=== PATIENT | female | born 1990 | race Caucasian/White ===

== ENCOUNTER 2022-08-10 20:41 | Outpatient (REF) | payer BC, SELFPAY ==
[2022-08-15 11:08] LABS: Age Gdln ACOG Testing Note (.); HPV Aptima Negative (Negative); IGP, Aptima HPV, rfx 16/18,45 Note (.)
== END 2022-08-10 20:42 | disposition home or self-care (01) ==
LOC: LAB 20:41
PROVIDERS: PCP Obstetrics & Gynecology; Visit Provider Obstetrics & Gynecology
DX: Z01.419 Encounter for gynecological examination (general) (routine) without abnormal findings (principal)
CPT/HCPCS: 87624; G0145

== ENCOUNTER 2022-10-14 08:26 | Outpatient (OUT) | payer BC, SELFPAY ==
--- NOTE | 2022-10-14 08:29 | US_ITS ---
[address] [address] Patient Name: RAFITA ISAAC MRN: [id number] date: 1990 Sex: F Assigned Patient Location: US Current Patient Location: US Accession/Order Number: [id number] Exam Date: 10/14/2022 08:30 Report Date: 10/14/2022 09:33 At the request of: JESSICA ABRAHAM Procedure: US OB transvaginal EXAMINATION: US OB transvaginal HISTORY: MISSED MENSES COMPARISON: No relevant comparison available. FINDINGS: Transvaginal images Matute intrauterine gestation Gestational sac: 4.4 cm, 10 weeks 0 days CRL: 2.65 cm, 9 weeks 3 days Yolk sac: 5.6 mm Heart rate: 175 beats minute Cervix: Closed, 5.4 cm The ovaries are normal.. Right corpus luteal cyst The uterus is normal, anteverted, anteflexed Clinical age: 8 weeks 2 days Clinical JUAN LUIS: 05/24/2023 Ultrasound age: 9 weeks 3 days Ultrasound JUAN LUIS: 05/16/2023/ US/US OB transvaginal IMPRESSION: Viable matute intrauterine gestation measuring 9 weeks 3 days Electronically authenticated by: WENDY AU Date: 10/14/2022 09:33
== END 2022-10-14 08:27 | disposition home or self-care (01) ==
LOC: US 08:27
PROVIDERS: PCP Obstetrics & Gynecology; Visit Provider Obstetrics & Gynecology
DX: Z34.91 Encounter for supervision of normal pregnancy, unspecified, first trimester (principal); N92.6 Irregular menstruation, unspecified
CPT/HCPCS: 76817

== ENCOUNTER 2022-10-19 15:51 | Outpatient (OUT) | payer BC, SELFPAY ==
[2022-10-19 16:17] LABS: Basophils Absolute Auto 0.1 10^3/uL (0.0-0.1); Basophils Percent Auto 0.5 % (0.2-2.0); Eosinophils Absolute Auto 0.2 10^3/uL (0.0-0.7); Eosinophils Percent Auto 1.5 % (0.9-7.0); Hematocrit 31.8 % (36.0-48.0); Hemoglobin 10.7 g/dL (12.0-16.0); Immature Granulocytes Abs Auto 0.05 10^3/uL (0.00-0.03); Immature Granulocytes Pct Auto 0.5 % (0.0-0.5); Lymphocytes Percent Auto 27.3 % (20.5-60.0); Mean Corpuscular HGB Conc 33.6 g/dL (29.9-35.2); Mean Corpuscular Hemoglobin 28.8 pg (26.7-34.0); Mean Corpuscular Volume 85.5 fL (81.0-99.0); Mean Platelet Volume 9.2 fL (9.5-13.5); Monocytes Absolute Auto 0.6 10^3/uL (0.3-0.8); Monocytes Percent Auto 5.8 % (1.7-12.0); Neutrophils Percent Auto 64.4 % (43.0-75.0); Platelet Count 268 10^3/uL (150-450); Red Blood Count 3.72 10^6/uL (4.20-5.40); Red Cell Distribution Width 13.3 % (11.0-15.0); White Blood Count 10.9 10^3/uL (4.0-11.0)
[2022-10-19 16:23] LABS: Estimated Average Glucose 103 mg/dL; Glycohemoglobin A1C 5.2 % (4.5-6.2)
[2022-10-19 16:54] LABS: Thyroid Stimulating Hormone 0.639 uIU/mL (0.358-3.740)
[2022-10-21 06:09] LABS: HBsAg Screen Negative (Negative); HCV Ab Non Reactive (Non Reactive); HIV Ab/p24 Ag Screen Non Reactive (Non Reactive)
[2022-10-21 07:08] LABS: Rubella Antibodies, IgG 6.78 index (Immune >0.99)
[2022-10-21 10:08] LABS: Rapid Plasma Reagin, Quant Non Reactive (NonRea<1:1)
== END 2022-10-19 15:52 | disposition home or self-care (01) ==
LOC: LAB 15:52
PROVIDERS: PCP Obstetrics & Gynecology; Visit Provider Obstetrics & Gynecology
DX: Z34.80 Encounter for supervision of other normal pregnancy, unspecified trimester (principal); N92.6 Irregular menstruation, unspecified
CPT/HCPCS: 36415; 83036; 84443; 85025; 86592; 86762; 86803; 86850; 86900; 86901; 87086; 87340; 87389

== ENCOUNTER 2023-01-04 17:59 | Outpatient (OUT) | payer BC, SELFPAY ==
--- NOTE | 2023-01-04 | US_ITS ---
[address] [address] Patient Name: RAFITA ISAAC MRN: [id number] date: 1990 Sex: F Assigned Patient Location: US Current Patient Location: Accession/Order Number: [id number] Exam Date: 01/04/2023 18:00 Report Date: 01/05/2023 07:17 At the request of: KARISSA ANDRADE Procedure: US OB anatomy EXAMINATION: US OB anatomy, US OB cervical length HISTORY: ANATOMY SECOND TRIMESTER Z34.92 COMPARISON: No relevant comparison available. TECHNIQUE: Transabdominal sonographic examination was performed for obstetrical and evaluation. FINDINGS: Number: 1 Heart Rate: 145.9 bpm H.B. /min Amniotic Fluid Volume: Subjectively normal position: Cephalic presentation, longitudinal lie Placental Location: Anterior, placental edge 2.7 cm from the internal os. Grade 1 Cervix Length: 5.9 cm , closed Normal anatomy: Lateral ventricles, cerebellum, posterior fossa, nose, lips, orbits, four-chamber heart, RVOT, LVOT, diaphragm, stomach, kidneys, abdominal cord insertion, bladder, umbilical arteries, three-vessel cord, spine, extremities BIOMETRY: BPD: 5.0 cm 21 weeks 1 days , 52% HC: 18.9 cm 21 weeks 1 days, 42% AC: 15.9 cm 21 weeks 0 days, 39% FL: 3.3 cm 20 weeks 2 days , 16% EFW:375.1 grams; 13 ounces, 25% FL/AC: 20.7 FL/BPD: 65.6 HC/AC: 1.2 GESTATIONAL AGE: Age by EDC: 21 weeks 1 days JUAN LUIS by EDC: 05/16/2023 Age by current US: 20 weeks 6 days JUAN LUIS by current US: 05/18/2023 US/US OB anatomy IMPRESSION: Normal anatomy scan *Reference: [facility] Practice Guideline for the performance of Obstetric Ultrasound Examinations, November 20, 2006. Electronically authenticated by: WENDY AU Date: 01/05/2023 07:17
--- NOTE | 2023-01-04 | US_ITS ---
[address] [address] Patient Name: RAFITA ISAAC MRN: [id number] date: 1990 Sex: F Assigned Patient Location: US Current Patient Location: Accession/Order Number: [id number] Exam Date: 01/04/2023 18:00 Report Date: 01/05/2023 07:17 At the request of: KARISSA ANDRADE Procedure: US OB cervical length EXAMINATION: US OB anatomy, US OB cervical length HISTORY: ANATOMY SECOND TRIMESTER Z34.92 COMPARISON: No relevant comparison available. TECHNIQUE: Transabdominal sonographic examination was performed for obstetrical and evaluation. FINDINGS: Number: 1 Heart Rate: 145.9 bpm H.B. /min Amniotic Fluid Volume: Subjectively normal position: Cephalic presentation, longitudinal lie Placental Location: Anterior, placental edge 2.7 cm from the internal os. Grade 1 Cervix Length: 5.9 cm , closed Normal anatomy: Lateral ventricles, cerebellum, posterior fossa, nose, lips, orbits, four-chamber heart, RVOT, LVOT, diaphragm, stomach, kidneys, abdominal cord insertion, bladder, umbilical arteries, three-vessel cord, spine, extremities BIOMETRY: BPD: 5.0 cm 21 weeks 1 days , 52% HC: 18.9 cm 21 weeks 1 days, 42% AC: 15.9 cm 21 weeks 0 days, 39% FL: 3.3 cm 20 weeks 2 days , 16% EFW:375.1 grams; 13 ounces, 25% FL/AC: 20.7 FL/BPD: 65.6 HC/AC: 1.2 GESTATIONAL AGE: Age by EDC: 21 weeks 1 days JUAN LUIS by EDC: 05/16/2023 Age by current US: 20 weeks 6 days JUAN LUIS by current US: 05/18/2023 US/US OB cervical length IMPRESSION: Normal anatomy scan *Reference: [facility] Practice Guideline for the performance of Obstetric Ultrasound Examinations, November 20, 2006. Electronically authenticated by: WENDY AU Date: 01/05/2023 07:17
== END 2023-01-04 18:00 | disposition home or self-care (01) ==
LOC: US 18:00
PROVIDERS: PCP Obstetrics & Gynecology; Visit Provider Physician Assistant
DX: Z34.92 Encounter for supervision of normal pregnancy, unspecified, second trimester (principal); Z3A.21 21 weeks gestation of pregnancy
CPT/HCPCS: 76805; 76817

== ENCOUNTER 2023-01-14 12:02 | Outpatient (OUT) | payer BC, SELFPAY ==
[2023-01-14 13:15] LABS: Basophils Absolute Auto 0.1 10^3/uL (0.0-0.1); Basophils Percent Auto 0.4 % (0.2-2.0); Eosinophils Absolute Auto 0.2 10^3/uL (0.0-0.7); Eosinophils Percent Auto 1.5 % (0.9-7.0); Hematocrit 32.2 % (36.0-48.0); Hemoglobin 10.5 g/dL (12.0-16.0); Immature Granulocytes Abs Auto 0.37 10^3/uL (0.00-0.03); Immature Granulocytes Pct Auto 2.2 % (0.0-0.5); Lymphocytes Absolute Auto 2.8 10^3/uL (1.2-3.8); Lymphocytes Percent Auto 17.1 % (20.5-60.0); Mean Corpuscular HGB Conc 32.6 g/dL (29.9-35.2); Mean Corpuscular Hemoglobin 28.9 pg (26.7-34.0); Mean Corpuscular Volume 88.7 fL (81.0-99.0); Monocytes Absolute Auto 0.7 10^3/uL (0.3-0.8); Monocytes Percent Auto 4.4 % (1.7-12.0); Neutrophils Absolute Auto 12.3 10^3/uL (1.4-6.5); Neutrophils Percent Auto 74.4 % (43.0-75.0); Platelet Count 268 10^3/uL (150-450); Red Blood Count 3.63 10^6/uL (4.20-5.40); Red Cell Distribution Width 13.8 % (11.0-15.0); White Blood Count 16.5 10^3/uL (4.0-11.0)
[2023-01-14 13:33] LABS: Glucose 1 Hour 136 mg/dL
== END 2023-01-14 12:03 | disposition home or self-care (01) ==
PROVIDERS: Physician Assistant; PCP Family Medicine; Visit Provider Obstetrics & Gynecology
DX: Z13.1 Encounter for screening for diabetes mellitus (principal)
CPT/HCPCS: 36415; 82950; 85025

== ENCOUNTER 2023-03-22 15:08 | Outpatient (OUT) | payer BC, SELFPAY ==
--- NOTE | 2023-03-22 15:11 | US_ITS ---
[address] [address] Patient Name: RAFITA ISAAC MRN: [id number] date: 1990 Sex: F Assigned Patient Location: [facility] Current Patient Location: [facility] Accession/Order Number: [id number] Exam Date: 03/22/2023 15:11 Report Date: 03/22/2023 16:05 At the request of: JESSICA ABRAHAM Procedure: US OB growth EXAMINATION: US OB growth HISTORY: LGA COMPARISON: No relevant comparison available. FINDINGS: Heart Rate: 149.0 bpm Amniotic Fluid Volume: 10.7 cm Number: 1.0 Position: Cephalic presentation Maximum Vertical Pocket: 3.2 cm cm 1.9 cm cm 3.3 cm cm 2.2 cm cm BIOMETRY: BPD: 8.4 cm cm; 33 weeks 6 days; 88% HC: 30.6 cmcm; 34 weeks 1 days , 67% AC: 31.2 cm cm; 35 weeks 1 days, >97% FL: 6.3 cm cm; 32 weeks 4 days; 51.0 % % EFW: 2385.3 grams, 5 lbs. 4 oz., 95% FL/AC: 20.2 FL/BPD: 74.9 HC/AC: 1.0 GESTATIONAL AGE: Age by EDC: 32 weeks 1 days JUAN LUIS by EDC: 05/16/2023 Age by US: 34 weeks 0 days JUAN LUIS by US: 05/03/2023 US/US OB growth IMPRESSION: Large for gestational age. Estimated weight 95th percentile Electronically authenticated by: WENDY AU Date: 03/22/2023 16:05
--- OUTSIDE RECORDS SUMMARY | 2023-03-22 15:12 | XMS_ITS | CCD ---
Author Name Unknown Address [address] [place] [address] Organization [facility] Care Team Providers Care Manager Mac Name Role Phone Brynn Bah Primary Care Provider BRYNN BAH Primary Care Unavailable COLTON GOODMAN Referring Unavailable AGUILAR WOODY Referring Unavailable BRYNN BAH Primary Care Unavailable DR JESSICA ABRAHAM Admitting Unavailable JARAD, DR LOPEZ Attending Unavailable DR JESSICA ABRAHAM Consulting Unavailable KARISSA ANDRADE Attending Unavailable JESSICA ABARHAM Attending Unavailable KARISSA ANDRADE Attending Unavailable JESSICA ABRAHAM Attending Unavailable Medications Current Medications Medication Drug Class(es) Dates Sig (Normalized) Sig (Original) azelastine hydrochloride 0.137 mg/actuat metered dose nasal spray (2 sources) Histamine-1 Receptor Antagonist Start: 04-28-2019 take 1 spray(s) nasal route twice daily azelastine (ASTELIN) 0.1 % nasal spray SPRAY 1 SPRAY INTO EACH NOSTRIL TWICE A DAY 0 04/28/2019 Active Ethinyl Estradiol / norgestimate (2 sources) Progestin, Estrogen Start: 05-27-2019 take 1 tablet by mouth once daily SIX-AT-SUHCVKWB 0.18/0.215/0.25 MG-25 MCG TABS TAKE 1 TABLET BY MOUTH EVERY DAY 0 05/27/2019 Active Problems Problem Classification Problem Date Documented Date Episodic/Chronic Genitourinary symptoms and ill-defined conditions (3 sources) Increased frequency of urination; Translations: [Incomplete emptying of bladder] Episodic Immunizations and screening for infectious disease (1 source) Encounter for screening for human papillomavirus (HPV); Translations: [ENC SCREENING HUMAN PAPILLOMAVIRUS] Onset: 08-04-2021 Episodic Other diseases of bladder and urethra (1 source) Overactive bladder; Translations: [OAB (overactive bladder)] Chronic Other screening for suspected conditions (not mental disorders or infectious disease) (4 sources) Encounter for screening for malignant neoplasm of cervix; Translations: [ENC SCREENING MALIG NEOPLASM CERV] Onset: 08-03-2021 Episodic Results Test Name Value Interpretation Reference Range Facil ity PAP ACOG PANEL 2: 30 to 65on 08-05-2021 . . Normal [facility] Comment on above: Result Comment: Perf ormed at: WB Performed By: #### [id number] #### [facility] [address] [address] [address] Jazmin Turner Age Gdln ACOG Testing 30-65 Normal [facility] Comment on above: Performed By: #### [id number] #### [facility] [address] [address] [address] Jazmin Turner DIAGNOSIS: Comment Normal [facility] Comment on above: Result Comment: NEGA TIVE FOR INTRAEPITHELIAL LESION OR MALIGNANCY. Performed at: WB Performed By: #### [id number] #### [facility] [address] [address] [address] Jazmin Turner HPV Aptima Negative Normal Negative [facility] Comment on above: Result Comment: This nucleic acid amplification test detects fourteen high-risk HPV types (16,18,31,33,35,39,45,51,52,56,58,59,66,68) without differentiation. Performed at: =G Performed By: #### [id number] #### [facility] [address] [address] [address] Jazmin Turner Methodology: Comment Normal [facility] Comment on above: Result Comment: This liquid based ThinPrep(R) pap test was screened with the use of an image guided system. Performed at: WB Performed By: #### [id number] #### [facility] [address] [place] [address] Dr. Jazmin Turner Note: Comment Normal [facility] Comment on above: Result Comment: The Pap smear is a screening test designed to aid in the detection of premalignant and malignant conditions of the uterine cervix. It is not a diagnostic procedure and should not be used as the sole means of detecting cervical cancer. Both false-positive and false-negative reports do occur. . Performed at: WB Performed By: #### [id number] #### [facility] [address] [place] [address] Dr. Jazmin Turner Performed by: Comment Normal [facility] Comment on above: Result Comment: Tong Watts, Supervisor Lime (ASCP) Performed at: WB Performed By: #### [id number] #### [facility] [address] [address] [address] Jazmin Turner Specimen adequacy: Comment Normal [facility] Comment on above: Result Comment: Sati sfactory for evaluation. Endocervical and/or squamous metaplastic cells (endocervical component) are present. Performed at: WB Performed By: #### [id number] #### [facility] [address] [place] [address] Dr. Jazmin Turner Cult,Urineon 12-24-2019 Cult,Urine Specimen Description .CLEAN CATCH URINE Special Requests NOT REPORTED Culture NO SIGNIFICANT GROWTH Report Status FINAL 12/24/2019 [facility] Comment on above: Performed By: #### U RC #### [facility] [address] [place], [place] [id number] Abstract Searcher: Robert Ross MD [facility] [address] [place] [address] [place] [address] Abstract Searcher: Tariq Mesa MD Urinalysis w/ Microon 2019 ----- [facility] Comment on above: Performed By: #### U AMIC #### [facility] [address] [place] [address] Abstract Searcher: Tariq Mesa MD Acetoacetic Acid,Ur Negative Normal NEG [facility] Comment on above: Performed By: #### U AMIC #### [facility] [address] [place] [address] Abstract Searcher: Tariq Mesa MD Bilirubin, SemiQt,Ur Negative Normal NEG [facility] Comment on above: Performed By: #### U AMIC #### [facility] [address] [place] [address] Abstract Searcher: Tariq Mesa MD Color (U) YELLOW Normal YEL [facility] Comment on above: Performed By: #### U AMIC #### [facility] [address] [place] [address] Abstract Searcher: Tariq Mesa MD Epithelial cells LM.HPF (Urine sed) [#/Area] None Normal 0-25 [facility] Comment on above: Performed By: #### U AMIC #### [facility] [address] [place] [address] Abstract Searcher: Tariq Mesa MD Glucose Ql (U) Negative Normal NEG [facility] in [facility] Comment on above: Performed By: #### U AMIC #### [facility] [address] [place] [address] Abstract Searcher: Tariq Mesa MD Hemoglobin, Ur 2+ Abnormal NEG [facility] in [facility] Comment on above: Performed By: #### U AMIC #### [address] [place], [facility] Abstract Searcher: Tariq Mesa MD Leukocyte esterase Test strip Ql (U) Negative Normal NEG [facility] Comment on above: Performed By: #### U AMIC #### [facility] [address] [place], [facility] Abstract Searcher: Tariq Mesa MD Nitrite,Ur Negative Normal NEG [facility] Comment on above: Performed By: #### U AMIC #### [facility] [address] [place] [address] Abstract Searcher: Tariq Mesa MD pH (U) 7.5 [pH] Normal 5.0-9.0 [facility] Comment on above: Performed By: #### U AMIC #### [facility] [address] [place] [id number] Abstract Searcher: Tariq Mesa MD Protein Ql (U) Negative Normal NEG [facility] Comment on above: Performed By: #### U AMIC #### [facility] [address] [place] [id number] Abstract Searcher: Tariq Mesa MD RBC (U) [#/Vol] None Normal 0-2 [facility] Comment on above: Performed By: #### U AMIC #### [facility] [address] [place] [address] Abstract Searcher: Tariq Mesa MD Specific gravity (U) [Rel density] 1.020 Normal 1.010-1.020 [facility] Comment on above: Performed By: #### U AMIC #### [address] [place] [address] Abstract Searcher: Tariq Mesa MD Turbidity CLEAR Normal CLEAR [facility] Comment on above: Performed By: #### U AMIC #### [address] [place] [address] Abstract Searcher: Tariq Mesa MD Urobilinogen,Ur Normal Normal NORM [facility] Comment on above: Performed By: #### U AMIC #### [address] [place] [address] Abstract Searcher: Tariq Mesa MD WBC (U) [#/Vol] None Normal 0-5 [facility] Comment on above: Performed By: #### U AMIC #### [facility] [address] [place] [address] [place] [address] Abstract Searcher: Tariq Mesa MD Amorphous sediment LM Ql (Urine sed) NOT REPORTED Normal [facility] Comment on above: Performed By: #### U AMIC #### [facility] [address] [place] [id number] Abstract Searcher: Tariq Mesa MD Bacteria LM.HPF (Urine sed) [#/Area] NOT REPORTED Normal NONE [facility] Comment on above: Performed By: #### U AMIC #### [facility] [address] [place] [address] Abstract Searcher: Tariq Mesa MD Casts LM.LPF (Urine sed) [#/Area] NOT REPORTED Normal [facility] Comment on above: Performed By: #### U AMIC #### [facility] [address] [place] [address] Abstract Searcher: Tariq Mesa MD Comment NOT REPORTED Normal [facility] Comment on above: Performed By: #### U AMIC #### [facility] [address] [place] [address] Abstract Searcher: Tariq Mesa MD Crystals LM Nom (Urine sed) NOT REPORTED Normal NONE [facility] Comment on above: Performed By: #### U AMIC #### [facility] [address] [place] [address] Abstract Searcher: Tariq Mesa MD Epithelial, Renal NOT REPORTED Normal 0 [facility] Comment on above: Performed By: #### U AMIC #### [facility] [address] [place] [address] Abstract Searcher: Tariq Mesa MD Mucus Strands NOT REPORTED Normal [facility] Comment on above: Performed By: #### U AMIC #### [facility] [address] [place] [address] Abstract Searcher: Tariq Mesa MD Other Observations NOT REPORTED Normal NREQ [facility] Comment on above: Performed By: #### U AMIC #### [facility] [address] [place] [address] Abstract Searcher: Tariq Mesa MD Trichomonas NOT REPORTED Normal NONE [facility] Comment on above: Performed By: #### U AMIC #### [facility] [address] [place] [address] Abstract Searcher: Tariq Mesa MD Yeast LM Ql (Urine sed) NOT REPORTED Normal NONE [facility] Comment on above: Performed By: #### U AMI #### [facility] [address] [place] [address] Abstract Searcher: Tariq Mesa MD Urinalysis with Microscopico n 12-23-2019 Amorphous, UA NOT REPORTED None [facility], [place] Bacteria, UA NOT REPORTED None [place], [place] Bilirubin Urine Negative NEGATIVE [place], [place] Casts UA NOT REPORTED /LPF [facility], [place] Color, UA YELLOW YELLOW [place], [place] Crystals, UA NOT REPORTED None /HPF [facility], [place] Epithelial Cells UA None [place], [place] Glucose, Ur Negative NEGATIVE [place] Interpretation and review of laboratory results Abnormal [place] Ketones Ql (U) Negative NEGATIVE [place] Leukocyte esterase Test strip Ql (U) Negative NEGATIVE [place] Mucus, UA NOT REPORTED None [place], [place] Nitrite, Urine Negative NEGATIVE [place] Other Observations UA NOT REPORTED NOT REQ. [place] pH, UA 7.5 [place] Protein (U) [Mass/Vol] Negative NEGATIVE [place] RBC (U) [#/Vol] None [facility], [place] Renal Epithelial, UA NOT REPORTED 0 /HPF [place], [place] Specific [place], UA 1.020 [place], [place] Trichomonas, UA NOT REPORTED None [facility] [place] Turbidity UA CLEAR CLEAR [place] Urinalysis Comments NOT REPORTED [place], [place] Urine Hgb 2+ Abnormal NEGATIVE [place] Urobilinogen, Urine Normal Normal [place] WBC, UA None [facility], [place] Yeast, UA NOT REPORTED None [place], [place] - [facility] [place] Cult,Urineon 07-27-2019 Cult,Urine Specimen Description .CLEAN CATCH URINE Special Requests NOT REPORTED Culture NO SIGNIFICANT GROWTH Report Status FINAL 07/26/2019 [facility] Comment on above: Performed By: #### U RC #### [facility] [address] [facility] [place] [address] Abstract Searcher: Robert Ross MD [facility] [address] [place] [address] Abstract Searcher: Tariq Mesa MD Urinalysis w/ Microon 2019 ----- [facility] Comment on above: Performed By: #### U AMIC #### [address] [place] [address] Abstract Searcher: Tariq Mesa MD Acetoacetic Acid,Ur Negative Normal NEG [facility] Comment on above: Performed By: #### U AMIC #### [facility] [address] [place] [address] [place] [address] Abstract Searcher: Tariq Mesa MD Bacteria LM.HPF (Urine sed) [#/Area] 1+ Abnormal NONE [facility] Comment on above: Performed By: #### U AMIC #### [address] [place] [address] Abstract Searcher: Tariq Mesa MD Bilirubin, SemiQt,Ur Negative Normal NEG [facility] Comment on above: Performed By: #### U AMIC #### [facility] [address] [place] [address] [place] [address] Abstract Searcher: Tariq Mesa MD Color (U) YELLOW Normal YEL [facility] Comment on above: Performed By: #### U AMIC #### [facility] [address] [place] [address] [place] [address] Abstract Searcher: Tariq Mesa MD Epithelial cells LM.HPF (Urine sed) [#/Area] 2 TO 5 Normal 0-25 [facility] Comment on above: Performed By: #### U AMIC #### [facility] [address] [place] [address] Abstract Searcher: Tariq Mesa MD Glucose Ql (U) Negative Normal NEG [facility] in Hospital Comment on above: Performed By: #### U AMIC #### [facility] [address] [place] [address] Abstract Searcher: Tariq Mesa MD Hemoglobin, Ur 1+ Abnormal NEG [facility] in Hospital Comment on above: Performed By: #### U AMIC #### [facility] [address] [place] [id number] Abstract Searcher: Tariq Mesa MD Leukocyte esterase Test strip Ql (U) Negative Normal NEG [facility] Comment on above: Performed By: #### U AMIC #### [facility] [address] [place], [facility] Abstract Searcher: Tariq Mesa MD Mucus Strands TRACE Abnormal NONE [facility] Comment on above: Performed By: #### U AMIC #### [address] [place] [id number] Abstract Searcher: Tariq Mesa MD Nitrite,Ur Negative Normal NEG [facility] Comment on above: Performed By: #### U AMIC #### [facility] [address] [place], [facility] Abstract Searcher: Tariq Mesa MD pH (U) 7.5 [pH] Normal 5.0-9.0 [facility] Comment on above: Performed By: #### U AMIC #### [facility] [address] [place] [address] Abstract Searcher: Tariq Mesa MD Protein Ql (U) Negative Normal NEG [facility] Comment on above: Performed By: #### U AMIC #### [facility] [address] [place] [address] Abstract Searcher: Tariq Mesa MD RBC (U) [#/Vol] 0 TO 2 Normal 0-2 [facility] Comment on above: Performed By: #### U AMIC #### [facility] [address] [place] [id number] Abstract Searcher: Tariq Mesa MD Specific gravity (U) [Rel density] 1.010 Normal 1.010-1.020 [facility] Comment on above: Performed By: #### U AMIC #### [facility] [address] [place] [id number] Abstract Searcher: Tariq Mesa MD Turbidity CLEAR Normal CLEAR [facility] Comment on above: Performed By: #### U AMIC #### [facility] [address] [place] [id number] Abstract Searcher: Tariq Mesa MD Urobilinogen,Ur Normal Normal NORM [facility] Comment on above: Performed By: #### U AMIC #### [facility] [address] [place] [id number] Abstract Searcher: Tariq Mesa MD WBC (U) [#/Vol] None Normal 0-5 [facility] Comment on above: Performed By: #### U AMIC #### [facility] [address] [place] [address] Abstract Searcher: Tariq Mesa MD Amorphous sediment LM Ql (Urine sed) NOT REPORTED Normal [facility] Comment on above: Performed By: #### U AMIC #### [facility] [address] [place] [address] Abstract Searcher: Tariq Mesa MD Casts LM.LPF (Urine sed) [#/Area] NOT REPORTED Normal [facility] Comment on above: Performed By: #### U AMIC #### [facility] [address] [place] [address] Abstract Searcher: Tariq Mesa MD Comment NOT REPORTED Normal [facility] Comment on above: Performed By: #### U AMIC #### [facility] [address] [place] [address] Abstract Searcher: Tariq Mesa MD Crystals LM Nom (Urine sed) NOT REPORTED Normal [facility] Comment on above: Performed By: #### U AMIC #### [facility] [address] [place] [address] Abstract Searcher: Tariq Mesa MD Epithelial, Renal NOT REPORTED Normal [address] [place] [address] Comment on above: Performed By: #### U AMIC #### [facility] [address] [place] [address] Abstract Searcher: Tariq Mesa MD Other Observations NOT REPORTED Normal NREQ [facility] Comment on above: Performed By: #### U AMIC #### [facility] [address] [place] [address] Abstract Searcher: Tariq Mesa MD Trichomonas NOT REPORTED Normal [facility] Comment on above: Performed By: #### U AMIC #### [facility] [address] [place] [address] Abstract Searcher: Tariq Mesa MD Yeast LM Ql (Urine sed) NOT REPORTED Normal [facility] Comment on above: Performed By: #### U AMIC #### [facility] [address] [place] [address] Abstract Searcher: Tariq Mesa MD Urinalysis with Microscopico n 07-25-2019 Amorphous, UA NOT REPORTED None [facility] [place] [place] Bacteria, UA 1+ Abnormal None [facility] [place] Bilirubin Urine Negative NEGATIVE [facility] [place] Casts UA NOT REPORTED /LPF [facility] [place] Color, UA YELLOW YELLOW [facility] Crystals, UA NOT REPORTED None /HPF [facility] [place] Epithelial Cells UA 2 TO 5 [facility], [place] Glucose, Ur Negative NEGATIVE [facility], [place] Interpretation and review of laboratory results Abnormal [facility], [place] Ketones Ql (U) Negative NEGATIVE [facility], [place] Leukocyte esterase Test strip Ql (U) Negative NEGATIVE [facility], [place] Mucus, UA TRACE Abnormal None [facility], [place] Nitrite, Urine Negative NEGATIVE [facility], [place] Other Observations UA NOT REPORTED NOT REQ. [facility], [place] pH, UA 7.5 [facility], [place] Protein (U) [Mass/Vol] Negative NEGATIVE [facility], [place] RBC (U) [#/Vol] 0 TO 2 [facility], [place] Renal Epithelial, UA NOT REPORTED 0 /HPF Me [facility], [place] Specific [place], UA 1.010 [facility], [place] Trichomonas, UA NOT REPORTED None [facility], [place] Turbidity UA CLEAR CLEAR [place] Urinalysis Comments NOT REPORTED [facility], [place] Urine Hgb 1+ Abnormal NEGATIVE [facility], [place] Urobilinogen, Urine Normal Normal [place], [place] WBC, UA None [facility], [place] Yeast, UA NOT REPORTED None [place] - [place] Encounters Encounter Date Encounter Type Care Provider Facility Start: 03-08-2023 End: 03-08-2023 ambulatory JESSICA ABRAHAM Not Available Start: 02-22-2023 End: 02-22-2023 ambulatory KARISSA ANDRADE Not Available Start: 02-09-2023 End: 02-09-2023 ambulatory JESSICA ABRAHAM Not Available Start: 01-11-2023 End: 01-11-2023 ambulatory KARISSA ANDRADE Not Available Start: 08-03-2021 End: 08-03-[address] JESSICA ABRAHAM Facility: Start: 12-23-2019 End: 12-24-2019 Patient encounter procedure BRYNN BAH [facility] Start: 12-23-2019 End: 12-23-2019 Subsequent hospital visit by physician Brynn DAVID Laboratory Comment on above: Urinary frequency; OAB (overactive bladder); Incomplete bladder emptying Start: 07-25-2019 End: 07-26-2019 Patient encounter procedure AGUILAR WOODY [facility] Start: 07-25-2019 End: 07-25-2019 Subsequent hospital visit by physician Brynn Bah [facility] Laboratory Comment on above: Urinary frequency Procedures Date Procedure Procedure Detail Performing Clinician Start: 12-23-2019 Culture bacterial quanttative colony count urine BRYNN BAH Start: 12-23-2019 Urnls dip stick/tabl et reagent auto microscopy BRYNN BAH Start: 12-23-2019 Urnls dip stick/tabl et reagent auto microscopy Colton Goodman Work Phone: Start: 07-25-2019 Culture bacterial quanttative colony count urine BRYNN BAH Start: 07-25-2019 Urnls dip stick/tabl et reagent auto microscopy BRYNN BAH Start: 07-25-2019 Urnls dip stick/tabl et reagent auto microscopy Aguilar W Bong Work Phone: Plan of Treatment Date Care Activity Detail Author Start: 01-13-2020 End: 01-13-2020 Procedure visit 01/13/2020 Procedure visit Urology Danyel Carson MD [address] [facility], [address] [place] [address] [facility] Start: 10-31-2019 End: 10-31-2019 Office Visit 10/31/2019 Office Visit Urology Aguilar Woody, ENGINEERING PRODUCTION LIAISON - ORDER DEPARTMENT SUPERVISOR [address] [facility] [address] [place] [id number] [facility] Start: 10-22-2019 Influenza vaccination [place], [place] Start: 10-14-2015 DTaP/Tdap/Td vaccine (7 - Td) DTaP/Tdap/Td vaccine (7 - Td) [place], [place] Start: 2009 Screening for malign ant neoplasm of cervix Cervical cancer screen [place] Start: 10-12-2007 DTaP/Tdap/Td vaccine (1 - Tdap) DTaP/Tdap/Td vaccine (1 - Tdap) [place] Start: 10-12-2003 HIV screening HIV screen [facility] [place], [place] Start: 1994 Pneumococcal 0-64 ye ars Vaccine (1 of 1 - PPSV23) Pneumococcal 0-64 years Vaccine (1 of 1 - PPSV23) [place], [place] Start: 1989 Varicella vaccine (1 of 2 - 2-dose childhood series) Varicella vaccine (1 of 2 - 2-dose childhood series) [place] End: 12-23-2019 Culture, Urine Culture, Urine Microbiology Routine Urinary frequency OAB (overactive bladder) Incomplete bladder emptying 1 Occurrences starting 12/23/2019 until 12/23/2019 [place] Comment on above: 1 Occurrences starti ng 12/23/2019 until 12/23/2019 Culture, Urine [place] End: 07-25-2019 Culture, Urine Culture, Urine Microbiology Routine Urinary frequency 1 Occurrences starting 07/25/2019 until 07/25/2019 [place], [place] Comment on above: 1 Occurrences starti ng 07/25/2019 until 07/25/2019 Payers Date Payer Category Payer Unknown [id number] 2014 Private Health Insurance [employer] A ETNA NAP CHOICE POS II xxxxxxxxxx 2014-Present [phone] [address] [place] [address] xxxxxxxxxx [id number] 1988 Unknown [id number] .173 1988 Unknown [id number] .[id number] .173 1988 Unknown [id number] .593 1988 Unknown [id number] [id number] .1259 1988 Unknown [id number] 2.16.840.1.535719.3.579.2 .1259 1988 Unknown [id number] 2.16.840.1.137778.3.579.2 .1259 1988 Unknown [id number] .1259 1959 Private Health Insurance [id number] Social History Date Type Detail Facility Start: 07-25-2019 End: 12-23-2019 Tobacco smoking status NHIS Current every day smoker [place], [place] History of tobacco use Cigarette Smoker M [place], [place] Start: 07-25-2019 End: 12-23-2019 Cigarettes smoked current (pack per day) - Reported [place], [place] Start: 12-23-2019 Tobacco use and exposure Never used [place], [place] Start: 07-25-2019 End: 12-23-2019 Alcohol intake Current drinker of alcohol (finding) [place] Start: 07-25-2019 Alcohol Comment rare Vj Joann [place], [place] Sex Assigned At Not on file [place], [place] Assessments Diagnosis Urinary frequency OAB (overactive bladder) Hypertonicity of bladder Incomplete bladder emptying Diagnosis Urinary frequency Advance Directives No Advanced Directives Records FoundDocuments on File Type Date Recorded 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 ACP-Advance Directive ACP-Power of Fiber Optics Engineer Documents on File Type Date Recorded 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 Advance Directives and Living Will Power of Fiber Optics Engineer Summary Purpose Family History No Family History Records FoundNo Family History Records FoundNo Family History Records Found Additional Source Comments INFORMATION SOURCE (unrecogn ized section and content) DATE CREATED AUTHOR 12/25/2019 [facility] DATE CREATED AUTHOR AUTHOR'S ORGANIZ ATION 08/06/2021 [facility] DATE CREATED AUTHOR AUTHOR'S ORGANIZ ATION 03/09/2023 [facility] FOR RECORDS PERTAINING TO PATIENTS WHO ARE OR HAVE BEEN ENROLLED IN A CHEMICAL DEPENDENCY/SUBSTANCEABUSE PROGRAM, SOME INFORMATION MAY BE OMITTED. This clinical summary was aggregated from multiple sources. Caution should be exercised in using it in the provision of clinical care. This summary normalizes information from multiple sources, and as a consequence, information in this document may materially change the coding, format and clinical context of patient data. In addition, data may be omitted in some cases. CLINICAL DECISIONS SHOULD BE BASED ON THE PRIMARY CLINICAL RECORDS. [facility] [employer] [facility]. provides no warranty or guarantee of the accuracy or completeness of information in this document.
== END 2023-03-22 15:09 | disposition home or self-care (01) ==
LOC: NOMS 15:09
PROVIDERS: PCP Family Medicine; Visit Provider Obstetrics & Gynecology
DX: O36.63X1 Maternal care for excessive fetal growth, third trimester, fetus 1 (principal); Z3A.32 32 weeks gestation of pregnancy
CPT/HCPCS: 76816

== ENCOUNTER 2023-03-27 08:05 | Outpatient (OUT) | payer BC, SELFPAY ==
--- NOTE | 2023-03-27 | US_ITS ---
[address] [address] Patient Name: RAFITA ISAAC MRN: [id number] date: 1990 Sex: F Assigned Patient Location: [facility] Current Patient Location: Accession/Order Number: [id number] Exam Date: 03/27/2023 14:00 Report Date: 03/27/2023 15:25 At the request of: KARISSA ANDRADE Procedure: US OB BPP w non-stress EXAMINATION: US OB BPP w non-stress HISTORY: EXCESSIVE GROWTH O36.63X0 COMPARISON: No relevant comparison available. TECHNIQUE: Ultrasound biophysical profile was performed in the radiology department. non-reactive stress testing was performed by nursing staff in the birthing center. FINDINGS: BREATHING MOVEMENTS: 2.0 GROSS BODY MOVEMENTS: 2.0 TONE: 2.0 QUALITATIVE AMNIOTIC FLUID VOLUME: 2.0 PRESENTATION: CEPHALIC HEART RATE: 138.5 bpm H.B./min AMNIOTIC FLUID VOLUME: 13.3 cm cm GESTATIONAL AGE: 32 weeks 6 days CONCLUSION: Total biophysical profile score: 8.0 Electronically authenticated by: WENDY AU Date: 03/27/2023 15:25
--- OUTSIDE RECORDS SUMMARY | 2023-03-27 08:22 | XMS_ITS | CCD ---
Author Name Unknown Address [address] [place] [address] Organization [facility] Care Team Providers Care Master [employer] Name Role Phone Brynn Bah Primary Care Provider [phone] BRYNN BAH Primary Care Unavailable COLTON GOODMAN Referring Unavailable AGUILAR WOODY Referring Unavailable BRYNN BAH Primary Care Unavailable DR JESSICA ABRAHAM Admitting Unavailable JARAD, DR LOPEZ Attending Unavailable DR JESSICA ABRAHAM Consulting Unavailable KARISSA ANDRADE Attending Unavailable JESSICA ABRAHAM Attending Unavailable KARISSA ANDRADE Attending Unavailable KARISSA ANDRADE Attending Unavailable JESSICA [...] take 1 tablet by mouth once daily [id number] 0.18/0.215/0.25 MG-25 MCG TABS TAKE 1 TABLET [...] 30 to 65on 08-05-2021 . . Normal [facility] Comment on above: Result Comment: Perf ormed at: WB Performed By: #### [id number] #### [facility] [address] [address] [address] Jazmin Turner Age Gdln ACOG Testing 30-65 [facility] Comment on above: Performed By: #### [id number] #### [facility] [address] [address] [address] Jazmin Turner DIAGNOSIS: Comment Normal [facility] Comment on above: Result Comment: NEGA TIVE FOR INTRAEPITHELIAL LESION OR MALIGNANCY. Performed at: WB Performed By: #### [id number] #### [facility] [address] [address] [address] Jazmin Turner HPV Aptima Negative Normal Negative [facility] Comment on above: Result Comment: This nucleic acid amplification test detects fourteen high-risk HPV types (16,18,31,33,35,39,45,51,52,56,58,59,66,68) without differentiation. Performed at: =G Performed By: #### [id number] #### [facility] [address] [address] [address] Jazmin Turner Methodology: Comment [facility] Comment on above: Result Comment: This liquid based ThinPrep(R) pap test was screened with the use of an image guided system. Performed at: WB Performed By: #### [id number] #### [facility] [address] [place] [address] Dr. Jazmin Turner Note: Comment Normal [facility] Comment on above: Result Comment: The Pap smear is a screening test designed to aid in the detection of premalignant and malignant conditions of the uterine cervix. It is not a diagnostic procedure and should not be used as the sole means of detecting cervical cancer. Both false-positive and false-negative reports do occur. . Performed at: WB Performed By: #### [id number] #### [facility] [address] [address] [address] Jazmin Turner Performed by: Comment Normal [facility] Comment on above: Result Comment: Tong Watts, Insurance Rater (ASCP) Performed at: WB Performed By: #### [id number] #### [facility] [address] [address] [address] Jazmin Turner Specimen adequacy: Comment Normal [facility] Comment on above: Result Comment: Sati sfactory for evaluation. Endocervical and/or squamous metaplastic cells (endocervical component) are present. Performed at: WB Performed By: #### [id number] #### [facility] [address] [place] [address] Dr. Jazmin Turner Cult,Urineon 12-24-2019 Cult,Urine Specimen Description .CLEAN CATCH URINE Special Requests NOT REPORTED Culture NO SIGNIFICANT GROWTH Report Status FINAL 12/24/2019 [facility] Comment on above: Performed By: #### U RC #### [facility] [address] [place] [address] Metal Worker: Robert Ross MD [facility] [address] [place] [address] [place] [address] Metal Worker: Tariq Mesa MD Urinalysis w/ Microon 2019 ----- Normal [facility] Comment on above: Performed By: #### U AMIC #### [facility] [address] [place] [address] Metal Worker: Tariq Mesa MD Acetoacetic Acid,Ur Negative [facility] Comment on above: Performed By: #### U AMIC #### [facility] [address] [place] [address] Metal Worker: Tariq Mesa MD Bilirubin, SemiQt,Ur Negative Normal NEG [facility] Comment on above: Performed By: #### U AMIC #### [facility] [address] [place] [address] Metal Worker: Tariq Mesa MD Color (U) YELLOW Normal YEL [facility] Comment on above: Performed By: #### U AMIC #### [facility] [address] [place] [address] Metal Worker: Tariq Mesa MD Epithelial cells LM.HPF (Urine sed) [#/Area] None Normal 0-25 [facility] Comment on above: Performed By: #### U AMIC #### [facility] [address] [place] [address] Metal Worker: Tariq Mesa MD Glucose Ql (U) Negative Normal NEG [facility] Comment on above: Performed By: #### U AMIC #### [facility] [address] [place], [facility] Metal Worker: Tariq Mesa MD Hemoglobin, Ur 2+ Abnormal NEG [facility] Comment on above: Performed By: #### U AMIC #### [facility] [address] [place], [facility] Metal Worker: Tariq Mesa MD Leukocyte esterase Test strip Ql (U) Negative Normal NEG [facility] Comment on above: Performed By: #### U AMIC #### [facility] [address] [place], [facility] Metal Worker: Tariq Mesa MD Nitrite,Ur Negative Normal [facility] Comment on above: Performed By: #### U AMIC #### [facility] [address] [place] [address] Metal Worker: Tariq Mesa MD pH (U) 7.5 [pH] Normal 5.0-9.0 [facility] Comment on above: Performed By: #### U AMIC #### [facility] [address] [place] [address] Metal Worker: Tariq Mesa MD Protein Ql (U) Negative Normal NEG [facility] Comment on above: Performed By: #### U AMIC #### [facility] [address] [place], [place] [id number] Metal Worker: Tariq Mesa MD RBC (U) [#/Vol] None Normal 0-2 [facility] Comment on above: Performed By: #### U AMIC #### [facility] [address] [place] [address] Metal Worker: Tariq Mesa MD Specific gravity (U) [Rel density] 1.020 Normal 1.010-1.020 [facility] Comment on above: Performed By: #### U AMIC #### [facility] [address] [place] [address] Metal Worker: Tariq Mesa MD Turbidity CLEAR Normal CLEAR [facility] Comment on above: Performed By: #### U AMIC #### [address] [place], [place] [id number] Metal Worker: Tariq Mesa MD Urobilinogen,Ur Normal Normal NORM [facility] Comment on above: Performed By: #### U AMIC #### [facility] [address] [place] [address] Metal Worker: Tariq Mesa MD WBC (U) [#/Vol] None Normal 0-5 [facility] Comment on above: Performed By: #### U AMIC #### [facility] [address] [place], [place] 17[address]383 Metal Worker: Tariq Mesa MD Amorphous sediment LM Ql (Urine sed) NOT REPORTED Normal [facility] Comment on above: Performed By: #### U AMIC #### [facility] [address] [place] [address] Metal Worker: Traiq Mesa MD Bacteria LM.HPF (Urine sed) [#/Area] NOT REPORTED Normal NONE [facility] Comment on above: Performed By: #### U AMIC #### [facility] [address] [place] [address] Metal Worker: Tariq Mesa MD Casts LM.LPF (Urine sed) [#/Area] NOT REPORTED Normal [facility] Comment on above: Performed By: #### U AMIC #### [facility] [address] [place] [address] Metal Worker: Tariq Mesa MD Comment NOT REPORTED Normal [facility] Comment on above: Performed By: #### U AMIC #### [facility] [address] [place] [address] Metal Worker: Tariq Mesa MD Crystals LM Nom (Urine sed) NOT REPORTED Normal NONE [facility] Comment on above: Performed By: #### U AMIC #### [facility] [address] [place] [address] Metal Worker: Tariq Mesa MD Epithelial, Renal NOT REPORTED Normal 0 [facility] Comment on above: Performed By: #### U AMIC #### [facility] [address] [place] [address] Metal Worker: Tariq Mesa MD Mucus Strands NOT REPORTED Normal NONE [facility] Comment on above: Performed By: #### U AMIC #### [facility] [address] [place] [address] Metal Worker: Tariq Mesa MD Other Observations NOT REPORTED Normal NREQ [facility] Comment on above: Performed By: #### U AMIC #### [facility] [address] [place] [address] Metal Worker: Tariq Mesa MD Trichomonas NOT REPORTED Normal NONE [facility] Comment on above: Performed By: #### U AMIC #### [facility] [address] [place] [address] Metal Worker: Tariq Mesa MD Yeast LM Ql (Urine sed) NOT REPORTED Normal NONE [facility] Comment on above: Performed By: #### U AMI #### [facility] [address] [place] [address] Metal Worker: Tariq Mesa MD Urinalysis with Microscopico n 12-23-2019 Amorphous, UA NOT REPORTED None [facility] Bacteria, UA NOT REPORTED None [place], [place] Bilirubin Urine Negative NEGATIVE [facility] Casts UA NOT REPORTED /LPF [place], [place] Color, UA YELLOW YELLOW [place] Crystals, UA NOT REPORTED None /HPF [place], [place] Epithelial Cells UA None [place] Glucose, Ur Negative NEGATIVE [place] Interpretation and review of laboratory results Abnormal [place] Ketones Ql (U) Negative NEGATIVE [place] Leukocyte esterase Test strip Ql (U) Negative NEGATIVE [place] Mucus, UA NOT REPORTED None [place], [place] Nitrite, Urine Negative NEGATIVE [place] Other Observations UA NOT REPORTED NOT REQ. [place] pH, UA 7.5 [place] Protein (U) [Mass/Vol] Negative NEGATIVE [place] RBC (U) [#/Vol] None [facility] Renal Epithelial, UA NOT REPORTED 0 /HPF [place], [place] Specific [place], UA 1.020 [place], [place] Trichomonas, UA NOT REPORTED None [facility] Turbidity UA CLEAR CLEAR [place] Urinalysis Comments NOT REPORTED [place], [place] Urine Hgb 2+ Abnormal NEGATIVE [place] Urobilinogen, Urine Normal Normal [place] WBC, UA None [place] Yeast, UA NOT REPORTED None [place], [place] - [facility] [place], [place] Cult,Urineon 07-27-2019 Cult,Urine Specimen Description .CLEAN CATCH URINE Special Requests NOT REPORTED Culture NO SIGNIFICANT GROWTH Report Status FINAL 07/26/2019 [facility] Comment on above: Performed By: #### U RC #### [facility] [address], [place] [id number] Metal Worker: Robert Ross MD [facility] [address] [place] [address] Metal Worker: Tariq Mesa MD Urinalysis w/ Microon 2019 ----- Normal [facility] Comment on above: Performed By: #### U AMIC #### [address] [place], [place] [id number] Metal Worker: Tariq Mesa MD Acetoacetic Acid,Ur Negative Normal NEG [facility] Comment on above: Performed By: #### U AMIC #### [facility] [address] [place] [address] [address], [place] [id number] Metal Worker: Tariq Mesa MD Bacteria LM.HPF (Urine sed) [#/Area] 1+ Abnormal NONE [facility] Comment on above: Performed By: #### U AMIC #### [facility] [address] [place] [address] [address] [place], [place] [id number] Metal Worker: Tariq Mesa MD Bilirubin, SemiQt,Ur Negative Normal [facility] Comment on above: Performed By: #### U AMIC #### [facility] [address] [place], [place] [id number] Metal Worker: Tariq Mesa MD Color (U) YELLOW Normal YEL [facility] Comment on above: Performed By: #### U AMIC #### [facility] [address] [place], [place] [id number] Metal Worker: Tariq Mesa MD Epithelial cells LM.HPF (Urine sed) [#/Area] 2 TO 5 Normal 0-25 [facility] Comment on above: Performed By: #### U AMIC #### [facility] [address] [place], [facility]83 Metal Worker: Tariq Mesa MD Glucose Ql (U) Negative Normal NEG [facility] Comment on above: Performed By: #### U AMIC #### [facility] [address] [place], [facility]83 Metal Worker: Tariq Mesa MD Hemoglobin, Ur 1+ Abnormal NEG [facility] Comment on above: Performed By: #### U AMIC #### [facility] [address] [place] [id number] Metal Worker: Tariq Mesa MD Leukocyte esterase Test strip Ql (U) Negative Normal NEG [facility] Comment on above: Performed By: #### U AMIC #### [facility] [address] [place], [facility]83 Metal Worker: Tariq Mesa MD Mucus Strands TRACE Abnormal NONE [facility] Comment on above: Performed By: #### U AMIC #### [address] [place], [facility]83 Metal Worker: Tariq Mesa MD Nitrite,Ur Negative Normal NEG [facility] Comment on above: Performed By: #### U AMIC #### [facility] [address] [place], [facility]83 Metal Worker: Tariq Mesa MD pH (U) 7.5 [pH] Normal 5.0-9.0 [facility] Comment on above: Performed By: #### U AMIC #### [facility] [address] [place] [address] Metal Worker: Tariq Mesa MD Protein Ql (U) Negative Normal NEG [facility] Comment on above: Performed By: #### U AMIC #### [facility] [address] [place] [address] Metal Worker: Tariq Mesa MD RBC (U) [#/Vol] 0 TO 2 Normal 0-2 [facility] Comment on above: Performed By: #### U AMIC #### [facility] [address] [place] [id number] Metal Worker: Tariq Mesa MD Specific gravity (U) [Rel density] 1.010 Normal 1.010-1.020 [facility] Comment on above: Performed By: #### U AMIC #### [facility] [address] [place] [id number] Metal Worker: Tariq Mesa MD Turbidity CLEAR Normal CLEAR [facility] Comment on above: Performed By: #### U AMIC #### [address] [place] [id number] Metal Worker: Tariq Mesa MD Urobilinogen,Ur Normal Normal NORM [facility] Comment on above: Performed By: #### U AMIC #### [address] [place] [address] Metal Worker: Tariq Mesa MD WBC (U) [#/Vol] None Normal 0-5 [facility] Comment on above: Performed By: #### U AMIC #### [facility] [address] [place] [address] Metal Worker: Tariq Mesa MD Amorphous sediment LM Ql (Urine sed) NOT REPORTED Normal [facility] Comment on above: Performed By: #### U AMIC #### [facility] [address] [place] [address] Metal Worker: Tariq Mesa MD Casts LM.LPF (Urine sed) [#/Area] NOT REPORTED Normal [facility] Comment on above: Performed By: #### U AMIC #### [facility] [address] [place] [address] Metal Worker: Tariq Mesa MD Comment NOT REPORTED Normal [facility] Comment on above: Performed By: #### U AMIC #### [facility] [address] [place] [address] Metal Worker: Tariq Mesa MD Crystals LM Nom (Urine sed) NOT REPORTED Normal [facility] Comment on above: Performed By: #### U AMIC #### [facility] [address] [place] [address] Metal Worker: Tariq Mesa MD Epithelial, Renal NOT REPORTED Normal [address] [place] [address] Comment on above: Performed By: #### U AMIC #### [facility] [address] [place] [address] Metal Worker: Tariq Mesa MD Other Observations NOT REPORTED Normal NREQ [facility] Comment on above: Performed By: #### U AMIC #### [facility] [address] [place], [place] [id number] Metal Worker: Tariq Mesa MD Trichomonas NOT REPORTED Normal [facility] Comment on above: Performed By: #### U AMIC #### [facility] [address] [place] [address] Metal Worker: Tariq Mesa MD Yeast LM Ql (Urine sed) NOT REPORTED Normal [facility] Comment on above: Performed By: #### U AMIC #### [facility] [address] [place] [address] Metal Worker: Tariq Mesa MD Urinalysis with Microscopico n 07-25-2019 Amorphous, UA NOT REPORTED None [facility] [place] Bacteria, UA 1+ Abnormal None [facility] [place] Bilirubin Urine Negative NEGATIVE [facility] [place] Casts UA NOT REPORTED /LPF [facility] [place] Color, UA YELLOW YELLOW [facility] Crystals, UA NOT REPORTED None /HPF [facility] Epithelial Cells UA 2 TO 5 [facility], [place] Glucose, Ur Negative NEGATIVE [facility] Interpretation and review of laboratory results Abnormal [place] Ketones Ql (U) Negative NEGATIVE [facility] Leukocyte esterase Test strip Ql (U) Negative NEGATIVE [facility] Mucus, UA TRACE Abnormal None [facility] Nitrite, Urine Negative NEGATIVE [facility], [place] Other Observations UA NOT REPORTED NOT REQ. [facility] pH, UA 7.5 [facility] Protein (U) [Mass/Vol] Negative NEGATIVE [facility] RBC (U) [#/Vol] 0 TO 2 [facility] Renal Epithelial, UA NOT REPORTED 0 /HPF [facility], [place] Specific [place], UA 1.010 [facility], [place] Trichomonas, UA NOT REPORTED None [facility] [place] Turbidity UA CLEAR CLEAR [place] Urinalysis Comments NOT REPORTED [place], [place] Urine Hgb 1+ Abnormal NEGATIVE [facility], [place] Urobilinogen, Urine Normal Normal [place] WBC, UA None [facility], [place] Yeast, UA NOT REPORTED None [facility], [place] Encounters Encounter Date Encounter Type Care Provider Facility Start: 03-22-2023 End: 03-22-2023 ambulatory KARISSA ANDRADE Not Available Start: 03-08-2023 End: 03-08-2023 ambulatory JESSICA ABRAHAM Not Available Start: 02-22-2023 End: 02-22-2023 ambulatory KARISSA ANDRADE Not Available Start: 02-09-2023 End: 02-09-2023 ambulatory JESSICA ABRAHAM Not Available Start: 01-11-2023 End: 01-11-2023 ambulatory KARISAS ANDRADE Not Available Start: 08-03-2021 End: 08-03-[address] JESSICA ABRAHAM Facility: Start: 12-23-2019 End: 12-24-2019 Patient encounter procedure BRYNN BAH [facility] Start: 12-23-2019 End: 12-23-2019 Subsequent hospital visit by physician Brynn DAVID Laboratory Comment on above: Urinary frequency; OAB (overactive bladder); Incomplete bladder emptying Start: 07-25-2019 End: 07-26-2019 Patient encounter procedure AGUILAR WOODY [facility] Start: 07-25-2019 End: 07-25-2019 Subsequent hospital visit by physician Brynn DAVID Laboratory Comment on above: Urinary frequency Procedures Date Procedure Procedure Detail Performing Clinician Start: 12-23-2019 Culture bacterial quanttative colony count urine BRYNN BAH Start: 12-23-2019 Urnls dip stick/tabl et reagent auto microscopy BRYNN BAH Start: 12-23-2019 Urnls dip stick/tabl et reagent auto microscopy Colton Milli Goodman Work Phone: Start: 07-25-2019 Culture bacterial quanttative colony count urine BRYNN ABH Start: 07-25-2019 Urnls dip stick/tabl et reagent auto microscopy BRYNN BAH Start: 07-25-2019 Urnls dip stick/tabl et reagent auto microscopy Aguilar Woody Work Phone: Plan of Treatment Date Care Activity Detail Author Start: 01-13-2020 End: 01-13-2020 Procedure visit 01/13/2020 Procedure visit Urology Danyel Carson MD [address] [facility], [address] [place] [address] [facility] Start: 10-31-2019 End: 10-31-2019 Office Visit 10/31/2019 Office Visit Urology Aguilar Woody, 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 [address] [facility] [address] [place] [id number] [facility] Start: 10-22-2019 Influenza vaccination [place] Start: 10-14-2015 DTaP/Tdap/Td vaccine (7 - Td) DTaP/Tdap/Td vaccine (7 - Td) [place], [place] Start: 2009 Screening for malign ant neoplasm of cervix Cervical cancer screen [place] Start: 10-12-2007 DTaP/Tdap/Td vaccine (1 - Tdap) DTaP/Tdap/Td vaccine (1 - Tdap) [place] Start: 10-12-2003 HIV screening HIV screen [facility] [place], [place] Start: 1994 Pneumococcal 0-64 ye ars Vaccine (1 of 1 - PPSV23) Pneumococcal 0-64 years Vaccine (1 of 1 - PPSV23) [place], [place] Start: 1989 Varicella vaccine (1 of 2 - 2-dose childhood series) Varicella vaccine (1 of 2 - 2-dose childhood series) [place] End: 12-23-2019 Culture, Urine Culture, Urine Microbiology Routine Urinary frequency OAB (overactive bladder) Incomplete bladder emptying 1 Occurrences starting 12/23/2019 until 12/23/2019 [place] Comment on above: 1 Occurrences starti ng 12/23/2019 until 12/23/2019 Culture, Urine [place] End: 07-25-2019 Culture, Urine Culture, Urine Microbiology Routine Urinary frequency 1 Occurrences starting 07/25/2019 until 07/25/2019 [place] Comment on above: 1 Occurrences starti ng 07/25/2019 until 07/25/2019 Payers Date Payer Category Payer Unknown [id number] 2014 Private Health Insurance [employer] A ETNA NAP CHOICE POS II xxxxxxxxxx 2014-Present [phone] [address] [place] [address] xxxxxxxxxx [id number] 1988 Unknown [id number] 1988 Unknown [id number] 1988 Unknown [id number] 1988 Unknown [id number] .[id number] 1988 Unknown [id number] .[id number] 1988 Unknown [id number] .9 1988 Unknown [id number] .9 1988 Unknown [id number] .1259 1959 Private Health Insurance [id number] Social History Date Type Detail Facility Start: 07-25-2019 End: 12-23-2019 Tobacco smoking status NHIS Current every day smoker [place] History of tobacco use Cigarette Smoker [place] Start: 07-25-2019 End: 12-23-2019 Cigarettes smoked current (pack per day) - Reported [place] Start: 12-23-2019 Tobacco use and exposure Never used [place] Start: 07-25-2019 End: 12-23-2019 Alcohol intake Current drinker of alcohol (finding) [place] Start: 07-25-2019 Alcohol Comment rare Joslyn David [place] Sex Assigned At Not on file [place] Assessments Diagnosis Urinary frequency OAB (overactive bladder) Hypertonicity of bladder Incomplete bladder emptying Diagnosis Urinary frequency Advance Directives No Advanced Directives Records FoundDocuments on File Type Date 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 ACP-Advance Directive ACP-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 Documents on File Type Date 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 Advance Directives and Living Will 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 Summary Purpose Family History No Family History Records FoundNo Family History Records FoundNo Family History Records Found Additional Source Comments INFORMATION SOURCE (unrecogn ized section and content) DATE CREATED AUTHOR 12/25/2019 [facility] DATE CREATED AUTHOR AUTHOR'S ORGANIZ ATION 08/06/2021 [facility] DATE CREATED AUTHOR AUTHOR'S ORGANIZ ATION 03/24/2023 [facility] FOR RECORDS PERTAINING TO PATIENTS WHO ARE [...] BE BASED ON THE PRIMARY CLINICAL RECORDS. [facility] [employer] [facility]. provides no warranty or guarantee of the accuracy or completeness of information in this document.
[2023-03-27 14:35] VITALS: BP 109/64; PULSE 90
== END 2023-03-27 14:55 | disposition home or self-care (01) ==
LOC: US 08:19 → FBC 13:56
PROVIDERS: PCP Family Medicine; Visit Provider Physician Assistant
DX: O36.63X1 Maternal care for excessive fetal growth, third trimester, fetus 1 (principal); Z3A.32 32 weeks gestation of pregnancy
CPT/HCPCS: 76818

== ENCOUNTER 2023-03-30 07:50 | Outpatient (OUT) | payer BC, SELFPAY ==
--- OUTSIDE RECORDS SUMMARY | 2023-03-30 07:59 | XMS_ITS | CCD ---
Author Name Unknown Address [address] [place] [address] Organization [facility] Care Team Providers Care Educational Technology Coordinator Name Role Phone Brynn Bah Primary Care [...] take 1 tablet by mouth once daily [id number] 0.18/0.215/0.25 MG-25 MCG TABS TAKE 1 TABLET [...] 30 to 65on 08-05-2021 . . Normal [facility] Comment on above: Result Comment: Perf ormed at: WB Performed By: #### [id number] #### [facility] [address] [address] [address] Jazmin Turner Age Gdln ACOG Testing 30-65 [facility] Comment on above: Performed By: #### [id number] #### [facility] [address] [address] [address] Jazmin Turner DIAGNOSIS: Comment Normal [facility] Comment on above: Result Comment: NEGA TIVE FOR INTRAEPITHELIAL LESION OR MALIGNANCY. Performed at: WB Performed By: #### [id number] #### [facility] [address] [address] [address] Jazmin Turner HPV Aptima Negative Normal Negative [facility] Comment on above: Result Comment: This nucleic acid amplification test detects fourteen high-risk HPV types (16,18,31,33,35,39,45,51,52,56,58,59,66,68) without differentiation. Performed at: =G Performed By: #### [id number] #### [facility] [address] [address] [address] Jazmin Turner Methodology: Comment [facility] Comment on above: Result Comment: This liquid based ThinPrep(R) pap test was screened with the use of an image guided system. Performed at: WB Performed By: #### [id number] #### [facility] [address] [place] [address] Dr. Jazmin Turner Note: Comment Normal [facility] Comment on above: Result Comment: The Pap smear is a screening test designed to aid in the detection of premalignant and malignant conditions of the uterine cervix. It is not a diagnostic procedure and should not be used as the sole means of detecting cervical cancer. Both false-positive and false-negative reports do occur. . Performed at: WB Performed By: #### [id number] #### [facility] [address] [address] [address] Jazmin Turner Performed by: Comment Normal [facility] Comment on above: Result Comment: Tong Watts, Targeting Acquisition Officer (ASCP) Performed at: WB Performed By: #### [id number] #### [facility] [address] [address] [address] Jazmin Turner Specimen adequacy: Comment Normal [facility] Comment on above: Result Comment: Sati sfactory for evaluation. Endocervical and/or squamous metaplastic cells (endocervical component) are present. Performed at: WB Performed By: #### [id number] #### [facility] [address] [place] [address] Dr. Jazmin Turner Cult,Urineon 12-24-2019 Cult,Urine Specimen Description .CLEAN CATCH URINE Special Requests NOT REPORTED Culture NO SIGNIFICANT GROWTH Report Status FINAL 12/24/2019 [facility] Comment on above: Performed By: #### U RC #### [facility] [address] [place] [address] Cancer Genetic Counselor: Robert Ross MD [facility] [address] [place] [address] [place] [address] Cancer Genetic Counselor: Tariq Mesa MD Urinalysis w/ Microon 2019 ----- Normal [facility] Comment on above: Performed By: #### U AMIC #### [facility] [address] [place] [address] Cancer Genetic Counselor: Tariq Mesa MD Acetoacetic Acid,Ur Negative [facility] Comment on above: Performed By: #### U AMIC #### [facility] [address] [place] [address] Cancer Genetic Counselor: Tariq Mesa MD Bilirubin, SemiQt,Ur Negative Normal [facility] Comment on above: Performed By: #### U AMIC #### [facility] [address] [place] [address] Cancer Genetic Counselor: Tariq Mesa MD Color (U) YELLOW Normal YEL [facility] Comment on above: Performed By: #### U AMIC #### [facility] [address] [place] [address] Cancer Genetic Counselor: Tariq Mesa MD Epithelial cells LM.HPF (Urine sed) [#/Area] None Normal 0-25 [facility] Comment on above: Performed By: #### U AMIC #### [facility] [address] [place] [address] Cancer Genetic Counselor: Tariq Mesa MD Glucose Ql (U) Negative Normal NEG [facility] Comment on above: Performed By: #### U AMIC #### [facility] [address] [place], [facility] Cancer Genetic Counselor: Tariq Mesa MD Hemoglobin, Ur 2+ Abnormal NEG [facility] Comment on above: Performed By: #### U AMIC #### [facility] [address] [place], [facility] Cancer Genetic Counselor: Tariq Mesa MD Leukocyte esterase Test strip Ql (U) Negative Normal NEG [facility] Comment on above: Performed By: #### U AMIC #### [facility] [address] [place], [facility] Cancer Genetic Counselor: Tariq Mesa MD Nitrite,Ur Negative Normal [facility] Comment on above: Performed By: #### U AMIC #### [facility] [address] [place] [address] Cancer Genetic Counselor: Tariq Mesa MD pH (U) 7.5 [pH] Normal 5.0-9.0 [facility] Comment on above: Performed By: #### U AMIC #### [facility] [address] [place] [address] Cancer Genetic Counselor: Tariq Mesa MD Protein Ql (U) Negative Normal NEG [facility] Comment on above: Performed By: #### U AMIC #### [facility] [address] [place], [place] [id number] Cancer Genetic Counselor: Tariq Mesa MD RBC (U) [#/Vol] None Normal 0-2 [facility] Comment on above: Performed By: #### U AMIC #### [facility] [address] [place] [address] Cancer Genetic Counselor: Tariq Mesa MD Specific gravity (U) [Rel density] 1.020 Normal 1.010-1.020 [facility] Comment on above: Performed By: #### U AMIC #### [facility] [address] [place] [address] Cancer Genetic Counselor: Tariq Mesa MD Turbidity CLEAR Normal CLEAR [facility] Comment on above: Performed By: #### U AMIC #### [address] [place], [place] [id number] Cancer Genetic Counselor: Tariq Mesa MD Urobilinogen,Ur Normal Normal NORM [facility] Comment on above: Performed By: #### U AMIC #### [facility] [address] [place] [address] Cancer Genetic Counselor: Tariq Mesa MD WBC (U) [#/Vol] None Normal 0-5 [facility] Comment on above: Performed By: #### U AMIC #### [facility] [address] [place], [place] [address] Cancer Genetic Counselor: Tariq Mesa MD Amorphous sediment LM Ql (Urine sed) NOT REPORTED Normal [facility] Comment on above: Performed By: #### U AMIC #### [facility] [address] [place] [address] Cancer Genetic Counselor: Tariq Mesa MD Bacteria LM.HPF (Urine sed) [#/Area] NOT REPORTED Normal NONE [facility] Comment on above: Performed By: #### U AMIC #### [facility] [address] [place] [address] Cancer Genetic Counselor: Tariq Mesa MD Casts LM.LPF (Urine sed) [#/Area] NOT REPORTED Normal [facility] Comment on above: Performed By: #### U AMIC #### [facility] [address] [place] [address] Cancer Genetic Counselor: Tariq Mesa MD Comment NOT REPORTED Normal [facility] Comment on above: Performed By: #### U AMIC #### [facility] [address] [place] [address] Cancer Genetic Counselor: Tariq Mesa MD Crystals LM Nom (Urine sed) NOT REPORTED Normal NONE [facility] Comment on above: Performed By: #### U AMIC #### [facility] [address] [place] [address] Cancer Genetic Counselor: Tariq Mesa MD Epithelial, Renal NOT REPORTED Normal 0 [facility] Comment on above: Performed By: #### U AMIC #### [facility] [address] [place] [address] Cancer Genetic Counselor: Tariq Mesa MD Mucus Strands NOT REPORTED Normal NONE [facility] Comment on above: Performed By: #### U AMIC #### [facility] [address] [place] [address] Cancer Genetic Counselor: Tariq Mesa MD Other Observations NOT REPORTED Normal [facility] Comment on above: Performed By: #### U AMIC #### [facility] [address] [place] [address] Cancer Genetic Counselor: Tariq Mesa MD Trichomonas NOT REPORTED Normal NONE [facility] Comment on above: Performed By: #### U AMIC #### [facility] [address] [place] [address] Cancer Genetic Counselor: Tariq Mesa MD Yeast LM Ql (Urine sed) NOT REPORTED Normal NONE [facility] Comment on above: Performed By: #### U AMI #### [facility] [address] [place] [address] Cancer Genetic Counselor: Tariq Mesa MD Urinalysis with Microscopico n 12-23-2019 Amorphous, UA NOT REPORTED None [facility], [place] Bacteria, UA NOT REPORTED None [place], [place] Bilirubin Urine Negative NEGATIVE [facility], [place] Casts UA NOT REPORTED /LPF [place] Color, UA YELLOW YELLOW [place] Crystals, UA NOT REPORTED None /HPF [place] Epithelial Cells UA None [place] Glucose, Ur Negative NEGATIVE [place] Interpretation and review of laboratory results Abnormal [place] Ketones Ql (U) Negative NEGATIVE [place] Leukocyte esterase Test strip Ql (U) Negative NEGATIVE [place] Mucus, UA NOT REPORTED None [place] Nitrite, Urine Negative NEGATIVE [place] Other Observations UA NOT REPORTED NOT REQ. [place] pH, UA 7.5 [place] Protein (U) [Mass/Vol] Negative NEGATIVE [place] RBC (U) [#/Vol] None [facility], [place] Renal Epithelial, UA NOT REPORTED 0 /HPF [place], [place] Specific [place], UA 1.020 [place], [place] Trichomonas, UA NOT REPORTED None [facility] [place], [place] Turbidity UA CLEAR CLEAR [place] Urinalysis Comments NOT REPORTED [place] Urine Hgb 2+ Abnormal NEGATIVE [place] Urobilinogen, Urine Normal Normal [place] WBC, UA None [place] Yeast, UA NOT REPORTED None [place] - [facility] [place], [place] Cult,Urineon 07-27-2019 Cult,Urine Specimen Description .CLEAN CATCH URINE Special Requests NOT REPORTED Culture NO SIGNIFICANT GROWTH Report Status FINAL 07/26/2019 [facility] Comment on above: Performed By: #### U RC #### [facility] [address], [place] [id number] Cancer Genetic Counselor: Robert Ross MD [facility] [address] [place] [address] Cancer Genetic Counselor: Tariq Mesa MD Urinalysis w/ Microon 2019 ----- Normal [facility] Comment on above: Performed By: #### U AMIC #### [address] [place], [place] [address] Cancer Genetic Counselor: Tariq Mesa MD Acetoacetic Acid,Ur Negative Normal NEG [facility] Comment on above: Performed By: #### U AMIC #### [facility] [address] [place] [address] Dr. [place], [place] [id number] Cancer Genetic Counselor: Tariq Mesa MD Bacteria LM.HPF (Urine sed) [#/Area] 1+ Abnormal NONE [facility] Comment on above: Performed By: #### U AMIC #### [facility] [address] [place] [address] Dr. [place], [place] [id number] Cancer Genetic Counselor: Tariq Mesa MD Bilirubin, SemiQt,Ur Negative Normal [facility] Comment on above: Performed By: #### U AMIC #### [facility] [address] [place], [place] [address] Cancer Genetic Counselor: Tariq Mesa MD Color (U) YELLOW Normal YEL [facility] Comment on above: Performed By: #### U AMIC #### [facility] [address] [place], [place] [address] Cancer Genetic Counselor: Tariq Mesa MD Epithelial cells LM.HPF (Urine sed) [#/Area] 2 TO 5 Normal 0-25 [facility] Comment on above: Performed By: #### U AMIC #### [facility] [address] [place], [facility] Cancer Genetic Counselor: Tariq Mesa MD Glucose Ql (U) Negative Normal NEG [facility] Comment on above: Performed By: #### U AMIC #### [facility] [address] [place], [facility] Cancer Genetic Counselor: Tarqi Mesa MD Hemoglobin, Ur 1+ Abnormal NEG [facility] Comment on above: Performed By: #### U AMIC #### [facility] [address] [place] [address] Cancer Genetic Counselor: Tariq Mesa MD Leukocyte esterase Test strip Ql (U) Negative Normal NEG [facility] Comment on above: Performed By: #### U AMIC #### [facility] [address] [place], [facility] Cancer Genetic Counselor: Tariq Mesa MD Mucus Strands TRACE Abnormal NONE [facility] Comment on above: Performed By: #### U AMIC #### [address] [place], [facility] Cancer Genetic Counselor: Tariq Mesa MD Nitrite,Ur Negative Normal NEG [facility] Comment on above: Performed By: #### U AMIC #### [facility] [address] [place], [facility] Cancer Genetic Counselor: Tariq Mesa MD pH (U) 7.5 [pH] Normal 5.0-9.0 [facility] Comment on above: Performed By: #### U AMIC #### [facility] [address] [place] [address] Cancer Genetic Counselor: Tariq Mesa MD Protein Ql (U) Negative Normal NEG [facility] Comment on above: Performed By: #### U AMIC #### [facility] [address] [place] [address] Cancer Genetic Counselor: Tariq Mesa MD RBC (U) [#/Vol] 0 TO 2 Normal 0-2 [facility] Comment on above: Performed By: #### U AMIC #### [facility] [address] [place] [address] Cancer Genetic Counselor: Tariq Mesa MD Specific gravity (U) [Rel density] 1.010 Normal 1.010-1.020 [facility] Comment on above: Performed By: #### U AMIC #### [facility] [address] [place] [address] Cancer Genetic Counselor: Tariq Mesa MD Turbidity CLEAR Normal CLEAR [facility] Comment on above: Performed By: #### U AMIC #### [address] [place] [address] Cancer Genetic Counselor: Tariq Mesa MD Urobilinogen,Ur Normal Normal NORM [facility] Comment on above: Performed By: #### U AMIC #### [address] [place] [address] Cancer Genetic Counselor: Tariq Mesa MD WBC (U) [#/Vol] None Normal 0-5 [facility] Comment on above: Performed By: #### U AMIC #### [facility] [address] [place] [address] Cancer Genetic Counselor: Tariq Mesa MD Amorphous sediment LM Ql (Urine sed) NOT REPORTED Normal [facility] Comment on above: Performed By: #### U AMIC #### [facility] [address] [place] [address] Cancer Genetic Counselor: Tariq Mesa MD Casts LM.LPF (Urine sed) [#/Area] NOT REPORTED Normal [facility] Comment on above: Performed By: #### U AMIC #### [facility] [address] [place] [address] Cancer Genetic Counselor: Tariq Mesa MD Comment NOT REPORTED Normal [facility] Comment on above: Performed By: #### U AMIC #### [facility] [address] [place] [address] Cancer Genetic Counselor: Tariq Mesa MD Crystals LM Nom (Urine sed) NOT REPORTED Normal [facility] Comment on above: Performed By: #### U AMIC #### [facility] [address] [place] [address] Cancer Genetic Counselor: Tariq Mesa MD Epithelial, Renal NOT REPORTED Normal [address] [place] [address] Comment on above: Performed By: #### U AMIC #### [facility] [address] [place] [address] Cancer Genetic Counselor: Tariq Mesa MD Other Observations NOT REPORTED Normal [facility] Comment on above: Performed By: #### U AMIC #### [facility] [address] [place], [place] [id number] Cancer Genetic Counselor: Tariq Mesa MD Trichomonas NOT REPORTED Normal [facility] Comment on above: Performed By: #### U AMIC #### [facility] [address] [place] [address] Cancer Genetic Counselor: Tariq eMsa MD Yeast LM Ql (Urine sed) NOT REPORTED Normal [facility] Comment on above: Performed By: #### U AMIC #### [facility] [address] [place] [address] Cancer Genetic Counselor: Tariq Mesa MD Urinalysis with Microscopico n 07-25-2019 Amorphous, UA NOT REPORTED None [facility] [place] Bacteria, UA 1+ Abnormal None [facility] [place] Bilirubin Urine Negative NEGATIVE [facility] [place] Casts UA NOT REPORTED /LPF [facility] [place] Color, UA YELLOW YELLOW [facility] Crystals, UA NOT REPORTED None /HPF [facility], [place] Epithelial Cells UA 2 TO 5 [facility], [place] Glucose, Ur Negative NEGATIVE [facility], [place] Interpretation and review of laboratory results Abnormal [place], [place] Ketones Ql (U) Negative NEGATIVE [facility], [place] Leukocyte esterase Test strip Ql (U) Negative NEGATIVE [facility], [place] Mucus, UA TRACE Abnormal None [facility], [place] Nitrite, Urine Negative NEGATIVE [facility] [place], [place] Other Observations UA NOT REPORTED NOT REQ. [facility], [place] pH, UA 7.5 [facility], [place] Protein (U) [Mass/Vol] Negative NEGATIVE [facility], [place] RBC (U) [#/Vol] 0 TO 2 [facility], [place] Renal Epithelial, UA NOT REPORTED 0 /HPF Me [facility], [place] Specific [place], UA 1.010 [facility], [place] Trichomonas, UA NOT REPORTED None [facility], [place] Turbidity UA CLEAR CLEAR [place] Urinalysis Comments NOT REPORTED [place], [place] Urine Hgb 1+ Abnormal NEGATIVE [facility], [place] Urobilinogen, Urine Normal Normal [place] WBC, UA None [facility], [place] Yeast, UA NOT REPORTED None [facility], [place] - [place] Encounters Encounter Date Encounter Type Care [...] End: 12-24-2019 Patient encounter procedure BRYNN BAH [facility] Start: 12-23-2019 End: 12-23-2019 Subsequent hospital visit by physician Brynn DAVID Laboratory Comment on above: Urinary frequency; OAB (overactive bladder); Incomplete bladder emptying Start: 07-25-2019 End: 07-26-2019 Patient encounter procedure AGUILAR WOODY [facility] Start: 07-25-2019 End: 07-25-2019 Subsequent hospital visit [...] Danyel Carson MD [address] [facility], [address] [place] [address] [facility] Start: 10-31-2019 End: 10-31-2019 Office Visit 10/31/2019 Office Visit Urology Aguilar Woody, [employer] - [employer] [facility] [address] [place] [address] [facility] Start: 10-22-2019 Influenza vaccination [place] Start: 10-14-2015 DTaP/Tdap/Td vaccine (7 - Td) DTaP/Tdap/Td vaccine (7 - Td) [place] Start: 2009 Screening for malign ant neoplasm of cervix Cervical cancer screen [place] Start: 10-12-2007 DTaP/Tdap/Td vaccine (1 - Tdap) DTaP/Tdap/Td vaccine (1 - Tdap) [place] Start: 10-12-2003 HIV screening HIV screen [facility] [place] Start: 1994 Pneumococcal 0-64 ye ars Vaccine (1 of 1 - PPSV23) Pneumococcal 0-64 years Vaccine (1 of 1 - PPSV23) [place] Start: 1989 Varicella vaccine (1 of 2 - 2-dose childhood series) Varicella vaccine (1 of 2 - 2-dose childhood series) [place] End: 12-23-2019 Culture, Urine Culture, Urine Microbiology Routine Urinary frequency OAB (overactive bladder) Incomplete bladder emptying 1 Occurrences starting 12/23/2019 until 12/23/2019 [place] Comment on above: 1 Occurrences starti ng 12/23/2019 until 12/23/2019 Culture, Urine [place] End: 07-25-2019 Culture, Urine Culture, Urine Microbiology Routine Urinary frequency 1 Occurrences starting 07/25/2019 until 07/25/2019 [place] Comment on above: 1 Occurrences starti ng 07/25/2019 until 07/25/2019 Payers Date Payer Category Payer Unknown [id number] 2014 Private Health Insurance [employer] A ETNA NAP CHOICE POS II xxxxxxxxxx 2014-Present [phone] [address] [place] [address] xxxxxxxxxx [id number] 1988 Unknown [id number] 1988 Unknown [id number] 1988 Unknown [id number] 1988 Unknown [id number] .[id number] 1988 Unknown [id number] .1259 1988 Unknown [id number] .9 1988 Unknown [id number] .9 1988 Unknown [id number] .1259 1959 Private Health Insurance [id number] Social History Date Type Detail Facility Start: 07-25-2019 End: 12-23-2019 Tobacco smoking status NHIS Current every day smoker [place] History of tobacco use Cigarette Smoker [place] Start: 07-25-2019 End: 12-23-2019 Cigarettes smoked current (pack per day) - Reported [place] Start: 12-23-2019 Tobacco use and exposure Never used [place] Start: 07-25-2019 End: 12-23-2019 Alcohol intake Current drinker of alcohol (finding) [place] Start: 07-25-2019 Alcohol Comment rare Joslyn David [place], [place] Sex Assigned At Not on file [place], [place] Assessments Diagnosis Urinary frequency OAB (overactive bladder) Hypertonicity of bladder Incomplete bladder emptying Diagnosis Urinary frequency Advance Directives No Advanced Directives Records FoundDocuments on File Type Date Recorded 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 ACP-Advance Directive ACP-Power of Outreach Professional Documents on File Type Date Recorded 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 Advance Directives and Living Will Power of Outreach Professional Summary Purpose Family History No Family History Records FoundNo Family History Records FoundNo Family History Records Found Additional Source Comments INFORMATION SOURCE (unrecogn ized section and content) DATE CREATED AUTHOR 12/25/2019 [facility] DATE CREATED AUTHOR AUTHOR'S ORGANIZ ATION 08/06/2021 [facility] DATE CREATED AUTHOR AUTHOR'S ORGANIZ ATION 03/24/2023 [facility] FOR RECORDS PERTAINING TO PATIENTS WHO [...] BE BASED ON THE PRIMARY CLINICAL RECORDS. [facility] provides no warranty or guarantee of the accuracy or completeness of information in this document.
[2023-03-30 17:06] VITALS: BP 120/70; PULSE 86
== END 2023-03-30 17:43 | disposition home or self-care (01) ==
LOC: FBCO 07:56 → FBC 16:49
PROVIDERS: PCP Family Medicine; Visit Provider Obstetrics & Gynecology
DX: O36.63X0 Maternal care for excessive fetal growth, third trimester, not applicable or unspecified (principal); Z3A.00 Weeks of gestation of pregnancy not specified
CPT/HCPCS: 59025

== ENCOUNTER 2023-04-03 07:33 | Outpatient (OUT) | payer BC, SELFPAY ==
--- OUTSIDE RECORDS SUMMARY | 2023-04-03 07:36 | XMS_ITS | CCD ---
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 . Normal [facility] Comment on above: Result Comment: Perf ormed at: WB Performed By: #### [id number] #### [facility] [address] [address] [address] Jazmin Turner Age Gdln ACOG Testing 30-65 [facility] Comment on above: Performed By: #### [id number] #### [facility] [address] [address] [address] Jazmin Turner DIAGNOSIS: Comment Normal [facility] Comment on above: Result Comment: NEGA TIVE FOR INTRAEPITHELIAL LESION OR MALIGNANCY. Performed at: WB Performed By: #### [id number] #### [facility] [address] [address] [address] Jazmin Turner HPV Aptima Negative Normal Negative [facility] Comment on above: Result Comment: This nucleic acid amplification test detects fourteen high-risk HPV types (16,18,31,33,35,39,45,51,52,56,58,59,66,68) without differentiation. Performed at: =G Performed By: #### [id number] #### [facility] [address] [address] [address] Jazmin Turner Methodology: Comment [facility] Comment on above: Result Comment: This liquid based ThinPrep(R) pap test was screened with the use of an image guided system. Performed at: WB Performed By: #### [id number] #### [facility] [address] [place] [address] Dr. Jazmin Turner Note: Comment Normal [facility] Comment on above: Result Comment: The Pap smear is a screening test designed to aid in the detection of premalignant and malignant conditions of the uterine cervix. It is not a diagnostic procedure and should not be used as the sole means of detecting cervical cancer. Both false-positive and false-negative reports do occur. . Performed at: WB Performed By: #### [id number] #### [facility] [address] [address] [address] Jazmin Turner Performed by: Comment Normal [facility] Comment on above: Result Comment: Tong Watts, Securities Compliance Examiner (ASCP) Performed at: WB Performed By: #### [id number] #### [facility] [address] [address] [address] Jazmin Turner Specimen adequacy: Comment Normal [facility] Comment on above: Result Comment: Sati sfactory for evaluation. Endocervical and/or squamous metaplastic cells (endocervical component) are present. Performed at: WB Performed By: #### [id number] #### [facility] [address] [place] [address] Dr. Jazmin Turner Cult,Urineon 12-24-2019 Cult,Urine Specimen Description .CLEAN CATCH URINE Special Requests NOT REPORTED Culture NO SIGNIFICANT GROWTH Report Status FINAL 12/24/2019 [facility] Comment on above: Performed By: #### U RC #### [facility] [address] [place] [address] Advertising Sales Consultant: Robert Ross MD [facility] [address] [place] [address] [place] [address] Advertising Sales Consultant: Tariq Mesa MD Urinalysis w/ Microon 2019 ----- Normal [facility] Comment on above: Performed By: #### U AMIC #### [facility] [address] [place] [address] Advertising Sales Consultant: Tariq Mesa MD Acetoacetic Acid,Ur Negative [facility] Comment on above: Performed By: #### U AMIC #### [facility] [address] [place] [address] Advertising Sales Consultant: Tariq Mesa MD Bilirubin, SemiQt,Ur Negative Normal NEG [facility] Comment on above: Performed By: #### U AMIC #### [facility] [address] [place] [address] Advertising Sales Consultant: Tariq Mesa MD Color (U) YELLOW Normal YEL [facility] Comment on above: Performed By: #### U AMIC #### [facility] [address] [place] [address] Advertising Sales Consultant: Tariq Mesa MD Epithelial cells LM.HPF (Urine sed) [#/Area] None Normal 0-25 [facility] Comment on above: Performed By: #### U AMIC #### [facility] [address] [place] [address] Advertising Sales Consultant: Tariq Mesa MD Glucose Ql (U) Negative Normal NEG [facility] Comment on above: Performed By: #### U AMIC #### [facility] [address] [place], [facility] Advertising Sales Consultant: Tariq Mesa MD Hemoglobin, Ur 2+ Abnormal NEG [facility] Comment on above: Performed By: #### U AMIC #### [facility] [address] [place], [facility] Advertising Sales Consultant: Tariq Mesa MD Leukocyte esterase Test strip Ql (U) Negative Normal NEG [facility] Comment on above: Performed By: #### U AMIC #### [facility] [address] [place], [facility] Advertising Sales Consultant: Tariq Mesa MD Nitrite,Ur Negative Normal [facility] Comment on above: Performed By: #### U AMIC #### [facility] [address] [place] [address] Advertising Sales Consultant: Tariq Mesa MD pH (U) 7.5 [pH] Normal 5.0-9.0 [facility] Comment on above: Performed By: #### U AMIC #### [facility] [address] [place] [address] Advertising Sales Consultant: Tariq Mesa MD Protein Ql (U) Negative Normal NEG [facility] Comment on above: Performed By: #### U AMIC #### [facility] [address] [place], [place] [id number] Advertising Sales Consultant: Tariq Mesa MD RBC (U) [#/Vol] None Normal 0-2 [facility] Comment on above: Performed By: #### U AMIC #### [facility] [address] [place] [address] Advertising Sales Consultant: Traiq Mesa MD Specific gravity (U) [Rel density] 1.020 Normal 1.010-1.020 [facility] Comment on above: Performed By: #### U AMIC #### [facility] [address] [place] [address] Advertising Sales Consultant: Tariq Mesa MD Turbidity CLEAR Normal CLEAR [facility] Comment on above: Performed By: #### U AMIC #### [address] [place], [place] [address] Advertising Sales Consultant: Tariq Mesa MD Urobilinogen,Ur Normal Normal NORM [facility] Comment on above: Performed By: #### U AMIC #### [facility] [address] [place] [address] Advertising Sales Consultant: Tariq Mesa MD WBC (U) [#/Vol] None Normal 0-5 [facility] Comment on above: Performed By: #### U AMIC #### [facility] [address] [place], [place] [id number] Advertising Sales Consultant: Tariq Mesa MD Amorphous sediment LM Ql (Urine sed) NOT REPORTED Normal [facility] Comment on above: Performed By: #### U AMIC #### [facility] [address] [place] [address] Advertising Sales Consultant: Tariq Mesa MD Bacteria LM.HPF (Urine sed) [#/Area] NOT REPORTED Normal NONE [facility] Comment on above: Performed By: #### U AMIC #### [facility] [address] [place] [address] Advertising Sales Consultant: Tariq Mesa MD Casts LM.LPF (Urine sed) [#/Area] NOT REPORTED Normal [facility] Comment on above: Performed By: #### U AMIC #### [facility] [address] [place] [address] Advertising Sales Consultant: Tariq Mesa MD Comment NOT REPORTED Normal [facility] Comment on above: Performed By: #### U AMIC #### [facility] [address] [place] [address] Advertising Sales Consultant: Tariq Mesa MD Crystals LM Nom (Urine sed) NOT REPORTED Normal NONE [facility] Comment on above: Performed By: #### U AMIC #### [facility] [address] [place] [address] Advertising Sales Consultant: Tariq Mesa MD Epithelial, Renal NOT REPORTED Normal 0 [facility] Comment on above: Performed By: #### U AMIC #### [facility] [address] [place] [address] Advertising Sales Consultant: Tariq Mesa MD Mucus Strands NOT REPORTED Normal NONE [facility] Comment on above: Performed By: #### U AMIC #### [facility] [address] [place] [address] Advertising Sales Consultant: Tariq Mesa MD Other Observations NOT REPORTED Normal NREQ [facility] Comment on above: Performed By: #### U AMIC #### [facility] [address] [place] [address] Advertising Sales Consultant: Tariq Mesa MD Trichomonas NOT REPORTED Normal NONE [facility] Comment on above: Performed By: #### U AMIC #### [facility] [address] [place] [address] Advertising Sales Consultant: Tariq Mesa MD Yeast LM Ql (Urine sed) NOT REPORTED Normal NONE [facility] Comment on above: Performed By: #### U AMI #### [facility] [address] [place] [address] Advertising Sales Consultant: Tariq Mesa MD Urinalysis with Microscopico n 12-23-2019 Amorphous, UA NOT REPORTED None [facility] Bacteria, UA NOT REPORTED None [place], [place] Bilirubin Urine Negative NEGATIVE [facility] Casts UA NOT REPORTED /LPF [place], [place] Color, UA YELLOW YELLOW [place] Crystals, UA NOT REPORTED None /HPF [place] Epithelial Cells UA None [place] Glucose, Ur Negative NEGATIVE [place] Interpretation and review of laboratory results Abnormal [place] Ketones Ql (U) Negative NEGATIVE [place] Leukocyte esterase Test strip Ql (U) Negative NEGATIVE [place] Mucus, UA NOT REPORTED None [place], [place] Nitrite, Urine Negative NEGATIVE [place] Other Observations UA NOT REPORTED NOT REQ. [place] pH, UA 7.5 [place] Protein (U) [Mass/Vol] Negative NEGATIVE [place] RBC (U) [#/Vol] None [facility] Renal Epithelial, UA NOT REPORTED 0 /HPF Me [place], [place] Specific [place], UA 1.020 [place], [place] Trichomonas, UA NOT REPORTED None [facility] [place] Turbidity UA CLEAR CLEAR [place] Urinalysis Comments NOT REPORTED [place] Urine Hgb 2+ Abnormal NEGATIVE [place] Urobilinogen, Urine Normal Normal [place] WBC, UA None [place], [place] Yeast, UA NOT REPORTED None [place] - [facility] [place] Cult,Urineon 07-27-2019 Cult,Urine Specimen Description .CLEAN CATCH URINE Special Requests NOT REPORTED Culture NO SIGNIFICANT GROWTH Report Status FINAL 07/26/2019 [facility] Comment on above: Performed By: #### U RC #### [facility] [address] [place], [place] [id number] Advertising Sales Consultant: Robert Ross MD [facility] [address] [place] [address] Advertising Sales Consultant: Tariq Mesa MD Urinalysis w/ Microon 2019 ----- Normal [facility] Comment on above: Performed By: #### U AMIC #### [address] [place], [place] [address] Advertising Sales Consultant: Tariq Mesa MD Acetoacetic Acid,Ur Negative Normal NEG [facility] Comment on above: Performed By: #### U AMIC #### [facility] [address] [place] [address] Dr[place], [place] [id number] Advertising Sales Consultant: Tariq Mesa MD Bacteria LM.HPF (Urine sed) [#/Area] 1+ Abnormal NONE [facility] Comment on above: Performed By: #### U AMIC #### [facility] [address] [place] [address] Dr. [place], [place] [id number] Advertising Sales Consultant: Tariq Mesa MD Bilirubin, SemiQt,Ur Negative Normal [facility] Comment on above: Performed By: #### U AMIC #### [facility] [address] [place], [place] [phone] Advertising Sales Consultant: Tariq Mesa MD Color (U) YELLOW Normal YEL [facility] Comment on above: Performed By: #### U AMIC #### [facility] [address] [place], [place] [id number] Advertising Sales Consultant: Tariq Mesa MD Epithelial cells LM.HPF (Urine sed) [#/Area] 2 TO 5 Normal 0-25 [facility] Comment on above: Performed By: #### U AMIC #### [facility] [address] [place], [facility] Advertising Sales Consultant: Tariq Mesa MD Glucose Ql (U) Negative Normal NEG [facility] Comment on above: Performed By: #### U AMIC #### [facility] [address] [place], [facility] Advertising Sales Consultant: Tariq Mesa MD Hemoglobin, Ur 1+ Abnormal NEG [facility] Comment on above: Performed By: #### U AMIC #### [facility] [address] [place] [id number] Advertising Sales Consultant: Tariq Mesa MD Leukocyte esterase Test strip Ql (U) Negative Normal NEG [facility] Comment on above: Performed By: #### U AMIC #### [facility] [address] [place], [facility] Advertising Sales Consultant: Tariq Mesa MD Mucus Strands TRACE Abnormal NONE [facility] Comment on above: Performed By: #### U AMIC #### [address] [place], [facility]83 Advertising Sales Consultant: Tariq Mesa MD Nitrite,Ur Negative Normal NEG [facility] Comment on above: Performed By: #### U AMIC #### [facility] [address] [place], [facility] Advertising Sales Consultant: Tariq Mesa MD pH (U) 7.5 [pH] Normal 5.0-9.0 [facility] Comment on above: Performed By: #### U AMIC #### [facility] [address] [place] [address] Advertising Sales Consultant: Tariq Mesa MD Protein Ql (U) Negative Normal NEG [facility] Comment on above: Performed By: #### U AMIC #### [facility] [address] [place] [address] Advertising Sales Consultant: Tariq Mesa MD RBC (U) [#/Vol] 0 TO 2 Normal 0-2 [facility] Comment on above: Performed By: #### U AMIC #### [facility] [address] [place] [id number] Advertising Sales Consultant: Tariq Mesa MD Specific gravity (U) [Rel density] 1.010 Normal 1.010-1.020 [facility] Comment on above: Performed By: #### U AMIC #### [facility] [address] [place] [id number] Advertising Sales Consultant: Tariq Mesa MD Turbidity CLEAR Normal CLEAR [facility] Comment on above: Performed By: #### U AMIC #### [address] [place] [id number] Advertising Sales Consultant: Tariq Mesa MD Urobilinogen,Ur Normal Normal NORM [facility] Comment on above: Performed By: #### U AMIC #### [address] [place] [address] Advertising Sales Consultant: Tariq Mesa MD WBC (U) [#/Vol] None Normal 0-5 [facility] Comment on above: Performed By: #### U AMIC #### [facility] [address] [place] [address] Advertising Sales Consultant: Tariq Mesa MD Amorphous sediment LM Ql (Urine sed) NOT REPORTED Normal [facility] Comment on above: Performed By: #### U AMIC #### [facility] [address] [place] [address] Advertising Sales Consultant: Tariq Mesa MD Casts LM.LPF (Urine sed) [#/Area] NOT REPORTED Normal [facility] Comment on above: Performed By: #### U AMIC #### [facility] [address] [place] [address] Advertising Sales Consultant: Tariq Mesa MD Comment NOT REPORTED Normal [facility] Comment on above: Performed By: #### U AMIC #### [facility] [address] [place] [address] Advertising Sales Consultant: Tariq Mesa MD Crystals LM Nom (Urine sed) NOT REPORTED Normal [facility] Comment on above: Performed By: #### U AMIC #### [facility] [address] [place] [address] Advertising Sales Consultant: Tariq Mesa MD Epithelial, Renal NOT REPORTED Normal [address] [place] [address] Comment on above: Performed By: #### U AMIC #### [facility] [address] [place] [address] Advertising Sales Consultant: Tariq Mesa MD Other Observations NOT REPORTED Normal NREQ [facility] Comment on above: Performed By: #### U AMIC #### [facility] [address] [place], [place] [id number] Advertising Sales Consultant: Tariq Mesa MD Trichomonas NOT REPORTED Normal [facility] Comment on above: Performed By: #### U AMIC #### [facility] [address] [place] [address] Advertising Sales Consultant: Tariq Mesa MD Yeast LM Ql (Urine sed) NOT REPORTED Normal [facility] Comment on above: Performed By: #### U AMIC #### [facility] [address] [place] [address] Advertising Sales Consultant: Tariq Mesa MD Urinalysis with Microscopico n 07-25-2019 Amorphous, UA NOT REPORTED None [facility] [place] Bacteria, UA 1+ Abnormal None [facility] [place] Bilirubin Urine Negative NEGATIVE [facility] [place] Casts UA NOT REPORTED /LPF [facility] [place] Color, UA YELLOW YELLOW [facility] Crystals, UA NOT REPORTED None /HPF [facility] Epithelial Cells UA 2 TO 5 [facility], [place] Glucose, Ur Negative NEGATIVE [facility] Interpretation and review of laboratory results Abnormal [place], [place] Ketones Ql (U) Negative NEGATIVE [facility] [place] Leukocyte esterase Test strip Ql (U) Negative NEGATIVE [facility] Mucus, UA TRACE Abnormal None [facility] Nitrite, Urine Negative NEGATIVE [facility], [place] Other Observations UA NOT REPORTED NOT REQ. [facility], [place] pH, UA 7.5 [facility] Protein (U) [Mass/Vol] Negative NEGATIVE [facility] RBC (U) [#/Vol] 0 TO 2 [facility] Renal Epithelial, UA NOT REPORTED 0 /HPF Me [facility], [place] Specific [place], UA [address] [facility], [place] Trichomonas, UA NOT REPORTED None [facility] [place] Turbidity UA CLEAR CLEAR [place] Urinalysis Comments NOT REPORTED [place] Urine Hgb 1+ Abnormal NEGATIVE [facility] Urobilinogen, Urine Normal Normal [place] WBC, UA None [facility] Yeast, UA NOT REPORTED None [facility], [place] Encounters Encounter Date Encounter Type Care [...] End: 12-24-2019 Patient encounter procedure BRYNN BAH [facility] Start: 12-23-2019 End: 12-23-2019 Subsequent hospital visit by physician Brynn DAVID Laboratory Comment on above: Urinary frequency; OAB (overactive bladder); Incomplete bladder emptying Start: 07-25-2019 End: 07-26-2019 Patient encounter procedure AGUILAR WOODY [facility] Start: 07-25-2019 End: 07-25-2019 Subsequent hospital [...] Procedure visit Urology Danyel Carson MD [address], [address] [place] [address] [facility] Start: 10-31-2019 End: 10-31-2019 Office Visit 10/31/2019 Office Visit Urology Aguilar Woody, CONTACT CENTER SPECIALIST - STRATEGIC ACCOUNTS MANAGER [address] [facility] [address] [place] [id number] [facility] Start: 10-22-2019 Influenza vaccination [place] Start: 10-14-2015 DTaP/Tdap/Td vaccine (7 - Td) DTaP/Tdap/Td vaccine (7 - Td) [place], [place] Start: 2009 Screening for malign ant neoplasm of cervix Cervical cancer screen [place] Start: 10-12-2007 DTaP/Tdap/Td vaccine (1 - Tdap) DTaP/Tdap/Td vaccine (1 - Tdap) [place] Start: 10-12-2003 HIV screening HIV screen [facility] [place], [place] Start: 1994 Pneumococcal 0-64 ye ars Vaccine (1 of 1 - PPSV23) Pneumococcal 0-64 years Vaccine (1 of 1 - PPSV23) [place], [place] Start: 1989 Varicella vaccine (1 of 2 - 2-dose childhood series) Varicella vaccine (1 of 2 - 2-dose childhood series) [place] End: 12-23-2019 Culture, Urine Culture, Urine Microbiology Routine Urinary frequency OAB (overactive bladder) Incomplete bladder emptying 1 Occurrences starting 12/23/2019 until 12/23/2019 [place] Comment on above: 1 Occurrences starti ng 12/23/2019 until 12/23/2019 Culture, Urine [place] End: 07-25-2019 Culture, Urine Culture, Urine Microbiology Routine Urinary frequency 1 Occurrences starting 07/25/2019 until 07/25/2019 [place] Comment on above: 1 Occurrences starti ng 07/25/2019 until 07/25/2019 Payers Date Payer Category Payer Unknown [id number] 2014 Private Health Insurance [employer] A ETNA NAP CHOICE POS II xxxxxxxxxx 2014-Present [phone] [address] [place] [address] xxxxxxxxxx [id number] 1988 Unknown [id number] 1988 Unknown [id number] 1988 Unknown [id number] 1988 Unknown [id number] 1988 Unknown [id number] 1988 Unknown [id number] .9 1988 Unknown [id number] .9 1988 Unknown [id number] .[id number] 1959 Private Health Insurance [id number] Social History Date Type Detail Facility Start: 07-25-2019 End: 12-23-2019 Tobacco smoking status NHIS Current every day smoker [place] History of tobacco use Cigarette Smoker [place] Start: 07-25-2019 End: 12-23-2019 Cigarettes smoked current (pack per day) - Reported [place] Start: 12-23-2019 Tobacco use and exposure Never used [place] Start: 07-25-2019 End: 12-23-2019 Alcohol intake Current drinker of alcohol (finding) [place] Start: 07-25-2019 Alcohol Comment rare Joslyn David [place] Sex Assigned At Not on file [place] Assessments Diagnosis Urinary frequency OAB (overactive bladder) Hypertonicity of bladder Incomplete bladder emptying Diagnosis Urinary frequency Advance Directives No Advanced Directives Records FoundDocuments on File Type Date Recorded 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 ACP-Advance Directive ACP-Power of Spare Hand Carding Documents on File Type Date Recorded 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 Advance Directives and Living Will Power of Spare Hand Carding Summary Purpose Family History No Family History Records FoundNo Family History Records FoundNo Family History Records Found Additional Source Comments INFORMATION SOURCE (unrecogn ized section and content) DATE CREATED AUTHOR 12/25/2019 [facility] DATE CREATED AUTHOR AUTHOR'S ORGANIZ ATION 08/06/2021 [facility] DATE CREATED AUTHOR AUTHOR'S ORGANIZ ATION 03/24/2023 [facility] [place] [facility] FOR RECORDS PERTAINING TO PATIENTS WHO [...] BE BASED ON THE PRIMARY CLINICAL RECORDS. [facility] [employer] [facility]. provides no warranty or guarantee of the accuracy or completeness of information in this document.
--- NOTE | 2023-04-03 16:02 | US_ITS ---
[address] [address] Patient Name: RAFITA ISAAC MRN: [id number] date: 1990 Sex: F Assigned Patient Location: [facility] Current Patient Location: Accession/Order Number: [id number] Exam Date: 04/03/2023 16:07 Report Date: 04/04/2023 07:10 At the request of: JESSICA ABRAHAM Procedure: US OB BPP w non-stress EXAMINATION: US OB BPP w non-stress HISTORY: EXCESSIVE GROWTH AFFECTING [id number] COMPARISON: No relevant comparison available. TECHNIQUE: Ultrasound biophysical profile was performed in the radiology department. FINDINGS: BREATHING MOVEMENTS: 2.0 GROSS BODY MOVEMENTS: 2.0 TONE: 2.0 QUALITATIVE AMNIOTIC FLUID VOLUME: 2.0 PRESENTATION: CEPHALIC HEART RATE: 136.4 bpm H.B./min AMNIOTIC FLUID VOLUME: 11.4 cm cm GESTATIONAL AGE: 33 weeks 6 days CONCLUSION: Total biophysical profile score: 8.0 Electronically authenticated by: WENDY AU Date: 04/04/2023 07:10
[2023-04-03 16:37] VITALS: BP 122/75; PULSE 88
== END 2023-04-03 17:11 | disposition home or self-care (01) ==
LOC: US 07:33 → FBC 15:55
PROVIDERS: PCP Family Medicine; Visit Provider Obstetrics & Gynecology
DX: O36.63X1 Maternal care for excessive fetal growth, third trimester, fetus 1 (principal); Z3A.33 33 weeks gestation of pregnancy
CPT/HCPCS: 59025; 76818

== ENCOUNTER 2023-04-06 08:05 | Outpatient (OUT) | payer BC, SELFPAY ==
--- OUTSIDE RECORDS SUMMARY | 2023-04-06 08:18 | XMS_ITS | CCD ---
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 . Normal [facility] Comment on above: Result Comment: Perf ormed at: WB Performed By: #### [id number] #### [facility] [address] [address] [address] Jazmin Turner Age Gdln ACOG Testing 30-65 [facility] Comment on above: Performed By: #### [id number] #### [facility] [address] [address] [address] Jazmin Turner DIAGNOSIS: Comment Normal [facility] Comment on above: Result Comment: NEGA TIVE FOR INTRAEPITHELIAL LESION OR MALIGNANCY. Performed at: WB Performed By: #### [id number] #### [facility] [address] [address] [address] Jazmin Turner HPV Aptima Negative Normal Negative [facility] Comment on above: Result Comment: This nucleic acid amplification test detects fourteen high-risk HPV types (16,18,31,33,35,39,45,51,52,56,58,59,66,68) without differentiation. Performed at: =G Performed By: #### [id number] #### [facility] [address] [address] [address] Jazmin Turner Methodology: Comment [facility] Comment on above: Result Comment: This liquid based ThinPrep(R) pap test was screened with the use of an image guided system. Performed at: WB Performed By: #### [id number] #### [facility] [address] [place] [address] Dr. Jazmin Turner Note: Comment Normal [facility] Comment on above: Result Comment: The Pap smear is a screening test designed to aid in the detection of premalignant and malignant conditions of the uterine cervix. It is not a diagnostic procedure and should not be used as the sole means of detecting cervical cancer. Both false-positive and false-negative reports do occur. . Performed at: WB Performed By: #### [id number] #### [facility] [address] [address] [address] Jazmin Turner Performed by: Comment Normal [facility] Comment on above: Result Comment: Tong Watts, Electronic Commerce Specialist (ASCP) Performed at: WB Performed By: #### [id number] #### [facility] [address] [address] [address] Jazmin Turner Specimen adequacy: Comment Normal [facility] Comment on above: Result Comment: Sati sfactory for evaluation. Endocervical and/or squamous metaplastic cells (endocervical component) are present. Performed at: WB Performed By: #### [id number] #### [facility] [address] [place] [address] Dr. Jazmin Turner Cult,Urineon 12-24-2019 Cult,Urine Specimen Description .CLEAN CATCH URINE Special Requests NOT REPORTED Culture NO SIGNIFICANT GROWTH Report Status FINAL 12/24/2019 [facility] Comment on above: Performed By: #### U RC #### [facility] [address] [place] [address] Manager Dialysis: Robert Ross MD [facility] [address] [place] [address] [place] [address] Manager Dialysis: Tariq Mesa MD Urinalysis w/ Microon 2019 ----- Normal [facility] Comment on above: Performed By: #### U AMIC #### [facility] [address] [place] [place] [address] Manager Dialysis: Tariq Mesa MD Acetoacetic Acid,Ur Negative [facility] Comment on above: Performed By: #### U AMIC #### [facility] [address] [place] [place] [address] Manager Dialysis: Tariq Mesa MD Bilirubin, SemiQt,Ur Negative Normal NEG [facility] Comment on above: Performed By: #### U AMIC #### [facility] [address] [place] [address] Manager Dialysis: Tariq Mesa MD Color (U) YELLOW Normal YEL [facility] Comment on above: Performed By: #### U AMIC #### [facility] [address] [place] [address] Manager Dialysis: Tariq Mesa MD Epithelial cells LM.HPF (Urine sed) [#/Area] None Normal 0-25 [facility] Comment on above: Performed By: #### U AMIC #### [facility] [address] [place] [address] Manager Dialysis: Tariq Mesa MD Glucose Ql (U) Negative Normal NEG [facility] Comment on above: Performed By: #### U AMIC #### [facility] [address] [place], [facility]83 Manager Dialysis: Tariq Mesa MD Hemoglobin, Ur 2+ Abnormal NEG [facility] Comment on above: Performed By: #### U AMIC #### [facility] [address] [place], [facility] Manager Dialysis: Tariq Mesa MD Leukocyte esterase Test strip Ql (U) Negative Normal NEG [facility] Comment on above: Performed By: #### U AMIC #### [facility] [address] [place], [facility] Manager Dialysis: Tariq Mesa MD Nitrite,Ur Negative Normal [facility] Comment on above: Performed By: #### U AMIC #### [facility] [address] [place] [address] Manager Dialysis: Tariq Mesa MD pH (U) 7.5 [pH] Normal 5.0-9.0 [facility] Comment on above: Performed By: #### U AMIC #### [facility] [address] [place] [address] Manager Dialysis: Tariq Mesa MD Protein Ql (U) Negative Normal NEG [facility] Comment on above: Performed By: #### U AMIC #### [facility] [address] [place], [place] [id number] Manager Dialysis: Tariq Mesa MD RBC (U) [#/Vol] None Normal 0-2 [facility] Comment on above: Performed By: #### U AMIC #### [facility] [address] [place] [place] [address] Manager Dialysis: Tariq Mesa MD Specific gravity (U) [Rel density] 1.020 Normal 1.010-1.020 [facility] Comment on above: Performed By: #### U AMIC #### [facility] [address] [place] [place] [address] Manager Dialysis: Tariq Mesa MD Turbidity CLEAR Normal CLEAR [facility] Comment on above: Performed By: #### U AMIC #### [address] [place], [place] [id number] Manager Dialysis: Tariq Mesa MD Urobilinogen,Ur Normal Normal NORM [facility] Comment on above: Performed By: #### U AMIC #### [facility] [address] [place] [id number] Manager Dialysis: Tariq Mesa MD WBC (U) [#/Vol] None Normal 0-5 [facility] Comment on above: Performed By: #### U AMIC #### [facility] [address] [place], [place] [id number] Manager Dialysis: Tariq Mesa MD Amorphous sediment LM Ql (Urine sed) NOT REPORTED Normal [facility] Comment on above: Performed By: #### U AMIC #### [facility] [address] [place] [id number] Manager Dialysis: Tariq Mesa MD Bacteria LM.HPF (Urine sed) [#/Area] NOT REPORTED Normal NONE [facility] Comment on above: Performed By: #### U AMIC #### [facility] [address] [place] [address] Manager Dialysis: Tariq Mesa MD Casts LM.LPF (Urine sed) [#/Area] NOT REPORTED Normal [facility] Comment on above: Performed By: #### U AMIC #### [facility] [address] [place] [place] [address] Manager Dialysis: Tariq Mesa MD Comment NOT REPORTED Normal [facility] Comment on above: Performed By: #### U AMIC #### [facility] [address] [place] [place] [address] Manager Dialysis: Tariq Mesa MD Crystals LM Nom (Urine sed) NOT REPORTED Normal NONE [facility] Comment on above: Performed By: #### U AMIC #### [facility] [address] [place] [place] [address] Manager Dialysis: Tariq Mesa MD Epithelial, Renal NOT REPORTED Normal 0 [facility] Comment on above: Performed By: #### U AMIC #### [facility] [address] [place] [place] [address] Manager Dialysis: Tariq Mesa MD Mucus Strands NOT REPORTED Normal NONE [facility] Comment on above: Performed By: #### U AMIC #### [facility] [address] [place] [address] Manager Dialysis: Tariq Mesa MD Other Observations NOT REPORTED Normal NREQ [facility] Comment on above: Performed By: #### U AMIC #### [facility] [address] [place] [address] Manager Dialysis: Tariq Mesa MD Trichomonas NOT REPORTED Normal NONE [facility] Comment on above: Performed By: #### U AMIC #### [facility] [address] [place] [place] [address] Manager Dialysis: Tariq Mesa MD Yeast LM Ql (Urine sed) NOT REPORTED Normal NONE [facility] Comment on above: Performed By: #### U AMI #### [facility] [address] [place] [place] [address] Manager Dialysis: Tariq Mesa MD Urinalysis with Microscopico n 12-23-2019 Amorphous, UA NOT REPORTED None [facility], [place] Bacteria, UA NOT REPORTED None [place], [place] Bilirubin Urine Negative NEGATIVE [facility], [place] Casts UA NOT REPORTED /LPF [place], [place] Color, UA YELLOW YELLOW [place] Crystals, UA NOT REPORTED None /HPF [place] Epithelial Cells UA None [place] Glucose, Ur Negative NEGATIVE [place] Interpretation and review of laboratory results Abnormal [place] Ketones Ql (U) Negative NEGATIVE [place] Leukocyte esterase Test strip Ql (U) Negative NEGATIVE [place] Mucus, UA NOT REPORTED None [place], [place] Nitrite, Urine Negative NEGATIVE [place] Other Observations UA NOT REPORTED NOT REQ. [place] pH, UA 7.5 [place] Protein (U) [Mass/Vol] Negative NEGATIVE [place] RBC (U) [#/Vol] None [facility], [place] Renal Epithelial, UA NOT REPORTED 0 /HPF Me [place], [place] Specific Hector, UA 1.020 [place], [place] Trichomonas, UA NOT REPORTED None [facility] [place] Turbidity UA CLEAR CLEAR [place] Urinalysis Comments NOT REPORTED [place] Urine Hgb 2+ Abnormal NEGATIVE [place] Urobilinogen, Urine Normal Normal [place] WBC, UA None [place] Yeast, UA NOT REPORTED None [place], [place] - [facility] [place], [place] Cult,Urineon 07-27-2019 Cult,Urine Specimen Description .CLEAN CATCH URINE Special Requests NOT REPORTED Culture NO SIGNIFICANT GROWTH Report Status FINAL 07/26/2019 [facility] Comment on above: Performed By: #### U RC #### [facility] [address] [place], [place] [id number] Manager Dialysis: Robert Ross MD [facility] [address] [place] [place] [address] Manager Dialysis: Tariq Mesa MD Urinalysis w/ Microon 2019 ----- Normal [facility] Comment on above: Performed By: #### U AMIC #### [address] [place], [place] [phone] Manager Dialysis: Tariq Mesa MD Acetoacetic Acid,Ur Negative Normal NEG [facility] Comment on above: Performed By: #### U AMIC #### [facility] [address] [place] [address] Dr. [place], [place] [id number] Manager Dialysis: Tariq Mesa MD Bacteria LM.HPF (Urine sed) [#/Area] 1+ Abnormal NONE [facility] Comment on above: Performed By: #### U AMIC #### [facility] [address] [place] [address] Dr. [place], [place] [id number] Manager Dialysis: Tariq Mesa MD Bilirubin, SemiQt,Ur Negative Normal [facility] Comment on above: Performed By: #### U AMIC #### [facility] [address] [place], [place] [phone] Manager Dialysis: Tariq Mesa MD Color (U) YELLOW Normal YEL [facility] Comment on above: Performed By: #### U AMIC #### [facility] [address] [place], [place] [id number] Manager Dialysis: Tariq Mesa MD Epithelial cells LM.HPF (Urine sed) [#/Area] 2 TO 5 Normal 0-25 [facility] Comment on above: Performed By: #### U AMIC #### [facility] [address] [place], [facility]83 Manager Dialysis: Tariq Mesa MD Glucose Ql (U) Negative Normal NEG [facility] Comment on above: Performed By: #### U AMIC #### [facility] [address] [place], [facility] Manager Dialysis: Tariq Mesa MD Hemoglobin, Ur 1+ Abnormal NEG [facility] in Hospital Comment on above: Performed By: #### U AMIC #### [facility] [address] [place] [id number] Manager Dialysis: Tariq Mesa MD Leukocyte esterase Test strip Ql (U) Negative Normal NEG [facility] Comment on above: Performed By: #### U AMIC #### [facility] [address] [place], [facility]83 Manager Dialysis: Tariq Mesa MD Mucus Strands TRACE Abnormal NONE [facility] Comment on above: Performed By: #### U AMIC #### [address] [place], [facility] Manager Dialysis: Tariq Mesa MD Nitrite,Ur Negative Normal NEG [facility] Comment on above: Performed By: #### U AMIC #### [facility] [address] [place], [facility] Manager Dialysis: Tariq Mesa MD pH (U) 7.5 [pH] Normal 5.0-9.0 [facility] Comment on above: Performed By: #### U AMIC #### [facility] [address] [place] [address] Manager Dialysis: Tariq Mesa MD Protein Ql (U) Negative Normal NEG [facility] in [facility] Comment on above: Performed By: #### U AMIC #### [facility] [address] [place] [address] Manager Dialysis: Tariq Mesa MD RBC (U) [#/Vol] 0 TO 2 Normal 0-2 [facility] Comment on above: Performed By: #### U AMIC #### [facility] [address] [place] [id number] Manager Dialysis: Tariq Mesa MD Specific gravity (U) [Rel density] 1.010 Normal 1.010-1.020 [facility] Comment on above: Performed By: #### U AMIC #### [facility] [address] [place] [id number] Manager Dialysis: Tariq Mesa MD Turbidity CLEAR Normal CLEAR [facility] Comment on above: Performed By: #### U AMIC #### [address] [place] [id number] Manager Dialysis: Tariq Mesa MD Urobilinogen,Ur Normal Normal NORM [facility] Comment on above: Performed By: #### U AMIC #### [address] [place] [address] Manager Dialysis: Tariq Mesa MD WBC (U) [#/Vol] None Normal 0-5 [facility] Comment on above: Performed By: #### U AMIC #### [facility] [address] [place] [address] Manager Dialysis: Tariq Mesa MD Amorphous sediment LM Ql (Urine sed) NOT REPORTED Normal [facility] Comment on above: Performed By: #### U AMIC #### [facility] [address] [place] [address] Manager Dialysis: Tariq Mesa MD Casts LM.LPF (Urine sed) [#/Area] NOT REPORTED Normal [facility] Comment on above: Performed By: #### U AMIC #### [facility] [address] [place] [address] Manager Dialysis: Tariq Mesa MD Comment NOT REPORTED Normal [facility] Comment on above: Performed By: #### U AMIC #### [facility] [address] [place] [address] Manager Dialysis: Tariq Mesa MD Crystals LM Nom (Urine sed) NOT REPORTED Normal [facility] Comment on above: Performed By: #### U AMIC #### [facility] [address] [place] [address] Manager Dialysis: Tariq Mesa MD Epithelial, Renal NOT REPORTED Normal [address] [place] [address] Comment on above: Performed By: #### U AMIC #### [facility] [address] [place] [place] [address] Manager Dialysis: Tariq Mesa MD Other Observations NOT REPORTED Normal NREQ [facility] Comment on above: Performed By: #### U AMIC #### [facility] [address] [place], [place] [phone] Manager Dialysis: Tariq Mesa MD Trichomonas NOT REPORTED Normal [facility] Comment on above: Performed By: #### U AMIC #### [facility] [address] [place] [address] Manager Dialysis: Tariq Mesa MD Yeast LM Ql (Urine sed) NOT REPORTED Normal [facility] Comment on above: Performed By: #### U AMIC #### [facility] [address] [place] [address] Manager Dialysis: Tariq Mesa MD Urinalysis with Microscopico n 07-25-2019 Amorphous, UA NOT REPORTED None [facility] [place] [place] Bacteria, UA 1+ Abnormal None [facility] [place] Bilirubin Urine Negative NEGATIVE [facility] [place] Casts UA NOT REPORTED /LPF [facility] [place] Color, UA YELLOW YELLOW [facility] [place] Crystals, UA NOT REPORTED None /HPF [facility] Epithelial Cells UA 2 TO 5 [facility], [place] Glucose, Ur Negative NEGATIVE [facility], [place] Interpretation and review of laboratory results Abnormal [place] Ketones Ql (U) Negative NEGATIVE [facility] [place] Leukocyte esterase Test strip Ql (U) Negative NEGATIVE [facility], [place] Mucus, UA TRACE Abnormal None [facility], [place] Nitrite, Urine Negative NEGATIVE [facility], [place] Other Observations UA NOT REPORTED NOT REQ. [facility], [place] pH, UA 7.5 [facility], [place] Protein (U) [Mass/Vol] Negative NEGATIVE [facility], [place] RBC (U) [#/Vol] 0 TO 2 [facility] Renal Epithelial, UA NOT REPORTED 0 /HPF Me [facility], [place] Specific Hector, UA 1.010 [facility], [place] Trichomonas, UA NOT REPORTED None [facility] [place] Turbidity UA CLEAR CLEAR [place] Urinalysis Comments NOT REPORTED [place] Urine Hgb 1+ Abnormal NEGATIVE [facility], [place] Urobilinogen, Urine Normal Normal [place] WBC, UA None [facility], [place] Yeast, UA NOT REPORTED None [facility], [place] - [place] Encounters Encounter Date Encounter Type Care [...] End: 12-24-2019 Patient encounter procedure BRYNN BAH [facility] Start: 12-23-2019 End: 12-23-2019 Subsequent hospital visit by physician Brynn DAVID [facility] Comment on above: Urinary frequency; OAB (overactive bladder); Incomplete bladder emptying Start: 07-25-2019 End: 07-26-2019 Patient encounter procedure AGUILAR WOODY [facility] Start: 07-25-2019 End: 07-25-2019 Subsequent hospital [...] visit Urology Danyel Carson MD [address], [address] [place] [address] [facility] Start: 10-31-2019 End: 10-31-2019 Office Visit 10/31/2019 Office Visit Urology Aguilar Woody, DIGITAL MEDIA SPECIALIST - ANIMATION PRODUCER [address] [facility] [address] [place] [id number] [facility] Start: 10-22-2019 Influenza vaccination [place], [place] Start: 10-14-2015 DTaP/Tdap/Td vaccine (7 - Td) DTaP/Tdap/Td vaccine (7 - Td) [place] Start: 2009 Screening for malign ant neoplasm of cervix Cervical cancer screen [place] Start: 10-12-2007 DTaP/Tdap/Td vaccine (1 - Tdap) DTaP/Tdap/Td vaccine (1 - Tdap) [place] Start: 10-12-2003 HIV screening HIV screen [facility] [place], [place] Start: 1994 Pneumococcal 0-64 ye ars Vaccine (1 of 1 - PPSV23) Pneumococcal 0-64 years Vaccine (1 of 1 - PPSV23) [place] Start: 1989 Varicella vaccine (1 of 2 - 2-dose childhood series) Varicella vaccine (1 of 2 - 2-dose childhood series) [place] End: 12-23-2019 Culture, Urine Culture, Urine Microbiology Routine Urinary frequency OAB (overactive bladder) Incomplete bladder emptying 1 Occurrences starting 12/23/2019 until 12/23/2019 [place] Comment on above: 1 Occurrences starti ng 12/23/2019 until 12/23/2019 Culture, Urine [place] End: 07-25-2019 Culture, Urine Culture, Urine Microbiology Routine Urinary frequency 1 Occurrences starting 07/25/2019 until 07/25/2019 [place] Comment on above: 1 Occurrences starti ng 07/25/2019 until 07/25/2019 Payers Date Payer Category Payer Unknown [id number] 2014 Private Health Insurance [employer] A ETNA NAP CHOICE POS II xxxxxxxxxx 2014-Present [phone] [address] [place] [address] xxxxxxxxxx [id number] 1988 Unknown [id number] 1988 Unknown [id number] 1988 Unknown [id number] 1988 Unknown [id number] .1259 1988 Unknown [id number] .1259 1988 Unknown [id number] .9 1988 Unknown [id number] [id number] .9 1988 Unknown [id number] .1259 1959 Private Health Insurance [id number] Social History Date Type Detail Facility Start: 07-25-2019 End: 12-23-2019 Tobacco smoking status NHIS Current every day smoker [place] History of tobacco use Cigarette Smoker [place] Start: 07-25-2019 End: 12-23-2019 Cigarettes smoked current (pack per day) - Reported [place] Start: 12-23-2019 Tobacco use and exposure Never used [place] Start: 07-25-2019 End: 12-23-2019 Alcohol intake Current drinker of alcohol (finding) [place] Start: 07-25-2019 Alcohol Comment rare Joslyn David [place], [place] Sex Assigned At Not on file [place] Assessments Diagnosis Urinary frequency OAB (overactive bladder) Hypertonicity of bladder Incomplete bladder emptying Diagnosis Urinary frequency Advance Directives No Advanced Directives Records FoundDocuments on File Type Date Recorded Patient Cigarette Roller Expl anation ACP-Advance Directive ACP-Power of Fishing Instructor Documents on File Type Date Recorded Patient Cigarette Roller Expl anation Advance Directives and Living Will Power of Fishing Instructor Summary Purpose Family History No Family History Records FoundNo Family History Records FoundNo Family History Records Found Additional Source Comments INFORMATION SOURCE (unrecogn ized section and content) DATE CREATED AUTHOR 12/25/2019 [facility] DATE CREATED AUTHOR AUTHOR'S ORGANIZ ATION 08/06/2021 [facility] DATE CREATED AUTHOR AUTHOR'S ORGANIZ ATION 03/24/2023 [facility] FOR RECORDS PERTAINING TO PATIENTS [...] BE BASED ON THE PRIMARY CLINICAL RECORDS. [facility] [employer] [facility]. provides no warranty or guarantee of the accuracy or completeness of information in this document.
[2023-04-06 17:22] VITALS: BP 119/70; PULSE 88
== END 2023-04-06 17:23 | disposition home or self-care (01) ==
LOC: FBCO 08:17 → FBC 16:56
PROVIDERS: PCP Family Medicine; Visit Provider Obstetrics & Gynecology
DX: O36.63X1 Maternal care for excessive fetal growth, third trimester, fetus 1 (principal)
CPT/HCPCS: 59025

== ENCOUNTER 2023-04-10 07:30 | Outpatient (OUT) | payer BC, SELFPAY ==
--- OUTSIDE RECORDS SUMMARY | 2023-04-10 07:45 | XMS_ITS | CCD ---
Author Name Unknown Address [address] [place] [address] Organization [facility] Care Team Providers Care Laboratory Chief Name Role Phone Brynn Bah Primary Care Provider BRYNN BAH Primary Care Unavailable COLTON TINSLEY Referring Unavailable AGUILAR WOODY Referring Unavailable BRYNN BAH Primary Care Unavailable DR JESSICA DUNNE Admitting Unavailable VIBHA, DR LOPEZ Attending Unavailable VIBHA, DR LOPEZ Consulting Unavailable BERE ANDRADE Attending Unavailable JESSICA DUNNE Attending Unavailable BERE ANDRADE Attending Unavailable JESSICA DUNNE Attending Unavailable BERE ANDRADE Attending Unavailable JESSICA DUNNE Attending Unavailable Brynn Bah MD Primary Care Provider [phone] Ilir GARCIA, Ana Rosa Merrill Unavailable Medications Current Medications Medication Drug Class(es) [...] take 1 tablet by mouth once daily [id number] 0.18/0.215/0.25 MG-25 MCG TABS TAKE 1 TABLET BY MOUTH EVERY DAY 0 05/27/2019 Active magnesium oxide 400 mg oral tablet (2 sources) Start: 02-08-2023 take 1 tablet by mouth once in the morning magnesium oxide (Mag-Ox) 400 (240 Mg) MG tablet Indications: headache in second trimester TAKE 1 TABLET BY MOUTH IN THE MORNING 30 tablet 2 02/08/2023 Active omeprazole 20 mg delayed release oral capsule (2 sources) Proton Pump Inhibitor Start: 03-22-2023 End: 03-21-2024 take 1 capsule by mouth before mealtime omeprazole (PriLOSEC) [address] capsule Indications: Heart burn Take 1 capsule (20 mg) by mouth in the morning. Take before meals. Do not crush or chew.. 30 capsule 11 03/22/2023 03/21/2024 Active polysaccharide iron complex 391 mg oral capsule (2 sources) Start: 10-27-2022 End: 10-27-2023 take 1 capsule by mouth in the morning iron polysaccharides (ProFe) 391.3 (180 Fe) MG capsule Indications: Anemia affecting in first trimester Take 1 capsule (391.3 mg) by mouth in the morning. 30 capsule 11 10/27/2022 10/27/2023 Active MV-Min-Fe Fum-FA-DHA ( 1 PO) (2 sources) MV-Min- Fe Fum-FA-DHA ( 1 PO) Take by mouth. 0 Active Problems Problem Classification Problem Date Documented Date Episodic/Chronic Genitourinary symptoms and ill-defined conditions (5 sources) Increased frequency of urination; Translations: [Incomplete emptying of bladder] Onset: 02-22-2023 02-22-2023 Episodic Immunizations and screening for infectious disease (1 source) Encounter for screening for human papillomavirus (HPV); Translations: [ENC SCREENING HUMAN PAPILLOMAVIRUS] Onset: 08-04-2021 Episodic Other complications of (2 sources) Anemia of ; Translations: [Anemia complicating , unspecified trimester] Onset: 02-09-2023 02-09-2023 Chronic Other diseases of bladder and urethra (1 source) Overactive bladder; Translations: [OAB (overactive bladder)] Chronic Other and delivery including normal (6 sources) Third trimester ; Translations: [Encounter for supervision of normal , unspecified, third trimester] Onset: 02-09-2023 03-29-2023 Episodic Other screening for suspected conditions (not mental disorders or infectious disease) (4 sources) Encounter for screening for malignant neoplasm of cervix; Translations: [ENC SCREENING MALIG NEOPLASM CERV] Onset: 08-03-2021 Episodic Results Test Name Value Interpretation Reference Range Facility Urinalysis macro (dipstick) panel (U)Ordered By: Pearl Soni on 04-05-2023 Bilirubin, UA Negative Negative - 4(70) +++ mg/dL [facility] Blood, UA Positive Negative - 50 Chris/mcL [facility] Clarity, UA Clear [facility] Color, UA Yellow [facility] Glucose, UA Negative Negative - 1999(110) ++++ mg/dL [facility] Interpretation and review of laboratory results Abnormal [facility] Ketones, UA Negative Negative - 160(16) ++++ mg/dL [facility] Leukocytes, UA Negative Negative - 500+++ Dc/mcL [facility] Nitrite, UA Negative Negative - Positive [facility] pH, UA 7.0 5 - 9 [facility] e Protein, UA Negative Negative - 1999(20) ++++ mg/dL [facility] Spec Grav, UA 1.015 1 - 1.03 [facility] Urobilinogen, UA 0.2 0.2 - 12 mg/dL [facility] PAP ACOG PANEL 2: 30 to 65on 08-05-2021 . . Normal [facility] Comment on above: Result Comment: Perf ormed at: WB Performed By: #### [id number] #### [facility] [address] [place] [address] Dr. Jazmin Turner Age Gdln ACOG Testing 30-65 Normal [facility] Comment on above: Performed By: #### [id number] #### [facility] [address] [address] [address] Jazmin Turner DIAGNOSIS: Comment Normal [facility] Comment on above: Result Comment: NEGA TIVE FOR INTRAEPITHELIAL LESION OR MALIGNANCY. Performed at: WB Performed By: #### [id number] #### [facility] [address] [address] [address] Jazmin Turner HPV Aptima Negative Normal Negative [facility] Comment on above: Result Comment: This nucleic acid amplification test detects fourteen high-risk HPV types (16,18,31,33,35,39,45,51,52,56,58,59,66,68) without differentiation. Performed at: =G Performed By: #### [id number] #### [facility] [address] [place] [address] Dr. Jazmin Turner Methodology: Comment [facility] Comment on above: Result Comment: This liquid based ThinPrep(R) pap test was screened with the use of an image guided system. Performed at: WB Performed By: #### [id number] #### [facility] [address] [place] [address] Dr. Jazmin Turner Note: Comment Normal [facility] Comment on above: Result Comment: The Pap smear is a screening test designed to aid in the detection of premalignant and malignant conditions of the uterine cervix. It is not a diagnostic procedure and should not be used as the sole means of detecting cervical cancer. Both false-positive and false-negative reports do occur. . Performed at: WB Performed By: #### [id number] #### [facility] [address] [place] [address] Dr. Jazmin Turner Performed by: Comment Normal [facility] Comment on above: Result Comment: Tong Watts, [employer] ([employer]) Performed at: WB Performed By: #### [id number] #### [facility] [address] [place] [address] Dr. Jazmin Turner Specimen adequacy: Comment Normal [facility] Comment on above: Result Comment: Sati sfactory for evaluation. Endocervical and/or squamous metaplastic cells (endocervical component) are present. Performed at: WB Performed By: #### [id number] #### [facility] [address] [place] [address] Dr. Jazmin Turner Cult,Urineon 12-24-2019 Cult,Urine Specimen Description .CLEAN CATCH URINE Special Requests NOT REPORTED Culture NO SIGNIFICANT GROWTH Report Status FINAL 12/24/2019 Normal [facility] Comment on above: Performed By: #### U RC #### [address] [place] [address] [employer] Analyst: Robert Ross MD [facility] [address] [place], [place] [id number] [employer] Analyst: Tariq Mesa MD Urinalysis w/ Microon 2019 ----- Normal [facility] Comment on above: Performed By: #### U AMIC #### [facility] [address] [place], [place] [id number] [employer] Analyst: Tariq Mesa MD Acetoacetic Acid,Ur Negative Normal NEG [facility] Comment on above: Performed By: #### U AMIC #### [facility] [address] [place] [id number] [employer] Analyst: Tariq Mesa MD Bilirubin, SemiQt,Ur Negative Normal NEG [facility] Comment on above: Performed By: #### U AMIC #### [facility] [address] [place], [place] 7[address]83 [employer] Analyst: Tariq Mesa MD Color (U) YELLOW Normal YEL [facility] Comment on above: Performed By: #### U AMIC #### [facility] [address] [place], [place] [address]83 [employer] Analyst: Tariq Mesa MD Epithelial cells LM.HPF (Urine sed) [#/Area] None Normal 0-25 [facility] Comment on above: Performed By: #### U AMIC #### [facility] [address] [place], [place] 5505483 [employer] Analyst: Tariq Mesa MD Glucose Ql (U) Negative Normal NEG [facility] Comment on above: Performed By: #### U AMIC #### [facility] [address] [place], [place] 6033283 [employer] Analyst: Tariq Mesa MD Hemoglobin, Ur 2+ Abnormal NEG [facility] Comment on above: Performed By: #### U AMIC #### [facility] [address] [place], [place] 714[address]83 [employer] Analyst: Tariq Mesa MD Leukocyte esterase Test strip Ql (U) Negative Normal NEG [facility] Comment on above: Performed By: #### U AMIC #### [facility] [address] [place], [place] [address]83 [employer] Analyst: Tariq Mesa MD Nitrite,Ur Negative Normal NEG [facility] Comment on above: Performed By: #### U AMIC #### [facility] [address] [place], [place] [address]66[address]83 [employer] Analyst: Tariq Mesa MD pH (U) 7.5 [pH] Normal 5.0-9.0 [facility] Comment on above: Performed By: #### U AMIC #### [facility] [address] [place], [place] [address] [employer] Analyst: Tariq Mesa MD Protein Ql (U) Negative Normal NEG [facility] Comment on above: Performed By: #### U AMIC #### [facility] [address] [place], [place] 3318483 [employer] Analyst: Tariq Mesa MD RBC (U) [#/Vol] None Normal 0-2 [facility] Comment on above: Performed By: #### U AMIC #### [address] [place], [place] 4645[address] [employer]st: Tariq Mesa MD Specific gravity (U) [Rel density] 1.020 Normal 1.010-1.020 [facility] Comment on above: Performed By: #### U AMIC #### [facility] [address] [place], [place] 5047283 [employer] Analyst: Tariq Mesa MD Turbidity CLEAR Normal CLEAR [facility] Comment on above: Performed By: #### U AMIC #### [facility] [address] [place], [place] 3428283 [employer] Analyst: Tariq Mesa MD Urobilinogen,Ur Normal Normal NORM [facility] Comment on above: Performed By: #### U AMIC #### [facility] [address] [place] [address] [employer] Analyst: Tariq Mesa MD WBC (U) [#/Vol] None Normal 0-5 [facility] Comment on above: Performed By: #### U AMIC #### [facility] [address] [place] [address] [employer] Analyst: Tariq Mesa MD Amorphous sediment LM Ql (Urine sed) NOT REPORTED Normal NONE [facility] Comment on above: Performed By: #### U AMIC #### [facility] [address] [place] [address] [employer] Analyst: Tariq Mesa MD Bacteria LM.HPF (Urine sed) [#/Area] NOT REPORTED Normal NONE [facility] Comment on above: Performed By: #### U AMIC #### [facility] [address] [place] [address] [employer] Analyst: Tariq Mesa MD Casts LM.LPF (Urine sed) [#/Area] NOT REPORTED Normal [facility] Comment on above: Performed By: #### U AMIC #### [facility] [address] [place] [address] [employer] Analyst: Tariq Mesa MD Comment NOT REPORTED Normal [facility] Comment on above: Performed By: #### U AMIC #### [facility] [address] [place] [address] [employer] Analyst: Tariq Mesa MD Crystals LM Nom (Urine sed) NOT REPORTED Normal [facility] Comment on above: Performed By: #### U AMIC #### [facility] [address] [place], [place] [address]300[address] [employer] Analyst: Tariq Mesa MD Epithelial, Renal NOT REPORTED Normal 0 [facility] Comment on above: Performed By: #### U AMIC #### [facility] [address] [place] [address] [employer] Analyst: Tariq Mesa MD Mucus Strands NOT REPORTED Normal [facility] Comment on above: Performed By: #### U AMIC #### [facility] [address] [place], [place] 9858183 [employer] Analyst: Tariq Mesa MD Other Observations NOT REPORTED Normal NREQ [facility] Comment on above: Performed By: #### U AMIC #### [facility] [address] [place], [place] [address] [employer] Analyst: Tariq Mesa MD Trichomonas NOT REPORTED Normal [facility] Comment on above: Performed By: #### U AMIC #### [facility] [address] [place] [address] [employer] Analyst: Tariq Mesa MD Yeast LM Ql (Urine sed) NOT REPORTED Normal [facility] Comment on above: Performed By: #### U AMIC #### [facility] [address] [place] [address] [employer] Analyst: Tariq Mesa MD Urinalysis with Microscopico n 12-23-2019 Amorphous, UA NOT REPORTED None [facility] [place] Bacteria, UA NOT REPORTED None [facility] [place] Bilirubin Urine Negative NEGATIVE [facility] [place] Casts UA NOT REPORTED /LPF [facility] [place], [place] Color, UA YELLOW YELLOW [facility] [place], [place] Crystals, UA NOT REPORTED None /HPF [facility] [place] Epithelial Cells UA None [facility] [place] Glucose, Ur Negative NEGATIVE [facility] [place] Interpretation and review of laboratory results Abnormal [facility] [place] Ketones Ql (U) Negative NEGATIVE [facility] [place] Leukocyte esterase Test strip Ql (U) Negative NEGATIVE [facility] [place] Mucus, UA NOT REPORTED None [facility] [place] Nitrite, Urine Negative NEGATIVE [facility] [place] Other Observations UA NOT REPORTED NOT REQ. [facility] [place] pH, UA 7.5 [place], [place] Protein (U) [Mass/Vol] Negative NEGATIVE [place] RBC (U) [#/Vol] None [facility] [place] Renal Epithelial, UA NOT REPORTED 0 /HPF [place], [place] Specific [place], UA 1.020 [place], [place] Trichomonas, UA NOT REPORTED None [facility] [place] Turbidity UA CLEAR CLEAR [place], [place] Urinalysis Comments NOT REPORTED [place], [place] Urine Hgb 2+ Abnormal NEGATIVE [place] Urobilinogen, Urine Normal Normal [place], [place] WBC, UA None [place] Yeast, UA NOT REPORTED None [place], [place] - [place] Cult,Urineon 07-27-2019 Cult,Urine Specimen Description .CLEAN CATCH URINE Special Requests NOT REPORTED Culture NO SIGNIFICANT GROWTH Report Status FINAL 07/26/2019 Normal [facility] Comment on above: Performed By: #### U RC #### [address] [id number] [employer] Analyst: Robert Ross MD [facility] [address] [place] [address] [place] [address] [employer] Analyst: Tariq Mesa MD Urinalysis w/ Microon 2019 ----- Normal [facility] Comment on above: Performed By: #### U AMIC #### [facility] [address] [place] [address] [place] [address] [employer] Analyst: Tariq Mesa MD Acetoacetic Acid,Ur Negative Normal NEG [facility] Comment on above: Performed By: #### U AMIC #### [facility] [address] [place] [address] [place] [address] [employer] Analyst: Tariq Mesa MD Bacteria LM.HPF (Urine sed) [#/Area] 1+ Abnormal NONE [facility] Comment on above: Performed By: #### U AMIC #### [facility] [address] [place] [address] Dr[place], [place] 30[address] [employer] Analyst: Tariq Mesa MD Bilirubin, SemiQt,Ur Negative Normal NEG [facility] Comment on above: Performed By: #### U AMIC #### [facility] [address] [place] 5[address]83 [employer] Analyst: Tariq Mesa MD Color (U) YELLOW Normal YEL [facility] Comment on above: Performed By: #### U AMIC #### [facility] [address] [place] 2396583 [employer] Analyst: Tariq Mesa MD Epithelial cells LM.HPF (Urine sed) [#/Area] 2 TO 5 Normal 0-25 [facility] Comment on above: Performed By: #### U AMIC #### [facility] [address] [place], [place] 8435683 [employer] Analyst: Tariq Mesa MD Glucose Ql (U) Negative Normal NEG [facility] Comment on above: Performed By: #### U AMIC #### [facility] [address] [place], [place] 244[address]83 [employer] Analyst: Tariq Mesa MD Hemoglobin, Ur 1+ Abnormal NEG [facility] Comment on above: Performed By: #### U AMIC #### [facility] [address] [place], [place] 6974883 [employer] Analyst: Tariq Mesa MD Leukocyte esterase Test strip Ql (U) Negative Normal NEG [facility] Comment on above: Performed By: #### U AMIC #### [facility] [address] [place], [place] 8283583 [employer] Analyst: Tariq Mesa MD Mucus Strands TRACE Abnormal NONE [facility] Comment on above: Performed By: #### U AMIC #### [facility] [address] [place], [place] 1582483 [employer] Analyst: Tariq Mesa MD Nitrite,Ur Negative Normal [facility] Comment on above: Performed By: #### U AMIC #### [facility] [address] [place], [place] 4368883 [employer] Analyst: Tariq Mesa MD pH (U) 7.5 [pH] Normal 5.0-9.0 [facility] Comment on above: Performed By: #### U AMIC #### [facility] [address] [place], [place] 0300383 [employer] Analyst: Tariq Meas MD Protein Ql (U) Negative Normal NEG [facility] Comment on above: Performed By: #### U AMIC #### [facility] [address] [place], [place] 3096883 [employer] Analyst: Tariq Mesa MD RBC (U) [#/Vol] 0 TO 2 Normal 0-2 [facility] Comment on above: Performed By: #### U AMIC #### [facility] [address] [place], [place] 7435783 [employer] Analyst: Tariq Mesa MD Specific gravity (U) [Rel density] 1.010 Normal 1.010-1.020 [facility] Comment on above: Performed By: #### U AMIC #### [address] [place], [place] [address]83 [employer] Analyst: Tariq Mesa MD Turbidity CLEAR Normal CLEAR [facility] Comment on above: Performed By: #### U AMIC #### [facility] [address] [place], [place] 349[address]83 [employer] Analyst: Tariq Mesa MD Urobilinogen,Ur Normal Normal NORM [facility] Comment on above: Performed By: #### U AMIC #### [facility] [address] [place], [place] 9629283 [employer] Analyst: Tariq Mesa MD WBC (U) [#/Vol] None Normal 0-5 [facility] Comment on above: Performed By: #### U AMIC #### [facility] [address] [place] [address] [employer] Analyst: Tariq Mesa MD Amorphous sediment LM Ql (Urine sed) NOT REPORTED Normal NONE [facility] Comment on above: Performed By: #### U AMIC #### [facility] [address] [place], [place] 9[address]83 [employer] Analyst: Tariq Mesa MD Casts LM.LPF (Urine sed) [#/Area] NOT REPORTED Normal [facility] Comment on above: Performed By: #### U AMIC #### [facility] [address] [place], [place] 613[address] [employer] Analyst: Tariq Mesa MD Comment NOT REPORTED Normal [facility] Comment on above: Performed By: #### U AMIC #### [facility] [address] [place], [place] 318[address] [employer] Analyst: Tariq Mesa MD Crystals LM Nom (Urine sed) NOT REPORTED Normal [facility] Comment on above: Performed By: #### U AMIC #### [facility] [address] [place], [place] [address]83 [employer] Analyst: Tariq Mesa MD Epithelial, Renal NOT REPORTED Normal 0 [facility] Comment on above: Performed By: #### U AMIC #### [facility] [address] [place], [place] 0287[address] [employer] Analyst: Tariq Mesa MD Other Observations NOT REPORTED Normal NREQ [facility] Comment on above: Performed By: #### U AMIC #### [facility] [address] [place] [address] [employer] Analyst: Tariq Mesa MD Trichomonas NOT REPORTED Normal NONE [facility] Comment on above: Performed By: #### U AMIC #### [facility] [address] [place], [place] 1617483 [employer] Analyst: Tariq Mesa MD Yeast LM Ql (Urine sed) NOT REPORTED Normal NONE [facility] Comment on above: Performed By: #### U [facility] #### [facility] [address] [place] [address] [employer] Analyst: Tariq Mesa MD Urinalysis with Microscopico n 07-25-2019 Amorphous, UA NOT REPORTED None [facility], [place] Bacteria, UA 1+ Abnormal None [place], [place] Bilirubin Urine Negative NEGATIVE [facility], [place] Casts UA NOT REPORTED /LPF [place] Color, UA YELLOW YELLOW [place] Crystals, UA NOT REPORTED None /HPF [facility], [place] Epithelial Cells UA 2 TO 5 [place], [place] Glucose, Ur Negative NEGATIVE [place] Interpretation and review of laboratory results Abnormal [place] Ketones Ql (U) Negative NEGATIVE [place], [place] Leukocyte esterase Test strip Ql (U) Negative NEGATIVE [place] Mucus, UA TRACE Abnormal None [place] Nitrite, Urine Negative NEGATIVE [place], [place] Other Observations UA NOT REPORTED NOT REQ. [place] pH, UA 7.5 [place], [place] Protein (U) [Mass/Vol] Negative NEGATIVE [place] RBC (U) [#/Vol] 0 TO 2 [facility] [place], [place] Renal Epithelial, UA NOT REPORTED 0 /HPF [place], [place] Specific [place], UA 1.010 [place], [place] Trichomonas, UA NOT REPORTED None [facility] [place] Turbidity UA CLEAR CLEAR [place] Urinalysis Comments NOT REPORTED [place], [place] Urine Hgb 1+ Abnormal NEGATIVE [place] Urobilinogen, Urine Normal Normal [place] WBC, UA None [place] Yeast, UA NOT REPORTED None [facility], [place] - [place] Vital Signs Date Time Vital Sign Value Performing Clinician Faci carlos 04-05-2023 11:19-0500 Body mass index (BMI) [Ratio] 35.51 kg/m2 Jessica Vibha DO Work Phone: [facility] 04-05-2023 11:19-0500 Body weight 88.05 kg Jessica Vibha DO Work Phone: [facility] 04-05-2023 11:19-0500 Diastolic blood pressure 78 mm[Hg] Jessica Vibha DO Work Phone: [facility] 04-05-2023 11:19-0500 Systolic blood pressure 114 mm[Hg] Jessica Vibha DO Work Phone: [facility] Healthcare Encounters Encounter Date Encounter Type Care Provider Facility Start: 04-05-2023 End: 04-05-2023 ambulatory JESSICA VIBHA Not Available Start: 04-05-2023 End: 04-05-2023 flow sheet Jessica Vibha DO Work Phone: [facility] BCP OB Comment on above: Third trimester preg audi Start: 03-22-2023 End: 03-22-2023 ambulatory BERE LUPE Not Available Start: 03-08-2023 End: 03-08-2023 ambulatory JESSICA VIBHA Not Available Start: 02-22-2023 End: 02-22-2023 ambulatory BERE LUPE Not Available Start: 02-09-2023 End: 02-09-2023 ambulatory JESSICA VIBHA Not Available Start: 01-11-2023 End: 01-11-2023 ambulatory BERE LUPE Not Available Start: 08-03-2021 End: 08-03-[address] JESSICA DUNNE Facility: Start: 12-23-2019 End: 12-24-2019 Patient encounter procedure BRYNN Rodriguez [facility] Start: 12-23-2019 End: 12-23-2019 Subsequent hospital visit by physician Brynn DAVID Laboratory Comment on above: Urinary frequency; OAB (overactive bladder); Incomplete bladder emptying Start: 07-25-2019 End: 07-26-2019 [facility] Start: 07-25-2019 End: 07-25-2019 Subsequent hospital visit by physician Brynn DAVID Laboratory Comment on above: Urinary frequency Procedures Date Procedure Procedure Detail Performing Clinician Start: 04-05-2023 Urnls dip stick/tabl et rgnt non-auto w/o micrscp Jessica Dunne DO Work Phone: Start: 08-24-2022 Microscopic observat ion [Identifier] in Cervix by Cyto stain Jessica Dunne DO Work Phone: Start: 12-23-2019 Culture bacterial quanttative colony count urine [facility] Start: 12-23-2019 Urnls dip stick/tabl et reagent auto microscopy [facility] Start: 12-23-2019 Urnls dip stick/tabl et reagent auto microscopy Colton Morley Sukhjindermeliza Work Phone: Start: 07-25-2019 Culture bacterial quanttative colony count urine [facility] Start: 07-25-2019 Urnls dip stick/tabl et reagent auto microscopy [facility] Start: 07-25-2019 Urnls dip stick/tabl et reagent auto microscopy Aguilar W Samaramanuel Work Phone: Plan of Treatment Date Care Activity Detail Author Start: 08-25-2027 Screening for malign ant neoplasm of cervix [facility] Start: 08-24-2025 Screening for malign ant neoplasm of cervix Pap Smear [facility] Start: 08-28-2023 End: 08-28-2023 Patient encounter procedure 08/28/2023 4:00 PM EDT Office Visit [facility] [address] [address] Jessica Dunne DO [address] [place] [address] [facility] Start: 04-19-2023 End: 04-19-2023 Patient encounter procedure 04/19/2023 3:20 PM EST Routine [facility] [address] [place] [address] Bere Andrade PA [address] [place], [place] [id number] [facility] Start: 04-19-2023 End: 04-19-2023 Professional / ancillary services management 04/19/2023 3:00 PM EST Ancillary Procedure [facility] [address] [phone] [facility] Start: 10-21-2022 Influenza vaccination Influenza Vacc ine (#1) [facility] Start: 01-13-2020 End: 01-13-2020 Procedure visit 01/13/2020 Procedure visit Urology Danyel Carson MD [address], [address] [place], [place] [id number] [facility] Start: 10-31-2019 End: 10-31-2019 Office Visit 10/31/2019 Office Visit Urology Aguilar Woody, PATCH FINISHER - INSTALLATION COORDINATOR [address] [place] [id number] [facility] Start: 10-22-2019 Influenza vaccination [place], [place] Start: 10-14-2015 DTaP/Tdap/Td vaccine (7 - Td) DTaP/Tdap/Td vaccine (7 - Td) [place], [place] Start: 2009 Screening for malign ant neoplasm of cervix Cervical cancer screen [place], [place] Start: 10-12-2007 DTaP/Tdap/Td vaccine (1 - Tdap) DTaP/Tdap/Td vaccine (1 - Tdap) [place] Start: 10-12-2003 HIV screening HIV screen [place], [place] Start: 1994 Pneumococcal 0-64 ye ars Vaccine (1 of 1 - PPSV23) Pneumococcal 0-64 years Vaccine (1 of 1 - PPSV23) [place], [place] Start: 1989 Varicella vaccine (1 of 2 - 2-dose childhood series) Varicella vaccine (1 of 2 - 2-dose childhood series) [place], [place] End: 12-23-2019 Culture, Urine Culture, Urine Microbiology Routine Urinary frequency OAB (overactive bladder) Incomplete bladder emptying 1 Occurrences starting 12/23/2019 until 12/23/2019 [facility] on above: 1 Occurrences starti ng 12/23/2019 until 12/23/2019 Culture, Urine [facility] End: 07-25-2019 Culture, Urine Culture, Urine Microbiology Routine Urinary frequency 1 Occurrences starting 07/25/2019 until 07/25/[address] [facility] Comment on above: 1 Occurrences starti ng 07/25/2019 until 07/25/2019 Payers Date Payer Category Payer Unknown [id number] 2022 Unknown BCBS BCBS xxxxxx [id number] 2022-Present [phone] [address] [place] [address] [id number] 2014 Private Health Insurance [employer] A ETNA NAP CHOICE POS II xxxxxxxxxx 2014-Present [phone] [address] [place] [address] xxxxxxxxxx [id number] 1988 Unknown [id number] .173 1988 Unknown [id number] .173 1988 Unknown [id number] .593 1988 Unknown [id number] [id number] .1259 1988 Unknown [id number] [id number] .1259 1988 Unknown [id number] [id number] .1259 1988 Unknown [id number] [id number] .1259 1988 Unknown [id number] [id number] .1259 1988 Unknown [id number] .1259 1959 Private Health Insurance [id number] Social History Date Type Detail Facility Start: 02-20-2003 End: 08-10-2022 Tobacco smoking status MEIS Current every day smoker [facility] Start: 02-20-2003 History of tobacco use Cigarette Smoker [place], [place] Start: 12-23-2019 End: 08-10-2022 Cigarettes smoked current (pack per day) - Reported [facility] Start: 12-23-2019 Tobacco use and exposure [facility] [place] [place] Start: 12-23-2019 End: 04-05-2023 Alcohol intake Current drinker of alcohol (finding) [place], [place] Start: 07-25-2019 Alcohol Comment rare [place], [place] Sex Assigned At Not on file [place] Start: 08-10-2022 End: 01-09-2023 Alcohol Use Disorder Identification Test - Consumption [AUDIT-C] [facility] How often to you hav e a drink containing alcohol? 2-4 times a month [facility] How many standard dr inks containing alcohol do you have on a typical day? 5 or 6 [facility] How often do you hav e 6 or more drinks on 1 occasion? Monthly [facility] Start: 08-10-2022 Tobacco Comment Patient smokes 11-20 cigarettes/day after 31-60 minutes of waking up.Thinking about quitting [facility] Start: 08-10-2022 Alcohol Comment 5 or 6 drinks; 2 to 4 times a month. caffeine: 1-2 cups/day soda/pop [facility] Start: 08-23-2022 [facility] Start: 1990 Sex Assigned At Female [facility] Start: 08-09-2022 Gender identity Identifies as female gender (finding) [facility] History of Present illness Narrative 04-05-2023 Laura Barakat LPN - 04/05/2023 11:10 AM EST Note Date & Type Note Facility 04-05-2023 History of Presen t illness Narrative Reason for Appointment: Patient ID: Carlene Nelson is a 32 y.o. female who presents for Routine Visit Patient presents today for Return OB appointment. Current Medications: has a current medication list which includes the following prescription(s): iron polysaccharides, magnesium oxide, omeprazole, and mv-min-fe fum-fa-dha. Medical History: Active Ambulatory Problems Diagnosis Date Noted Antepartum anemia 02/09/2023 Second trimester 02/09/2023 Third trimester 02/22/2023 Hematuria 02/22/2023 Resolved Ambulatory Problems Diagnosis Date Noted No Resolved Ambulatory Problems Past Medical History: Diagnosis Date Abnormal Pap smear of cervix BMI 23.0-23.9, adult Breast lump on right side at 10 o'clock position Breast lump on right side at 10 o'clock position Fatigue Fatigue FOM (frequency of micturition) Frequency of micturition H/O abnormal cervical Papanicolaou smear History of kidney problems Migraines (CMS/HCC) Well woman exam Family History Problem Relation Name Age of Onset Ovarian cancer Mother Social History Tobacco Use Smoking status: Every Day Types: Cigarettes Start date: 2003 Smokeless tobacco: Not on file Tobacco comments: Patient smokes 11-20 cigarettes/day after 31-60 minutes of waking up. Thinking about quitting Substance Use Topics Alcohol use: Yes Comment: 5 or 6 drinks; 2 to 4 times a month. caffeine: 1-2 cups/day soda/pop Drug use: Never Past Surgical History: Procedure Laterality Date SEPTOPLASTY 07/03/2019 Septoplasty/Turbs/Right Latera No Known Allergies Review of Systems: Review of Systems Constitutional: Negative. HENT: Negative. Eyes: Negative. Respiratory: Negative. Cardiovascular: Negative. Gastrointestinal: Negative. Genitourinary: Negative. Musculoskeletal: Negative. Skin: Negative. Neurological: Negative. All other systems reviewed and are negative. Hematological: Negative. Endocrine: Negative. Allergic/Immunologic: Negative. Objective Physical Exam Constitutional: Appearance: Normal appearance. She is well-developed. Cardiovascular: Rate and Rhythm: Normal rate and regular rhythm. Pulmonary: Effort: Pulmonary effort is normal. Breath sounds: Normal breath sounds. Abdominal: General: Bowel sounds are normal. There is no distension. Palpations: Abdomen is soft. Tenderness: There is no abdominal tenderness. There is no guarding or rebound. Musculoskeletal: General: No swelling. Normal range of motion. Right lower leg: No edema. Left lower leg: No edema. Neurological: Mental Status: She is alert and oriented to person, place, and time. Skin: General: Skin is warm and dry. Psychiatric: Mood and Affect: Mood normal. Behavior: Behavior normal. Vitals and nursing note reviewed. 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 Vitals: Estimated body mass index is 35.51 kg/m as calculated from the following: Height as of 23: 5' 2 . Weight as of this encounter: 194 lb 1.9 oz. BP: 114/78 Patient's last menstrual period was 08/17/2022. Assessment/Plan Encounter Diagnosis Name Primary? Third trimester Patient presents today for a routine obstetrics appointment. Patient is currently 34w1d . Patient states she is doing well but has complaints of being tired due to current . Patient has verbalizes frequent movement. labor precautions was discussed/given and patient was instructed to perform kick counts three times a day. Follow Up: Patient is to return to office in 2 week for routine OB appointment. Documented by Laura Barakat LPN on behalf of: Jessica Dunne DO documented in this encounter [facility] Evaluation note Note Date & Type Note Facility Evaluation note Diagnosis Third trimester state, incidental documented in this encounter [facility] Assessments Diagnosis Urinary frequency OAB (overactive bladder) Hypertonicity of bladder Incomplete bladder emptying Diagnosis Urinary frequency Advance Directives Documents on File Type Date Recorded Patient Steward/Stewardess Bath Expl anation ACP-Advance Directive ACP-Power of Church History Professor Documents on File Type Date Recorded Patient Steward/Stewardess Bath Expl anation Advance Directives and Living Will Power of Church History Professor Summary Purpose Family History No Family History Records FoundNo Family History Records FoundNo Family History Records Found Additional Source Comments INFORMATION SOURCE (unrecogn ized section and content) DATE CREATED AUTHOR 12/25/2019 [facility] DATE CREATED AUTHOR AUTHOR'S ORGANIZ ATION 08/06/2021 [facility] DATE CREATED AUTHOR AUTHOR'S ORGANIZ ATION 04/07/[address] [place] [address] [facility] EPIC Reason for Visit (unrecogniz ed section and content) Reason Comments Routine Visit Care Teams (unrecognized sec tion and content) Laboratory Chief Relationship Specialty Start Date End Date Brynn Bah MD [address] [place], [place] [id number] PCP - General Family Medicine 08/10/22 Ana Rosa Hazel NP [address] [place], [place] [id number] PCP - Emmanuel Commercial 09/20/22 FOR RECORDS PERTAINING TO PATIENTS WHO ARE [...] BE BASED ON THE PRIMARY CLINICAL RECORDS. [employer] [facility]. provides no warranty or guarantee of the accuracy or completeness of information in this document.
--- NOTE | 2023-04-10 13:55 | US_ITS ---
[address] [address] Patient Name: RAFITA ISAAC MRN: [id number] date: 1990 Sex: F Assigned Patient Location: US Current Patient Location: [facility] Accession/Order Number: [id number] Exam Date: 04/10/2023 13:56 Report Date: 04/10/2023 14:37 At the request of: KARISSA ANDRADE Procedure: US OB BPP w non-stress EXAMINATION: US OB BPP w non-stress HISTORY: EXCESSIVE GROWTH O36.63X0 COMPARISON: Ultrasound OB biophysical 04/03/2023 TECHNIQUE: Ultrasound biophysical profile was performed in the radiology department. BREATHING MOVEMENTS: 2.0 GROSS BODY MOVEMENTS: 2.0 TONE: 2.0 QUALITATIVE AMNIOTIC FLUID VOLUME: 2.0 PRESENTATION: CEPHALIC HEART RATE: 137.1 bpm bpm. AMNIOTIC FLUID VOLUME: 11.8 cm GESTATIONAL AGE: 34 weeks 6 days CONCLUSION: Total biophysical profile score 8.0. Electronically authenticated by: SALVADOR RODAS Date: 04/10/2023 14:37
[2023-04-10 14:26] VITALS: BP 93/57; PULSE 93
== END 2023-04-10 14:58 | disposition home or self-care (01) ==
LOC: US 07:42 → FBC 13:57
PROVIDERS: PCP Family Medicine; Visit Provider Physician Assistant
DX: O36.63X0 Maternal care for excessive fetal growth, third trimester, not applicable or unspecified (principal); Z3A.34 34 weeks gestation of pregnancy
CPT/HCPCS: 76818

== ENCOUNTER 2023-04-13 07:30 | Outpatient (OUT) | payer BC, SELFPAY ==
--- OUTSIDE RECORDS SUMMARY | 2023-04-13 07:37 | XMS_ITS | CCD ---
Author Name Unknown Address [address] [place] [address] Organization [facility] Care Team Providers Care Lamp Wirer Name Role Phone Brynn Bah Primary Care Provider [phone] BRYNN BAH Primary Care Unavailable COLTON TINSLEY Referring Unavailable AGUILAR WOODY Referring Unavailable BRYNN BAH Primary Care Unavailable DR JESSICA DUNNE Admitting Unavailable VIBHA, DR LOPEZ Attending Unavailable VIBHA, DR LOPEZ Consulting Unavailable BERE ANDRADE Attending Unavailable JESSICA DUNNE Attending Unavailable BERE ANDRADE Attending Unavailable JESSICA DUNNE Attending Unavailable BERE ANDRADE Attending Unavailable JESSICA DUNNE Attending Unavailable Brynn Bah MD Primary Care Provider Ilir GARCIA, Ana Rosa Merrill Unavailable Medications [...] take 1 tablet by mouth once daily [id number] 0.18/0.215/0.25 MG-25 MCG TABS TAKE 1 TABLET [...] UA Negative Negative - 4(70) +++ mg/dL [facility] Blood, UA Positive Negative - 50 Chris/mcL [facility] Clarity, UA Clear [facility] Health[facility] re Color, UA Yellow [facility] Healthcar e Glucose, UA Negative Negative - 1999(110) ++++ mg/dL [facility] Interpretation and review of laboratory results Abnormal [facility] Ketones, UA Negative Negative - 160(16) ++++ mg/dL [facility] Leukocytes, UA Negative Negative - 500+++ Dc/mcL [facility] Nitrite, UA Negative Negative - Positive [facility] pH, UA 7.0 5 - 9 formerly [facility] e Protein, UA Negative Negative - 1999(20) ++++ mg/dL [facility] Spec Grav, UA 1.015 1 - 1.03 [facility] Urobilinogen, UA 0.2 0.2 - 12 mg/dL [facility] PAP ACOG PANEL 2: 30 to 65on 08-05-2021 . . Normal [facility] Comment on above: Result Comment: Perf ormed at: WB Performed By: #### [id number] #### [facility] [address] [place] [address] Dr. Jazmin Turner Age Gdln ACOG Testing 30-65 Normal [facility] Comment on above: Performed By: #### [id number] #### [facility] [address] [address] [address] Jazmin Turner DIAGNOSIS: Comment Normal [facility] Comment on above: Result Comment: NEGA TIVE FOR INTRAEPITHELIAL LESION OR MALIGNANCY. Performed at: WB Performed By: #### [id number] #### [facility] [address] [address] [address] Jazmin Turner HPV Aptima Negative Normal Negative [facility] Comment on above: Result Comment: This nucleic acid amplification test detects fourteen high-risk HPV types (16,18,31,33,35,39,45,51,52,56,58,59,66,68) without differentiation. Performed at: =G Performed By: #### [id number] #### [facility] [address] [place] [address] Dr. Jazmin Turner Methodology: Comment [facility] Comment on above: Result Comment: This liquid based ThinPrep(R) pap test was screened with the use of an image guided system. Performed at: WB Performed By: #### [id number] #### [facility] [address] [place] [address] Dr. Jazmin Turner Note: Comment Normal [facility] Comment on above: Result Comment: The Pap smear is a screening test designed to aid in the detection of premalignant and malignant conditions of the uterine cervix. It is not a diagnostic procedure and should not be used as the sole means of detecting cervical cancer. Both false-positive and false-negative reports do occur. . Performed at: WB Performed By: #### [id number] #### [facility] [address] [place] [address] Dr. Jazmin Turner Performed by: Comment Normal [facility] Comment on above: Result Comment: Tong Watts, See Supervisor (ASCP) Performed at: WB Performed By: #### [id number] #### [facility] [address] [place] [address] Dr. Jazmin Turner Specimen adequacy: Comment Normal [facility] Comment on above: Result Comment: Sati sfactory for evaluation. Endocervical and/or squamous metaplastic cells (endocervical component) are present. Performed at: WB Performed By: #### [id number] #### [facility] [address] [place] [address] Dr. Jazmin Turner Cult,Urineon 12-24-2019 Cult,Urine Specimen Description .CLEAN CATCH URINE Special Requests NOT REPORTED Culture NO SIGNIFICANT GROWTH Report Status FINAL 12/24/2019 Normal [facility] Comment on above: Performed By: #### U RC #### [address] [place] [address] Government Operations Consultant: Robert Ross MD [facility] [address] [place], [place] [id number] Government Operations Consultant: Tariq Mesa MD Urinalysis w/ Microon 2019 ----- Normal [facility] Comment on above: Performed By: #### U AMIC #### [facility] [address] [place], [place] [phone] Government Operations Consultant: Tariq Mesa MD Acetoacetic Acid,Ur Negative Normal NEG [facility] Comment on above: Performed By: #### U AMIC #### [facility] [address] [place] [phone] Government Operations Consultant: Tariq Mesa MD Bilirubin, SemiQt,Ur Negative Normal NEG [facility] Comment on above: Performed By: #### U AMIC #### [facility] [address] [place], [place] [phone] Government Operations Consultant: Tariq Mesa MD Color (U) YELLOW Normal YEL [facility] Comment on above: Performed By: #### U AMIC #### [facility] [address] [place], [place] [phone] Government Operations Consultant: Tariq Mesa MD Epithelial cells LM.HPF (Urine sed) [#/Area] None Normal 0-25 [facility] Comment on above: Performed By: #### U AMIC #### [facility] [address] [place], [place] [phone] Government Operations Consultant: Tariq Mesa MD Glucose Ql (U) Negative Normal NEG [facility] in Hospital Comment on above: Performed By: #### U AMIC #### [facility] [address] [place], [place] [phone] Government Operations Consultant: Tariq Mesa MD Hemoglobin, Ur 2+ Abnormal NEG [facility] Comment on above: Performed By: #### U AMIC #### [facility] [address] [place], [place] 2496283 Government Operations Consultant: Tariq Mesa MD Leukocyte esterase Test strip Ql (U) Negative Normal NEG [facility] Comment on above: Performed By: #### U AMIC #### [facility] [address] [place], [place] [phone] Government Operations Consultant: Tariq Mesa MD Nitrite,Ur Negative Normal NEG [facility] Comment on above: Performed By: #### U AMIC #### [facility] [address] [place], [place] [address]83 Government Operations Consultant: Tariq Mesa MD pH (U) 7.5 [pH] Normal 5.0-9.0 [facility] Comment on above: Performed By: #### U AMIC #### [facility] [address] [place], [place] [phone] Government Operations Consultant: Tariq Mesa MD Protein Ql (U) Negative Normal NEG [facility] Comment on above: Performed By: #### U AMIC #### [facility] [address] [place], [place] [phone] [employer] Operations Consultant: Tariq Mesa MD RBC (U) [#/Vol] None Normal 0-2 [facility] Comment on above: Performed By: #### U AMIC #### [address] [place], [place] [address]483 Government Operations Consultant: Tariq Mesa MD Specific gravity (U) [Rel density] 1.020 Normal 1.010-1.020 [facility] Comment on above: Performed By: #### U AMIC #### [facility] [address] [place], [place] [address]83 Government Operations Consultant: Tariq Mesa MD Turbidity CLEAR Normal CLEAR [facility] Comment on above: Performed By: #### U AMIC #### [facility] [address] [place], [place] [address] Government Operations Consultant: Tariq Mesa MD Urobilinogen,Ur Normal Normal NORM [facility] Comment on above: Performed By: #### U AMIC #### [facility] [address] [place] [address] Government Operations Consultant: Tariq Mesa MD WBC (U) [#/Vol] None Normal 0-5 [facility] Comment on above: Performed By: #### U AMIC #### [facility] [address] [place] [address] Government Operations Consultant: Tariq Mesa MD Amorphous sediment LM Ql (Urine sed) NOT REPORTED Normal NONE [facility] Comment on above: Performed By: #### U AMIC #### [facility] [address] [place] [address] Government Operations Consultant: Tariq Mesa MD Bacteria LM.HPF (Urine sed) [#/Area] NOT REPORTED Normal NONE [facility] Comment on above: Performed By: #### U AMIC #### [facility] [address] [place] [address] Government Operations Consultant: Tariq Mesa MD Casts LM.LPF (Urine sed) [#/Area] NOT REPORTED Normal [facility] Comment on above: Performed By: #### U AMIC #### [facility] [address] [place] [address] Government Operations Consultant: Tariq Mesa MD Comment NOT REPORTED Normal [facility] Comment on above: Performed By: #### U AMIC #### [facility] [address] [place] [address] Government Operations Consultant: Tariq Mesa MD Crystals LM Nom (Urine sed) NOT REPORTED Normal [facility] Comment on above: Performed By: #### U AMIC #### [facility] [address] [place], [place] [address] Government Operations Consultant: Tariq Mesa MD Epithelial, Renal NOT REPORTED Normal 0 [facility] Comment on above: Performed By: #### U AMIC #### [facility] [address] [place] [address] Government Operations Consultant: Tariq Mesa MD Mucus Strands NOT REPORTED Normal [facility] Comment on above: Performed By: #### U AMIC #### [facility] [address] [place], [place] [address]83 Government Operations Consultant: Tariq Mesa MD Other Observations NOT REPORTED Normal NREQ [facility] Comment on above: Performed By: #### U AMIC #### [facility] [address] [place], [place] [address]83 Government Operations Consultant: Tariq Mesa MD Trichomonas NOT REPORTED Normal [facility] Comment on above: Performed By: #### U AMIC #### [facility] [address] [place] [address] Government Operations Consultant: Tariq Mesa MD Yeast LM Ql (Urine sed) NOT REPORTED Normal [facility] Comment on above: Performed By: #### U AMIC #### [facility] [address] [place] [address] Government Operations Consultant: Tariq Mesa MD Urinalysis with Microscopico n 12-23-2019 Amorphous, UA NOT REPORTED None [facility] Bacteria, UA NOT REPORTED None [facility] [place] Bilirubin Urine Negative NEGATIVE [facility] Casts UA NOT REPORTED /LPF [facility] [place] Color, UA YELLOW YELLOW [facility] [place] Crystals, UA NOT REPORTED None /HPF [facility] [place] Epithelial Cells UA None [facility] [place] Glucose, Ur Negative NEGATIVE [facility] [place] Interpretation and review of laboratory results Abnormal [facility] [place] Ketones Ql (U) Negative NEGATIVE [facility] [place] Leukocyte esterase Test strip Ql (U) Negative NEGATIVE [facility] [place] Mucus, UA NOT REPORTED None [facility] [place] Nitrite, Urine Negative NEGATIVE [facility] [place] Other Observations UA NOT REPORTED NOT REQ. [facility] [place] pH, UA 7.5 [place], [place] Protein (U) [Mass/Vol] Negative NEGATIVE [place] RBC (U) [#/Vol] None [facility] [place] Renal Epithelial, UA NOT REPORTED 0 /HPF [place], [place] Specific [place], UA 1.020 [place], [place] Trichomonas, UA NOT REPORTED None [facility] [place] Turbidity UA CLEAR CLEAR [place], [place] Urinalysis Comments NOT REPORTED [place], [place] Urine Hgb 2+ Abnormal NEGATIVE [place] Urobilinogen, Urine Normal Normal [place] WBC, UA None [place] Yeast, UA NOT REPORTED None [place], [place] - [place] Cult,Urineon 07-27-2019 Cult,Urine Specimen Description .CLEAN CATCH URINE Special Requests NOT REPORTED Culture NO SIGNIFICANT GROWTH Report Status FINAL 07/26/2019 Normal [facility] Comment on above: Performed By: #### U RC #### [address] [id number] Government Operations Consultant: Robert Ross MD [facility] [address] [place] [address] [place] [address] Government Operations Consultant: Tariq Mesa MD Urinalysis w/ Microon 2019 ----- Normal [facility] Comment on above: Performed By: #### U AMIC #### [facility] [address] [place] [address] [place] [address] Government Operations Consultant: Tariq Mesa MD Acetoacetic Acid,Ur Negative Normal NEG [facility] Comment on above: Performed By: #### U AMIC #### [facility] [address] [place] [address] [place] [address] Government Operations Consultant: Tariq Mesa MD Bacteria LM.HPF (Urine sed) [#/Area] 1+ Abnormal NONE [facility] Comment on above: Performed By: #### U AMIC #### [facility] [address] [place] [address] [place], [place] [phone] Government Operations Consultant: Tariq Mesa MD Bilirubin, SemiQt,Ur Negative Normal NEG [facility] Comment on above: Performed By: #### U AMIC #### [facility] [address] [place] [phone] Government Operations Consultant: Tariq Mesa MD Color (U) YELLOW Normal YEL [facility] Comment on above: Performed By: #### U AMIC #### [facility] [address] [place] [phone] Government Operations Consultant: Tariq Mesa MD Epithelial cells LM.HPF (Urine sed) [#/Area] 2 TO 5 Normal 0-25 [facility] Comment on above: Performed By: #### U AMIC #### [facility] [address] [place], [place] [address]83 Government Operations Consultant: Tariq Mesa MD Glucose Ql (U) Negative Normal NEG [facility] Comment on above: Performed By: #### U AMIC #### [facility] [address] [place], [place] [address]83 Government Operations Consultant: Tariq Mesa MD Hemoglobin, Ur 1+ Abnormal NEG [facility] Comment on above: Performed By: #### U AMIC #### [facility] [address] [place], [place] [phone] Government Operations Consultant: Tariq Mesa MD Leukocyte esterase Test strip Ql (U) Negative Normal NEG [facility] Comment on above: Performed By: #### U AMIC #### [facility] [address] [place], [place] [address]83 Government Operations Consultant: Tariq Mesa MD Mucus Strands TRACE Abnormal NONE [facility] Comment on above: Performed By: #### U AMIC #### [facility] [address] [place], [place] 6238683 Government Operations Consultant: Tariq Mesa MD Nitrite,Ur Negative Normal [facility] Comment on above: Performed By: #### U AMIC #### [facility] [address] [place], [place] [address]83 Government Operations Consultant: Tariq Mesa MD pH (U) 7.5 [pH] Normal 5.0-9.0 [facility] Comment on above: Performed By: #### U AMIC #### [facility] [address] [place], [place] [address]83 Government Operations Consultant: Tariq Mesa MD Protein Ql (U) Negative Normal NEG [facility] Comment on above: Performed By: #### U AMIC #### [facility] [address] [place], [place] [address]83 Government Operations Consultant: Tariq Mesa MD RBC (U) [#/Vol] 0 TO 2 Normal 0-2 [facility] Comment on above: Performed By: #### U AMIC #### [facility] [address] [place], [place] [phone] Government Operations Consultant: Tariq Mesa MD Specific gravity (U) [Rel density] 1.010 Normal 1.010-1.020 [facility] Comment on above: Performed By: #### U AMIC #### [address] [place], [place] [address]83 Government Operations Consultant: Tariq Mesa MD Turbidity CLEAR Normal CLEAR [facility] Comment on above: Performed By: #### U AMIC #### [facility] [address] [place], [place] [address]83 Government Operations Consultant: Tariq Mesa MD Urobilinogen,Ur Normal Normal NORM [facility] Comment on above: Performed By: #### U AMIC #### [facility] [address] [place], [place] [address] Government Operations Consultant: Tariq Mesa MD WBC (U) [#/Vol] None Normal 0-5 [facility] Comment on above: Performed By: #### U AMIC #### [facility] [address] [place] [address] Government Operations Consultant: Tariq eMsa MD Amorphous sediment LM Ql (Urine sed) NOT REPORTED Normal NONE [facility] Comment on above: Performed By: #### U AMIC #### [facility] [address] [place], [place] [address] Government Operations Consultant: Tariq Mesa MD Casts LM.LPF (Urine sed) [#/Area] NOT REPORTED Normal [facility] Comment on above: Performed By: #### U AMIC #### [facility] [address] [place], [place] [address] Government Operations Consultant: Tariq Mesa MD Comment NOT REPORTED Normal [facility] Comment on above: Performed By: #### U AMIC #### [facility] [address] [place], [place] [address] Government Operations Consultant: Tariq Mesa MD Crystals LM Nom (Urine sed) NOT REPORTED Normal [facility] Comment on above: Performed By: #### U AMIC #### [facility] [address] [place], [place] [address]83 Government Operations Consultant: Tariq Mesa MD Epithelial, Renal NOT REPORTED Normal 0 [facility] Comment on above: Performed By: #### U AMIC #### [facility] [address] [place], [place] 4655[address] Government Operations Consultant: Tariq Mesa MD Other Observations NOT REPORTED Normal NREQ [facility] Comment on above: Performed By: #### U AMIC #### [facility] [address] [place] [address] Government Operations Consultant: Tariq Mesa MD Trichomonas NOT REPORTED Normal NONE [facility] Comment on above: Performed By: #### U AMIC #### [facility] [address] [place], [place] [phone] Government Operations Consultant: Tariq Mesa MD Yeast LM Ql (Urine sed) NOT REPORTED Normal NONE [facility] Comment on above: Performed By: #### U [facility] #### [facility] [address] [place] [address] Government Operations Consultant: Tariq Mesa MD Urinalysis with Microscopico n 07-25-2019 Amorphous, UA NOT REPORTED None [facility], [place] Bacteria, UA 1+ Abnormal None [place], [place] Bilirubin Urine Negative NEGATIVE [facility], [place] Casts UA NOT REPORTED /LPF [place] Color, UA YELLOW YELLOW [place] Crystals, UA NOT REPORTED None /HPF [facility], [place] Epithelial Cells UA 2 TO 5 [place] Glucose, Ur Negative NEGATIVE [place] Interpretation and review of laboratory results Abnormal [place] Ketones Ql (U) Negative NEGATIVE [place], [place] Leukocyte esterase Test strip Ql (U) Negative NEGATIVE [place] Mucus, UA TRACE Abnormal None [place] Nitrite, Urine Negative NEGATIVE [place] Other Observations UA NOT REPORTED NOT REQ. [place] pH, UA 7.5 [place] Protein (U) [Mass/Vol] Negative NEGATIVE [place] RBC (U) [#/Vol] 0 TO 2 [facility] [place], [place] Renal Epithelial, UA NOT REPORTED 0 /HPF Me [place], [place] Specific [place], UA 1.010 [place], [place] Trichomonas, UA NOT REPORTED None [facility] [place] Turbidity UA CLEAR CLEAR [place] Urinalysis Comments NOT REPORTED [place] Urine Hgb 1+ Abnormal NEGATIVE [place] Urobilinogen, Urine Normal Normal [place] WBC, UA None [place] Yeast, UA NOT REPORTED None [facility], [place] - [place] Vital Signs Date Time Vital Sign Value Performing Clinician Faci carlos 04-05-2023 11:19-0500 Body mass index (BMI) [Ratio] 35.51 kg/m2 Jessica Vibha DO Work Phone: [facility] 04-05-2023 11:19-0500 Body weight 88.05 kg Jessica Vibha DO Work Phone: [facility] 04-05-2023 11:19-0500 Diastolic blood pressure 78 mm[Hg] Jessica Vibha DO Work Phone: [facility] 04-05-2023 11:19-0500 Systolic blood pressure 114 mm[Hg] Jessica Vibha DO Work Phone: [facility] Healthcare Encounters Encounter Date Encounter Type Care Provider Facility Start: 04-05-2023 End: 04-05-2023 ambulatory JESSICA VIBHA Not Available Start: 04-05-2023 End: 04-05-2023 flow sheet Jessica Vibha DO Work Phone: [facility] OB Comment on above: [...] End: 12-24-2019 Patient encounter procedure BRYNN Rodriguez [facility] Start: 12-23-2019 End: 12-23-2019 Subsequent hospital visit by physician Brynn DAVID Laboratory Comment on above: Urinary frequency; OAB (overactive bladder); Incomplete bladder emptying Start: 07-25-2019 End: 07-26-2019 [facility]: 07-25-2019 End: 07-25-2019 Subsequent hospital [...] Screening for malign ant neoplasm of cervix [facility] Healthcare Start: 08-24-2025 Screening for malign ant neoplasm of cervix Pap Smear [facility] Start: 08-28-2023 End: 08-28-2023 Patient encounter procedure 08/28/2023 4:00 PM EDT Office Visit [facility] [address] [place] [address] Jessica Dunne DO [address] [place] [address] [facility] [facility] Start: 04-19-2023 End: 04-19-2023 Patient encounter procedure 04/19/2023 3:20 PM EST Routine [facility] [address] [place] [address] Bere Andrade PA [address] [place], [place] [id number] [facility] Start: 04-19-2023 End: 04-19-2023 Professional / ancillary services management 04/19/2023 3:00 PM EST Ancillary Procedure [facility] [address] [place] [id number] [facility] Start: 10-21-2022 Influenza vaccination Influenza Vacc ine (#1) [facility] Start: 01-13-2020 End: 01-13-2020 Procedure visit 01/13/2020 Procedure visit Urology Danyel Carson MD [address], [address] [place], [place] [id number] [facility] Start: 10-31-2019 End: 10-31-2019 Office Visit 10/31/2019 Office Visit Urology Aguilar Woody, [employer] - TRANSPLANTER ORCHID [address] [place] [id number] [facility] Start: 10-22-2019 Influenza vaccination M [place], [place] Start: 10-14-2015 DTaP/Tdap/Td vaccine (7 - Td) DTaP/Tdap/Td vaccine (7 - Td) [place], [place] Start: 2009 Screening for malign ant neoplasm of cervix Cervical cancer screen [place], [place] Start: 10-12-2007 DTaP/Tdap/Td vaccine (1 - Tdap) DTaP/Tdap/Td vaccine (1 - Tdap) [place] Start: 10-12-2003 HIV screening HIV screen [place], [place] Start: 1994 Pneumococcal 0-64 ye ars Vaccine (1 of 1 - PPSV23) Pneumococcal 0-64 years Vaccine (1 of 1 - PPSV23) [place], [place] Start: 1989 Varicella vaccine (1 of 2 - 2-dose childhood series) Varicella vaccine (1 of 2 - 2-dose childhood series) [place] End: 12-23-2019 Culture, Urine Culture, Urine Microbiology Routine Urinary frequency OAB (overactive bladder) Incomplete bladder emptying 1 Occurrences starting 12/23/2019 until 12/23/2019 [facility]: 1 Occurrences starti ng 12/23/2019 until 12/23/2019 Culture[facility] End: 07-25-2019 Culture, Urine Culture, Urine Microbiology Routine Urinary frequency 1 Occurrences starting 07/25/2019 until 07/25/2019 [facility] on above: 1 Occurrences starti ng 07/25/2019 until 07/25/2019 Payers Date Payer Category Payer Unknown [id number] 2022 Unknown BCBS BCBS xxxxxx [id number] 2022-Present [phone] [address] [place] [address] [id number] 2014 Private Health Insurance [employer] A ETNA NAP CHOICE POS II xxxxxxxxxx 2014-Present [phone] [address] [place] [address] xxxxxxxxxx [id number] 1988 Unknown [id number] .173 1988 Unknown [id number] [id number] .173 1988 Unknown [id number] 2.16.840.1.460318.3.579.2 .593 1988 Unknown [id number] 2.16.840.1.009346.3.579.2 .1259 1988 Unknown [id number] 2.16.840.1.991059.3.579.2 .1259 1988 Unknown [id number] 2.16.840.1.505546.3.579.2 .1259 1988 Unknown [id number] 2.16.840.1.838926.3.579.2 .1259 1988 Unknown [id number] 2.16.840.1.743208.3.579.2 .1259 1988 Unknown [id number] 2.16.840.1.059809.3.579.2 .1259 1959 Private Health Insurance [id number] Social History Date Type Detail Facility Start: 02-20-2003 End: 08-10-2022 Tobacco smoking status WAIS Current every day smoker [facility] Start: 02-20-2003 History of tobacco use Cigarette Smoker [place] Start: 12-23-2019 End: 08-10-2022 Cigarettes smoked current (pack per day) - Reported [facility] Start: 12-23-2019 [facility] use and exposure [facility] [place] [place] Start: 12-23-2019 End: 04-05-2023 Alcohol intake Current drinker of alcohol (finding) [place] Start: 07-25-2019 Alcohol Comment rare [place] Sex Assigned At Not on file [place] Start: 08-10-2022 End: 01-09-2023 Alcohol Use [...] nursing note reviewed. Exam conducted with a satellite manager present. Vitals: Estimated body mass index is [...] Documents on File Type Date Recorded Patient Lead Tinner Expl anation ACP-Advance Directive ACP-Power of Health Lead Documents on File Type Date Recorded Patient Lead Tinner Expl anation Advance Directives and Living Will Power of Health Lead Summary Purpose Family History No Family History Records FoundNo Family History Records FoundNo Family History Records Found Additional Source Comments INFORMATION SOURCE (unrecogn ized section and content) DATE CREATED AUTHOR 12/25/2019 [facility] DATE CREATED AUTHOR AUTHOR'S ORGANIZ ATION 08/06/2021 [facility] DATE CREATED AUTHOR AUTHOR'S ORGANIZ ATION 04/07/[address] [place] [address] [facility] EPIC Reason for Visit (unrecogniz ed section and content) Reason Comments Routine Visit Care Teams (unrecognized sec tion and content) Lamp Wirer Relationship Specialty Start Date End Date Brynn Bah MD [address] [place], [place] [id number] PCP - General Family Medicine 08/10/22 Ana Rosa Hazel NP [address], [place] [id number] PCP - Emmanuel Commercial 09/20/22 FOR RECORDS [...] BE BASED ON THE PRIMARY CLINICAL RECORDS. [employer] [facility]. provides no warranty or guarantee of the accuracy or completeness of information in this document.
== END 2023-04-13 17:45 | disposition home or self-care (01) ==
LOC: FBCO 07:35 → FBC 16:59
PROVIDERS: PCP Family Medicine; Visit Provider Obstetrics & Gynecology
DX: O36.63X0 Maternal care for excessive fetal growth, third trimester, not applicable or unspecified (principal)
CPT/HCPCS: 59025

== ENCOUNTER 2023-04-17 07:25 | Outpatient (OUT) | payer BC, SELFPAY ==
--- OUTSIDE RECORDS SUMMARY | 2023-04-17 07:29 | XMS_ITS | CCD ---
Author Name Unknown Address [address] [place] [address] Organization [facility] Care Team Providers Care Search Lead Name Role Phone Brynn Bah Primary Care [...] take 1 tablet by mouth once daily [id number] 0.18/0.215/0.25 MG-25 MCG TABS TAKE 1 TABLET [...] UA Negative Negative - 4(70) +++ mg/dL [facility] Blood, UA Positive Negative - 50 Chris/mcL [facility] Clarity, UA Clear [facility] Healthmi re Color, UA Yellow [facility] Healthcar e Glucose, UA Negative Negative - 1999(110) ++++ mg/dL [facility] Interpretation and review of laboratory results Abnormal [facility] Ketones, UA Negative Negative - 160(16) ++++ mg/dL [facility] Leukocytes, UA Negative Negative - 500+++ Dc/mcL [facility] Nitrite, UA Negative Negative - Positive [facility] pH, UA 7.0 5 - 9 [facility] Protein, UA Negative Negative - 1999(20) ++++ mg/dL [facility] Spec Grav, UA 1.015 1 - 1.03 [facility] Urobilinogen, UA 0.2 0.2 - 12 mg/dL [facility] PAP ACOG PANEL 2: 30 to 65on 08-05-2021 . . Normal [facility] Comment on above: Result Comment: Perf ormed at: WB Performed By: #### [id number] #### [facility] [address] [place] [address] Dr. Jazmin Turner Age Gdln ACOG Testing 30-65 Normal [facility] Comment on above: Performed By: #### [id number] #### [facility] [address] [address] [address] Jazmin Turner DIAGNOSIS: Comment Normal [facility] Comment on above: Result Comment: NEGA TIVE FOR INTRAEPITHELIAL LESION OR MALIGNANCY. Performed at: WB Performed By: #### [id number] #### [facility] [address] [address] [address] Jazmin Turner HPV Aptima Negative Normal Negative [facility] Comment on above: Result Comment: This nucleic acid amplification test detects fourteen high-risk HPV types (16,18,31,33,35,39,45,51,52,56,58,59,66,68) without differentiation. Performed at: =G Performed By: #### [id number] #### [facility] [address] [place] [address] Dr. Jazmin Turner Methodology: Comment [facility] Comment on above: Result Comment: This liquid based ThinPrep(R) pap test was screened with the use of an image guided system. Performed at: WB Performed By: #### [id number] #### [facility] [address] [place] [address] Dr. Jazmin Turner Note: Comment Normal [facility] [...] Performed at: WB Performed By: #### [id number] #### [facility] [address] [place] [address] Dr. Jazmin Turner Performed by: Comment Normal [facility] Comment on above: Result Comment: Tong Watts, Exposure Machine Operator (ASCP) Performed at: WB Performed By: #### [id number] #### [facility] [address] [place] [address] Dr. Jazmin Turner Specimen adequacy: Comment Normal [facility] Comment on above: Result Comment: Sati sfactory for evaluation. Endocervical and/or squamous metaplastic cells (endocervical component) are present. Performed at: WB Performed By: #### [id number] #### [facility] [address] [place] [address] Dr. Jazmin Turner Cult,Urineon 12-24-2019 Cult,Urine Specimen Description .CLEAN CATCH URINE Special Requests NOT REPORTED Culture NO SIGNIFICANT GROWTH Report Status FINAL 12/24/2019 Normal [facility] Comment on above: Performed By: #### U RC #### [address] [place] [address] [employer] Demonstrator: Robert Ross MD [facility] [address] [place], [place] [id number] [employer] Demonstrator: Tariq Mesa MD Urinalysis w/ Microon 2019 ----- Normal [facility] Comment on above: Performed By: #### U AMIC #### [facility] [address] [place], [place] [id number] [employer] Demonstrator: Tariq Mesa MD Acetoacetic Acid,Ur Negative Normal NEG [facility] Comment on above: Performed By: #### U AMIC #### [facility] [address] [place] [id number] [employer] Demonstrator: Tariq Mesa MD Bilirubin, SemiQt,Ur Negative Normal NEG [facility] Comment on above: Performed By: #### U AMIC #### [facility] [address] [place], [place] [id number] [employer] Dem[employer]ator: Tariq Mesa MD Color (U) YELLOW Normal YEL [facility] Comment on above: Performed By: #### U AMIC #### [facility] [address] [place], [place] [id number] [employer] Demonstrator: Tariq Mesa MD Epithelial cells LM.HPF (Urine sed) [#/Area] None Normal 0-25 [facility] Comment on above: Performed By: #### U AMIC #### [facility] [address] [place], [place] [address] [employer] Dem[employer]ator: Tariq Mesa MD Glucose Ql (U) Negative Normal NEG [facility] Comment on above: Performed By: #### U AMIC #### [facility] [address] [place], [place] 4569683 [employer] Demonstrator: Tariq Mesa MD Hemoglobin, Ur 2+ Abnormal NEG [facility] Comment on above: Performed By: #### U AMIC #### [facility] [address] [place], [place] [id number] [employer] Demonstrator: Tariq Mesa MD Leukocyte esterase Test strip Ql (U) Negative Normal NEG [facility] Comment on above: Performed By: #### U AMIC #### [facility] [address] [place], [place] [id number] [employer] Demonstrator: Tariq Mesa MD Nitrite,Ur Negative Normal NEG [facility] Comment on above: Performed By: #### U AMIC #### [facility] [address] [place], [place] 189[address] [employer] Demonstrator: Tariq Mesa MD pH (U) 7.5 [pH] Normal 5.0-9.0 [facility] Comment on above: Performed By: #### U AMIC #### [facility] [address] [place], [place] 6[address] [employer] Demonstrator: Tariq Mesa MD Protein Ql (U) Negative Normal NEG [facility] Comment on above: Performed By: #### U AMIC #### [facility] [address] [place], [place] [address] [employer] Demonstrator: Tariq Mesa MD RBC (U) [#/Vol] None Normal 0-2 [facility] Comment on above: Performed By: #### U AMIC #### [address] [place], [place] [address] [employer] Demonstrator: Tariq Mesa MD Specific gravity (U) [Rel density] 1.020 Normal 1.010-1.020 [facility] Comment on above: Performed By: #### U AMIC #### [facility] [address] [place], [place] [address] [employer] Demonstrator: Tariq Mesa MD Turbidity CLEAR Normal CLEAR [facility] Comment on above: Performed By: #### U AMIC #### [facility] [address] [place], [place] [address]27[address] [employer] Demonstrator: Tariq Mesa MD Urobilinogen,Ur Normal Normal NORM [facility] Comment on above: Performed By: #### U AMIC #### [facility] [address] [place] [address] [employer] Demonstrator: Tariq Mesa MD WBC (U) [#/Vol] None Normal 0-5 [facility] Comment on above: Performed By: #### U AMIC #### [facility] [address] [place] [address] [employer] Demonstrator: Tariq Mesa MD Amorphous sediment LM Ql (Urine sed) NOT REPORTED Normal NONE [facility] Comment on above: Performed By: #### U AMIC #### [facility] [address] [place] [address] [employer] Demonstrator: Tariq Mesa MD Bacteria LM.HPF (Urine sed) [#/Area] NOT REPORTED Normal NONE [facility] Comment on above: Performed By: #### U AMIC #### [facility] [address] [place] [address] [employer] Dem[employer]: Tariq Mesa MD Casts LM.LPF (Urine sed) [#/Area] NOT REPORTED Normal [facility] Comment on above: Performed By: #### U AMIC #### [facility] [address] [place] [address] [employer] Demonstrator: Tariq Mesa MD Comment NOT REPORTED Normal [facility] Comment on above: Performed By: #### U AMIC #### [facility] [address] [place] [address] [employer] Demonstrator: Tariq Mesa MD Crystals LM Nom (Urine sed) NOT REPORTED Normal [facility] Comment on above: Performed By: #### U AMIC #### [facility] [address] [place], [place] [address] [employer] Demonstrator: Tariq Mesa MD Epithelial, Renal NOT REPORTED Normal 0 [facility] Comment on above: Performed By: #### U AMIC #### [facility] [address] [place] [address] [employer] Demonstrator: Tariq Mesa MD Mucus Strands NOT REPORTED Normal [facility] Comment on above: Performed By: #### U AMIC #### [facility] [address] [place], [place] [address] [employer] Demonstrator: Tariq Mesa MD Other Observations NOT REPORTED Normal NREQ [facility] Comment on above: Performed By: #### U AMIC #### [facility] [address] [place], [place] [id number] [employer] Demonstrator: Tariq Mesa MD Trichomonas NOT REPORTED Normal [facility] Comment on above: Performed By: #### U AMIC #### [facility] [address] [place] [address] [employer] Demonstrator: Tariq Mesa MD Yeast LM Ql (Urine sed) NOT REPORTED Normal [facility] Comment on above: Performed By: #### U AMIC #### [facility] [address] [place] [address] [employer] Demonstrator: Tariq Mesa MD Urinalysis with Microscopico n 12-23-2019 Amorphous, UA NOT REPORTED None [facility] Bacteria, UA NOT REPORTED None [facility] [place] Bilirubin Urine Negative NEGATIVE [facility] Casts UA NOT REPORTED /LPF [facility] [place], [place] Color, UA YELLOW YELLOW [facility] [place] Crystals, UA NOT REPORTED None /HPF [facility] [place] Epithelial Cells UA None [facility] [place] Glucose, Ur Negative NEGATIVE [facility] [place] Interpretation and review of laboratory results Abnormal [facility] Ketones Ql (U) Negative NEGATIVE [facility] [place] Leukocyte esterase Test strip Ql (U) Negative NEGATIVE [facility] [place] Mucus, UA NOT REPORTED None [facility] [place] Nitrite, Urine Negative NEGATIVE [facility] [place] Other Observations UA NOT REPORTED NOT REQ. [facility] [place] pH, UA 7.5 [place] Protein (U) [Mass/Vol] Negative NEGATIVE [place] RBC (U) [#/Vol] None [facility] [place] [place] Renal Epithelial, UA NOT REPORTED 0 /HPF Me [place], [place] Specific [place], UA 1.020 [place], [place] Trichomonas, UA NOT REPORTED None [facility] [place] Turbidity UA CLEAR CLEAR [place], [place] Urinalysis Comments NOT REPORTED [place] Urine Hgb 2+ Abnormal NEGATIVE [place] Urobilinogen, Urine Normal Normal [place] WBC, UA None [place] Yeast, UA NOT REPORTED None [place], [place] - [place] Cult,Urineon 07-27-2019 Cult,Urine Specimen Description .CLEAN CATCH URINE Special Requests NOT REPORTED Culture NO SIGNIFICANT GROWTH Report Status FINAL 07/26/2019 Normal [facility] Comment on above: Performed By: #### U RC #### [address] [id number] [employer] Dem[employer]: Robert Ross MD [facility] [address] [place] [address] [place] [address] [employer] Demonstrator: Tariq Mesa MD Urinalysis w/ Microon 2019 ----- Normal [facility] Comment on above: Performed By: #### U AMIC #### [facility] [address] [place] [address] [place] [address] [employer] Demonstrator: Tariq Mesa MD Acetoacetic Acid,Ur Negative Normal NEG [facility] Comment on above: Performed By: #### U AMIC #### [facility] [address] [place] [address] [place] [address] [employer] Demonstrator: Tariq Mesa MD Bacteria LM.HPF (Urine sed) [#/Area] 1+ Abnormal NONE [facility] Comment on above: Performed By: #### U AMIC #### [facility] [address] [place] [address] [address] [place], [place] [id number] [employer] Demonstrator: Tariq Mesa MD Bilirubin, SemiQt,Ur Negative Normal NEG [facility] Comment on above: Performed By: #### U AMIC #### [facility] [address] [place] [id number] [employer] Demonstrator: Tariq Mesa MD Color (U) YELLOW Normal YEL [facility] Comment on above: Performed By: #### U AMIC #### [facility] [address] [place] 5342183 [employer] Demonstrator: Tariq Mesa MD Epithelial cells LM.HPF (Urine sed) [#/Area] 2 TO 5 Normal 0-25 [facility] Comment on above: Performed By: #### U AMIC #### [facility] [address] [place], [place] 6[address]83 [employer] Demonstrator: Tariq Mesa MD Glucose Ql (U) Negative Normal NEG [facility] Comment on above: Performed By: #### U AMIC #### [facility] [address] [place], [place] 67[address]83 [employer] Demonstrator: Tariq Mesa MD Hemoglobin, Ur 1+ Abnormal NEG [facility] Comment on above: Performed By: #### U AMIC #### [facility] [address] [place], [place] 9047283 [employer] Demonstrator: Tariq Mesa MD Leukocyte esterase Test strip Ql (U) Negative Normal NEG [facility] Comment on above: Performed By: #### U AMIC #### [facility] [address] [place], [place] 166[address]83 [employer] Demonstrator: Tariq Mesa MD Mucus Strands TRACE Abnormal NONE [facility] Comment on above: Performed By: #### U AMIC #### [facility] [address] [place], [place] 6127[address] [employer] Demonstrator: Tariq Mesa MD Nitrite,Ur Negative Normal [facility] Comment on above: Performed By: #### U AMIC #### [facility] [address] [place], [place] [address] [employer] Demonstrator: Tariq Mesa MD pH (U) 7.5 [pH] Normal 5.0-9.0 [facility] Comment on above: Performed By: #### U AMIC #### [facility] [address] [place], [place] 6303[address] [employer] Demonstrator: Tariq Mesa MD Protein Ql (U) Negative Normal NEG [facility] Comment on above: Performed By: #### U AMIC #### [facility] [address] [place], [place] [phone] [employer] Demonstrator: Tariq Mesa MD RBC (U) [#/Vol] 0 TO 2 Normal 0-2 [facility] Comment on above: Performed By: #### U AMIC #### [facility] [address] [place], [place] 6727483 [employer] Demonstrator: Tariq Mesa MD Specific gravity (U) [Rel density] 1.010 Normal 1.010-1.020 [facility] Comment on above: Performed By: #### U AMIC #### [address] [place], [place] 8[address]83 [employer] Demonstrator: Tariq Mesa MD Turbidity CLEAR Normal CLEAR [facility] Comment on above: Performed By: #### U AMIC #### [facility] [address] [place], [place] 8[address]83 [employer] Demonstrator: Tariq Mesa MD Urobilinogen,Ur Normal Normal NORM [facility] Comment on above: Performed By: #### U AMIC #### [facility] [address] [place], [place] 9507383 [employer] Demonstrator: Tariq Mesa MD WBC (U) [#/Vol] None Normal 0-5 [facility] Comment on above: Performed By: #### U AMIC #### [facility] [address] [place] [address] [employer] Demonstrator: Tariq Mesa MD Amorphous sediment LM Ql (Urine sed) NOT REPORTED Normal NONE [facility] Comment on above: Performed By: #### U AMIC #### [facility] [address] [place], [place] [address] [employer] Demonstrator: Tariq Mesa MD Casts LM.LPF (Urine sed) [#/Area] NOT REPORTED Normal [facility] Comment on above: Performed By: #### U AMIC #### [facility] [address] [place], [place] [address] [employer] Demonstrator: Tariq Mesa MD Comment NOT REPORTED Normal [facility] Comment on above: Performed By: #### U AMIC #### [facility] [address] [place], [place] [address] [employer] Demonstrator: Tariq Mesa MD Crystals LM Nom (Urine sed) NOT REPORTED Normal [facility] Comment on above: Performed By: #### U AMIC #### [facility] [address] [place], [place] [address] [employer] Demonstrator: Tariq Mesa MD Epithelial, Renal NOT REPORTED Normal 0 [facility] Comment on above: Performed By: #### U AMIC #### [facility] [address] [place], [place] 347[address]83 [employer] Demonstrator: Tariq Mesa MD Other Observations NOT REPORTED Normal NREQ [facility] Comment on above: Performed By: #### U AMIC #### [facility] [address] [place] [address] [employer] Demonstrator: Tariq Mesa MD Trichomonas NOT REPORTED Normal NONE [facility] Comment on above: Performed By: #### U AMIC #### [facility] [address] [place], [place] [address] [employer] Demonstrator: Tariq Mesa MD Yeast LM Ql (Urine sed) NOT REPORTED Normal NONE [facility] Comment on above: Performed By: #### U [facility] #### [facility] [address] [place] [address] [employer] Dem[employer]ator: Tariq Mesa MD Urinalysis with Microscopico n 07-25-2019 Amorphous, UA NOT REPORTED None [facility], [place] Bacteria, UA 1+ Abnormal None [place], [place] Bilirubin Urine Negative NEGATIVE [facility], [place] Casts UA NOT REPORTED /LPF [place] Color, UA YELLOW YELLOW [place] Crystals, UA NOT REPORTED None /HPF [facility], [place] Epithelial Cells UA 2 TO 5 [place] Glucose, Ur Negative NEGATIVE [place] Interpretation and review of laboratory results Abnormal [place] Ketones Ql (U) Negative NEGATIVE [place], [place] Leukocyte esterase Test strip Ql (U) Negative NEGATIVE [place] Mucus, UA TRACE Abnormal None [place] Nitrite, Urine Negative NEGATIVE [place] Other Observations UA NOT REPORTED NOT REQ. [place] pH, UA 7.5 [place] Protein (U) [Mass/Vol] Negative NEGATIVE [place] RBC (U) [#/Vol] 0 TO 2 [facility] Renal Epithelial, UA NOT REPORTED 0 /HPF Me [place], [place] Specific [place], UA 1.010 [place], [place] Trichomonas, UA NOT REPORTED None [facility] [place] [place] Turbidity UA CLEAR CLEAR [place] Urinalysis Comments NOT REPORTED [place], [place] Urine Hgb 1+ Abnormal NEGATIVE [place] Urobilinogen, Urine Normal Normal [place] WBC, UA None [place] Yeast, UA NOT REPORTED None [facility], [place] - [place] Vital Signs Date Time Vital Sign Value Performing Clinician Faci carlos 04-05-2023 11:19-0500 Body mass index (BMI) [Ratio] 35.51 kg/m2 Jessica Vibha DO Work Phone: [facility] 04-05-2023 11:19-0500 Body weight 88.05 kg Jessica Vibha DO Work Phone: [facility] 04-05-2023 11:19-0500 Diastolic blood pressure 78 mm[Hg] Jessica Vibha DO Work Phone: [facility] 04-05-2023 11:19-0500 Systolic blood pressure 114 mm[Hg] Jessica Vibha DO Work Phone: [facility] Healthcare Encounters Encounter Date Encounter Type Care Provider Facility Start: 04-05-2023 End: 04-05-2023 ambulatory JESSICA VIBHA Not Available Start: 04-05-2023 End: 04-05-2023 flow sheet Jessica Vibha DO Work Phone: [facility] OB Comment on above: Third trimester [...] End: 12-24-2019 Patient encounter procedure BRYNN Rodriguez [facility] Start: 12-23-2019 End: 12-23-2019 Subsequent hospital visit by physician Brynn DAVID Laboratory Comment on above: Urinary frequency; OAB (overactive bladder); Incomplete bladder emptying Start: 07-25-2019 End: 07-26-2019 [facility] Start: 07-25-2019 End: 07-25-2019 Subsequent hospital [...] Screening for malign ant neoplasm of cervix [facility] Healthcare Start: 08-24-2025 Screening for malign ant neoplasm of cervix Pap Smear [facility] Start: 08-28-2023 End: 08-28-2023 Patient encounter procedure 08/28/2023 4:00 PM EDT Office Visit [facility] [address] [place] [address] Jessica Dunne DO [address] [place] [address] [facility] Start: 04-19-2023 End: 04-19-2023 Patient encounter procedure 04/19/2023 3:20 PM EST Routine [facility] [address] [place] [address] Bere Adnrade PA [address] [place], [place] [id number] [facility] Start: 04-19-2023 End: 04-19-2023 Professional / ancillary services management 04/19/2023 3:00 PM EST Ancillary Procedure [facility] [address] [place] [id number] [facility] OB Start: 10-21-2022 Influenza vaccination Influenza Vacc ine (#1) [facility] Healthcare Start: 01-13-2020 End: 01-13-2020 Procedure visit 01/13/2020 Procedure visit Urology Danyel Carson MD [address] [facility], [address] [place], [place] [id number] [facility] Start: 10-31-2019 End: 10-31-2019 Office Visit 10/31/2019 Office Visit Urology Aguilar Woody, ATTENDING PSYCHIATRIST - [employer]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 [employer]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 [address] [place] [phone] [facility] Start: 10-22-2019 Influenza vaccination [place], [place] Start: 10-14-2015 DTaP/Tdap/Td vaccine (7 - Td) DTaP/Tdap/Td vaccine (7 - Td) [place], [place] Start: 2009 Screening for malign ant neoplasm of cervix Cervical cancer screen [place] Start: 10-12-2007 DTaP/Tdap/Td vaccine (1 - Tdap) DTaP/Tdap/Td vaccine (1 - Tdap) [place] Start: 10-12-2003 HIV screening HIV screen [place], [place] Start: 1994 Pneumococcal 0-64 ye ars Vaccine (1 of 1 - PPSV23) Pneumococcal 0-64 years Vaccine (1 of 1 - PPSV23) [place], [place] Start: 1989 Varicella vaccine (1 of 2 - 2-dose childhood series) Varicella vaccine (1 of 2 - 2-dose childhood series) [place] End: 12-23-2019 Culture, Urine Culture, Urine Microbiology Routine Urinary frequency OAB (overactive bladder) Incomplete bladder emptying 1 Occurrences starting 12/23/2019 until 12/23/2019 [facility] Occurrences starti ng 12/23/2019 until 12/23/2019 [facility] End: 07-25-2019 Culture, Urine Culture, Urine Microbiology Routine Urinary frequency 1 Occurrences starting 07/25/2019 until 07/25/2019 [place] [facility] Comment on above: 1 Occurrences starti ng 07/25/2019 until 07/25/2019 Payers Date Payer Category Payer Unknown [id number] 2022 Unknown BCBS BCBS xxxxxx [id number] 2022-Present [phone] [address] [place] [address] [id number] 2014 Private Health Insurance [employer] A ETNA NAP CHOICE POS II xxxxxxxxxx 2014-Present [phone] [address] [place] [address] xxxxxxxxxx [id number] 1988 Unknown [id number] 2.16.840.1.972995.3.579.2 .173 1988 Unknown [id number] 2.16.840.1.156960.3.579.2 .173 1988 Unknown [id number] 2.16.840.1.086906.3.579.2 .593 1988 Unknown [id number] 2.16.840.1.343170.3.579.2 .1259 1988 Unknown [id number] 2.16.840.1.533307.3.579.2 .1259 1988 Unknown [id number] 2.16.840.1.838083.3.579.2 .1259 1988 Unknown [id number] 2.16.840.1.372259.3.579.2 .1259 1988 Unknown [id number] 2.16.840.1.599501.3.579.2 .1259 1988 Unknown [id number] 2.16.840.1.629035.3.579.2 .1259 1959 Private Health Insurance [id number] Social History Date Type Detail Facility Start: 02-20-2003 End: 08-10-2022 Tobacco smoking status NJIS Current every day smoker [facility] Start: 02-20-2003 History of tobacco use Cigarette Smoker [place], [place] Start: 12-23-2019 End: 08-10-2022 Cigarettes smoked current (pack per day) - Reported [facility] Start: 12-23-2019 [facility] and exposure [facility] [place] [place] Start: 12-23-2019 End: 04-05-2023 Alcohol intake Current drinker of alcohol (finding) [place], [place] Start: 07-25-2019 Alcohol Comment rare [place] Sex Assigned At Not on file [place] Start: 08-10-2022 End: 01-09-2023 Alcohol Use [...] nursing note reviewed. Exam conducted with a hair boiler operator present. Vitals: Estimated body mass index is [...] Documents on File Type Date Recorded Patient Patient Care Specialist Expl anation ACP-Advance Directive ACP-Power of Relay Man Documents on File Type Date Recorded Patient Patient Care Specialist Expl anation Advance Directives and Living Will Power of Relay Man Summary Purpose Family History No Family History Records FoundNo Family History Records FoundNo Family History Records Found Additional Source Comments INFORMATION SOURCE (unrecogn ized section and content) DATE CREATED AUTHOR 12/25/2019 [facility] DATE CREATED AUTHOR AUTHOR'S ORGANIZ ATION 08/06/2021 [facility] DATE CREATED AUTHOR AUTHOR'S ORGANIZ ATION 04/07/[address] [place] [address] dical Specialists EPIC Reason for Visit (unrecogniz ed section and content) Reason Comments Routine Visit Care Teams (unrecognized sec tion and content) Search Lead Relationship Specialty Start Date End Date Brynn Bah MD [address] [place], [place] [id number] PCP - General Family Medicine 08/10/22 Ana Rosa Hazel NP [address], [place] [id number] PCP - Emmanuel [facility] 09/20/22 FOR RECORDS [...] BE BASED ON THE PRIMARY CLINICAL RECORDS. [facility]. provides no warranty or guarantee of the accuracy or completeness of information in this document.
--- NOTE | 2023-04-17 16:30 | US_ITS ---
[address] [address] Patient Name: RAFITA ISAAC MRN: [id number] date: 1990 Sex: F Assigned Patient Location: US Current Patient Location: Accession/Order Number: [id number] Exam Date: 04/17/2023 16:35 Report Date: 04/18/2023 07:21 At the request of: KARISSA ANDRADE Procedure: US OB BPP w non-stress EXAMINATION: US OB BPP w non-stress HISTORY: EXCESSIVE GROWTH O36.63Z0 COMPARISON: No relevant comparison available. TECHNIQUE: Ultrasound biophysical profile was performed in the radiology department. non-reactive stress testing was performed by nursing staff in the birthing center. FINDINGS: BREATHING MOVEMENTS: 2.0 GROSS BODY MOVEMENTS: 2.0 TONE: 2.0 QUALITATIVE AMNIOTIC FLUID VOLUME: 2.0 PRESENTATION: CEPHALIC HEART RATE: 142.1 bpm H.B./min AMNIOTIC FLUID VOLUME: 11.0 cm cm GESTATIONAL AGE: 35 weeks 6 days CONCLUSION: Total biophysical profile score: 8.0 Electronically authenticated by: WENDY AU Date: 04/18/2023 07:21
[2023-04-17 16:38] VITALS: BP 134/88; PULSE 83
[2023-04-17 17:17] VITALS: BP 128/84; PULSE 91
== END 2023-04-17 16:40 | disposition home or self-care (01) ==
LOC: US 07:27 → FBC 16:02
PROVIDERS: PCP Family Medicine; Visit Provider Physician Assistant
DX: O36.63X0 Maternal care for excessive fetal growth, third trimester, not applicable or unspecified (principal); Z3A.35 35 weeks gestation of pregnancy
CPT/HCPCS: 76818

== ENCOUNTER 2023-04-19 14:59 | Outpatient (OUT) | payer BC, SELFPAY ==
--- NOTE | 2023-04-19 15:02 | US_ITS ---
[address] [address] Patient Name: RAFITA ISAAC MRN: [id number] date: 1990 Sex: F Assigned Patient Location: [facility] Current Patient Location: [facility] Accession/Order Number: [id number] Exam Date: 04/19/2023 15:02 Report Date: 04/19/2023 15:36 At the request of: JESSICA ABRAHAM Procedure: US OB growth EXAMINATION: US OB growth HISTORY: LGA COMPARISON: No relevant comparison available. FINDINGS: Heart Rate: 144.0 bpm Amniotic Fluid Volume: 7.0 cm, oligohydramnios Number: 1.0 Position: Cephalic presentation, longitudinal lie Maximum Vertical Pocket: 1.0 cm cm 5.0 cm cm 0.0 cm cm 1.0 cm cm BIOMETRY: BPD: 9.0 cm cm; 36 weeks 4 days; 73% HC: 33.8 cmcm; 38 weeks 5 days , 81% AC: 36.0 cm cm; 39 weeks 6 days, > 97% FL: 7.3 cm cm; 37 weeks 2 days; 73.5 % % EFW: 3591.4 grams, 7 lbs. 15 oz., greater than 97% FL/AC: 20.2 FL/BPD: 80.4 HC/AC: 0.9 GESTATIONAL AGE: Age by EDC: 36 weeks 1 days JUAN LUIS by EDC: 05/16/2023 Age by US: 38 weeks 1 day JUAN LUIS by US: 05/02/2023 Bere Zavala was advised of the findings by the technologist at the time of exam US/US OB growth IMPRESSION: Oligohydramnios Large for gestational age, estimated weight greater than 97% Electronically authenticated by: WENDY AU Date: 04/19/2023 15:36
== END 2023-04-19 15:00 | disposition home or self-care (01) ==
LOC: NOMS 14:59
PROVIDERS: PCP Family Medicine; Visit Provider Obstetrics & Gynecology
DX: O36.63X0 Maternal care for excessive fetal growth, third trimester, not applicable or unspecified (principal); Z3A.38 38 weeks gestation of pregnancy; O41.03X0 Oligohydramnios, third trimester, not applicable or unspecified
CPT/HCPCS: 76816

== ENCOUNTER 2023-04-19 17:31 | Observation (INO) | payer BC, SELFPAY ==
[2023-04-19] MEDS: SODIUM CHLORIDE 1000 ML IV (18:05)
[2023-04-19 19:20] VITALS: BP 134/72; PULSE 83
[2023-04-19] MEDS: 0.9 % SODIUM CHLORIDE 1,000 ML 100 ML IV (19:46)
[2023-04-19] MEDS: BETAMETHASONE ACE/BETAMETHASONE SOD PHOS 30 MG/5 ML 12 MG IM (19:47)
[2023-04-19] MEDS: MAGNESIUM OXIDE 400 MG TABLET PO (20:49)
[2023-04-20 04:19] VITALS: BP 126/72; PULSE 78
[2023-04-20] MEDS: 0.9 % SODIUM CHLORIDE 1,000 ML 100 ML IV (05:40)
--- NOTE | 2023-04-20 08:00 | US_ITS ---
[address] [address] Patient Name: RAFITA ISAAC MRN: [id number] date: 1990 Sex: F Assigned Patient Location: [facility] Current Patient Location: [facility] Accession/Order Number: [id number] Exam Date: 04/20/2023 07:30 Report Date: 04/20/2023 08:22 At the request of: JESSICA ABRAHAM Procedure: US OB BPP w non-stress EXAMINATION: US OB BPP w non-stress HISTORY: [id number] COMPARISON: 04/17/2023 TECHNIQUE: Ultrasound biophysical profile was performed in the radiology department. FINDINGS: BREATHING MOVEMENTS: 0.0 GROSS BODY MOVEMENTS: 2.0 TONE: 2.0 QUALITATIVE AMNIOTIC FLUID VOLUME: 2.0 PRESENTATION: CEPHALIC HEART RATE: 128.0 bpm H.B./min AMNIOTIC FLUID VOLUME: 10.6 cm cm GESTATIONAL AGE: 36 weeks 2 days CONCLUSION: Total biophysical profile score: 6.0 Electronically authenticated by: WENDY AU Date: 04/20/2023 08:22
== END 2023-04-20 09:10 | disposition home or self-care (01) ==
PROVIDERS: Admitting Provider Obstetrics & Gynecology; PCP Family Medicine; Visit Provider Obstetrics & Gynecology
DX: O36.63X0 Maternal care for excessive fetal growth, third trimester, not applicable or unspecified (principal); Z3A.36 36 weeks gestation of pregnancy; O60.03 Preterm labor without delivery, third trimester
CPT/HCPCS: 76818; 96372; G0378; G0379; J0702

== ENCOUNTER 2023-04-19 20:55 | Outpatient (REF) | payer BC, SELFPAY ==
--- OUTSIDE RECORDS SUMMARY | 2023-04-19 21:00 | XMS_ITS | CCD ---
Author Name Unknown Address [address] [place] [address] Organization [facility] Care Team Providers Care Chip Frier Name Role Phone Brynn Bah Primary Care [...] take 1 tablet by mouth once daily [id number] 0.18/0.215/0.25 MG-25 MCG TABS TAKE 1 TABLET [...] UA Negative Negative - 4(70) +++ mg/dL [facility] Blood, UA Positive Negative - 50 Chris/mcL [facility] Clarity, UA Clear [facility] re Color, UA Yellow [facility] Glucose, UA Negative Negative - 1999(110) ++++ mg/dL [facility] Interpretation and review of laboratory results Abnormal [facility] Ketones, UA Negative Negative - 160(16) ++++ mg/dL [facility] Leukocytes, UA Negative Negative - 500+++ Dc/mcL [facility] Nitrite, UA Negative Negative - Positive [facility] pH, UA 7.0 5 - 9 [facility] e Protein, UA Negative Negative - 1999(20) ++++ mg/dL [facility] Spec Grav, UA 1.015 1 - 1.03 [facility] Urobilinogen, UA 0.2 0.2 - 12 mg/dL [facility] PAP ACOG PANEL 2: 30 to 65on 08-05-2021 . . Normal [facility] Comment on above: Result Comment: Perf ormed at: WB Performed By: #### [id number] #### [facility] [address] [place] [address] Dr. Jazmin Turner Age Gdln ACOG Testing 30-65 Normal [facility] Comment on above: Performed By: #### [id number] #### [facility] [address] [address] [address] Jazmin Turner DIAGNOSIS: Comment Normal [facility] Comment on above: Result Comment: NEGA TIVE FOR INTRAEPITHELIAL LESION OR MALIGNANCY. Performed at: WB Performed By: #### [id number] #### [facility] [address] [address] [address] Jazmin Turner HPV Aptima Negative Normal Negative [facility] Comment on above: Result Comment: This nucleic acid amplification test detects fourteen high-risk HPV types (16,18,31,33,35,39,45,51,52,56,58,59,66,68) without differentiation. Performed at: =G Performed By: #### [id number] #### [facility] [address] [place] [address] Dr. Jazmin Turner Methodology: Comment [facility] Comment on above: Result Comment: This liquid based ThinPrep(R) pap test was screened with the use of an image guided system. Performed at: WB Performed By: #### [id number] #### [facility] [address] [place] [address] Dr. Jazmin Turner Note: Comment Normal [facility] Comment on above: Result Comment: The Pap smear is a screening test designed to aid in the detection of premalignant and malignant conditions of the uterine cervix. It is not a diagnostic procedure and should not be used as the sole means of detecting cervical cancer. Both false-positive and false-negative reports do occur. . Performed at: WB Performed By: #### [id number] #### [facility] [address] [place] [address] Dr. Jazmin Turner Performed by: Comment Normal [facility] Comment on above: Result Comment: Tong Watts, Slitter Scorer Cut Off Operator (ASCP) Performed at: WB Performed By: #### [id number] #### [facility] [address] [place] [address] Dr. Jazmin Turner Specimen adequacy: Comment Normal [facility] Comment on above: Result Comment: Sati sfactory for evaluation. Endocervical and/or squamous metaplastic cells (endocervical component) are present. Performed at: WB Performed By: #### 4 [id number] #### [facility] [address] [place] [address] Dr. Jazmin Turner Cult,Urineon 12-24-2019 Cult,Urine Specimen Description .CLEAN CATCH URINE Special Requests NOT REPORTED Culture NO SIGNIFICANT GROWTH Report Status FINAL 12/24/2019 Normal [facility] Comment on above: Performed By: #### U RC #### [id number] [place] [address] Rug Dyer Helper: Robert Ross MD [facility] [address] [place], [place] [id number] Rug Dyer Helper: Tariq Mesa MD Urinalysis w/ Microon 2019 ----- Normal [facility] Comment on above: Performed By: #### U AMIC #### [facility] [address] [place], [place] [id number] Rug Dyer Helper: Tariq Mesa MD Acetoacetic Acid,Ur Negative Normal NEG [facility] Comment on above: Performed By: #### U AMIC #### [facility] [address] [place] [id number] Rug Dyer Helper: Tariq Mesa MD Bilirubin, SemiQt,Ur Negative Normal NEG [facility] Comment on above: Performed By: #### U AMIC #### [facility] [address] [place], [place] [id number] Rug Dyer Helper: Tariq Mesa MD Color (U) YELLOW Normal YEL [facility] Comment on above: Performed By: #### U AMIC #### [facility] [address] [place], [place] [id number] Rug Dyer Helper: Tariq Mesa MD Epithelial cells LM.HPF (Urine sed) [#/Area] None Normal 0-25 [facility] Comment on above: Performed By: #### U AMIC #### [facility] [address] [place], [place] [id number] Rug Dyer Helper: Tariq Mesa MD Glucose Ql (U) Negative Normal NEG [facility] Comment on above: Performed By: #### U AMIC #### [facility] [address] [place], [place] [id number] Rug Dyer Helper: Tariq Mesa MD Hemoglobin, Ur 2+ Abnormal NEG [facility] Comment on above: Performed By: #### U AMIC #### [facility] [address] [place], [place] [id number] Rug Dyer Helper: Tariq Mesa MD Leukocyte esterase Test strip Ql (U) Negative Normal NEG [facility] Comment on above: Performed By: #### U AMIC #### [facility] [address] [place], [place] [phone] Rug Dyer Helper: Tariq Mesa MD Nitrite,Ur Negative Normal NEG [facility] Comment on above: Performed By: #### U AMIC #### [facility] [address] [place], [place] [id number] Rug Dyer Helper: Tariq Mesa MD pH (U) 7.5 [pH] Normal 5.0-9.0 [facility] Comment on above: Performed By: #### U AMIC #### [facility] [address] [place], [place] [id number] Rug Dyer Helper: Tariq Mesa MD Protein Ql (U) Negative Normal NEG [facility] Comment on above: Performed By: #### U AMIC #### [facility] [address] [place], [place] [phone] Rug Dyer Helper: Tariq Mesa MD RBC (U) [#/Vol] None Normal 0-2 [facility] Comment on above: Performed By: #### U AMIC #### [address] [place], [place] [id number] Rug Dyer Helper: Tariq Mesa MD Specific gravity (U) [Rel density] 1.020 Normal 1.010-1.020 [facility] Comment on above: Performed By: #### U AMIC #### [facility] [address] [place], [place] [id number] Rug Dyer Helper: Tariq Mesa MD Turbidity CLEAR Normal CLEAR [facility] Comment on above: Performed By: #### U AMIC #### [facility] [address] [place], [place] [phone] Rug Dyer Helper: Tariq Mesa MD Urobilinogen,Ur Normal Normal NORM [facility] Comment on above: Performed By: #### U AMIC #### [facility] [address] [place] [address] Rug Dyer Helper: Tariq Mesa MD WBC (U) [#/Vol] None Normal 0-5 [facility] Comment on above: Performed By: #### U AMIC #### [facility] [address] [place] [address] Rug Dyer Helper: Tariq Mesa MD Amorphous sediment LM Ql (Urine sed) NOT REPORTED Normal NONE [facility] Comment on above: Performed By: #### U AMIC #### [facility] [address] [place] [address] Rug Dyer Helper: Tariq Mesa MD Bacteria LM.HPF (Urine sed) [#/Area] NOT REPORTED Normal NONE [facility] Comment on above: Performed By: #### U AMIC #### [facility] [address] [place] [address] Rug Dyer Helper: Tariq Mesa MD Casts LM.LPF (Urine sed) [#/Area] NOT REPORTED Normal [facility] Comment on above: Performed By: #### U AMIC #### [facility] [address] [place] [address] Rug Dyer Helper: Tariq Mesa MD Comment NOT REPORTED Normal [facility] Comment on above: Performed By: #### U AMIC #### [facility] [address] [place] [address] Rug Dyer Helper: Tariq Mesa MD Crystals LM Nom (Urine sed) NOT REPORTED Normal [facility] Comment on above: Performed By: #### U AMIC #### [facility] [address] [place] [phone] Rug Dyer Helper: Tariq Mesa MD Epithelial, Renal NOT REPORTED Normal 0 [facility] Comment on above: Performed By: #### U AMIC #### [facility] [address] [place] [address] Rug Dyer Helper: Tariq Mesa MD Mucus Strands NOT REPORTED Normal [facility] Comment on above: Performed By: #### U AMIC #### [facility] [address] [place], [place] [phone] Rug Dyer Helper: Tariq Mesa MD Other Observations NOT REPORTED Normal NREQ [facility] Comment on above: Performed By: #### U AMIC #### [facility] [address] [place], [place] [phone] Rug Dyer Helper: Tariq Mesa MD Trichomonas NOT REPORTED Normal [facility] Comment on above: Performed By: #### U AMIC #### [facility] [address] [place] [address] Rug Dyer Helper: Tariq Mesa MD Yeast LM Ql (Urine sed) NOT REPORTED Normal [facility] Comment on above: Performed By: #### U AMIC #### [facility] [address] [place] [address] Rug Dyer Helper: Tariq Mesa MD Urinalysis with Microscopico n 12-23-2019 Amorphous, UA NOT REPORTED None [facility] [place] Bacteria, UA NOT REPORTED None [facility] [place] Bilirubin Urine Negative NEGATIVE [facility] [place] Casts UA NOT REPORTED /LPF [facility] [place] Color, UA YELLOW YELLOW [facility] [place] Crystals, UA NOT REPORTED None /HPF [facility] [place] Epithelial Cells UA None [facility] [place] Glucose, Ur Negative NEGATIVE [facility] [place] Interpretation and review of laboratory results Abnormal [facility] [place] Ketones Ql (U) Negative NEGATIVE [facility] [place] Leukocyte esterase Test strip Ql (U) Negative NEGATIVE [facility] [place] Mucus, UA NOT REPORTED None [facility] [place] Nitrite, Urine Negative NEGATIVE [facility] [place] Other Observations UA NOT REPORTED NOT REQ. [facility] [place] pH, UA 7.5 [place], [place] Protein (U) [Mass/Vol] Negative NEGATIVE [place] RBC (U) [#/Vol] None [place] Renal Epithelial, UA NOT REPORTED 0 /HPF [place], [place] Specific [place], UA 1.020 [place], [place] Trichomonas, UA NOT REPORTED None [facility] [place] Turbidity UA CLEAR CLEAR [place] Urinalysis Comments NOT REPORTED [place], [place] Urine Hgb 2+ Abnormal NEGATIVE [place] Urobilinogen, Urine Normal Normal [place] WBC, UA None [place] Yeast, UA NOT REPORTED None [place] Cult,Urineon 07-27-2019 Cult,Urine Specimen Description .CLEAN CATCH URINE Special Requests NOT REPORTED Culture NO SIGNIFICANT GROWTH Report Status FINAL 07/26/2019 Normal [facility] Comment on above: Performed By: #### U RC #### [address] [id number] Rug Dyer Helper: Robert Ross MD [facility] [address] [place] [address] [place] [address] Rug Dyer Helper: Tariq Mesa MD Urinalysis w/ Microon 2019 ----- Normal [facility] Comment on above: Performed By: #### U AMIC #### [facility] [address] [place] [address] [place] [address] Rug Dyer Helper: Tariq Mesa MD Acetoacetic Acid,Ur Negative Normal NEG [facility] Comment on above: Performed By: #### U AMIC #### [facility] [address] [place] [address] [place] [address] Rug Dyer Helper: Tariq Mesa MD Bacteria LM.HPF (Urine sed) [#/Area] 1+ Abnormal NONE [facility] Comment on above: Performed By: #### U AMIC #### [facility] [address] [place] [address] Dr. [place], [place] [phone] Rug Dyer Helper: Tariq Mesa MD Bilirubin, SemiQt,Ur Negative Normal NEG [facility] Comment on above: Performed By: #### U AMIC #### [facility] [address] [place] [phone] Rug Dyer Helper: Tariq Mesa MD Color (U) YELLOW Normal YEL [facility] Comment on above: Performed By: #### U AMIC #### [facility] [address] [place] [id number] Rug Dyer Helper: Tariq Mesa MD Epithelial cells LM.HPF (Urine sed) [#/Area] 2 TO 5 Normal 0-25 [facility] Comment on above: Performed By: #### U AMIC #### [facility] [address] [place], [place] [id number] Rug Dyer Helper: Tariq Mesa MD Glucose Ql (U) Negative Normal NEG [facility] Comment on above: Performed By: #### U AMIC #### [facility] [address] [place], [place] [phone] Rug Dyer Helper: Tariq Mesa MD Hemoglobin, Ur 1+ Abnormal NEG [facility] Comment on above: Performed By: #### U AMIC #### [facility] [address] [place], [place] [phone] Rug Dyer Helper: Tariq Mesa MD Leukocyte esterase Test strip Ql (U) Negative Normal NEG [facility] Comment on above: Performed By: #### U AMIC #### [facility] [address] [place], [place] [id number] Rug Dyer Helper: Tariq Mesa MD Mucus Strands TRACE Abnormal NONE [facility] Comment on above: Performed By: #### U AMIC #### [facility] [address] [place], [place] [phone] Rug Dyer Helper: Tariq Mesa MD Nitrite,Ur Negative Normal [facility] Comment on above: Performed By: #### U AMIC #### [facility] [address] [place], [place] [phone] Rug Dyer Helper: Tariq Mesa MD pH (U) 7.5 [pH] Normal 5.0-9.0 [facility] Comment on above: Performed By: #### U AMIC #### [facility] [address] [place], [place] [phone] Rug Dyer Helper: Tariq Mesa MD Protein Ql (U) Negative Normal NEG [facility] Comment on above: Performed By: #### U AMIC #### [facility] [address] [place], [place] [id number] Rug Dyer Helper: Tariq Mesa MD RBC (U) [#/Vol] 0 TO 2 Normal 0-2 [facility] Comment on above: Performed By: #### U AMIC #### [facility] [address] [place], [place] [phone] Rug Dyer Helper: Tariq Mesa MD Specific gravity (U) [Rel density] 1.010 Normal 1.010-1.020 [facility] Comment on above: Performed By: #### U AMIC #### [address] [place], [place] [address]83 Rug Dyer Helper: Tariq Mesa MD Turbidity CLEAR Normal CLEAR [facility] Comment on above: Performed By: #### U AMIC #### [facility] [address] [place], [place] [id number] Rug Dyer Helper: Tariq Mesa MD Urobilinogen,Ur Normal Normal NORM [facility] Comment on above: Performed By: #### U AMIC #### [facility] [address] [place], [place] [phone] Rug Dyer Helper: Tariq Mesa MD WBC (U) [#/Vol] None Normal 0-5 [facility] Comment on above: Performed By: #### U AMIC #### [facility] [address] [place] [address] Rug Dyer Helper: Tariq Mesa MD Amorphous sediment LM Ql (Urine sed) NOT REPORTED Normal NONE [facility] Comment on above: Performed By: #### U AMIC #### [facility] [address] [place], [place] [phone] Rug Dyer Helper: Tariq Mesa MD Casts LM.LPF (Urine sed) [#/Area] NOT REPORTED Normal [facility] Comment on above: Performed By: #### U AMIC #### [facility] [address] [place], [place] [phone] Rug Dyer Helper: Tariq Mesa MD Comment NOT REPORTED Normal [facility] Comment on above: Performed By: #### U AMIC #### [facility] [address] [place], [place] [phone] Rug Dyer Helper: Tariq Mesa MD Crystals LM Nom (Urine sed) NOT REPORTED Normal [facility] Comment on above: Performed By: #### U AMIC #### [facility] [address] [place], [place] [address] Rug Dyer Helper: Tariq Mesa MD Epithelial, Renal NOT REPORTED Normal 0 [facility] Comment on above: Performed By: #### U AMIC #### [facility] [address] [place], [place] [phone] Rug Dyer Helper: Tariq Mesa MD Other Observations NOT REPORTED Normal NREQ [facility] Comment on above: Performed By: #### U AMIC #### [facility] [address] [place] [address] Rug Dyer Helper: Tariq Mesa MD Trichomonas NOT REPORTED Normal NONE [facility] Comment on above: Performed By: #### U AMIC #### [facility] [address] [place], [place] [phone] Rug Dyer Helper: Tariq Mesa MD Yeast LM Ql (Urine sed) NOT REPORTED Normal NONE [facility] Comment on above: Performed By: #### U [facility] #### [facility] [address] [place] [address] Rug Dyer Helper: Tariq Mesa MD Urinalysis with Microscopico n 07-25-2019 Amorphous, UA NOT REPORTED None [facility], [place] Bacteria, UA 1+ Abnormal None [place] Bilirubin Urine Negative NEGATIVE [facility], [place] Casts UA NOT REPORTED /LPF [place] Color, UA YELLOW YELLOW [place] Crystals, UA NOT REPORTED None /HPF [facility], [place] Epithelial Cells UA 2 TO 5 [place] Glucose, Ur Negative NEGATIVE [place] Interpretation and review of laboratory results Abnormal [place] Ketones Ql (U) Negative NEGATIVE [place], [place] Leukocyte esterase Test strip Ql (U) Negative NEGATIVE [place] Mucus, UA TRACE Abnormal None [place] Nitrite, Urine Negative NEGATIVE [place] Other Observations UA NOT REPORTED NOT REQ. [place] pH, UA 7.5 [place] Protein (U) [Mass/Vol] Negative NEGATIVE [place] RBC (U) [#/Vol] 0 TO 2 [facility], [place] Renal Epithelial, UA NOT REPORTED 0 /HPF [place], [place] Specific [place], UA 1.010 [place], [place] Trichomonas, UA NOT REPORTED None [facility], [place] Turbidity UA CLEAR CLEAR [place] Urinalysis Comments NOT REPORTED [place], [place] Urine Hgb 1+ Abnormal NEGATIVE [place] Urobilinogen, Urine Normal Normal [place] WBC, UA None [place] Yeast, UA NOT REPORTED None [facility], [place] - [place] Vital Signs Date Time Vital Sign Value Performing Clinician Faci carlos 04-05-2023 11:19-0500 Body mass index (BMI) [Ratio] 35.51 kg/m2 Jessica Vibha DO Work Phone: [facility] 04-05-2023 11:19-0500 Body weight 88.05 kg Jessica Vibha DO Work Phone: [facility] 04-05-2023 11:19-0500 Diastolic blood pressure 78 mm[Hg] Jessica Vibha DO Work Phone: [facility] 04-05-2023 11:19-0500 Systolic blood pressure 114 mm[Hg] Jessica Vibha DO Work Phone: [facility] Healthcare Encounters Encounter Date Encounter Type Care Provider Facility Start: 04-05-2023 End: 04-05-2023 ambulatory JESSICA VIBHA Not Available Start: 04-05-2023 End: 04-05-2023 flow sheet Jessica Vibha DO Work Phone: [facility] OB Comment on above: Third [...] End: 12-24-2019 Patient encounter procedure BRYNN Rodriguez [facility] Start: 12-23-2019 End: 12-23-2019 Subsequent hospital visit by physician Brynn DAVID Laboratory Comment on above: Urinary frequency; OAB (overactive bladder); Incomplete bladder emptying Start: 07-25-2019 End: 07-26-2019 [facility] Start: 07-25-2019 End: 07-25-2019 Subsequent hospital visit [...] Screening for malign ant neoplasm of cervix [facility] Healthcare Start: 08-24-2025 Screening for malign ant neoplasm of cervix Pap Smear [facility] Start: 08-28-2023 End: 08-28-2023 Patient encounter procedure 08/28/2023 4:00 PM EDT Office Visit [facility] [address] [place] [address] Jessica Dunne DO [address] [place] [address] [facility] Start: 04-19-2023 End: 04-19-2023 Patient encounter procedure 04/19/2023 3:20 PM EST Routine [facility] [address] [place] [address] Bere Andrade PA [address] [place], [place] [id number] [facility] Start: 04-19-2023 End: 04-19-2023 Professional / ancillary services management 04/19/2023 3:00 PM EST Ancillary Procedure [facility] [address] [place] [id number] [facility] Start: 10-21-2022 Influenza vaccination Influenza Vacc ine (#1) [facility] Start: 01-13-2020 End: 01-13-2020 Procedure visit 01/13/2020 Procedure visit Urology Danyel Carson MD [address] [facility], [address] [place], [place] [phone] [facility] Start: 10-31-2019 End: 10-31-2019 Office Visit 10/31/2019 Office Visit Urology Aguilar Woody, GEODETIC SURVEYOR TECHNOLOGIST - DEVELOPMENT AND HOUSING DIRECTOR [address] [place] [id number] [facility] Start: 10-22-2019 Influenza vaccination [place] Start: 10-14-2015 DTaP/Tdap/Td vaccine (7 - Td) DTaP/Tdap/Td vaccine (7 - Td) [place] Start: 2009 Screening for malign ant neoplasm of cervix Cervical cancer screen [place] Start: 10-12-2007 DTaP/Tdap/Td vaccine (1 - Tdap) DTaP/Tdap/Td vaccine (1 - Tdap) [place] Start: 10-12-2003 HIV screening HIV screen [place], [place] Start: 1994 Pneumococcal 0-64 ye ars Vaccine (1 of 1 - PPSV23) Pneumococcal 0-64 years Vaccine (1 of 1 - PPSV23) [place] Start: 1989 Varicella vaccine (1 of 2 - 2-dose childhood series) Varicella vaccine (1 of 2 - 2-dose childhood series) [place] End: 12-23-2019 Culture, Urine Culture, Urine Microbiology Routine Urinary frequency OAB (overactive bladder) Incomplete bladder emptying 1 Occurrences starting 12/23/2019 until 12/23/2019 [facility]: 1 Occurrences starti ng 12/23/2019 until 12/23/2019 Culture, Urine [facility] End: 07-25-2019 Culture, Urine Culture, Urine Microbiology Routine Urinary frequency 1 Occurrences starting 07/25/2019 until [facility] Comment on above: 1 Occurrences starti ng 07/25/2019 until 07/25/2019 Payers Date Payer Category Payer Unknown [id number] 2022 Unknown BCBS BCBS xxxxxx [id number] 2022-Present [phone] [address] [place] [address] [id number] 2014 Private Health Insurance [employer] A ETNA NAP CHOICE POS II xxxxxxxxxx 2014-Present [phone] [address] [place] [address] xxxxxxxxxx [id number] .[id number] 1988 Unknown [id number] 2.16.840.1.602219.3.579.2 .173 1988 Unknown [id number] 2.16.840.1.391293.3.579.2 .173 1988 Unknown [id number] 2.16.840.1.860018.3.579.2 .593 1988 Unknown [id number] 2.16.840.1.797651.3.579.2 .1259 1988 Unknown [id number] 2.16.840.1.001413.3.579.2 .1259 1988 Unknown [id number] 2.16.840.1.340168.3.579.2 .1259 1988 Unknown [id number] 2.16.840.1.545279.3.579.2 .1259 1988 Unknown [id number] 2.16.840.1.389244.3.579.2 .1259 1988 Unknown [id number] 2.16.840.1.633637.3.579.2 .1259 1959 Private Health Insurance [id number] [id number] .[id number] Social History Date Type Detail Facility Start: 02-20-2003 End: 08-10-2022 Tobacco smoking status AZIS Current every day smoker [facility] Start: 02-20-2003 History of tobacco use Cigarette Smoker [place], [place] Start: 12-23-2019 End: 08-10-2022 Cigarettes smoked current (pack per day) - Reported [facility] Start: 12-23-2019 Tobacco use and exposure [facility] [place] [place] Start: 12-23-2019 End: 04-05-2023 Alcohol intake Current drinker of alcohol (finding) [place] Start: 07-25-2019 Alcohol Comment rare [place] Sex Assigned At Not on file [place] Start: 08-10-2022 End: 01-09-2023 Alcohol Use [...] nursing note reviewed. Exam conducted with a machine cementer and folder present. Vitals: Estimated body mass index is [...] Documents on File Type Date Recorded Patient Hardware Manager Expl anation ACP-Advance Directive ACP-Power of Information Systems Audit Manager Documents on File Type Date Recorded Patient Hardware Manager Expl anation Advance Directives and Living Will Power of Information Systems Audit Manager Summary Purpose Family History No Family History Records FoundNo Family History Records FoundNo Family History Records Found Additional Source Comments INFORMATION SOURCE (unrecogn ized section and content) DATE CREATED AUTHOR 12/25/2019 [facility] DATE CREATED AUTHOR AUTHOR'S ORGANIZ ATION 08/06/2021 [facility] DATE CREATED AUTHOR AUTHOR'S ORGANIZ ATION 04/07/[address] [place] [address] [facility] [employer]IC Reason for Visit (unrecogniz ed section and content) Reason Comments Routine Visit Care Teams (unrecognized sec tion and content) Chip Frier Relationship Specialty Start Date End Date Brynn Bah MD [address], [place] [id number] PCP - General Family Medicine 08/10/22 Ana Rosa Hazel NP [address], [place] [id number] PCP - Emmanuel Commercial 09/20/22 FOR RECORDS [...] BE BASED ON THE PRIMARY CLINICAL RECORDS. [employer] [facility]. provides no warranty or guarantee of the accuracy or completeness of information in this document.
== END 2023-04-19 20:56 | disposition home or self-care (01) ==
LOC: LAB 20:55
PROVIDERS: PCP Family Medicine; Visit Provider Physician Assistant
DX: Z34.93 Encounter for supervision of normal pregnancy, unspecified, third trimester (principal)
CPT/HCPCS: 87081

== ENCOUNTER 2023-04-20 19:55 | Outpatient (OUT) | payer BC, SELFPAY ==
--- OUTSIDE RECORDS SUMMARY | 2023-04-20 20:02 | XMS_ITS | CCD ---
Author Name Unknown Address [address] [place] [address] Organization [facility] Care Team Providers Care Fiber Artist Name Role Phone Brynn Bah Primary Care Provider [phone] BRYNN BAH Primary Care Unavailable COLTON TINSLEY [...] take 1 tablet by mouth once daily [id number] 0.18/0.215/0.25 MG-25 MCG TABS TAKE 1 TABLET [...] UA Negative Negative - 4(70) +++ mg/dL [facility] Blood, UA Positive Negative - 50 Chris/mcL [facility] Clarity, UA Clear [facility] re Color, UA Yellow [facility] e Glucose, UA Negative Negative - 1999(110) ++++ mg/dL [facility] Interpretation and review of laboratory results Abnormal [facility] Ketones, UA Negative Negative - 160(16) ++++ mg/dL [facility] Leukocytes, UA Negative Negative - 500+++ Dc/mcL [facility] Nitrite, UA Negative Negative - Positive [facility] pH, UA 7.0 5 - 9 [facility] e Protein, UA Negative Negative - 1999(20) ++++ mg/dL [facility] Spec Grav, UA 1.015 1 - 1.03 [facility] Urobilinogen, UA 0.2 0.2 - 12 mg/dL [facility] PAP ACOG PANEL 2: 30 to 65on 08-05-2021 . . Normal [facility] Comment on above: Result Comment: Perf ormed at: WB Performed By: #### [id number] #### [facility] [address] [place] [address] Dr. Jazmin Turner Age Gdln ACOG Testing 30-65 Normal [facility] Comment on above: Performed By: #### [id number] #### [facility] [address] [address] [address] Jazmin Turner DIAGNOSIS: Comment Normal [facility] Comment on above: Result Comment: NEGA TIVE FOR INTRAEPITHELIAL LESION OR MALIGNANCY. Performed at: WB Performed By: #### [id number] #### [facility] [address] [address] [address] Jazmin Turner HPV Aptima Negative Normal Negative [facility] Comment on above: Result Comment: This nucleic acid amplification test detects fourteen high-risk HPV types (16,18,31,33,35,39,45,51,52,56,58,59,66,68) without differentiation. Performed at: =G Performed By: #### 4 [id number] #### [facility] [address] [place] [address] Dr. Jazmin Turner Methodology: Comment [facility] Comment on above: Result Comment: This liquid based ThinPrep(R) pap test was screened with the use of an image guided system. Performed at: WB Performed By: #### [id number] #### [facility] [address] [place] [address] Dr. Jazmin Turner Note: Comment Normal [facility] Comment on above: Result Comment: The Pap smear is a screening test designed to aid in the detection of premalignant and malignant conditions of the uterine cervix. It is not a diagnostic procedure and should not be used as the sole means of detecting cervical cancer. Both false-positive and false-negative reports do occur. . Performed at: WB Performed By: #### [id number] #### [facility] [address] [place] [address] Dr. Jazmin Turner Performed by: Comment Normal [facility] Comment on above: Result Comment: Tong Watts, Conveyor Feeder Offbearer (ASCP) Performed at: WB Performed By: #### [id number] #### [facility] [address] [place] [address] Dr. Jazmin Turner Specimen adequacy: Comment Normal [facility] Comment on above: Result Comment: Sati sfactory for evaluation. Endocervical and/or squamous metaplastic cells (endocervical component) are present. Performed at: WB Performed By: #### 4 [id number] #### [facility] [address] [place] [address] Dr. Jazmin Turner Cult,Urineon 12-24-2019 Cult,Urine Specimen Description .CLEAN CATCH URINE Special Requests NOT REPORTED Culture NO SIGNIFICANT GROWTH Report Status FINAL 12/24/2019 Normal [facility] Comment on above: Performed By: #### U RC #### [id number] [place] [address] Drying Machine Tender: Robert Ross MD [facility] [address] [place], [place] [id number] Drying Machine Tender: Tariq Mesa MD Urinalysis w/ Microon 2019 ----- Normal [facility] Comment on above: Performed By: #### U AMIC #### [facility] [address] [place], [place] [id number] Drying Machine Tender: Tariq Mesa MD Acetoacetic Acid,Ur Negative Normal NEG [facility] Comment on above: Performed By: #### U AMIC #### [facility] [address] [place] [id number] Drying Machine Tender: Tariq Mesa MD Bilirubin, SemiQt,Ur Negative Normal NEG [facility] Comment on above: Performed By: #### U AMIC #### [facility] [address] [place], [place] [id number] Drying Machine Tender: Tariq Mesa MD Color (U) YELLOW Normal YEL [facility] Comment on above: Performed By: #### U AMIC #### [facility] [address] [place], [place] [id number] Drying Machine Tender: Tariq Mesa MD Epithelial cells LM.HPF (Urine sed) [#/Area] None Normal 0-25 [facility] Comment on above: Performed By: #### U AMIC #### [facility] [address] [place], [place] [id number] Drying Machine Tender: Tariq Mesa MD Glucose Ql (U) Negative Normal NEG [facility] Comment on above: Performed By: #### U AMIC #### [facility] [address] [place], [place] [id number] Drying Machine Tender: Tariq Mesa MD Hemoglobin, Ur 2+ Abnormal NEG [facility] Comment on above: Performed By: #### U AMIC #### [facility] [address] [place], [place] [id number] Drying Machine Tender: Tariq Mesa MD Leukocyte esterase Test strip Ql (U) Negative Normal NEG [facility] Comment on above: Performed By: #### U AMIC #### [facility] [address] [place], [place] [id number] Drying Machine Tender: Tariq Mesa MD Nitrite,Ur Negative Normal NEG [facility] Comment on above: Performed By: #### U AMIC #### [facility] [address] [place], [place] [id number] Drying Machine Tender: Tariq Mesa MD pH (U) 7.5 [pH] Normal 5.0-9.0 [facility] Comment on above: Performed By: #### U AMIC #### [facility] [address] [place], [place] 8[address]83 Drying Machine Tender: Tariq Mesa MD Protein Ql (U) Negative Normal NEG [facility] Comment on above: Performed By: #### U AMIC #### [facility] [address] [place], [place] 9174083 Drying Machine Tender: Tariq Mesa MD RBC (U) [#/Vol] None Normal 0-2 [facility] Comment on above: Performed By: #### U AMIC #### [address] [place], [place] 7915[address] Drying Machine Tender: Tariq Mesa MD Specific gravity (U) [Rel density] 1.020 Normal 1.010-1.020 [facility] Comment on above: Performed By: #### U AMIC #### [facility] [address] [place], [place] [id number] Drying Machine Tender: Tariq Mesa MD Turbidity CLEAR Normal CLEAR [facility] Comment on above: Performed By: #### U AMIC #### [facility] [address] [place], [place] [id number] Drying Machine Tender: Tariq Mesa MD Urobilinogen,Ur Normal Normal NORM [facility] Comment on above: Performed By: #### U AMIC #### [facility] [address] [place] [address] Drying Machine Tender: Tariq Mesa MD WBC (U) [#/Vol] None Normal 0-5 [facility] Comment on above: Performed By: #### U AMIC #### [facility] [address] [place] [address] Drying Machine Tender: Tariq Mesa MD Amorphous sediment LM Ql (Urine sed) NOT REPORTED Normal NONE [facility] Comment on above: Performed By: #### U AMIC #### [facility] [address] [place] [address] Drying Machine Tender: Tariq Mesa MD Bacteria LM.HPF (Urine sed) [#/Area] NOT REPORTED Normal NONE [facility] Comment on above: Performed By: #### U AMIC #### [facility] [address] [place] [address] Drying Machine Tender: Tariq Mesa MD Casts LM.LPF (Urine sed) [#/Area] NOT REPORTED Normal [facility] Comment on above: Performed By: #### U AMIC #### [facility] [address] [place] [address] Drying Machine Tender: Tariq Mesa MD Comment NOT REPORTED Normal [facility] Comment on above: Performed By: #### U AMIC #### [facility] [address] [place] [address] Drying Machine Tender: Tariq Mesa MD Crystals LM Nom (Urine sed) NOT REPORTED Normal [facility] Comment on above: Performed By: #### U AMIC #### [facility] [address] [place], [place] 9[address]83 Drying Machine Tender: Tariq Mesa MD Epithelial, Renal NOT REPORTED Normal 0 [facility] Comment on above: Performed By: #### U AMIC #### [facility] [address] [place] [address] Drying Machine Tender: Tariq Mesa MD Mucus Strands NOT REPORTED Normal [facility] Comment on above: Performed By: #### U AMIC #### [facility] [address] [place], [place] [id number] Drying Machine Tender: Tariq Mesa MD Other Observations NOT REPORTED Normal NREQ [facility] Comment on above: Performed By: #### U AMIC #### [facility] [address] [place], [place] [address]24[address]83 Drying Machine Tender: Tariq Mesa MD Trichomonas NOT REPORTED Normal [facility] Comment on above: Performed By: #### U AMIC #### [facility] [address] [place] [address] Drying Machine Tender: Tariq Mesa MD Yeast LM Ql (Urine sed) NOT REPORTED Normal [facility] Comment on above: Performed By: #### U AMIC #### [facility] [address] [place] [address] Drying Machine Tender: Tariq Mesa MD Urinalysis with Microscopico n 12-23-2019 Amorphous, UA NOT REPORTED None [facility] Bacteria, UA NOT REPORTED None [facility] [place] Bilirubin Urine Negative NEGATIVE [facility] [place] Casts UA NOT REPORTED /LPF [facility] [place], [place] Color, UA YELLOW YELLOW [facility] [place], [place] Crystals, UA NOT REPORTED None /HPF [facility] [place] Epithelial Cells UA None [facility] [place] Glucose, Ur Negative NEGATIVE [facility] [place] Interpretation and review of laboratory results Abnormal [facility] Ketones Ql (U) Negative NEGATIVE [facility] [place] Leukocyte esterase Test strip Ql (U) Negative NEGATIVE [facility] [place] Mucus, UA NOT REPORTED None [facility] [place] Nitrite, Urine Negative NEGATIVE [facility] [place] Other Observations UA NOT REPORTED NOT REQ. [facility] [place] pH, UA 7.5 [place], [place] Protein (U) [Mass/Vol] Negative NEGATIVE [place] RBC (U) [#/Vol] None [facility] [place] Renal Epithelial, UA NOT REPORTED 0 /HPF [place], [place] Specific [place], UA 1.020 [place], [place] Trichomonas, UA NOT REPORTED None [facility] [place] Turbidity UA CLEAR CLEAR [place], [place] Urinalysis Comments NOT REPORTED [place] Urine Hgb 2+ Abnormal NEGATIVE [place] Urobilinogen, Urine Normal Normal [place] WBC, UA None [place] Yeast, UA NOT REPORTED None [place] - [place] Cult,Urineon 07-27-2019 Cult,Urine Specimen Description .CLEAN CATCH URINE Special Requests NOT REPORTED Culture NO SIGNIFICANT GROWTH Report Status FINAL 07/26/2019 Normal [facility] Comment on above: Performed By: #### U RC #### [address] [id number] Drying Machine Tender: Robert Ross MD [facility] [address] [place] [address] [place] [address] Drying Machine Tender: Tariq Mesa MD Urinalysis w/ Microon 2019 ----- Normal [facility] Comment on above: Performed By: #### U AMIC #### [facility] [address] [place] [address] [place] [address] Drying Machine Tender: Tariq Mesa MD Acetoacetic Acid,Ur Negative Normal NEG [facility] Comment on above: Performed By: #### U AMIC #### [facility] [address] [place] [address] [place] [address] Drying Machine Tender: Tariq Mesa MD Bacteria LM.HPF (Urine sed) [#/Area] 1+ Abnormal NONE [facility] Comment on above: Performed By: #### U AMIC #### [facility] [address] [place] [address] Dr. [place], [place] [id number] Drying Machine Tender: Tariq Mesa MD Bilirubin, SemiQt,Ur Negative Normal NEG [facility] Comment on above: Performed By: #### U AMIC #### [facility] [address] [place] [id number] Drying Machine Tender: Tariq Mesa MD Color (U) YELLOW Normal YEL [facility] Comment on above: Performed By: #### U AMIC #### [facility] [address] [place] [id number] Drying Machine Tender: Tariq Mesa MD Epithelial cells LM.HPF (Urine sed) [#/Area] 2 TO 5 Normal 0-25 [facility] Comment on above: Performed By: #### U AMIC #### [facility] [address] [place], [place] [id number] Drying Machine Tender: Tariq Mesa MD Glucose Ql (U) Negative Normal NEG [facility] Comment on above: Performed By: #### U AMIC #### [facility] [address] [place], [place] [id number] Drying Machine Tender: Tariq Mesa MD Hemoglobin, Ur 1+ Abnormal NEG [facility] Comment on above: Performed By: #### U AMIC #### [facility] [address] [place], [place] [id number] Drying Machine Tender: Tariq Mesa MD Leukocyte esterase Test strip Ql (U) Negative Normal NEG [facility] Comment on above: Performed By: #### U AMIC #### [facility] [address] [place], [place] [id number] Drying Machine Tender: Tariq Mesa MD Mucus Strands TRACE Abnormal NONE [facility] Comment on above: Performed By: #### U AMIC #### [facility] [address] [place], [place] [id number] Drying Machine Tender: Tariq Mesa MD Nitrite,Ur Negative Normal [facility] Comment on above: Performed By: #### U AMIC #### [facility] [address] [place], [place] [id number] Drying Machine Tender: Tariq Mesa MD pH (U) 7.5 [pH] Normal 5.0-9.0 [facility] Comment on above: Performed By: #### U AMIC #### [facility] [address] [place], [place] [id number] Drying Machine Tender: Tariq Mesa MD Protein Ql (U) Negative Normal NEG [facility] Comment on above: Performed By: #### U AMIC #### [facility] [address] [place], [place] [id number] Drying Machine Tender: Tariq Mesa MD RBC (U) [#/Vol] 0 TO 2 Normal 0-2 [facility] Comment on above: Performed By: #### U AMIC #### [facility] [address] [place], [place] [id number] Drying Machine Tender: Tariq Mesa MD Specific gravity (U) [Rel density] 1.010 Normal 1.010-1.020 [facility] Comment on above: Performed By: #### U AMIC #### [address] [place], [place] [id number] Drying Machine Tender: Tariq Meas MD Turbidity CLEAR Normal CLEAR [facility] Comment on above: Performed By: #### U AMIC #### [facility] [address] [place], [place] [phone] Drying Machine Tender: Tariq Mesa MD Urobilinogen,Ur Normal Normal NORM [facility] Comment on above: Performed By: #### U AMIC #### [facility] [address] [place], [place] [id number] Drying Machine Tender: Tariq Mesa MD WBC (U) [#/Vol] None Normal 0-5 [facility] Comment on above: Performed By: #### U AMIC #### [facility] [address] [place] [address] Drying Machine Tender: Tariq Mesa MD Amorphous sediment LM Ql (Urine sed) NOT REPORTED Normal NONE [facility] Comment on above: Performed By: #### U AMIC #### [facility] [address] [place], [place] [id number] Drying Machine Tender: Tariq Mesa MD Casts LM.LPF (Urine sed) [#/Area] NOT REPORTED Normal [facility] Comment on above: Performed By: #### U AMIC #### [facility] [address] [place], [place] 0827483 Drying Machine Tender: Tariq Mesa MD Comment NOT REPORTED Normal [facility] Comment on above: Performed By: #### U AMIC #### [facility] [address] [place], [place] 2668383 Drying Machine Tender: Tariq Mesa MD Crystals LM Nom (Urine sed) NOT REPORTED Normal [facility] Comment on above: Performed By: #### U AMIC #### [facility] [address] [place], [place] 4751083 Drying Machine Tender: Tariq Mesa MD Epithelial, Renal NOT REPORTED Normal 0 [facility] Comment on above: Performed By: #### U AMIC #### [facility] [address] [place], [place] [phone] Drying Machine Tender: Tariq Mesa MD Other Observations NOT REPORTED Normal NREQ [facility] Comment on above: Performed By: #### U AMIC #### [facility] [address] [place] [address] Drying Machine Tender: Tariq Mesa MD Trichomonas NOT REPORTED Normal NONE [facility] Comment on above: Performed By: #### U AMIC #### [facility] [address] [place], [place] 215[address]83 Drying Machine Tender: Tariq Mesa MD Yeast LM Ql (Urine sed) NOT REPORTED Normal NONE [facility] Comment on above: Performed By: #### U [facility] #### [facility] [address] [place] [address] Drying Machine Tender: Tariq Mesa MD Urinalysis with Microscopico n 07-25-2019 Amorphous, UA NOT REPORTED None [facility], [place] Bacteria, UA 1+ Abnormal None [place] Bilirubin Urine Negative NEGATIVE [facility], [place] Casts UA NOT REPORTED /LPF [place] Color, UA YELLOW YELLOW [place] Crystals, UA NOT REPORTED None /HPF [facility], [place] Epithelial Cells UA 2 TO 5 [place] Glucose, Ur Negative NEGATIVE [place] Interpretation and review of laboratory results Abnormal [place] Ketones Ql (U) Negative NEGATIVE [place], [place] Leukocyte esterase Test strip Ql (U) Negative NEGATIVE [place] Mucus, UA TRACE Abnormal None [place] Nitrite, Urine Negative NEGATIVE [place] Other Observations UA NOT REPORTED NOT REQ. [place] pH, UA 7.5 [place] Protein (U) [Mass/Vol] Negative NEGATIVE [place] RBC (U) [#/Vol] 0 TO 2 [facility] Renal Epithelial, UA NOT REPORTED 0 /HPF [place], [place] Specific [place], UA 1.010 [place], [place] Trichomonas, UA NOT REPORTED None [facility] [place] [place] Turbidity UA CLEAR CLEAR [place] Urinalysis Comments NOT REPORTED [place] Urine Hgb 1+ Abnormal NEGATIVE [place] Urobilinogen, Urine Normal Normal [place] WBC, UA None [place] Yeast, UA NOT REPORTED None [facility], [place] - [place] Vital Signs Date Time Vital Sign Value Performing Clinician Faci carlos 04-05-2023 11:19-0500 Body mass index (BMI) [Ratio] 35.51 kg/m2 Jessica Vibha DO Work Phone: [facility] 04-05-2023 11:19-0500 Body weight 88.05 kg Jessica Vibha DO Work Phone: [facility] 04-05-2023 11:19-0500 Diastolic blood pressure 78 mm[Hg] Jessica Vibha DO Work Phone: [facility] 04-05-2023 11:19-0500 Systolic blood pressure 114 mm[Hg] Jessica Vibha DO Work Phone: [facility] Encounters Encounter Date Encounter Type Care Provider Facility Start: 04-05-2023 End: 04-05-2023 ambulatory JESSICA VIBHA Not Available Start: 04-05-2023 End: 04-05-2023 flow sheet Jessica Vibha DO Work Phone: [facility] Comment on above: Third [...] End: 12-24-2019 Patient encounter procedure BRYNN Rodriguez [facility] Start: 12-23-2019 End: 12-23-2019 Subsequent hospital visit [...] Screening for malign ant neoplasm of cervix [facility] Start: 08-24-2025 Screening for malign ant neoplasm of cervix Pap Smear [facility] Start: 08-28-2023 End: 08-28-2023 Patient encounter procedure 08/28/2023 4:00 PM EDT Office Visit [facility] [address] [place] [address] Jessica Dunne DO [address] [place] [address] [facility] Start: 04-19-2023 End: 04-19-2023 Patient encounter procedure 04/19/2023 3:20 PM EST Routine [facility] [address] [place] [address] Bere Andrade PA [address] [place], [place] [id number] [facility] Start: 04-19-2023 End: 04-19-2023 Professional / ancillary services management 04/19/2023 3:00 PM EST Ancillary Procedure [facility] [address] [place] [id number] [facility] Start: 10-21-2022 Influenza vaccination Influenza Vacc ine (#1) [facility] Start: 01-13-2020 End: 01-13-2020 Procedure visit 01/13/2020 Procedure visit Urology Danyel Carson MD [address] [facility], [address] [place], [place] [id number] [facility] Start: 10-31-2019 End: 10-31-2019 Office Visit 10/31/2019 Office Visit Urology Aguilar Woody, LINE PERSON - SALES ACCOUNT LEADER [address] [place] [phone] [facility] Start: 10-22-2019 Influenza vaccination [place] Start: 10-14-2015 DTaP/Tdap/Td vaccine (7 - Td) DTaP/Tdap/Td vaccine (7 - Td) [place], [place] Start: 2009 Screening for malign ant neoplasm of cervix Cervical cancer screen [place] Start: 10-12-2007 DTaP/Tdap/Td vaccine (1 - Tdap) DTaP/Tdap/Td vaccine (1 - Tdap) [place] Start: 10-12-2003 HIV screening HIV screen [place], [place] Start: 1994 Pneumococcal 0-64 ye ars Vaccine (1 of 1 - PPSV23) Pneumococcal 0-64 years Vaccine (1 of 1 - PPSV23) [place] Start: 1989 Varicella vaccine (1 of 2 - 2-dose childhood series) Varicella vaccine (1 of 2 - 2-dose childhood series) [place] End: 12-23-2019 Culture, Urine Culture, Urine Microbiology Routine Urinary frequency OAB (overactive bladder) Incomplete bladder emptying 1 Occurrences starting 12/23/2019 until 12/23/2019 [facility] Comment on above: 1 Occurrences starti ng 12/23/2019 until 12/23/2019 Culture, Urine [facility] End: 07-25-2019 Culture, Urine Culture, Urine Microbiology Routine Urinary frequency 1 Occurrences starting 07/25/2019 until 07/25/2019 [facility] on above: 1 Occurrences starti ng 07/25/2019 until 07/25/2019 Payers Date Payer Category Payer Unknown [id number] 2022 Unknown BCBS BCBS xxxxxx [id number] 2022-Present [phone] [address] [place] [address] [id number] 2014 Private Health Insurance [employer] A ETNA NAP CHOICE POS II xxxxxxxxxx 2014-Present [phone] [address] [place] [address] xxxxxxxxxx [id number] 1988 Unknown [id number] 1988 Unknown [id number] 1988 Unknown [id number] 1988 Unknown [id number] .1259 1988 Unknown [id number] .1259 1988 Unknown [id number] .1259 1988 Unknown [id number] .1259 1988 Unknown [id number] [id number] .1259 1988 Unknown [id number] .1259 1959 Private Health Insurance [id number] Social History Date Type Detail Facility Start: 02-20-2003 End: 08-10-2022 Tobacco smoking status SCIS Current every day smoker [facility] Start: 02-20-2003 History of tobacco use Cigarette Smoker [place] Start: 12-23-2019 End: 08-10-2022 Cigarettes smoked current (pack per day) - Reported [facility] Start: 12-23-2019 Tobacco use and exposure [facility] [place] Start: 12-23-2019 End: 04-05-2023 Alcohol intake Current drinker of alcohol (finding) [place] Start: 07-25-2019 Alcohol Comment rare [place] Sex Assigned At Not on file [place] Start: 08-10-2022 End: 01-09-2023 Alcohol Use [...] nursing note reviewed. Exam conducted with a piercing specialist present. Vitals: Estimated body mass index is [...] Documents on File Type Date Recorded Patient Distribution Associate Expl anation ACP-Advance Directive ACP-Power of Fabrication Lead Documents on File Type Date Recorded Patient Distribution Associate Expl anation Advance Directives and Living Will Power of Fabrication Lead Summary Purpose Family History No Family History Records FoundNo Family History Records FoundNo Family History Records Found Additional Source Comments INFORMATION SOURCE (unrecogn ized section and content) DATE CREATED AUTHOR 12/25/2019 [facility] DATE CREATED AUTHOR AUTHOR'S ORGANIZ ATION 08/06/2021 [facility] DATE CREATED AUTHOR AUTHOR'S ORGANIZ ATION 04/07/[address] [place] [address] [facility] EPIC Reason for Visit (unrecogniz ed section and content) Reason Comments Routine Visit Care Teams (unrecognized sec tion and content) Fiber Artist Relationship Specialty Start Date End Date Brynn Bah MD [address] [place], [place] [id number] PCP - General Family Medicine 08/10/22 Ana Rosa Hazel NP [address], [place] [id number] PCP - Emmanuel [employer] 09/20/22 FOR RECORDS [...] BE BASED ON THE PRIMARY CLINICAL RECORDS. [facility]. provides no warranty or guarantee of the accuracy or completeness of information in this document.
[2023-04-20 20:14] VITALS: BP 134/72; PULSE 92; TEMP 36.4
[2023-04-20] MEDS: BETAMETHASONE ACE/BETAMETHASONE SOD PHOS 30 MG/5 ML 12 MG IM (20:20)
[2023-04-20 20:28] VITALS: BP 131/66; PULSE 95
[2023-04-20 20:41] VITALS: BP 104/59; PULSE 96; TEMP 37.1
== END 2023-04-20 20:43 | disposition home or self-care (01) ==
LOC: FBCO 20:02 → FBC 20:03
PROVIDERS: PCP Family Medicine; Visit Provider Obstetrics & Gynecology
DX: O60.00 Preterm labor without delivery, unspecified trimester (principal); Z3A.00 Weeks of gestation of pregnancy not specified; O36.63X0 Maternal care for excessive fetal growth, third trimester, not applicable or unspecified
CPT/HCPCS: 96372; J0702

== ENCOUNTER 2023-04-21 07:30 | Outpatient (OUT) | payer BC, SELFPAY ==
--- OUTSIDE RECORDS SUMMARY | 2023-04-21 07:41 | XMS_ITS | CCD ---
Author Name Unknown Address [address] [place] [address] Organization [facility] Care Team Providers Care Wet Chemistry Analyst Name Role Phone Brynn Bah Primary Care [...] take 1 tablet by mouth once daily [id number] 0.18/0.215/0.25 MG-25 MCG TABS TAKE 1 TABLET [...] UA Negative Negative - 4(70) +++ mg/dL [facility] Blood, UA Positive Negative - 50 Chris/mcL [facility] Clarity, UA Clear [facility] Color, UA Yellow [facility] Glucose, UA Negative Negative - 1999(110) ++++ mg/dL [facility] Interpretation and review of laboratory results Abnormal [facility] Ketones, UA Negative Negative - 160(16) ++++ mg/dL [facility] Leukocytes, UA Negative Negative - 500+++ Cd/mcL [facility] Nitrite, UA Negative Negative - Positive [facility] pH, UA 7.0 5 - 9 [facility] e Protein, UA Negative Negative - 1999(20) ++++ mg/dL [facility] Spec Grav, UA 1.015 1 - 1.03 [facility] Urobilinogen, UA 0.2 0.2 - 12 mg/dL [facility] PAP ACOG PANEL 2: 30 to 65on 08-05-2021 . . Normal [facility] Comment on above: Result Comment: Perf ormed at: WB Performed By: #### [id number] #### [facility] [address] [place] [address] Dr. Jazmin Turner Age Gdln ACOG Testing 30-65 Normal [facility] Comment on above: Performed By: #### [id number] #### [facility] [address] [address] [address] Jazmin Turner DIAGNOSIS: Comment Normal [facility] Comment on above: Result Comment: NEGA TIVE FOR INTRAEPITHELIAL LESION OR MALIGNANCY. Performed at: WB Performed By: #### [id number] #### [facility] [address] [address] [address] Jazmin Turner HPV Aptima Negative Normal Negative [facility] Comment on above: Result Comment: This nucleic acid amplification test detects fourteen high-risk HPV types (16,18,31,33,35,39,45,51,52,56,58,59,66,68) without differentiation. Performed at: =G Performed By: #### 4 [id number] #### [facility] [address] [place] [address] Dr. Jazmin Turner Methodology: Comment [facility] Comment on above: Result Comment: This liquid based ThinPrep(R) pap test was screened with the use of an image guided system. Performed at: WB Performed By: #### [id number] #### [facility] [address] [place] [address] Dr. Jazmin Turner Note: Comment Normal [facility] Comment on above: Result Comment: The Pap smear is a screening test designed to aid in the detection of premalignant and malignant conditions of the uterine cervix. It is not a diagnostic procedure and should not be used as the sole means of detecting cervical cancer. Both false-positive and false-negative reports do occur. . Performed at: WB Performed By: #### [id number] #### [facility] [address] [place] [address] Dr. Jazmin Turner Performed by: Comment Normal [facility] Comment on above: Result Comment: Tong Watts, Turnstile Collector (ASCP) Performed at: WB Performed By: #### [id number] #### [facility] [address] [place] [address] Dr. Jazmin Turner Specimen adequacy: Comment Normal [facility] Comment on above: Result Comment: Sati sfactory for evaluation. Endocervical and/or squamous metaplastic cells (endocervical component) are present. Performed at: WB Performed By: #### [id number] #### [facility] [address] [place] [address] Dr. Jazmin Turner Cult,Urineon 12-24-2019 Cult,Urine Specimen Description .CLEAN CATCH URINE Special Requests NOT REPORTED Culture NO SIGNIFICANT GROWTH Report Status FINAL 12/24/2019 Normal [facility] Comment on above: Performed By: #### U RC #### [id number] [place] [address] Records Management Engineer: Robert Ross MD [facility] [address] [place], [place] [id number] Records Management Engineer: Tariq Mesa MD Urinalysis w/ Microon 2019 ----- Normal [facility] Comment on above: Performed By: #### U AMIC #### [facility] [address] [place], [place] [id number] Records Management Engineer: Tariq Mesa MD Acetoacetic Acid,Ur Negative Normal NEG [facility] Comment on above: Performed By: #### U AMIC #### [facility] [address] [place] [id number] Records Management Engineer: Tariq Mesa MD Bilirubin, SemiQt,Ur Negative Normal NEG [facility] Comment on above: Performed By: #### U AMIC #### [facility] [address] [place], [place] [id number] Records Management Engineer: Tariq Mesa MD Color (U) YELLOW Normal YEL [facility] Comment on above: Performed By: #### U AMIC #### [facility] [address] [place], [place] [id number] Records Management Engineer: Tariq Mesa MD Epithelial cells LM.HPF (Urine sed) [#/Area] None Normal 0-25 [facility] Comment on above: Performed By: #### U AMIC #### [facility] [address] [place], [place] [address]33[address]83 Records Management Engineer: Tariq Mesa MD Glucose Ql (U) Negative Normal NEG [facility] Comment on above: Performed By: #### U AMIC #### [facility] [address] [place], [place] 8475483 Records Management Engineer: Tariq Mesa MD Hemoglobin, Ur 2+ Abnormal NEG [facility] Comment on above: Performed By: #### U AMIC #### [facility] [address] [place], [place] [id number] Records Management Engineer: Tariq Mesa MD Leukocyte esterase Test strip Ql (U) Negative Normal NEG [facility] Comment on above: Performed By: #### U AMIC #### [facility] [address] [place], [place] 2564883 Records Management Engineer: Tariq Mesa MD Nitrite,Ur Negative Normal NEG [facility] Comment on above: Performed By: #### U AMIC #### [facility] [address] [place], [place] [id number] Records Management Engineer: Tariq Mesa MD pH (U) 7.5 [pH] Normal 5.0-9.0 [facility] Comment on above: Performed By: #### U AMIC #### [facility] [address] [place], [place] [id number] Records Management Engineer: Tariq Mesa MD Protein Ql (U) Negative Normal NEG [facility] Comment on above: Performed By: #### U AMIC #### [facility] [address] [place], [place] [id number] Records Management Engineer: Tariq Mesa MD RBC (U) [#/Vol] None Normal 0-2 [facility] Comment on above: Performed By: #### U AMIC #### [address] [place], [place] [id number] Records Management Engineer: Tariq Mesa MD Specific gravity (U) [Rel density] 1.020 Normal 1.010-1.020 [facility] Comment on above: Performed By: #### U AMIC #### [facility] [address] [place], [place] 586[address]83 Records Management Engineer: Tariq Mesa MD Turbidity CLEAR Normal CLEAR [facility] Comment on above: Performed By: #### U AMIC #### [facility] [address] [place], [place] [id number] Records Management Engineer: Tariq Mesa MD Urobilinogen,Ur Normal Normal NORM [facility] Comment on above: Performed By: #### U AMIC #### [facility] [address] [place] [address] Records Management Engineer: Tariq Mesa MD WBC (U) [#/Vol] None Normal 0-5 [facility] Comment on above: Performed By: #### U AMIC #### [facility] [address] [place] [address] Records Management Engineer: Tariq Mesa MD Amorphous sediment LM Ql (Urine sed) NOT REPORTED Normal NONE [facility] Comment on above: Performed By: #### U AMIC #### [facility] [address] [place] [address] Records Management Engineer: Tariq Mesa MD Bacteria LM.HPF (Urine sed) [#/Area] NOT REPORTED Normal NONE [facility] Comment on above: Performed By: #### U AMIC #### [facility] [address] [place] [address] Records Management Engineer: Tariq Mesa MD Casts LM.LPF (Urine sed) [#/Area] NOT REPORTED Normal [facility] Comment on above: Performed By: #### U AMIC #### [facility] [address] [place] [address] Records Management Engineer: Tariq Mesa MD Comment NOT REPORTED Normal [facility] Comment on above: Performed By: #### U AMIC #### [facility] [address] [place] [address] Records Management Engineer: Tariq Mesa MD Crystals LM Nom (Urine sed) NOT REPORTED Normal [facility] Comment on above: Performed By: #### U AMIC #### [facility] [address] [place], [place] 1438183 Records Management Engineer: Tariq Mesa MD Epithelial, Renal NOT REPORTED Normal 0 [facility] Comment on above: Performed By: #### U AMIC #### [facility] [address] [place] [address] Records Management Engineer: Tariq Mesa MD Mucus Strands NOT REPORTED Normal [facility] Comment on above: Performed By: #### U AMIC #### [facility] [address] [place], [place] 067[address]83 Records Management Engineer: Tariq Mesa MD Other Observations NOT REPORTED Normal NREQ [facility] Comment on above: Performed By: #### U AMIC #### [facility] [address] [place], [place] [id number] Records Management Engineer: Tariq Mesa MD Trichomonas NOT REPORTED Normal [facility] Comment on above: Performed By: #### U AMIC #### [facility] [address] [place] [address] Records Management Engineer: Tariq Mesa MD Yeast LM Ql (Urine sed) NOT REPORTED Normal [facility] Comment on above: Performed By: #### U AMIC #### [facility] [address] [place] [address] Records Management Engineer: Tariq Mesa MD Urinalysis with Microscopico n 12-23-2019 Amorphous, UA NOT REPORTED None [facility] Bacteria, UA NOT REPORTED None [facility] Bilirubin Urine Negative NEGATIVE [facility] Casts UA NOT REPORTED /LPF [facility] [place], [place] Color, UA YELLOW YELLOW [facility] [place], [place] Crystals, UA NOT REPORTED None /HPF [facility] [place] Epithelial Cells UA None [facility] [place], [place] Glucose, Ur Negative NEGATIVE [facility] [place] Interpretation and review of laboratory results Abnormal [facility] Ketones Ql (U) Negative NEGATIVE [facility] [place] Leukocyte esterase Test strip Ql (U) Negative NEGATIVE [facility] [place] Mucus, UA NOT REPORTED None [facility] [place] Nitrite, Urine Negative NEGATIVE [facility] [place] Other Observations UA NOT REPORTED NOT REQ. [facility] [place] pH, UA 7.5 [place], [place] Protein (U) [Mass/Vol] Negative NEGATIVE [place] RBC (U) [#/Vol] None [facility] [place] [place] Renal Epithelial, UA NOT REPORTED 0 /HPF [place], [place] Specific [place], UA 1.020 [place], [place] Trichomonas, UA NOT REPORTED None [facility] [place] Turbidity UA CLEAR CLEAR [place] Urinalysis Comments NOT REPORTED [place], [place] Urine Hgb 2+ Abnormal NEGATIVE [place] Urobilinogen, Urine Normal Normal [place] WBC, UA None [place] Yeast, UA NOT REPORTED None [place], [place] - [place] Cult,Urineon 07-27-2019 Cult,Urine Specimen Description .CLEAN CATCH URINE Special Requests NOT REPORTED Culture NO SIGNIFICANT GROWTH Report Status FINAL 07/26/2019 Normal [facility] Comment on above: Performed By: #### U RC #### [address] [id number] Records Management Engineer: Robert Ross MD [facility] [address] [place] [address] [place] [address] Records Management Engineer: Tariq Mesa MD Urinalysis w/ Microon 2019 ----- Normal [facility] Comment on above: Performed By: #### U AMIC #### [facility] [address] [place] [address] [place] [address] Records Management Engineer: Tariq Mesa MD Acetoacetic Acid,Ur Negative Normal NEG [facility] Comment on above: Performed By: #### U AMIC #### [facility] [address] [place] [address] [place] [address] Records Management Engineer: Tariq Mesa MD Bacteria LM.HPF (Urine sed) [#/Area] 1+ Abnormal NONE [facility] Comment on above: Performed By: #### U AMIC #### [facility] [address] [place] [address] [place], [place] 2811083 Records Management Engineer: Tariq Mesa MD Bilirubin, SemiQt,Ur Negative Normal NEG [facility] Comment on above: Performed By: #### U AMIC #### [facility] [address] [place] [id number] Records Management Engineer: Tariq Mesa MD Color (U) YELLOW Normal YEL [facility] Comment on above: Performed By: #### U AMIC #### [facility] [address] [place] [id number] Records Management Engineer: Tariq Mesa MD Epithelial cells LM.HPF (Urine sed) [#/Area] 2 TO 5 Normal 0-25 [facility] Comment on above: Performed By: #### U AMIC #### [facility] [address] [place], [place] [id number] Records Management Engineer: Tariq Mesa MD Glucose Ql (U) Negative Normal NEG [facility] Comment on above: Performed By: #### U AMIC #### [facility] [address] [place], [place] 4039383 Records Management Engineer: Tariq Mesa MD Hemoglobin, Ur 1+ Abnormal NEG [facility] Comment on above: Performed By: #### U AMIC #### [facility] [address] [place], [place] [address] Records Management Engineer: Tariq Mesa MD Leukocyte esterase Test strip Ql (U) Negative Normal NEG [facility] Comment on above: Performed By: #### U AMIC #### [facility] [address] [place], [place] 3872283 Records Management Engineer: Tariq Mesa MD Mucus Strands TRACE Abnormal NONE [facility] Comment on above: Performed By: #### U AMIC #### [facility] [address] [place], [place] 8401483 Records Management Engineer: Tariq Mesa MD Nitrite,Ur Negative Normal [facility] Comment on above: Performed By: #### U AMIC #### [facility] [address] [place], [place] 64[address]83 Records Management Engineer: Tariq Mesa MD pH (U) 7.5 [pH] Normal 5.0-9.0 [facility] Comment on above: Performed By: #### U AMIC #### [facility] [address] [place], [place] 9539083 Records Management Engineer: Tariq Mesa MD Protein Ql (U) Negative Normal NEG [facility] Comment on above: Performed By: #### U AMIC #### [facility] [address] [place], [place] 9656283 Records Management Engineer: Tariq Mesa MD RBC (U) [#/Vol] 0 TO 2 Normal 0-2 [facility] Comment on above: Performed By: #### U AMIC #### [facility] [address] [place], [place] 7683283 Records Management Engineer: Tariq Mesa MD Specific gravity (U) [Rel density] 1.010 Normal 1.010-1.020 [facility] Comment on above: Performed By: #### U AMIC #### [address] [place], [place] 9320283 Records Management Engineer: Tariq Mesa MD Turbidity CLEAR Normal CLEAR [facility] Comment on above: Performed By: #### U AMIC #### [facility] [address] [place], [place] 4210483 Records Management Engineer: Tariq Mesa MD Urobilinogen,Ur Normal Normal NORM [facility] Comment on above: Performed By: #### U AMIC #### [facility] [address] [place], [place] 059[address]83 Records Management Engineer: Tariq Mesa MD WBC (U) [#/Vol] None Normal 0-5 [facility] Comment on above: Performed By: #### U AMIC #### [facility] [address] [place] [address] Records Management Engineer: Tariq Mesa MD Amorphous sediment LM Ql (Urine sed) NOT REPORTED Normal NONE [facility] Comment on above: Performed By: #### U AMIC #### [facility] [address] [place], [place] [id number] Records Management Engineer: Tariq Mesa MD Casts LM.LPF (Urine sed) [#/Area] NOT REPORTED Normal [facility] Comment on above: Performed By: #### U AMIC #### [facility] [address] [place], [place] [id number] Records Management Engineer: Tariq Mesa MD Comment NOT REPORTED Normal [facility] Comment on above: Performed By: #### U AMIC #### [facility] [address] [place], [place] [id number] Records Management Engineer: Tariq Mesa MD Crystals LM Nom (Urine sed) NOT REPORTED Normal [facility] Comment on above: Performed By: #### U AMIC #### [facility] [address] [place], [place] 8688783 Records Management Engineer: Tariq Mesa MD Epithelial, Renal NOT REPORTED Normal 0 [facility] Comment on above: Performed By: #### U AMIC #### [facility] [address] [place], [place] [id number] Records Management Engineer: Tariq Mesa MD Other Observations NOT REPORTED Normal NREQ [facility] Comment on above: Performed By: #### U AMIC #### [facility] [address] [place] [address] Records Management Engineer: Tariq Mesa MD Trichomonas NOT REPORTED Normal NONE [facility] Comment on above: Performed By: #### U AMIC #### [facility] [address] [place], [place] 6872583 Records Management Engineer: Tariq Mesa MD Yeast LM Ql (Urine sed) NOT REPORTED Normal NONE [facility] Comment on above: Performed By: #### U [facility] #### [facility] [address] [place] [address] Records Management Engineer: Tariq Mesa MD Urinalysis with Microscopico n 07-25-2019 Amorphous, UA NOT REPORTED None [facility], [place] Bacteria, UA 1+ Abnormal None [place] Bilirubin Urine Negative NEGATIVE [facility], [place] Casts UA NOT REPORTED /LPF [place] Color, UA YELLOW YELLOW [place] Crystals, UA NOT REPORTED None /HPF [facility], [place] Epithelial Cells UA 2 TO 5 [place] Glucose, Ur Negative NEGATIVE [place] Interpretation and review of laboratory results Abnormal [place] Ketones Ql (U) Negative NEGATIVE [place], [place] Leukocyte esterase Test strip Ql (U) Negative NEGATIVE [place] Mucus, UA TRACE Abnormal None [place] Nitrite, Urine Negative NEGATIVE [place] Other Observations UA NOT REPORTED NOT REQ. [place] pH, UA 7.5 [place] Protein (U) [Mass/Vol] Negative NEGATIVE [place] RBC (U) [#/Vol] 0 TO 2 [facility]- [place], [place] Renal Epithelial, UA NOT REPORTED 0 /HPF [place], [place] Specific [place], UA 1.010 [place], [place] Trichomonas, UA NOT REPORTED None [facility] [place] Turbidity UA CLEAR CLEAR [place] Urinalysis Comments NOT REPORTED [place], [place] Urine Hgb 1+ Abnormal NEGATIVE [place] Urobilinogen, Urine Normal Normal [place] WBC, UA None [place] Yeast, UA NOT REPORTED None [facility], [place] - [place], [place] Vital Signs Date Time Vital Sign Value Performing Clinician Faci carlos 04-05-2023 11:19-0500 Body mass index (BMI) [Ratio] 35.51 kg/m2 Jessica Vibha DO Work Phone: [facility] 04-05-2023 11:19-0500 Body weight 88.05 kg Jessica Vibha DO Work Phone: [facility] 04-05-2023 11:19-0500 Diastolic blood pressure 78 mm[Hg] Jessica Vibha DO Work Phone: [facility] 04-05-2023 11:19-0500 Systolic blood pressure 114 mm[Hg] Jessica Vibha DO Work Phone: [facility] Encounters Encounter Date Encounter Type Care Provider Facility Start: 04-05-2023 End: 04-05-2023 ambulatory JESSICA VIBHA Not Available Start: 04-05-2023 End: 04-05-2023 flow sheet Jessica Vibha DO Work Phone: [facility] Comment on above: Third [...] End: 12-24-2019 Patient encounter procedure BRYNN Rodriguez [facility] Start: 12-23-2019 End: 12-23-2019 Subsequent hospital visit by physician Brynn DAVID Laboratory Comment on above: Urinary frequency; OAB (overactive bladder); Incomplete bladder emptying Start: 07-25-2019 End: 07-26-2019 [facility]: 07-25-2019 End: 07-25-2019 Subsequent hospital visit [...] Screening for malign ant neoplasm of cervix [facility] Start: 08-24-2025 Screening for malign ant neoplasm of cervix Pap Smear [facility] Start: 08-28-2023 End: 08-28-2023 Patient encounter procedure 08/28/2023 4:00 PM EDT Office Visit [facility] [address] [place] [address] Jessica Dunne DO [address] [place] [address] [facility] Start: 04-19-2023 End: 04-19-2023 Patient encounter procedure 04/19/2023 3:20 PM EST Routine [facility] [address] [place] [address] Bere Andrade PA [address] [place], [place] [id number] [facility] Start: 04-19-2023 End: 04-19-2023 Professional / ancillary services management 04/19/2023 3:00 PM EST Ancillary Procedure [facility] [address] [place] [phone] [facility] Start: 10-21-2022 Influenza vaccination Influenza Vacc ine (#1) [facility] Start: 01-13-2020 End: 01-13-2020 Procedure visit 01/13/2020 Procedure visit Urology Danyel Carson MD [address] [facility], [address] [place], [place] [id number] [facility] Start: 10-31-2019 End: 10-31-2019 Office Visit 10/31/2019 Office Visit Urology Aguilar Woody, FLIGHT DECK OFFICER - LICENSED PSYCHOLOGIST MANAGER [address] [place] [phone] [facility] Start: 10-22-2019 Influenza vaccination [place], [place] Start: 10-14-2015 DTaP/Tdap/Td vaccine (7 - Td) DTaP/Tdap/Td vaccine (7 - Td) [place], [place] Start: 2009 Screening for malign ant neoplasm of cervix Cervical cancer screen [place] Start: 10-12-2007 DTaP/Tdap/Td vaccine (1 - Tdap) DTaP/Tdap/Td vaccine (1 - Tdap) [place] Start: 10-12-2003 HIV screening HIV screen [place], [place] Start: 1994 Pneumococcal 0-64 ye ars Vaccine (1 of 1 - PPSV23) Pneumococcal 0-64 years Vaccine (1 of 1 - PPSV23) [place], [place] Start: 1989 Varicella vaccine (1 of 2 - 2-dose childhood series) Varicella vaccine (1 of 2 - 2-dose childhood series) [place] End: 12-23-2019 Culture, Urine Culture, Urine Microbiology Routine Urinary frequency OAB (overactive bladder) Incomplete bladder emptying 1 Occurrences starting 12/23/2019 until 12/23/2019 [facility]: [facility] Occurrences starti ng 12/23/2019 until 12/23/2019 [facility] End: 07-25-2019 Culture, Urine Culture, Urine Microbiology Routine Urinary frequency 1 Occurrences starting 07/25/2019 until 07/25/2019 [facility] Comment on above: 1 Occurrences starti ng 07/25/2019 until 07/25/2019 Payers Date Payer Category Payer Unknown [id number] 2022 Unknown BCBS BCBS xxxxxx [id number] 2022-Present [phone] [address] [place] [address] [id number] 2014 Private Health Insurance [employer] A ETNA NAP CHOICE POS II xxxxxxxxxx 2014-Present [phone] [address] [place] [address] xxxxxxxxxx [id number] 1988 Unknown [id number] 1988 Unknown [id number] 1988 Unknown [id number] 1988 Unknown [id number] 1988 Unknown [id number] 1990 Unknown [id number] 1990 Unknown [id number] 1988 Unknown [id number] 1988 Unknown [id number] 1959 Private Health Insurance [id number] Social History Date Type Detail Facility Start: 02-20-2003 End: 08-10-2022 Tobacco smoking status [facility] Current every day smoker [facility] Start: 02-20-2003 History of tobacco use Cigarette Smoker [place], [place] Start: 12-23-2019 End: 08-10-2022 Cigarettes smoked current (pack per day) - Reported [facility] Start: 12-23-2019 [facility] use and exposure [facility] [place] [place] Start: 12-23-2019 End: 04-05-2023 Alcohol intake Current drinker of alcohol (finding) [place], [place] Start: 07-25-2019 Alcohol Comment rare [place] Sex Assigned At Not on file [place] Start: 08-10-2022 End: 01-09-2023 Alcohol Use [...] nursing note reviewed. Exam conducted with a toe closing machine tender present. Vitals: Estimated body mass index is [...] Documents on File Type Date Recorded Patient Correctional Case Records Supervisor Expl anation ACP-Advance Directive ACP-Power of Community Relations Coordinator Documents on File Type Date Recorded Patient Correctional Case Records Supervisor Expl anation Advance Directives and Living Will Power of Community Relations Coordinator Summary Purpose Family History No Family History Records FoundNo Family History Records FoundNo Family History Records Found Additional Source Comments INFORMATION SOURCE (unrecogn ized section and content) DATE CREATED AUTHOR 12/25/2019 [facility] DATE CREATED AUTHOR AUTHOR'S ORGANIZ ATION 08/06/2021 [facility] DATE CREATED AUTHOR AUTHOR'S ORGANIZ ATION 04/07/[address] [place] [address] [facility] Specialists [facility] Reason for Visit (unrecogniz ed section and content) Reason Comments Routine Visit Care Teams (unrecognized sec tion and content) Wet Chemistry Analyst Relationship Specialty Start Date End Date Brynn Bah MD [address] [place], [place] [phone] PCP - General Family Medicine 08/10/22 Ana Rosa Hazel NP [address] [place], [place] [id number] PCP - Emmanuel Commercial 09/20/22 FOR RECORDS [...] BE BASED ON THE PRIMARY CLINICAL RECORDS. [facility]. provides no warranty or guarantee of the accuracy or completeness of information in this document.
[2023-04-21 17:07] VITALS: BP 118/67; PULSE 86
--- NOTE | 2023-04-21 18:28 | US_ITS ---
[address] [address] Patient Name: RAFITA ISAAC MRN: [id number] date: 1990 Sex: F Assigned Patient Location: [facility] Current Patient Location: Accession/Order Number: [id number] Exam Date: 04/21/2023 18:33 Report Date: 04/21/2023 20:11 At the request of: JESSICA ABRAHAM Procedure: US OB BPP w non-stress US OB BPP w non-stress, 04/21/2023 5:33 PM HUMAN RESOURCE ASSISTANT: History: well-being. Comparison: None Technique: Transabdominal grayscale and color Doppler imaging of the fetus was performed with particular attention paid to the elements of biophysical profile over 30 minutes. Findings: There is a single live intrauterine gestation in the cephalic presentation. The placenta is anterior. The LEOBARDO measures 11.3 centimeters. There is cardiac motion present at 123 bpm. BPP: Tone-2 Movement-2 Breathing-2 Amniotic fluid volume-2 Total: 09/27 US/US OB BPP w non-stress Impression: Normal BPP of 09/27. Electronically authenticated by: TRINA WELLS Date: 04/21/2023 20:11
== END 2023-04-21 19:00 | disposition home or self-care (01) ==
LOC: FBCO 07:38 → FBC 16:57
PROVIDERS: PCP Family Medicine; Visit Provider Obstetrics & Gynecology
DX: O36.63X0 Maternal care for excessive fetal growth, third trimester, not applicable or unspecified (principal)
CPT/HCPCS: 76818

== ENCOUNTER 2023-04-24 07:55 | Outpatient (OUT) | payer BC, SELFPAY ==
--- OUTSIDE RECORDS SUMMARY | 2023-04-24 08:16 | XMS_ITS | CCD ---
Author Name Unknown Address [address] [place] [address] Organization [facility] Care Team Providers Care Sole Seamer Name Role Phone Brynn Bah Primary Care Provider [phone] BRYNN BAH Primary Care Unavailable COLTON GOOMDAN Referring Unavailable AGUILAR WOODY Referring Unavailable BRYNN BAH Primary Care Unavailable DR JESSICA DUNNE Admitting Unavailable VIBHA, DR LOPEZ Attending Unavailable DR JESSICA DUNNE Consulting Unavailable Brynn Bah MD Primary Care Provider [phone] Ana Rosa Hazel NP Unavailable BERE ANDRADE Attending Unavailable JESSICA DUNNE Attending Unavailable BERE ANDRADE Attending Unavailable JESSICA DUNNE Attending Unavailable BERE ANDRADE Attending Unavailable BERE ANDRADE Attending Unavailable JESSICA DUNNE Attending Unavailable Medications Current Medications Medication Drug [...] take 1 tablet by mouth once daily [id number] 0.18/0.215/0.25 MG-25 MCG TABS TAKE 1 TABLET [...] UA Negative Negative - 4(70) +++ mg/dL [facility] Blood, UA Positive Negative - 50 Chris/mcL [facility] Clarity, UA Clear [facility] Color, UA Yellow [facility] Glucose, UA Negative Negative - 1999(110) ++++ mg/dL [facility] Interpretation and review of laboratory results Abnormal [facility] Ketones, UA Negative Negative - 160(16) ++++ mg/dL [facility] Leukocytes, UA Negative Negative - 500+++ Dc/mcL [facility] Nitrite, UA Negative Negative - Positive [facility] pH, UA 7.0 5 - 9 [facility] e Protein, UA Negative Negative - 1999(20) ++++ mg/dL [facility] Spec Grav, UA 1.015 1 - 1.03 [facility] Urobilinogen, UA 0.2 0.2 - 12 mg/dL [facility] PAP ACOG PANEL 2: 30 to 65on 08-05-[address] [facility] Comment on above: Result Comment: Perf ormed at: WB Performed By: #### [id number] #### [facility] [address] [place] [address] Dr. Jazmin Turner Age Gdln ACOG Testing 30-[address] [facility] Comment on above: Performed By: #### [id number] #### [facility] [address] [address] [address] Jazmin Turner DIAGNOSIS: Comment Normal [facility] Comment on above: Result Comment: NEGA TIVE FOR INTRAEPITHELIAL LESION OR MALIGNANCY. Performed at: WB Performed By: #### [id number] #### [facility] [address] [address] [address] Jazmin Turner HPV Aptima Negative Normal Negative [facility] Comment on above: Result Comment: This nucleic acid amplification test detects fourteen high-risk HPV types (16,18,31,33,35,39,45,51,52,56,58,59,66,68) without differentiation. Performed at: =G Performed By: #### [id number] #### [facility] [address] [place] [address] Dr. Jazmin Turner Methodology: Comment Normal [facility] Comment on above: Result Comment: This liquid based ThinPrep(R) pap test was screened with the use of an image guided system. Performed at: WB Performed By: #### [id number] #### [facility] [address] [place] [address] Dr. Jazmin Turner Note: Comment Normal [facility] Comment on above: Result Comment: The Pap smear is a screening test designed to aid in the detection of premalignant and malignant conditions of the uterine cervix. It is not a diagnostic procedure and should not be used as the sole means of detecting cervical cancer. Both false-positive and false-negative reports do occur. . Performed at: WB Performed By: #### [id number] #### [facility] [address] [place] [address] Dr. Jazmin Turner Performed by: Comment Normal [facility] Comment on above: Result Comment: Tong Watts, Dispatcher Motor Vehicle (ASCP) Performed at: WB Performed By: #### [id number] #### [facility] [address] [place] [address] Dr. Jazmin Turner Specimen adequacy: Comment Normal [facility] Comment on above: Result Comment: Sati sfactory for evaluation. Endocervical and/or squamous metaplastic cells (endocervical component) are present. Performed at: WB Performed By: #### [id number] #### [facility] [address] [place] [address] Dr. Jazmin Turner Cult,Urineon 12-24-2019 Cult,Urine Specimen Description .CLEAN CATCH URINE Special Requests NOT REPORTED Culture NO SIGNIFICANT GROWTH Report Status FINAL 12/24/2019 Normal [facility] Comment on above: Performed By: #### U RC #### [id number] [place] [address] Prison Keeper: Robert Ross MD [facility] [address] [place], [place] [id number] Prison Keeper: Tariq Mesa MD Urinalysis w/ Microon 2019 ----- Normal [facility] Comment on above: Performed By: #### U AMIC #### [facility] [address] [place] [id number] Prison Keeper: Tariq Mesa MD Acetoacetic Acid,Ur Negative Normal NEG [facility] Comment on above: Performed By: #### U AMIC #### [facility] [address] [place] [id number] Prison Keeper: Tariq Mesa MD Bilirubin, SemiQt,Ur Negative Normal NEG [facility] Comment on above: Performed By: #### U AMIC #### [facility] [address] [place], [place] [id number] Prison Keeper: Tariq Mesa MD Color (U) YELLOW Normal YEL [facility] Comment on above: Performed By: #### U AMIC #### [facility] [address] [place], [place] [id number] Prison Keeper: Tariq Mesa MD Epithelial cells LM.HPF (Urine sed) [#/Area] None Normal 0-25 [facility] Comment on above: Performed By: #### U AMIC #### [facility] [address] [place] [id number] Prison Keeper: Tariq Mesa MD Glucose Ql (U) Negative Normal NEG [facility] Comment on above: Performed By: #### U AMIC #### [facility] [address] [place] [id number] Prison Keeper: Tariq Mesa MD Hemoglobin, Ur 2+ Abnormal NEG [facility] Comment on above: Performed By: #### U AMIC #### [facility] [address] [place] [id number] Prison Keeper: Tariq Mesa MD Leukocyte esterase Test strip Ql (U) Negative Normal NEG [facility] Comment on above: Performed By: #### U AMIC #### [facility] [address] [place], [place] [id number] Prison Keeper: Tariq Mesa MD Nitrite,Ur Negative Normal NEG [facility] Comment on above: Performed By: #### U AMIC #### [facility] [address] [place], [place] [id number] Prison Keeper: Tariq Mesa MD pH (U) 7.5 [pH] Normal 5.0-9.0 [facility] Comment on above: Performed By: #### U AMIC #### [facility] [address] [place], [place] [id number] Prison Keeper: Tariq Mesa MD Protein Ql (U) Negative Normal NEG [facility] Comment on above: Performed By: #### U AMIC #### [facility] [address] [place], [place] [id number] Prison Keeper: Tariq Mesa MD RBC (U) [#/Vol] None Normal 0-[address] [facility] Comment on above: Performed By: #### U AMIC #### [address] [place] [address] Prison Keeper: Tariq Mesa MD Specific gravity (U) [Rel density] 1.020 Normal 1.010-1.020 [facility] Comment on above: Performed By: #### U AMIC #### [facility] [address] [place], [place] [id number] Prison Keeper: Tariq Mesa MD Turbidity CLEAR Normal CLEAR [facility] Comment on above: Performed By: #### U AMIC #### [facility] [address] [place], [place] [id number] Prison Keeper: Tariq Mesa MD Urobilinogen,Ur Normal Normal NORM [facility] Comment on above: Performed By: #### U AMIC #### [facility] [address] [place], [place] [id number] Prison Keeper: Tariq Mesa MD WBC (U) [#/Vol] None Normal 0-[address] [facility] Comment on above: Performed By: #### U AMIC #### [facility] [address] [place], [place] [id number] Prison Keeper: Tariq Mesa MD Amorphous sediment LM Ql (Urine sed) NOT REPORTED Normal NONE [facility] Comment on above: Performed By: #### U AMIC #### [facility] [address] [place], [place] [id number] Prison Keeper: Tariq Mesa MD Bacteria LM.HPF (Urine sed) [#/Area] NOT REPORTED Normal NONE [facility] Comment on above: Performed By: #### U AMIC #### [facility] [address] [place] [address] Prison Keeper: Tariq Mesa MD Casts LM.LPF (Urine sed) [#/Area] NOT REPORTED Normal [facility] Comment on above: Performed By: #### U AMIC #### [address] [place], [place] [id number] Prison Keeper: Tariq Mesa MD Comment NOT REPORTED Normal [facility] Comment on above: Performed By: #### U AMIC #### [facility] [address] [place] [address] Prison Keeper: Tariq Mesa MD Crystals LM Nom (Urine sed) NOT REPORTED Normal [facility] Comment on above: Performed By: #### U AMIC #### [facility] [address] [place], [place] [id number] Prison Keeper: Tariq Mesa MD Epithelial, Renal NOT REPORTED Normal 0 [facility] Comment on above: Performed By: #### U AMIC #### [facility] [address] [place], [place] [id number] Prison Keeper: Tariq Mesa MD Mucus Strands NOT REPORTED Normal [facility] Comment on above: Performed By: #### U AMIC #### [facility] [address] [place], [place] [id number] Prison Keeper: Tariq Mesa MD Other Observations NOT REPORTED Normal NREQ [facility] Comment on above: Performed By: #### U AMIC #### [facility] [address] [place], [place] [id number] Prison Keeper: Tariq Mesa MD Trichomonas NOT REPORTED Normal [facility] Comment on above: Performed By: #### U AMIC #### [facility] [address] [place], [place] [id number] Prison Keeper: Tariq Mesa MD Yeast LM Ql (Urine sed) NOT REPORTED Normal [facility] Comment on above: Performed By: #### U AMIC #### [facility] [address] [place] [id number] Prison Keeper: Tariq Mesa MD Urinalysis with Microscopico n 12-23-2019 Amorphous, UA NOT REPORTED None [facility] [place] Bacteria, UA NOT REPORTED None [facility] [place] Bilirubin Urine Negative NEGATIVE [facility] [place] Casts UA NOT REPORTED /LPF [facility] [place] Color, UA YELLOW YELLOW [facility] [place], [place] Crystals, UA NOT REPORTED None /HPF [facility] [place] Epithelial Cells UA None [facility] [place] Glucose, Ur Negative NEGATIVE [facility] [place] Interpretation and review of laboratory results Abnormal [facility] Ketones Ql (U) Negative NEGATIVE [facility] [place] Leukocyte esterase Test strip Ql (U) Negative NEGATIVE [facility] [place] Mucus, UA NOT REPORTED None [facility] [place], [place] Nitrite, Urine Negative NEGATIVE [facility] [place] Other Observations UA NOT REPORTED NOT REQ. [facility] [place] pH, UA 7.5 [place] Protein (U) [Mass/Vol] Negative NEGATIVE [place] RBC (U) [#/Vol] None [facility] [place], [place] Renal Epithelial, UA NOT REPORTED 0 /HPF [place], [place] Specific [place], UA 1.020 [place], [place] Trichomonas, UA NOT REPORTED None [facility] [place] Turbidity UA CLEAR CLEAR [place] Urinalysis Comments NOT REPORTED [place], [place] Urine Hgb 2+ Abnormal NEGATIVE [place] Urobilinogen, Urine Normal Normal [place] WBC, UA None [place] Yeast, UA NOT REPORTED None [place], [place] - [place] Cult,Urineon 07-27-2019 Cult,Urine Specimen Description .CLEAN CATCH URINE Special Requests NOT REPORTED Culture NO SIGNIFICANT GROWTH Report Status FINAL 07/26/2019 Normal [facility] Comment on above: Performed By: #### U RC #### [facility] [address] [place], [place] [id number] Prison Keeper: Robert Ross MD [facility] [address] [place] [address] [place] [address] Prison Keeper: Tariq Mesa MD Urinalysis w/ Microon 2019 ----- Normal [facility] Comment on above: Performed By: #### U AMIC #### [address] [place] [address] Prison Keeper: Tariq Mesa MD Acetoacetic Acid,Ur Negative Normal NEG [facility] Comment on above: Performed By: #### U AMIC #### [address] [place] [address] Prison Keeper: Tariq Mesa MD Bacteria LM.HPF (Urine sed) [#/Area] 1+ Abnormal NONE [facility] Comment on above: Performed By: #### U AMIC #### [address] [place] [id number] Prison Keeper: Tariq Mesa MD Bilirubin, SemiQt,Ur Negative Normal NEG [facility] Comment on above: Performed By: #### U AMIC #### [facility] [address] [place], [place] [id number] Prison Keeper: Tariq Mesa MD Color (U) YELLOW Normal YEL [facility] Comment on above: Performed By: #### U AMIC #### [facility] [address] [place] [id number] Prison Keeper: Tariq Mesa MD Epithelial cells LM.HPF (Urine sed) [#/Area] 2 TO 5 Normal 0-25 [facility] Comment on above: Performed By: #### U AMIC #### [facility] [address] [place], [place] [id number] Prison Keeper: Tariq Mesa MD Glucose Ql (U) Negative Normal NEG [facility] Comment on above: Performed By: #### U AMIC #### [facility] [address] [place], [place] [id number] Prison Keeper: Tariq Mesa MD Hemoglobin, Ur 1+ Abnormal NEG [facility] Comment on above: Performed By: #### U AMIC #### [facility] [address] [place], [place] [id number] Prison Keeper: Tariq Mesa MD Leukocyte esterase Test strip Ql (U) Negative Normal NEG [facility] Comment on above: Performed By: #### U AMIC #### [facility] [address] [place], [place] [id number] Prison Keeper: Tariq Mesa MD Mucus Strands TRACE Abnormal NONE [facility] Comment on above: Performed By: #### U AMIC #### [facility] [address] [place] [address] Prison Keeper: Tariq Mesa MD Nitrite,Ur Negative Normal NEG [facility] Comment on above: Performed By: #### U AMIC #### [facility] [address] [place] [id number] Prison Keeper: Tariq Mesa MD pH (U) 7.5 [pH] Normal 5.0-9.0 [facility] Comment on above: Performed By: #### U AMIC #### [facility] [address] [place], [place] [id number] Prison Keeper: Tariq Mesa MD Protein Ql (U) Negative Normal NEG [facility] Comment on above: Performed By: #### U AMIC #### [address] [place], [place] [id number] Prison Keeper: Tariq Mesa MD RBC (U) [#/Vol] 0 TO 2 Normal 0-[address] [facility] Comment on above: Performed By: #### U AMIC #### [address] [place], [place] [id number] Prison Keeper: Tariq Mesa MD Specific gravity (U) [Rel density] 1.010 Normal 1.010-1.020 [facility] Comment on above: Performed By: #### U AMIC #### [address] [place], [place] [id number] Prison Keeper: Tariq Mesa MD Turbidity CLEAR Normal CLEAR [facility] Comment on above: Performed By: #### U AMIC #### [address] [place], [place] [id number] Prison Keeper: Tariq Mesa MD Urobilinogen,Ur Normal Normal NORM [facility] Comment on above: Performed By: #### U AMIC #### [facility] [address] [place], [place] [id number] Prison Keeper: Tariq Mesa MD WBC (U) [#/Vol] None Normal 0-[address] [facility] Comment on above: Performed By: #### U AMIC #### [facility] [address] [place] [id number] Prison Keeper: Tariq Mesa MD Amorphous sediment LM Ql (Urine sed) NOT REPORTED Normal NONE [facility] Comment on above: Performed By: #### U AMIC #### [facility] [address] [place], [place] [id number] Prison Keeper: Tariq Mesa MD Casts LM.LPF (Urine sed) [#/Area] NOT REPORTED Normal [facility] Comment on above: Performed By: #### U AMIC #### [facility] [address] [place], [place] [phone] Prison Keeper: Tariq Mesa MD Comment NOT REPORTED Normal [facility] Comment on above: Performed By: #### U AMIC #### [facility] [address] [place], [place] [id number] Prison Keeper: Tariq Mesa MD Crystals LM Nom (Urine sed) NOT REPORTED Normal NONE [facility] Comment on above: Performed By: #### U AMIC #### [facility] [address] [place], [place] [id number] Prison Keeper: Tariq Mesa MD Epithelial, Renal NOT REPORTED Normal 0 [facility] Comment on above: Performed By: #### U AMIC #### [facility] [address] [place], [place] [phone] Prison Keeper: Tariq Mesa MD Other Observations NOT REPORTED Normal NREQ [facility] Comment on above: Performed By: #### U AMIC #### [facility] [address] [place], [place] [phone] Prison Keeper: Tariq Mesa MD Trichomonas NOT REPORTED Normal NONE [facility] Comment on above: Performed By: #### U AMIC #### [facility] [address] [place] [address] Prison Keeper: Tariq Mesa MD Yeast LM Ql (Urine sed) NOT REPORTED Normal NONE [facility] Comment on above: Performed By: #### U [facility] #### [facility] [address] [place] [address] Prison Keeper: Tariq Mesa MD Urinalysis with Microscopico n 07-25-2019 Amorphous, UA NOT REPORTED None [facility], [place] Bacteria, UA 1+ Abnormal None [place], [place] Bilirubin Urine Negative NEGATIVE [facility], [place] Casts UA NOT REPORTED /LPF [place] Color, UA YELLOW YELLOW [place] Crystals, UA NOT REPORTED None /HPF [facility], [place] Epithelial Cells UA 2 TO 5 [place] Glucose, Ur Negative NEGATIVE [place] Interpretation and review of laboratory results Abnormal [place] Ketones Ql (U) Negative NEGATIVE [place], [place] Leukocyte esterase Test strip Ql (U) Negative NEGATIVE [place] Mucus, UA TRACE Abnormal None [place] Nitrite, Urine Negative NEGATIVE [place], [place] Other Observations UA NOT REPORTED NOT REQ. [place] pH, UA 7.5 [place] Protein (U) [Mass/Vol] Negative NEGATIVE [place] RBC (U) [#/Vol] 0 TO 2 [facility], [place] Renal Epithelial, UA NOT REPORTED 0 /HPF [place] Specific [place], UA 1.010 [place], [place] Trichomonas, UA NOT REPORTED None [facility] [place], [place] Turbidity UA CLEAR CLEAR [place] Urinalysis Comments NOT REPORTED [place], [place] Urine Hgb 1+ Abnormal NEGATIVE [place] Urobilinogen, Urine Normal Normal [place] WBC, UA None [place] Yeast, UA NOT REPORTED None [place] Vital Signs Date Time Vital Sign Value Performing Clinician Faci lity 04-05-2023 11:19-0500 Body mass index (BMI) [Ratio] 35.51 kg/m2 Jessica Vibha DO Work Phone: [facility] 04-05-2023 11:19-0500 Body weight 88.05 kg Jessica Vibha DO Work Phone: [facility] 04-05-2023 11:19-0500 Diastolic blood pressure 78 mm[Hg] Jessica Vibha DO Work Phone: [facility] 04-05-2023 11:19-0500 Systolic blood pressure 114 mm[Hg] Jessica Vibha DO Work Phone: [facility] Healthcare Encounters Encounter Date Encounter Type Care Provider Facility Start: 04-19-2023 End: 04-19-2023 ambulatory BERE LUPE Not Available Start: 04-05-2023 End: 04-05-2023 ambulatory JESSICA VIBHA Not Available Start: 04-05-2023 End: 04-05-2023 flow sheet Jessica Vibha DO Work Phone: [facility] Comment on above: Third [...] End: 12-24-2019 Patient encounter procedure BRYNN BAH [facility] Start: 12-23-2019 End: 12-23-2019 Subsequent hospital visit by physician Brynn DAVID Laboratory Comment on above: Urinary frequency; OAB (overactive bladder); Incomplete bladder emptying Start: 07-25-2019 End: 07-26-2019 [facility] Start: 07-25-2019 End: 07-25-2019 Subsequent [...] dip stick/tabl et reagent auto microscopy Aguilar No Samaramanuel Work Phone: Plan of Treatment Date Care Activity Detail Author Start: 08-25-2027 Screening for malign ant neoplasm of cervix [facility] Start: 08-24-2025 Screening for malign ant neoplasm of cervix Pap Smear [facility] Start: 08-28-2023 End: 08-28-2023 Patient encounter procedure 08/28/2023 4:00 PM EDT Office Visit [facility] [address] [place] [phone] Jessica Dunne DO [address] [place] [id number] [facility] Start: 04-19-2023 End: 04-19-2023 Patient encounter procedure 04/19/2023 3:20 PM EST Routine [facility] [address] [place] [phone] Bere Andrade PA [address] [place] [address] [facility] Start: 04-19-2023 End: 04-19-2023 Professional / ancillary services management 04/19/2023 3:00 PM EST Ancillary Procedure [facility] [address] [place] [phone] [facility] Start: 10-21-2022 Influenza vaccination Influenza Vacc ine (#1) [facility] Start: 01-13-2020 End: 01-13-2020 Procedure visit 01/13/2020 Procedure visit Urology Danyel Carson MD [address] [place] [address] [facility] Start: 10-31-2019 End: 10-31-2019 Office Visit 10/31/2019 Office Visit Urology Aguilar Woody, [employer] - [employer] [address] [place] [phone] [facility] Start: 10-22-2019 Influenza vaccination [place] Start: 10-14-2015 DTaP/Tdap/Td vaccine (7 - Td) DTaP/Tdap/Td vaccine (7 - Td) [place] Start: 2009 Screening for malign ant neoplasm of cervix Cervical cancer screen [place] Start: 10-12-2007 DTaP/Tdap/Td vaccine (1 - Tdap) DTaP/Tdap/Td vaccine (1 - Tdap) [place] Start: 10-12-2003 HIV screening HIV screen [place], [place] Start: 1994 Pneumococcal 0-64 ye ars Vaccine (1 of 1 - PPSV23) Pneumococcal 0-64 years Vaccine (1 of 1 - PPSV23) [place] Start: 1989 Varicella vaccine (1 of 2 - 2-dose childhood series) Varicella vaccine (1 of 2 - 2-dose childhood series) [place] End: 12-23-2019 Culture, Urine Culture, Urine Microbiology Routine Urinary frequency OAB (overactive bladder) Incomplete bladder emptying 1 Occurrences starting 12/23/2019 until 12/23/2019 [place] Comment on above: 1 Occurrences starti ng 12/23/2019 until 12/23/2019 Culture, Urine [facility] [place] End: 07-25-2019 Culture, Urine Culture, Urine Microbiology Routine Urinary frequency 1 Occurrences starting 07/25/2019 until 07/25/2019 [place], [place] Comment on above: 1 Occurrences starti ng 07/25/2019 until 07/25/2019 Payers Date Payer Category Payer Unknown BCBS BCBS xxxxxx [id number] 2022-Present [phone] [address] [place] [address] [id number] 2022 Unknown [id number] 2014 Private Health Insurance [employer] A ETNA NAP CHOICE POS II xxxxxxxxxx 2014-Present [phone] [id number] xxxxxxxxxx [id number] 1988 Unknown [id number] 2..840.1.312360.3.579.2 .173 1988 Unknown [id number] 2.16840.1.336255.3.579.2 .173 1988 Unknown [id number] 2.16.840.1.065771.3.579.2 .593 1988 Unknown [id number] 2.16.840.1.993282.3.579.2 .1259 1988 Unknown [id number] 2.16.840.1.815413.3.579.2 .1259 1988 Unknown [id number] 2.16.840.1.893950.3.579.2 .1259 1988 Unknown [id number] 2.16.840.1.518197.3.579.2 .9 1988 Unknown [id number] 2.16.840.1.683308.3.579.2 .9 1988 Unknown [id number] 2.16.840.1.037165.3.579.2 .9 1988 Unknown [id number] 2.16.840.1.805152.3.579.2 .1259 1959 Private Health Insurance [id number] .[id number] Social History Date Type Detail Facility Start: 02-20-2003 End: 08-10-2022 Tobacco smoking status ILIS Current every day smoker [facility] Start: 02-20-2003 History of tobacco use Cigarette Smoker [place], [place] Start: 12-23-2019 End: 08-10-2022 Cigarettes smoked current (pack per day) - Reported [facility] Start: 12-23-2019 Tobacco use and exposure Never used [place], [place] Start: 12-23-2019 End: 04-05-2023 Alcohol intake Current drinker of alcohol (finding) [place], [place] Start: 07-25-2019 Alcohol Comment rare [place] Sex Assigned At Not on file [place] Start: 08-10-2022 End: 01-09-2023 Alcohol Use [...] Healthcare Start: 1990 Sex Assigned At Female [facility] Start: 08-09-2022 Gender identity Identifies as female gender (finding) [facility] History of Present illness Narrative 04-05-2023 Laura BarakatSAEID - 04/05/2023 11:10 AM EST Note Date [...] nursing note reviewed. Exam conducted with a management retail intern present. Vitals: Estimated body mass index is [...] for routine OB appointment. 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 ACP-Advance Directive ACP-Power of Dog Catcher Documents on File Type Date Recorded 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 EPIC Reason for Visit (unrecogniz ed section and content) Reason Comments Routine Visit Care Teams (unrecognized sec tion and content) Sole Seamer Relationship Specialty Start Date End Date Brynn Bah MD [address] [place] [address] PCP - General Family Medicine 08/10/22 Ana Rosa Hazel NP [address], [place] [id number] PCP - [place] [employer] 09/20/22 FOR RECORDS PERTAINING TO PATIENTS [...] BE BASED ON THE PRIMARY CLINICAL RECORDS. [facility] [employer] [facility]. provides no warranty or guarantee of the accuracy or completeness of information in this document.
--- NOTE | 2023-04-24 15:59 | US_ITS ---
[address] [address] Patient Name: RAFITA ISAAC MRN: [id number] date: 1990 Sex: F Assigned Patient Location: [facility] Current Patient Location: [facility] Accession/Order Number: [id number] Exam Date: 04/24/2023 16:04 Report Date: 04/25/2023 07:42 At the request of: KARISSA ANDRADE Procedure: US OB BPP w non-stress EXAMINATION: US OB BPP w non-stress HISTORY: EXCESSIVE GROWTH AFFECTING O36.63X0 COMPARISON: No relevant comparison available. TECHNIQUE: Ultrasound biophysical profile was performed in the radiology department. FINDINGS: BREATHING MOVEMENTS: 2.0 GROSS BODY MOVEMENTS: 2.0 TONE: 2.0 QUALITATIVE AMNIOTIC FLUID VOLUME: 2.0 PRESENTATION: CEPHALIC HEART RATE: 135.0 bpm H.B./min AMNIOTIC FLUID VOLUME: 13.0 cm cm GESTATIONAL AGE: 36 weeks 6 days CONCLUSION: Total biophysical profile score: 8.0 Electronically authenticated by: WENDY AU Date: 04/25/2023 07:42
[2023-04-24 16:28] VITALS: BP 130/91; PULSE 82
[2023-04-24 16:42] VITALS: BP 127/81; PULSE 78
[2023-04-24 16:51] VITALS: BP 126/84; PULSE 78
[2023-04-24 17:02] VITALS: BP 133/88; PULSE 74
[2023-04-24 17:11] VITALS: BP 136/87; PULSE 81
== END 2023-04-24 17:15 | disposition home or self-care (01) ==
LOC: US 08:13 → FBC 15:58
PROVIDERS: PCP Family Medicine; Visit Provider Physician Assistant
DX: O36.63X0 Maternal care for excessive fetal growth, third trimester, not applicable or unspecified (principal); Z3A.36 36 weeks gestation of pregnancy
CPT/HCPCS: 76818

== ENCOUNTER 2023-04-26 15:44 | Inpatient (IN) | payer BC, SELFPAY ==
[2023-04-26] VITALS (15 sets, daily range): BP systolic 106–144; BP diastolic 57–90; PULSE 71–91; RESP 16; TEMP 36.1
--- OUTSIDE RECORDS SUMMARY | 2023-04-26 15:52 | XMS_ITS | CCD ---
Author Name Unknown Address [address] [place] [address] Organization [facility] Care Team Providers Care Inter Com Servicer Name Role Phone Brynn Bah Primary Care Provider BRYNN BAH Primary Care Unavailable COLTON GOODMAN Referring Unavailable AGUILAR WOODY Referring Unavailable BRYNN BAH Primary Care Unavailable DR JESSICA DUNNE Admitting Unavailable VIBHA, DR LOPEZ Attending Unavailable DR JESSICA DUNNE Consulting Unavailable Brynn Bah MD Primary Care Provider [phone] Ana Rosa Hazel NP Unavailable BERE ANDRADE [...] take 1 tablet by mouth once daily [facility] 0.18/0.215/0.25 MG-25 MCG TABS TAKE 1 TABLET [...] UA Negative Negative - 4(70) +++ mg/dL [facility] Blood, UA Positive Negative - 50 Chris/mcL [facility] Clarity, UA Clear [facility] re Color, UA Yellow [facility] Healthcar e Glucose, UA Negative Negative - 1999(110) ++++ mg/dL [facility] Interpretation and review of laboratory results Abnormal [facility] Ketones, UA Negative Negative - 160(16) ++++ mg/dL [facility] Leukocytes, UA Negative Negative - 500+++ Dc/mcL [facility] Nitrite, UA Negative Negative - Positive [facility] pH, UA 7.0 5 - 9 [facility] e Protein, UA Negative Negative - 1999(20) ++++ mg/dL [facility] Spec Grav, UA 1.015 1 - 1.03 [facility] Urobilinogen, UA 0.2 0.2 - 12 mg/dL [facility] Healthcar e PAP ACOG PANEL 2: 30 to 65on 08-05-2021 . . Normal [facility] Comment on above: Result Comment: Perf ormed at: WB Performed By: #### [id number] #### [facility] [address] [place] [address] Dr. Jazmin Turner Age Gdln ACOG Testing 30-[address] [facility] Comment on above: Performed By: #### [id number] #### [facility] [address] [address] [address] Jazmin Turner DIAGNOSIS: Comment Normal [facility] Comment on above: Result Comment: NEGA TIVE FOR INTRAEPITHELIAL LESION OR MALIGNANCY. Performed at: WB Performed By: #### [id number] #### [facility] [address] [address] [address] Jazmin Turner HPV Aptima Negative Normal Negative [facility] Comment on above: Result Comment: This nucleic acid amplification test detects fourteen high-risk HPV types (16,18,31,33,35,39,45,51,52,56,58,59,66,68) without differentiation. Performed at: =G Performed By: #### [id number] #### [facility] [address] [place] [address] Dr. Jazmin Turner Methodology: Comment Normal [facility] Comment on above: Result Comment: This liquid based ThinPrep(R) pap test was screened with the use of an image guided system. Performed at: WB Performed By: #### [id number] #### [facility] [address] [place] [address] Dr. Jazmin Turner Note: Comment Normal [facility] Comment on above: Result Comment: The Pap smear is a screening test designed to aid in the detection of premalignant and malignant conditions of the uterine cervix. It is not a diagnostic procedure and should not be used as the sole means of detecting cervical cancer. Both false-positive and false-negative reports do occur. . Performed at: WB Performed By: #### [id number] #### [facility] [address] [place] [address] Dr. Jazmin Turner Performed by: Comment Normal [facility] Comment on above: Result Comment: Tong Watts, Central Sterile Technician (ASCP) Performed at: WB Performed By: #### [id number] #### [facility] [address] [place] [address] Dr. Jazmin Turner Specimen adequacy: Comment Normal [facility] Comment on above: Result Comment: Sati sfactory for evaluation. Endocervical and/or squamous metaplastic cells (endocervical component) are present. Performed at: WB Performed By: #### [id number] #### [facility] [address] [place] [address] Dr. Jazmin Turner Cult,Urineon 12-24-2019 Cult,Urine Specimen Description .CLEAN CATCH URINE Special Requests NOT REPORTED Culture NO SIGNIFICANT GROWTH Report Status FINAL 12/24/2019 Normal [facility] Comment on above: Performed By: #### U RC #### [id number] [place] [address] Tail End Rider: Robert Ross MD [facility] [address] [place], [place] [address]83 Tail End Rider: Tariq Mesa MD Urinalysis w/ Microon 2019 ----- Normal [facility] Comment on above: Performed By: #### U AMIC #### [facility] [address] [place] [address] Tail End Rider: Tariq Mesa MD Acetoacetic Acid,Ur Negative Normal NEG [facility] Comment on above: Performed By: #### U AMIC #### [facility] [address] [place] [address] Tail End Rider: Tariq Mesa MD Bilirubin, SemiQt,Ur Negative Normal NEG [facility] Comment on above: Performed By: #### U AMIC #### [facility] [address] [place], [place] [id number] Tail End Rider: Tariq Mesa MD Color (U) YELLOW Normal YEL [facility] Comment on above: Performed By: #### U AMIC #### [facility] [address] [place], [place] [address] Tail End Rider: Tariq Mesa MD Epithelial cells LM.HPF (Urine sed) [#/Area] None Normal 0-25 [facility] Comment on above: Performed By: #### U AMIC #### [facility] [address] [place] [address] Tail End Rider: Tariq Mesa MD Glucose Ql (U) Negative Normal NEG [facility] Comment on above: Performed By: #### U AMIC #### [facility] [address] [place] [id number] Tail End Rider: Tariq Mesa MD Hemoglobin, Ur 2+ Abnormal NEG [facility] Comment on above: Performed By: #### U AMIC #### [facility] [address] [place] 8[address]83 Tail End Rider: Tariq Mesa MD Leukocyte esterase Test strip Ql (U) Negative Normal NEG [facility] Comment on above: Performed By: #### U AMIC #### [facility] [address] [place], [place] [phone] Tail End Rider: Tariq Mesa MD Nitrite,Ur Negative Normal NEG [facility] Comment on above: Performed By: #### U AMIC #### [facility] [address] [place], [place] 6909883 Tail End Rider: Tariq Mesa MD pH (U) 7.5 [pH] Normal 5.0-9.0 [facility] Comment on above: Performed By: #### U AMIC #### [facility] [address] [place], [place] 6369683 Tail End Rider: Tariq Mesa MD Protein Ql (U) Negative Normal NEG [facility] Comment on above: Performed By: #### U AMIC #### [facility] [address] [place], [place] [phone] Tail End Rider: Tariq Mesa MD RBC (U) [#/Vol] None Normal 0-2 [facility] Comment on above: Performed By: #### U AMIC #### [address] [place] [address] Tail End Rider: Tariq Mesa MD Specific gravity (U) [Rel density] 1.020 Normal 1.010-1.020 [facility] Comment on above: Performed By: #### U AMIC #### [facility] [address] [place], [place] [address]83 Tail End Rider: Tariq Mesa MD Turbidity CLEAR Normal CLEAR [facility] Comment on above: Performed By: #### U AMIC #### [facility] [address] [place], [place] [address]83 Tail End Rider: Tariq Mesa MD Urobilinogen,Ur Normal Normal NORM [facility] Comment on above: Performed By: #### U AMIC #### [facility] [address] [place], [place] 112[address]383 Tail End Rider: Tariq Mesa MD WBC (U) [#/Vol] None Normal 0-5 [facility] Comment on above: Performed By: #### U AMIC #### [facility] [address] [place], [place] [phone] Tail End Rider: Tariq Mesa MD Amorphous sediment LM Ql (Urine sed) NOT REPORTED Normal NONE [facility] Comment on above: Performed By: #### U AMIC #### [facility] [address] [place], [place] 6055283 Tail End Rider: Tariq Mesa MD Bacteria LM.HPF (Urine sed) [#/Area] NOT REPORTED Normal NONE [facility] Comment on above: Performed By: #### U AMIC #### [facility] [address] [place] [address] Tail End Rider: Tariq Mesa MD Casts LM.LPF (Urine sed) [#/Area] NOT REPORTED Normal [facility] Comment on above: Performed By: #### U AMIC #### [address] [place], [place] 7003183 Tail End Rider: Tariq Mesa MD Comment NOT REPORTED Normal [facility] Comment on above: Performed By: #### U AMIC #### [facility] [address] [place] [address] Tail End Rider: Tariq Mesa MD Crystals LM Nom (Urine sed) NOT REPORTED Normal [facility] Comment on above: Performed By: #### U AMIC #### [facility] [address] [place], [place] 4764683 Tail End Rider: Tariq Mesa MD Epithelial, Renal NOT REPORTED Normal 0 [facility] Comment on above: Performed By: #### U AMIC #### [facility] [address] [place], [place] 47[address] Tail End Rider: Tariq Mesa MD Mucus Strands NOT REPORTED Normal [facility] Comment on above: Performed By: #### U AMIC #### [facility] [address] [place], [place] [address]83 Tail End Rider: Tariq Mesa MD Other Observations NOT REPORTED Normal NREQ [facility] Comment on above: Performed By: #### U AMIC #### [facility] [address] [place], [place] 1458283 Tail End Rider: Tariq Mesa MD Trichomonas NOT REPORTED Normal [facility] Comment on above: Performed By: #### U AMIC #### [facility] [address] [place], [place] [address] Tail End Rider: Tariq Mesa MD Yeast LM Ql (Urine sed) NOT REPORTED Normal [facility] Comment on above: Performed By: #### U AMIC #### [facility] [address] [place] [address] Tail End Rider: Tariq Mesa MD Urinalysis with Microscopico n 12-23-2019 Amorphous, UA NOT REPORTED None [facility] [place] Bacteria, UA NOT REPORTED None [facility] [place] Bilirubin Urine Negative NEGATIVE [facility] [place] Casts UA NOT REPORTED /LPF [facility] [place] Color, UA YELLOW YELLOW [facility] [place], [place] Crystals, UA NOT REPORTED None /HPF [facility] [place] Epithelial Cells UA None [facility] [place] Glucose, Ur Negative NEGATIVE [facility] [place] Interpretation and review of laboratory results Abnormal [facility] [place] Ketones Ql (U) Negative NEGATIVE [facility] [place] Leukocyte esterase Test strip Ql (U) Negative NEGATIVE [facility] [place] Mucus, UA NOT REPORTED None [facility] [place] Nitrite, Urine Negative NEGATIVE [facility] [place] Other Observations UA NOT REPORTED NOT REQ. [facility] [place] pH, UA 7.5 [place] Protein (U) [Mass/Vol] Negative NEGATIVE [place] RBC (U) [#/Vol] None [facility] [place] Renal Epithelial, UA NOT REPORTED 0 /HPF [place], [place] Specific [place], UA 1.020 [place], [place] Trichomonas, UA NOT REPORTED None [facility] [place] Turbidity UA CLEAR CLEAR [place] Urinalysis Comments NOT REPORTED [place] Urine Hgb 2+ Abnormal NEGATIVE [place] Urobilinogen, Urine Normal Normal [place] WBC, UA None [place] Yeast, UA NOT REPORTED None [place] - [place] Cult,Urineon 07-27-2019 Cult,Urine Specimen Description .CLEAN CATCH URINE Special Requests NOT REPORTED Culture NO SIGNIFICANT GROWTH Report Status FINAL 07/26/2019 Normal [facility] Comment on above: Performed By: #### U RC #### [facility] [address] [place], [place] [phone] Tail End Rider: Robert Ross MD [facility] [address] [place] [address] [place] [address] Tail End Rider: Tariq Mesa MD Urinalysis w/ Microon 2019 ----- Normal [facility] Comment on above: Performed By: #### U AMIC #### [address] [place] [address] Tail End Rider: Tariq Mesa MD Acetoacetic Acid,Ur Negative Normal NEG [facility] Comment on above: Performed By: #### U AMIC #### [address] [place] [address] Tail End Rider: Tariq Mesa MD Bacteria LM.HPF (Urine sed) [#/Area] 1+ Abnormal NONE [facility] Comment on above: Performed By: #### U AMIC #### [address] [place] 3326283 Tail End Rider: Tariq Mesa MD Bilirubin, SemiQt,Ur Negative Normal NEG [facility] Comment on above: Performed By: #### U AMIC #### [facility] [address] [place], [place] 8[address]83 Tail End Rider: Tariq Mesa MD Color (U) YELLOW Normal YEL [facility] Comment on above: Performed By: #### U AMIC #### [facility] [address] [place] [phone] Tail End Rider: Tariq Mesa MD Epithelial cells LM.HPF (Urine sed) [#/Area] 2 TO 5 Normal 0-25 [facility] Comment on above: Performed By: #### U AMIC #### [facility] [address] [place], [place] [phone] Tail End Rider: Tariq Mesa MD Glucose Ql (U) Negative Normal NEG [facility] Comment on above: Performed By: #### U AMIC #### [facility] [address] [place], [place] 3443183 Tail End Rider: Tariq Mesa MD Hemoglobin, Ur 1+ Abnormal NEG [facility] Comment on above: Performed By: #### U AMIC #### [facility] [address] [place], [place] 8[address]83 Tail End Rider: Tariq Mesa MD Leukocyte esterase Test strip Ql (U) Negative Normal NEG [facility] Comment on above: Performed By: #### U AMIC #### [facility] [address] [place], [place] 138[address] Tail End Rider: Tariq Mesa MD Mucus Strands TRACE Abnormal NONE [facility] Comment on above: Performed By: #### U AMIC #### [facility] [address] [place] [address] Tail End Rider: Tariq Mesa MD Nitrite,Ur Negative Normal NEG [facility] Comment on above: Performed By: #### U AMIC #### [facility] [address] [place] [address] Tail End Rider: Tariq Mesa MD pH (U) 7.5 [pH] Normal 5.0-9.0 [facility] Comment on above: Performed By: #### U AMIC #### [facility] [address] [place], [place] [address] Tail End Rider: Tariq Mesa MD Protein Ql (U) Negative Normal NEG [facility] Comment on above: Performed By: #### U AMIC #### [address] [place], [place] [address]75283 Tail End Rider: Tariq Mesa MD RBC (U) [#/Vol] 0 TO 2 Normal 0-2 [facility] Comment on above: Performed By: #### U AMIC #### [address] [place], [place] 0785283 Tail End Rider: Tariq Mesa MD Specific gravity (U) [Rel density] 1.010 Normal 1.010-1.020 [facility] Comment on above: Performed By: #### U AMIC #### [address] [place], [place] [address]83 Tail End Rider: Tariq Mesa MD Turbidity CLEAR Normal CLEAR [facility] Comment on above: Performed By: #### U AMIC #### [address] [place], [place] [address]83 Tail End Rider: Tariq Mesa MD Urobilinogen,Ur Normal Normal NORM [facility] Comment on above: Performed By: #### U AMIC #### [facility] [address] [place], [place] [address]783 Tail End Rider: Tariq Mesa MD WBC (U) [#/Vol] None Normal 0-5 [facility] Comment on above: Performed By: #### U AMIC #### [facility] [address] [place] [address] Tail End Rider: Tariq Mesa MD Amorphous sediment LM Ql (Urine sed) NOT REPORTED Normal NONE [facility] Comment on above: Performed By: #### U AMIC #### [facility] [address] [place], [place] [address]83 Tail End Rider: Tariq Mesa MD Casts LM.LPF (Urine sed) [#/Area] NOT REPORTED Normal [facility] Comment on above: Performed By: #### U AMIC #### [facility] [address] [place], [place] 2040483 Tail End Rider: Tariq Mesa MD Comment NOT REPORTED Normal [facility] Comment on above: Performed By: #### U AMIC #### [facility] [address] [place], [place] [address] Tail End Rider: Tariq Mesa MD Crystals LM Nom (Urine sed) NOT REPORTED Normal NONE [facility] Comment on above: Performed By: #### U AMIC #### [facility] [address] [place], [place] 497[address] Tail End Rider: Tariq Mesa MD Epithelial, Renal NOT REPORTED Normal 0 [facility] Comment on above: Performed By: #### U AMIC #### [facility] [address] [place], [place] 1496[address] Tail End Rider: Tariq Mesa MD Other Observations NOT REPORTED Normal NREQ [facility] Comment on above: Performed By: #### U AMIC #### [facility] [address] [place], [place] [address] Tail End Rider: Tariq Mesa MD Trichomonas NOT REPORTED Normal NONE [facility] Comment on above: Performed By: #### U AMIC #### [facility] [address] [place] [address] Tail End Rider: Tariq Mesa MD Yeast LM Ql (Urine sed) NOT REPORTED Normal NONE [facility] Comment on above: Performed By: #### U [facility] #### [facility] [address] [place] [address] Tail End Rider: Tariq Mesa MD Urinalysis with Microscopico n 07-25-2019 Amorphous, UA NOT REPORTED None [facility], [place] Bacteria, UA 1+ Abnormal None [place] Bilirubin Urine Negative NEGATIVE [facility], [place] Casts UA NOT REPORTED /LPF [place] Color, UA YELLOW YELLOW [place] Crystals, UA NOT REPORTED None /HPF [facility], [place] Epithelial Cells UA 2 TO 5 [place] Glucose, Ur Negative NEGATIVE [place] Interpretation and review of laboratory results Abnormal [place] Ketones Ql (U) Negative NEGATIVE [place] Leukocyte esterase Test strip Ql (U) Negative NEGATIVE [place] Mucus, UA TRACE Abnormal None [place] Nitrite, Urine Negative NEGATIVE [place] Other Observations UA NOT REPORTED NOT REQ. [place] pH, UA 7.5 [place] Protein (U) [Mass/Vol] Negative NEGATIVE [place] RBC (U) [#/Vol] 0 TO 2 [facility], [place] Renal Epithelial, UA NOT REPORTED 0 /HPF [place], [place] Specific [place], UA 1.010 [place], [place] Trichomonas, UA NOT REPORTED None [facility] [place] Turbidity UA CLEAR CLEAR [place] Urinalysis Comments NOT REPORTED [place] Urine Hgb 1+ Abnormal NEGATIVE [place] Urobilinogen, Urine Normal Normal [place] WBC, UA None [place] Yeast, UA NOT REPORTED None [place] Vital Signs Date Time Vital Sign Value Performing Clinician Faci lity 04-05-2023 11:19-0500 Body mass index (BMI) [Ratio] 35.51 kg/m2 Jessica Vibha DO Work Phone: [facility] 04-05-2023 11:19-0500 Body weight 88.05 kg Jessica Vibha DO Work Phone: [facility] 04-05-2023 11:19-0500 Diastolic blood pressure 78 mm[Hg] Jessica Vibha DO Work Phone: [facility] 04-05-2023 11:19-0500 Systolic blood [...] End: 12-24-2019 Patient encounter procedure BRYNN BAH [facility] Start: 12-23-2019 End: 12-23-2019 Subsequent hospital visit by physician Brynn DAVID Laboratory Comment on above: Urinary frequency; OAB (overactive bladder); Incomplete bladder emptying Start: 07-25-2019 End: 07-26-2019 [facility]: 07-25-2019 End: 07-25-2019 Subsequent [...] malign ant neoplasm of cervix Pap Smear [facility] Start: 08-28-2023 End: 08-28-2023 Patient encounter procedure 08/28/2023 4:00 PM EDT Office Visit [facility] [address] [place] [phone] Jessica Dunne DO [address] [place] [address] [facility] OB Start: 04-19-2023 End: 04-19-2023 Patient encounter procedure 04/19/2023 3:20 PM EST Routine [facility] [address] [place] [address] Bere Andrade PA [address] [place] [address] [facility] OB Start: 04-19-2023 End: 04-19-2023 Professional / ancillary services management 04/19/2023 3:00 PM EST Ancillary Procedure [facility] [address] [place] [phone] [facility] OB Start: 10-21-2022 Influenza vaccination Influenza Vacc ine (#1) [facility] Start: 01-13-2020 End: 01-13-2020 Procedure visit 01/13/2020 Procedure visit Urology Dnayel Carson MD [address], [address] [place] [address] [facility] Start: 10-31-2019 End: 10-31-2019 Office Visit 10/31/2019 Office Visit Urology Aguilar Woody, FUR VAULT ATTENDANT - MEDICARE NURSE [address] [place] [phone] [facility] Start: 10-22-2019 Influenza vaccination [place] Start: 10-14-2015 DTaP/Tdap/Td vaccine (7 - Td) DTaP/Tdap/Td vaccine (7 - Td) [place] Start: 2009 Screening for malign ant neoplasm of cervix Cervical cancer screen [place] Start: 10-12-2007 DTaP/Tdap/Td vaccine (1 - Tdap) DTaP/Tdap/Td vaccine (1 - Tdap) [place] Start: 10-12-2003 HIV screening HIV screen [place], [place] Start: 1994 Pneumococcal 0-64 ye ars Vaccine (1 of 1 - PPSV23) Pneumococcal 0-64 years Vaccine (1 of 1 - PPSV23) [place] Start: 1989 Varicella vaccine (1 of 2 - 2-dose childhood series) Varicella vaccine (1 of 2 - 2-dose childhood series) [place] End: 12-23-2019 Culture, Urine Culture, Urine Microbiology Routine Urinary frequency OAB (overactive bladder) Incomplete bladder emptying 1 Occurrences starting 12/23/2019 until 12/23/2019 [place] Comment on above: 1 Occurrences starti ng 12/23/2019 until 12/23/2019 Culture, Urine [facility] ID End: 07-25-2019 Culture, Urine Culture, Urine Microbiology Routine Urinary frequency 1 Occurrences starting 07/25/2019 until 07/25/2019 [place] Comment on above: 1 Occurrences starti ng 07/25/2019 until 07/25/2019 Payers Date Payer Category Payer Unknown BCBS BCBS xxxxxx [id number] 2022-Present [phone] [address] [place] [address] [id number] 2022 Unknown [id number] 2014 Private Health Insurance [employer] A ETNA NAP CHOICE POS II xxxxxxxxxx 2014-Present [phone] [address] [place] [address] xxxxxxxxxx [id number] 1988 Unknown [id number] 1988 Unknown [id number] 1988 Unknown [id number] 1988 Unknown [id number] 1988 Unknown [id number] 1990 Unknown [id number] 1990 Unknown [id number] 1988 Unknown [id number] 1988 Unknown [id number] 1988 Unknown [id number] 1959 Private Health Insurance [id number] Social History Date Type Detail Facility Start: 02-20-2003 End: 08-10-2022 Tobacco smoking status PRIS Current every day smoker [facility] Start: 02-20-2003 History of tobacco use Cigarette Smoker [place], [place] Start: 12-23-2019 End: 08-10-2022 Cigarettes smoked current (pack per day) - Reported [facility] Start: 12-23-2019 Tobacco use and exposure Never used [place], [place] Start: 12-23-2019 End: 04-05-2023 Alcohol intake Current drinker of alcohol (finding) [place], [place] Start: 07-25-2019 Alcohol Comment rare [place] Sex Assigned At Not on file [place] Start: 08-10-2022 End: 01-09-2023 Alcohol Use [...] Healthcare Start: 1990 Sex Assigned At Female [facility] Start: 08-09-2022 Gender identity Identifies as female gender (finding) [facility] History of Present illness Narrative 04-05-2023 Laura [...] nursing note reviewed. Exam conducted with a brushing machine operator present. 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 Advance Directives and Living Will Power of [employer] Supervisor Summary Purpose Family History No Family History Records FoundNo Family History Records FoundNo Family History Records Found Additional Source Comments INFORMATION SOURCE (unrecogn ized section and content) DATE CREATED AUTHOR 12/25/2019 [facility] DATE CREATED AUTHOR AUTHOR'S ORGANIZ ATION 08/06/2021 [facility] DATE CREATED AUTHOR AUTHOR'S ORGANIZ ATION 04/22/2023 [facility] EPIC Reason for Visit (unrecogniz ed section and content) Reason Comments Routine Visit Care Teams (unrecognized sec tion and content) Inter Com Servicer Relationship Specialty Start Date End Date Brynn Bah MD [address] [place] [address] PCP - General Family Medicine 08/10/22 Ana Rosa Hazel NP [address] [place], [place] [id number] PCP - Harleigh Commercial 09/20/22 FOR RECORDS PERTAINING TO PATIENTS [...] BE BASED ON THE PRIMARY CLINICAL RECORDS. [facility] [facility]. provides no warranty or guarantee of the accuracy or completeness of information in this document.
[2023-04-26 17:05] LABS: Hemoglobin 11.2 g/dL (12.0-16.0); Mean Corpuscular HGB Conc 32.9 g/dL (29.9-35.2); Mean Corpuscular Hemoglobin 28.6 pg (26.7-34.0); Mean Platelet Volume 10.5 fL (9.5-13.5); Platelet Count 281 10^3/uL (150-450); Red Blood Count 3.91 10^6/uL (4.20-5.40); Red Cell Distribution Width 14.4 % (11.0-15.0); White Blood Count 15.7 10^3/uL (4.0-11.0)
[2023-04-26 17:16] LABS: Amphetamine Screen Urine NEGATIVE (NEGATIVE); Barbiturates Screen Urine NEGATIVE (NEGATIVE); Benzodiazepines Screen Urine NEGATIVE (NEGATIVE); Buprenorphine Screen Urine NEGATIVE (NEGATIVE); Cannabinoid Screen Urine NEGATIVE (NEGATIVE); Cocaine Screen Urine NEGATIVE (NEGATIVE); Methadone Screen Urine NEGATIVE (NEGATIVE); Methamphetamines Screen Urine NEGATIVE (NEGATIVE); Opiate Screen Urine NEGATIVE (NEGATIVE); Oxycodone Screen Urine NEGATIVE (NEGATIVE); Phencyclidine Screen Urine NEGATIVE (NEGATIVE); Tricyclic Antidepressant Urine NEGATIVE (NEGATIVE)
[2023-04-26] MEDS: DINOPROSTONE 10 MG VAG INSERT.ER VAGINAL (17:40)
[2023-04-27] VITALS (95 sets, daily range): BP systolic 101–171; BP diastolic 54–93; PULSE 64–93; RESP 16; TEMP 35.4–36.4
[2023-04-27] MEDS: 0.9 % SODIUM CHLORIDE 1,000 ML 125 ML IV ×2 (06:30→14:42)
[2023-04-27] MEDS: OXYTOCIN/0.9 % SODIUM CHLORIDE 10 UNITS/500 ML PLAST..BAG 6 UNIT IV (06:45)
[2023-04-27] MEDS: 0.9 % SODIUM CHLORIDE 1,000 ML 1000 ML IV (10:04)
[2023-04-27] MEDS: ROPIVACAINE HCL/PF 400 MG/200 ML PREMIX 6 MG EPIDURAL (10:15)
[2023-04-27] MEDS: LIDOCAINE HCL 2% PF 100 MG/5 ML VIAL INJ (13:02)
[2023-04-27] MEDS: OXYTOCIN/0.9 % SODIUM CHLORIDE 20 UNITS/1,000 ML PLAST..BAG 125 UNIT IV (15:24)
[2023-04-27] MEDS: CARBOPROST TROMETHAMINE 250 MCG/ML 1 ML VIAL IM (15:28)
--- NOTE | 2023-04-27 16:33 | PM.OBPRCVD ---
Procedure Intrapartal events: None Induction method: per pitocin protocol Delivery augmentation: rupture of membranes Delivery monitor: external FHT and external uterine Route of delivery: Episiotomy Description: none L&D Laceration Description: perineal - 2nd degree Delivery repair: Vicryl Estimated blood loss (mL): 999 Anesthesia type: Epidural Disposition: floor Delivery date: 04/27/23 Gender: male presentation: vertex Placental delivery description: Spontaneous cord description: 3 Vessels and Nuchal Cord (times 1)
--- NOTE | 2023-04-27 17:40 | PC.NURSE ---
at bedside at this time.
--- NOTE | 2023-04-27 17:49 | PC.NURSE ---
QBL measured 1,110g.
[2023-04-27] MEDS: GLYCERIN/WITCH HAZEL PADS 1 PAD TOPICAL (18:42)
[2023-04-27] MEDS: BENZOCAINE/MENTHOL 85 GRAM SPRAY BOTTLE 1 APPLIC TOPICAL (18:43)
[2023-04-28 00:45] VITALS: BP 123/65; PULSE 81; RESP 16; TEMP 36.8
[2023-04-28 06:04] LABS: Basophils Absolute Auto 0.1 10^3/uL (0.0-0.1); Basophils Percent Auto 0.3 % (0.2-2.0); Eosinophils Absolute Auto 0.1 10^3/uL (0.0-0.7); Eosinophils Percent Auto 0.3 % (0.9-7.0); Hematocrit 27.3 % (36.0-48.0); Hemoglobin 8.9 g/dL (12.0-16.0); Immature Granulocytes Abs Auto 0.18 10^3/uL (0.00-0.03); Immature Granulocytes Pct Auto 0.8 % (0.0-0.5); Lymphocytes Absolute Auto 3.4 10^3/uL (1.2-3.8); Lymphocytes Percent Auto 14.2 % (20.5-60.0); Mean Corpuscular HGB Conc 32.6 g/dL (29.9-35.2); Mean Corpuscular Hemoglobin 28.3 pg (26.7-34.0); Mean Corpuscular Volume 86.9 fL (81.0-99.0); Mean Platelet Volume 10.2 fL (9.5-13.5); Monocytes Absolute Auto 1.1 10^3/uL (0.3-0.8); Monocytes Percent Auto 4.5 % (1.7-12.0); Neutrophils Absolute Auto 18.9 10^3/uL (1.4-6.5); Neutrophils Percent Auto 79.9 % (43.0-75.0); Platelet Count 219 10^3/uL (150-450); Red Blood Count 3.14 10^6/uL (4.20-5.40); Red Cell Distribution Width 14.4 % (11.0-15.0); White Blood Count 23.6 10^3/uL (4.0-11.0)
[2023-04-28] MEDS: IBUPROFEN 600 MG TABLET PO ×2 (06:32→20:54)
--- NOTE | 2023-04-28 07:12 | W.PC.ACHO ---
Registration Status: ADM IN Primary Language: Namibian Preferred Language: Namibian Active Medications Generic Name Dose Route Start Last Admin Trade Name Iainq PRN Reason Stop Dose Admin Acetaminophen 650 mg 04/27/23 16:36 Acetaminophen 325 Mg Tablet PO Q6H PRN Mild Pain Al Hydroxide/Mg Hydroxide 2,400 mg 04/27/23 16:36 Magnesium Hydroxide 2,400 Mg/10 Ml Oral.Susp PO Q6H PRN Dyspepsia Benzocaine/Menthol 1 applic 04/27/23 16:36 04/27/23 18:43 Benzocaine/Menthol 85 Gram [place] Bottle TOPICAL 1 applic Q2H PRN Administration Pain Carboprost Tromethamine 250 mcg 04/26/23 16:49 04/27/23 15:28 Carboprost Tromethamine 250 Mcg/Ml 1 Ml Vial IM 04/28/23 16:49 250 mcg Q15M PRN Administration Bleeding Diphenhydramine HCl 25 mg 04/27/23 07:23 Diphenhydramine Hcl 50 Mg/Ml (1ml) Vial IV 04/28/23 07:24 Q6H PRN Itching Diphtheria/Pertussis/Tetanus Vacc 0.5 ml 04/29/23 09:00 Adacel Diph,Pertuss(Acell),Tet Vac/Pf 0.5 Ml Adult Syringe IM 04/29/23 09:01 .ONCE ONE Docusate Sodium 100 mg 04/28/23 09:00 Docusate Sodium 100 Mg Capsule PO BID HEIDY Ephedrine Sulfate 5 mg 04/27/23 07:23 Ephedrine Sulfate 50 Mg/Ml Vial IV 04/28/23 07:24 Q5M PRN Blood Pressure - Low Fentanyl Citrate 100 mcg 04/27/23 07:23 Fentanyl Citrate/Pf 100 Mcg/2 Ml Vial EPIDURAL ONCE PRN epidural Fentanyl Citrate 100 mcg 04/27/23 07:23 Fentanyl Citrate/Pf 100 Mcg/2 Ml Vial EPIDURAL ONCE PRN epidural Sodium Chloride 1,000 mls @ 125 mls/hr 04/26/23 17:00 04/27/23 15:23 Sodium Chloride 0.9% 1,000 Ml IV 0 mls/hr .Q8H HEIDY Infusion Ropivacaine/Sodium Chloride 400 mg in 200 mls @ 6 mls/hr 04/26/23 17:00 04/27/23 10:15 Naropin 0.2% 400 Mg/200 Ml Bag EPIDURAL 6 mls/hr Q24H HEIDY Administration Oxytocin/Sodium Chloride 10 units in 500 mls @ 6 mls/hr 04/27/23 06:30 04/27/23 15:24 Pitocin 10 Unit/500 Ml-Ns IV 0 milliunit/min TITR HEIDY 0 mls/hr Infusion Protocol 2 MILLIUNIT/MIN Ibuprofen 600 mg 04/27/23 16:36 04/28/23 06:32 Ibuprofen 600 Mg Tablet PO 600 mg Q6H PRN Administration Moderate Pain Lidocaine 5 ml 04/27/23 07:23 04/27/23 13:02 Lidocaine Hcl 2% Pf 100 Mg/5 Ml Vial INJ 04/28/23 07:24 5 ml Q1H PRN Administration Epidural Lidocaine 5 ml 04/27/23 10:30 Lidocaine Viscous 2% 15 Ml Solution TOPICAL ONCE PRN Pain Lidocaine 1 ml 04/27/23 10:30 Lidocaine Hcl 1% 200 Mg/20 Ml Mdv INJ ONCE PRN Pain Measles/Mumps/Rubella Vaccine Live 0.5 ml 04/29/23 09:00 Measles,Mumps,Rubella Vacc/Pf 0.5 Ml Vial SQ 04/29/23 09:01 .ONCE ONE Misoprostol 600 mcg 04/26/23 16:49 Misoprostol 100 Mcg Tablet PO 04/28/23 16:49 ONCE PRN Uterine Bleeding Misoprostol 800 mcg 04/26/23 16:49 Misoprostol 100 Mcg Tablet SL 04/28/23 16:49 ONCE PRN Uterine Bleeding Misoprostol 1,000 mcg 04/26/23 16:49 Misoprostol 100 Mcg Tablet TX 04/28/23 16:49 ONCE PRN Uterine Bleeding Naloxone HCl 0.4 mg 04/27/23 07:23 Naloxone Hcl 0.4 Mg/Ml Vial IV 04/28/23 07:24 ONCE PRN Respiratory Depression Ondansetron HCl 4 mg 04/26/23 16:49 Ondansetron Pf 4 Mg/2 Ml Vial IV Q6H PRN Nausea And Vomiting Oxytocin 10 unit 04/26/23 16:49 Oxytocin 10 Unit/Ml Vial IM 04/28/23 16:49 ONCE PRN Bleeding Senna 17.2 mg 04/27/23 20:00 Sennosides 8.6 Mg Tablet PO QHS PRN Constipation Simethicone 80 mg 04/27/23 16:36 Simethicone 80 Mg Tab.Chew PO QID PRN Abdominal Distention Temazepam 15 mg 04/27/23 16:36 Temazepam 15 Mg Capsule PO QHS PRN Sleep Witch Cortney/Glycerin 1 pad 04/27/23 16:36 04/27/23 18:42 Glycerin/Witch [place] Pads TOPICAL 1 pad Q2H PRN Administration Pain Diet Category Date Time Status Regular Consistency Diet Diet 04/27/23 16:36 Active Respiratory Oxygen Delivery Method Room Air Oxygen Delivery Method Room Air Oxygen Delivery Method Room Air Cardiology Heart Sounds Strong,Regular Renal Bladder Pattern Continent Bladder Pattern Continent Bladder Pattern Continent Catheter Date Urinary Catheter Removed 04/27/23 Date Urinary Catheter Removed 04/27/23 Date Urinary Catheter Removed 04/27/23 Date Urinary Catheter Removed 04/27/23 Date Urinary Catheter Removed 04/27/23 Date Urinary Catheter Removed 04/27/23 Date Urinary Catheter Removed 04/27/23 Date Urinary Catheter Removed 04/27/23
--- NOTE | 2023-04-28 08:06 | PM.OBPN ---
OB - PN: Subj Subjective Patient comments: no complaints and pain well controlled [place] status: doing well Exam Constitutional Vital Signs, click to edit/add: Last Vital Signs Temp 98.3 F 04/28/23 00:45 Pulse 81 04/28/23 00:45 Resp 16 04/28/23 00:45 BP 123/65 04/28/23 00:45 O2 Del Method Room Air 04/28/23 00:45 Documenting provider has reviewed patient's vital signs: yes Common normals: no apparent distress Respiratory Common normals: clear to auscultation bilaterally Cardio Common normals: regular rate and regular rhythm GI Common normals: Normal to inspection, nondistended, normoactive bowel sounds present Extremity Common normals: no calf tenderness Results Labs Labs: Short CBC 04/28/23 Range/Units 05:57 WBC 23.6 H (4.0-11.0) 10^3/uL Hgb 8.9 L (12.0-16.0) g/dL Hct 27.3 L (36.0-48.0) % Plt Count 219 (150-450) 10^3/uL OB - PN: A/P Plan - Vaginal Delivery day: 1 Plan: routine care Time Spent with Patient Time: Total time spent is greater than 50% in coordination of care (as documented) at patient's floor/unit and/or counseling patient: Total time spent with greater than 50% in coordination of care (as documented) at patient's floor/unit and/or counseling patient: less than 15 minutes
[2023-04-28 08:15] VITALS: BP 113/56; PULSE 92; RESP 16; TEMP 36.6
--- NOTE | 2023-04-28 08:34 | PC.NURSE ---
IV removed per previous shift Ivan Elder RN.
[2023-04-28 23:48] VITALS: TEMP 36.2
[2023-04-28 23:49] VITALS: BP 115/62; PULSE 80; RESP 16
[2023-04-28 23:50] VITALS: BP 115/62; PULSE 80; RESP 16; TEMP 36.2
--- NOTE | 2023-04-29 06:24 | P.OBPN_ITS ---
OB - PN: Subj Subjective Patient comments: no complaints [place] status: doing well Exam Constitutional Vital Signs, click to edit/add: Last Vital Signs Temp 97.2 F L 04/28/23 23:50 Pulse 80 04/28/23 23:50 Resp 16 04/28/23 23:50 BP 115/62 04/28/23 23:50 O2 Del Method Room Air 04/28/23 23:50 Documenting provider has reviewed patient's vital signs: yes Common normals: no apparent distress Respiratory Common normals: clear to auscultation bilaterally Cardio Common normals: regular rate and regular rhythm GI Common normals: Normal to inspection, nondistended, normoactive bowel sounds present Extremity Common normals: no calf tenderness OB - PN: A/P Plan - Vaginal Delivery day: 2 Plan: routine care, discharge home and follow up 6 weeks Time Spent with Patient Time: Total time spent is greater than 50% in coordination of care (as documented) at patient's floor/unit and/or counseling patient: Total time spent with greater than 50% in coordination of care (as documented) at patient's floor/unit and/or counseling patient: less than 15 minutes
--- NOTE | 2023-04-29 07:49 | PC.NURSE ---
Report given to García Jimenez RN.
[2023-04-29 08:41] VITALS: BP 127/82; PULSE 83; RESP 18; TEMP 36.8
[2023-04-29] MEDS: DOCUSATE SODIUM 100 MG CAPSULE PO (08:42)
[2023-04-29] MEDS: IBUPROFEN 600 MG TABLET PO (08:42)
== END 2023-04-29 12:35 | disposition home or self-care (01) | DRG 807 ==
PROVIDERS: Admitting Provider Obstetrics & Gynecology; PCP Family Medicine; Visit Provider Obstetrics & Gynecology
DX: O13.4 Gestational [pregnancy-induced] hypertension without significant proteinuria, complicating childbirth (principal); Z37.0 Single live birth; O70.1 Second degree perineal laceration during delivery; O69.81X0 Labor and delivery complicated by cord around neck, without compression, not applicable or unspecified; Z3A.37 37 weeks gestation of pregnancy; Z87.891 Personal history of nicotine dependence
CPT/HCPCS: 36415; 59050; 59410; 80307; 85025; 85027; 86850; 86900; 86901; 96372; 96374; 96376

== ENCOUNTER 2023-05-05 08:16 | Outpatient (OUT) | payer BC, SELFPAY ==
--- OUTSIDE RECORDS SUMMARY | 2023-05-05 08:25 | XMS_ITS | CCD ---
Author Name Unknown Address [email or web address] [place] [address] Organization [facility] Care Team Providers Care Rock Mason Name Role Phone Brynn Bah Primary Care Provider BRYNN BAH Primary Care Unavailable COLTON GOODMAN Referring Unavailable AGUILAR WOODY Referring Unavailable BRYNN BAH Primary Care Unavailable VIBHA, DR LOPEZ Admitting Unavailable VIBHA, DR LOPEZ Attending Unavailable DR JESSICA DUNNE Consulting Unavailable Brynn Bah MD Primary Care Provider Ana Rosa Hazel NP Unavailable BERE ANDRADE [...] take 1 tablet by mouth once daily [id number] 0.18/0.215/0.25 MG-25 MCG TABS TAKE 1 TABLET [...] UA Negative Negative - 4(70) +++ mg/dL [facility] Blood, UA Positive Negative - 50 Chris/mcL [facility] Clarity, UA Clear [facility] Color, UA Yellow [facility] Glucose, UA Negative Negative - 1999(110) ++++ mg/dL [facility] Interpretation and review of laboratory results Abnormal [facility] Ketones, UA Negative Negative - 160(16) ++++ mg/dL [facility] Leukocytes, UA Negative Negative - 500+++ Dc/mcL [facility] Nitrite, UA Negative Negative - Positive [facility] pH, UA 7.0 5 - 9 [facility] e Protein, UA Negative Negative - 2000(20) ++++ mg/dL [facility] Spec Grav, UA 1.015 1 - 1.03 [facility] Urobilinogen, UA 0.2 0.2 - 12 mg/dL [facility] Health[facility] e PAP ACOG PANEL 2: 30 to 65on 08-05-2021 . . Normal [facility] Comment on above: Result Comment: Perf ormed at: WB Performed By: #### [id number] #### [facility] [address] [address] [address] Jazmin Turner Age Gdln ACOG Testing 30-65 Normal [facility] Comment on above: Performed By: #### 4 [id number] #### [facility] [address] [address] [address] Jazmin Turner DIAGNOSIS: Comment Normal [facility] Comment on above: Result Comment: NEGA TIVE FOR INTRAEPITHELIAL LESION OR MALIGNANCY. Performed at: WB Performed By: #### 4 [id number] #### [facility] [address] [address] [address] Jazmin Turner HPV Aptima Negative Normal Negative [facility] Comment on above: Result Comment: This nucleic acid amplification test detects fourteen high-risk HPV types (16,18,31,33,35,39,45,51,52,56,58,59,66,68) without differentiation. Performed at: =G Performed By: #### 4 [id number] #### [facility] [address] [place] [address] Dr. Jazmin Turner Methodology: Comment Normal [facility] Comment on above: Result Comment: This liquid based ThinPrep(R) pap test was screened with the use of an image guided system. Performed at: WB Performed By: #### 4 [id number] #### [facility] [address] [place] [address] Dr. Jazmin Turner Note: Comment Normal [facility] Comment on above: Result Comment: The Pap smear is a screening test designed to aid in the detection of premalignant and malignant conditions of the uterine cervix. It is not a diagnostic procedure and should not be used as the sole means of detecting cervical cancer. Both false-positive and false-negative reports do occur. . Performed at: WB Performed By: #### 4 [id number] #### [facility] [address] [place] [address] Dr. Jazmin Turner Performed by: Comment Normal [facility] Comment on above: Result Comment: Tong Watts, Diesel Power Shovel Operator (ASCP) Performed at: WB Performed By: #### 4 [id number] #### [facility] [address] [place] [address] Dr. Jamzin Turner Specimen adequacy: Comment Normal [facility] Comment on above: Result Comment: Sati sfactory for evaluation. Endocervical and/or squamous metaplastic cells (endocervical component) are present. Performed at: WB Performed By: #### 4 [id number] #### [facility] [address] [place] [address] Dr. Jazmin Turner Cult,Urineon 12-24-2019 Cult,Urine Specimen Description .CLEAN CATCH URINE Special Requests NOT REPORTED Culture NO SIGNIFICANT GROWTH Report Status FINAL 12/24/2019 [facility] Comment on above: Performed By: #### U #### [place] [address] Data Scientist: Robert Ross MD [facility] [address] [place], [place] [id number] Data Scientist: Tariq Mesa MD Urinalysis w/ Microon 2019 ----- Normal [facility] Comment on above: Performed By: #### U AMIC #### [facility] [address] [place] [address] Data Scientist: Tariq Mesa MD Acetoacetic Acid,Ur Negative Normal NEG [facility] Comment on above: Performed By: #### U AMIC #### [facility] [address] [place] [address] Data Scientist: Tariq Mesa MD Bilirubin, SemiQt,Ur Negative Normal [facility] Comment on above: Performed By: #### U AMIC #### [facility] [address] [place], [place] [id number] Data Scientist: Tariq Mesa MD Color (U) YELLOW Normal YEL [facility] Comment on above: Performed By: #### U AMIC #### [facility] [address] [place], [place] [id number] Data Scientist: Tariq Msea MD Epithelial cells LM.HPF (Urine sed) [#/Area] None Normal 0-25 [facility] Comment on above: Performed By: #### U AMIC #### [facility] [address] [place] [id number] Data Scientist: Tariq Mesa MD Glucose Ql (U) Negative Normal NEG [facility] in Hospital Comment on above: Performed By: #### U AMIC #### [facility] [address] [place], [place] [id number] Data Scientist: Tariq Mesa MD Hemoglobin, Ur 2+ Abnormal NEG [facility] Comment on above: Performed By: #### U AMIC #### [facility] [address] [place] [id number] Data Scientist: Tariq Mesa MD Leukocyte esterase Test strip Ql (U) Negative Normal NEG [facility] Comment on above: Performed By: #### U AMIC #### [facility] [address] [place], [place] [id number] Data Scientist: Tariq Mesa MD Nitrite,Ur Negative Normal NEG [facility] Comment on above: Performed By: #### U AMIC #### [facility] [address] [place], [place] [id number] Data Scientist: Traiq Mesa MD pH (U) 7.5 [pH] Normal 5.0-9.0 [facility] Comment on above: Performed By: #### U AMIC #### [facility] [address] [place], [place] [id number] Data Scientist: Tariq Mesa MD Protein Ql (U) Negative Normal NEG [facility] Comment on above: Performed By: #### U AMIC #### [facility] [address] [place], [place] [id number] Data Scientist: Tariq Mesa MD RBC (U) [#/Vol] None Normal 0-2 [facility] Comment on above: Performed By: #### U AMIC #### [address] [place], [place] [id number] Data Scientist: Tariq Mesa MD Specific gravity (U) [Rel density] 1.020 Normal 1.010-1.020 [facility] Comment on above: Performed By: #### U AMIC #### [facility] [address] [place], [place] [id number] Data Scientist: Tariq Mesa MD Turbidity CLEAR Normal CLEAR [facility] Comment on above: Performed By: #### U AMIC #### [facility] [address] [place], [place] [id number] Data Scientist: Tariq eMsa MD Urobilinogen,Ur Normal Normal NORM [facility] Comment on above: Performed By: #### U AMIC #### [facility] [address] [place], [place] [id number] Data Scientist: Tariq Mesa MD WBC (U) [#/Vol] None Normal 0-5 [facility] Comment on above: Performed By: #### U AMIC #### [facility] [address] [place], [place] [id number] Data Scientist: Tariq Mesa MD Amorphous sediment LM Ql (Urine sed) NOT REPORTED Normal [facility] Comment on above: Performed By: #### U AMIC #### [facility] [address] [place] [address] Data Scientist: Tariq Mesa MD Bacteria LM.HPF (Urine sed) [#/Area] NOT REPORTED Normal NONE [facility] Comment on above: Performed By: #### U AMIC #### [facility] [address] [place], [place] [id number] Data Scientist: Tariq Mesa MD Casts LM.LPF (Urine sed) [#/Area] NOT REPORTED Normal [facility] Comment on above: Performed By: #### U AMIC #### [facility] [address] [place], [place] [id number] Data Scientist: Tariq Mesa MD Comment NOT REPORTED Normal [facility] Comment on above: Performed By: #### U AMIC #### [facility] [address] [place], [place] [id number] Data Scientist: Tariq Mesa MD Crystals LM Nom (Urine sed) NOT REPORTED Normal [facility] Comment on above: Performed By: #### U AMIC #### [facility] [address] [place] [place] [address] Data Scientist: Tariq Mesa MD Epithelial, Renal NOT REPORTED Normal 0 [facility] Comment on above: Performed By: #### U AMIC #### [facility] [address] [place], [place] [id number] Data Scientist: Tariq Mesa MD Mucus Strands NOT REPORTED Normal [facility] Comment on above: Performed By: #### U AMIC #### [facility] [address] [place], [place] [id number] Data Scientist: Tariq Mesa MD Other Observations NOT REPORTED Normal NREQ [facility] Comment on above: Performed By: #### U AMIC #### [facility] [address] [place], [place] 6385083 Data Scientist: Tariq Mesa MD Trichomonas NOT REPORTED Normal [facility] Comment on above: Performed By: #### U AMIC #### [facility] [address] [place], [place] [id number] Data Scientist: Tariq Mesa MD Yeast LM Ql (Urine sed) NOT REPORTED Normal [facility] Comment on above: Performed By: #### U AMIC #### [facility] [address] [place], [place] 9[address]83 Data Scientist: Tariq Mesa MD Urinalysis with Microscopico n 12-23-2019 Amorphous, UA NOT REPORTED None [facility] [place] [place] Bacteria, UA NOT REPORTED None [facility] [place] [place] Bilirubin Urine Negative NEGATIVE [facility] [place] Casts UA NOT REPORTED /LPF [facility] [place], [place] Color, UA YELLOW YELLOW [facility] [place] Crystals, UA NOT REPORTED None /HPF [facility] [place] [place] Epithelial Cells UA None [facility] [place] Glucose, Ur Negative NEGATIVE [facility] Interpretation and review of laboratory results Abnormal [facility] Ketones Ql (U) Negative NEGATIVE [facility]- [place] Leukocyte esterase Test strip Ql (U) Negative NEGATIVE [facility] [place] Mucus, UA NOT REPORTED None [facility] [place] Nitrite, Urine Negative NEGATIVE [facility] [place] [place] Other Observations UA NOT REPORTED NOT REQ. [place] pH, UA 7.5 [place] Protein (U) [Mass/Vol] Negative NEGATIVE [place] RBC (U) [#/Vol] None [facility] [place] Renal Epithelial, UA NOT REPORTED 0 /HPF [place] Specific [place], UA 1.020 [place], [place] Trichomonas, UA NOT REPORTED None [facility] [place] Turbidity UA CLEAR CLEAR [place] Urinalysis Comments NOT REPORTED [place] Urine Hgb 2+ Abnormal NEGATIVE [place] Urobilinogen, Urine Normal Normal [place] WBC, UA None [place] Yeast, UA NOT REPORTED None [place] - [place] Cult,Urineon 07-27-2019 Cult,Urine Specimen Description .CLEAN CATCH URINE Special Requests NOT REPORTED Culture NO SIGNIFICANT GROWTH Report Status FINAL 07/26/2019 Normal [facility] Comment on above: Performed By: #### U RC #### [facility] [address], [place] [id number] Data Scientist: Robert Ross MD [facility] [address] [place] [address] [place] [address] Data Scientist: Tariq Mesa MD Urinalysis w/ Microon 2019 ----- Normal [facility] Comment on above: Performed By: #### U AMIC #### [facility] [address] [place] [address] [place] [address] Data Scientist: Tariq Mesa MD Acetoacetic Acid,Ur Negative Normal NEG [facility] Comment on above: Performed By: #### U AMIC #### [address] [place] [address] Data Scientist: Tariq Mesa MD Bacteria LM.HPF (Urine sed) [#/Area] 1+ Abnormal NONE [facility] Comment on above: Performed By: #### U AMIC #### [facility] [address] [place] [id number] Data Scientist: Tariq Mesa MD Bilirubin, SemiQt,Ur Negative Normal NEG [facility] Comment on above: Performed By: #### U AMIC #### [facility] [address] [place], [place] [id number] Data Scientist: Tariq Mesa MD Color (U) YELLOW Normal YEL [facility] Comment on above: Performed By: #### U AMIC #### [facility] [address] [place] [id number] Data Scientist: Tariq Mesa MD Epithelial cells LM.HPF (Urine sed) [#/Area] 2 TO 5 Normal 0-25 [facility] Comment on above: Performed By: #### U AMIC #### [facility] [address] [place] [id number] Data Scientist: Tariq Mesa MD Glucose Ql (U) Negative Normal NEG [facility] Comment on above: Performed By: #### U AMIC #### [facility] [address] [place] [id number] Data Scientist: Tariq Mesa MD Hemoglobin, Ur 1+ Abnormal NEG [facility] Comment on above: Performed By: #### U AMIC #### [facility] [address] [place], [place] [address] Data Scientist: Tariq Mesa MD Leukocyte esterase Test strip Ql (U) Negative Normal NEG [facility] Comment on above: Performed By: #### U AMIC #### [facility] [address] [place] [id number] Data Scientist: Tariq Mesa MD Mucus Strands TRACE Abnormal NONE [facility] Comment on above: Performed By: #### U AMIC #### [facility] [address] [place], [place] [id number] Data Scientist: Tariq Mesa MD Nitrite,Ur Negative Normal NEG [facility] Comment on above: Performed By: #### U AMIC #### [facility] [address] [place], [place] [id number] Data Scientist: Tariq Mesa MD pH (U) 7.5 [pH] Normal 5.0-9.0 [facility] Comment on above: Performed By: #### U AMIC #### [facility] [address] [place] [id number] Data Scientist: Tariq Mesa MD Protein Ql (U) Negative Normal NEG [facility] Comment on above: Performed By: #### U AMIC #### [address] [place], [place] [id number] Data Scientist: Tariq Msea MD RBC (U) [#/Vol] 0 TO 2 Normal 0-2 [facility] Comment on above: Performed By: #### U AMIC #### [address] [place], [place] [id number] Data Scientist: Tariq Mesa MD Specific gravity (U) [Rel density] 1.010 Normal 1.010-1.020 [facility] Comment on above: Performed By: #### U AMIC #### [address] [place], [place] [id number] Data Scientist: Tariq Mesa MD Turbidity CLEAR Normal CLEAR [facility] Comment on above: Performed By: #### U AMIC #### [facility] [address] [place], [place] [id number] Data Scientist: Tariq Mesa MD Urobilinogen,Ur Normal Normal NORM [facility] Comment on above: Performed By: #### U AMIC #### [facility] [address] [place], [place] [id number] Data Scientist: Tariq Mesa MD WBC (U) [#/Vol] None Normal 0-5 [facility] Comment on above: Performed By: #### U AMIC #### [facility] [address] [place], [place] [id number] Data Scientist: Tariq Mesa MD Amorphous sediment LM Ql (Urine sed) NOT REPORTED Normal NONE [facility] Comment on above: Performed By: #### U AMIC #### [facility] [address] [place] [id number] Data Scientist: Tariq Mesa MD Casts LM.LPF (Urine sed) [#/Area] NOT REPORTED Normal [facility] Comment on above: Performed By: #### U AMIC #### [facility] [address] [place] [id number] Data Scientist: Tariq Mesa MD Comment NOT REPORTED Normal [facility] Comment on above: Performed By: #### U AMIC #### [facility] [address] [place] [id number] Data Scientist: Tariq Mesa MD Crystals LM Nom (Urine sed) NOT REPORTED Normal [facility] Comment on above: Performed By: #### U AMIC #### [facility] [address] [place] [id number] Data Scientist: Tariq Mesa MD Epithelial, Renal NOT REPORTED Normal 0 [facility] Comment on above: Performed By: #### U AMIC #### [facility] [address] [place], [facility] Data Scientist: Tariq Mesa MD Other Observations NOT REPORTED Normal N[facility] Comment on above: Performed By: #### U AMIC #### [facility] [address] [place] [place] [address] Data Scientist: Tariq Mesa MD Trichomonas NOT REPORTED Normal NONE [facility] Comment on above: Performed By: #### U AMIC #### [facility] [address] [place] [place] [address] Data Scientist: Tariq Mesa MD Yeast LM Ql (Urine sed) NOT REPORTED Normal NONE [facility] Comment on above: Performed By: #### U AMI #### [facility] [address] [place] [place] [address] Data Scientist: Tariq Mesa MD Urinalysis with Microscopico n 07-25-2019 Amorphous, UA NOT REPORTED None [place] Bacteria, UA 1+ Abnormal None [place] Bilirubin Urine Negative NEGATIVE [place] Casts UA NOT REPORTED /LPF [place] Color, UA YELLOW YELLOW [place] Crystals, UA NOT REPORTED None /HPF [place] Epithelial Cells UA 2 TO 5 [place] Glucose, Ur Negative NEGATIVE [place] Interpretation and review of laboratory results Abnormal [place] Ketones Ql (U) Negative NEGATIVE [place] Leukocyte esterase Test strip Ql (U) Negative NEGATIVE [place] Mucus, UA TRACE Abnormal None [place] Nitrite, Urine Negative NEGATIVE [place] Other Observations UA NOT REPORTED NOT REQ. [place] pH, UA 7.5 [place] Protein (U) [Mass/Vol] Negative NEGATIVE [place] RBC (U) [#/Vol] 0 TO 2 [place] Renal Epithelial, UA NOT REPORTED 0 /HPF [place] Specific [place], UA 1.010 [place], [place] Trichomonas, UA NOT REPORTED None [facility] [place] Turbidity UA CLEAR CLEAR [place] Urinalysis Comments NOT REPORTED [place] Urine Hgb 1+ Abnormal NEGATIVE [place] Urobilinogen, Urine Normal Normal [place] WBC, UA None [place] Yeast, UA NOT REPORTED None [place] Vital Signs Date Time Vital Sign Value Performing Clinician Faci lity 04-05-2023 11:19-0500 Body mass index (BMI) [Ratio] 35.51 kg/m2 Jessica Vibha DO Work Phone: [facility] 04-05-2023 11:19-0500 Body weight 88.05 kg Jessica Vibha DO Work Phone: [facility] 04-05-2023 11:19-0500 Diastolic blood pressure 78 mm[Hg] Jessica Vibha DO Work Phone: [facility] 04-05-2023 11:19-0500 Systolic blood pressure 114 mm[Hg] Jessica Vibha DO Work Phone: [facility] Healthcare Encounters Encounter Date Encounter Type Care Provider Facility Start: 04-26-2023 End: 04-26-2023 ambulatory JESSICA VIBHA Not Available Start: 04-19-2023 End: 04-19-2023 ambulatory BERE LUPE [...] End: 12-24-2019 Patient encounter procedure BRYNN BAH [facility] Start: 12-23-2019 End: 12-23-2019 Subsequent hospital visit by physician Brynn DAVID Laboratory Comment on above: Urinary frequency; OAB (overactive bladder); Incomplete bladder emptying Start: 07-25-2019 End: 07-26-2019 Patient encounter procedure AGUILAR WOODY [facility] Start: 07-25-2019 End: 07-25-2019 Subsequent hospital [...] Screening for malign ant neoplasm of cervix [facility] Start: 08-24-2025 Screening for malign ant neoplasm of cervix Pap Smear [facility] Start: 08-28-2023 End: 08-28-2023 Patient encounter procedure 08/28/2023 4:00 PM EDT Office Visit [facility] [address] [place] [id number] Jessica Dunne, DO [address] [place] [address] [facility] Start: 04-19-2023 End: 04-19-2023 Patient encounter procedure 04/19/2023 3:20 PM EST Routine [facility] [address] [place] [address] Bere Andrade PA [address] [place] [address] [facility] Start: 04-19-2023 End: 04-19-2023 Professional / ancillary services management 04/19/2023 3:00 PM EST Ancillary Procedure [facility] [address] [place] [address] [facility] Start: 10-21-2022 Influenza vaccination Influenza Vacc ine (#1) [facility] Start: 01-13-2020 End: 01-13-2020 Procedure visit 01/13/2020 Procedure visit Urology Danyel Carson MD [address] [facility], [address] [place] [address] [phone] [facility] Start: 10-31-2019 End: 10-31-2019 Office Visit 10/31/2019 Office Visit Urology Aguilar Woody, CERTIFIED INCOME TAX PREPARER - DIGITAL CONTENT MANAGER [address] [facility] [address] [place] [id number] [facility] Start: 10-22-2019 Influenza vaccination [place] Start: 10-14-2015 DTaP/Tdap/Td vaccine (7 - Td) DTaP/Tdap/Td vaccine (7 - Td) [place] Start: 2009 Screening for malign ant neoplasm of cervix Cervical cancer screen [place] Start: 10-12-2007 DTaP/Tdap/Td vaccine (1 - Tdap) DTaP/Tdap/Td vaccine (1 - Tdap) [place] Start: 10-12-2003 HIV screening HIV screen [place], [place] Start: 1994 Pneumococcal 0-64 ye ars Vaccine (1 of 1 - PPSV23) Pneumococcal 0-64 years Vaccine (1 of 1 - PPSV23) [place] Start: 1989 Varicella vaccine (1 of 2 - 2-dose childhood series) Varicella vaccine (1 of 2 - 2-dose childhood series) [place] End: 12-23-2019 Culture, Urine Culture, Urine Microbiology Routine Urinary frequency OAB (overactive bladder) Incomplete bladder emptying 1 Occurrences starting 12/23/2019 until 12/23/2019 [place] Comment on above: 1 Occurrences starti ng 12/23/2019 until 12/23/2019 Culture, Urine [place] End: 07-25-2019 Culture, Urine Culture, Urine Microbiology Routine Urinary frequency 1 Occurrences starting 07/25/2019 until 07/25/2019 [place] Comment on above: 1 Occurrences starti ng 07/25/2019 until 07/25/2019 Payers Date Payer Category Payer Unknown BCBS BCBS xxxxxx [id number] 2022-Present [phone] [address] [place] [address] [id number] 2022 Unknown [id number] 2014 Private Health Insurance [employer] A ETNA NAP CHOICE POS II xxxxxxxxxx 2014-Present [phone] [address] [place] [address] xxxxxxxxxx [id number] 1988 Unknown [id number] [id number] .173 1988 Unknown [id number] [id number] .173 1988 Unknown [id number] [id number] .593 1988 Unknown [id number] 2.16.840.1.253550.3.579.2 .1259 1988 Unknown [id number] 2.16.840.1.575804.3.579.2 .1259 1988 Unknown [id number] 2.16.840.1.363962.3.579.2 .9 1988 Unknown [id number] 2.16.840.1.944876.3.579.2 .9 1988 Unknown [id number] 2.16.840.1.990878.3.579.2 .1258 1988 Unknown [id number] 2.16.840.1.770348.3.579.2 .9 1988 Unknown [id number] 2.16.840.1.454973.3.579.2 .9 1988 Unknown [id number] 2.16.840.1.000792.3.579.2 .1259 1959 Private Health Insurance [id number] Social History Date Type Detail Facility Start: 02-20-2003 End: 08-10-2022 Tobacco smoking status [facility] Current every day smoker [facility] Start: 02-20-2003 History of tobacco use Cigarette Smoker [place], [place] Start: 12-23-2019 End: 08-10-2022 Cigarettes smoked current (pack per day) - Reported [facility] Start: 12-23-2019 Tobacco use and exposure Never used [place], [place] Start: 12-23-2019 End: 04-05-2023 Alcohol intake Current drinker of alcohol (finding) [place], [place] Start: 07-25-2019 Alcohol Comment rare [place] Sex Assigned At Not on file [place] Start: 08-10-2022 End: 01-09-2023 Alcohol Use [...] 31-60 minutes of waking up.Thinking about quitting [facility] Start: 08-10-2022 Alcohol Comment 5 or 6 drinks; 2 to 4 times a month. caffeine: 1-2 cups/day soda/pop [facility] Start: 08-23-2022 [facility] Start: 1990 Sex Assigned At Female [facility] Start: 08-09-2022 Gender identity Identifies as female gender (finding) [facility] History of Present illness Narrative 04-05-2023 Laurasathish Barakat LPN - 04/05/2023 11:10 AM EST [...] nursing note reviewed. Exam conducted with a circuit rider present. Vitals: Estimated body mass index is 35.51 kg/m as calculated from the following: Height as of 10/14/23: 5' 2 . Weight as of this [...] FoundDocuments on File Type Date Recorded Patient Employee Health Nurse Expl anation ACP-Advance Directive ACP-Power of Range Conservationist Documents on File Type Date Recorded Patient Employee Health Nurse Expl anation Advance Directives and Living Will Power of Range Conservationist Summary Purpose Family History No Family History Records FoundNo Family History Records FoundNo Family History Records Found Additional Source Comments INFORMATION SOURCE (unrecogn ized section and content) DATE CREATED AUTHOR 12/25/2019 [facility] DATE CREATED AUTHOR AUTHOR'S ORGANIZ ATION 08/06/2021 [facility] DATE CREATED AUTHOR AUTHOR'S ORGANIZ ATION 04/27/[address] [facility] EPIC Reason for Visit (unrecogniz ed section and content) Reason Comments Routine Visit Care Teams (unrecognized sec tion and content) [place] Relationship Specialty Start Date End Date Brynn Bah MD [address] [place] [address] PCP - General Family Medicine 08/10/22 Ana Rosa Hazel NP [address] [place] [address] PCP - [place] [employer] 09/20/22 FOR RECORDS PERTAINING TO PATIENTS [...] BE BASED ON THE PRIMARY CLINICAL RECORDS. [facility]. provides no warranty or guarantee of the accuracy or completeness of information in this document.
--- NOTE | 2023-05-05 13:59 | PC.NURSE ---
Geovanny Concepcion and 8 day old Jacoby arrive for follow up visit. Parents are doing well, state they are finally getting sleep and baby nursing well ad trudy every 1-3 hours. Multiple wets and stools noted by parents. already seen in office by PCP. Carlene VSS and assessment WNL. Denies concerns for self or for infant. involved and very hands on with , supportive of efforts. Jacoby's VSS and assessment WNL. No concerns noted at this time. Latches well, gulps with let down then nurses well. Feeds well. Family leaves ambulatory aware of [facility] and to call as needed for LC support.
[2023-05-05 14:02] VITALS: BP 118/84; PULSE 82; RESP 16; TEMP 36.8
== END 2023-05-05 13:00 | disposition home or self-care (01) ==
PROVIDERS: PCP Family Medicine; Visit Provider Obstetrics & Gynecology
DX: Z39.2 Encounter for routine postpartum follow-up (principal)

== ENCOUNTER 2023-08-28 20:43 | Outpatient (REF) | payer BC, SELFPAY ==
--- OUTSIDE RECORDS SUMMARY | 2023-08-28 20:46 | XMS_ITS | CCD ---
Author Organization [facility] Care Team Providers Care Trench Shovel Operator Name Role Phone Brynn Bah Primary Care Provider OLVINBRYNN Primary Care Unavailable COLTON GOODMAN Referring Unavailable AGUILAR WOODY Referring Unavailable OLVINBRYNN Primary Care Unavailable VIBHA, DR LOPEZ Admitting Unavailable VIBHA, DR LOPEZ Attending Unavailable VIBHA, DR LOPEZ Consulting Unavailable Olvin WU, Brynn Jennifer Primary Care Provider Ilir HANDKERCHIEF FOLDER, Ana Rosa Merrill Unavailable BERE ANDRADE Attending Unavailable VIBHAJESSICA AVILA Attending Unavailable BERE ANDRADE Attending Unavailable VIBHAJESSICA Wood Attending Unavailable LUPE, BERE Attending Unavailable VIBHA, JESSICA Attending Unavailable BERE ANDRADE Attending Unavailable LUPE, BERE Attending Unavailable JESSICA DUNNE Attending Unavailable Medications [...] take 1 tablet by mouth once daily [id number] 0.18/0.215/0.25 MG-25 MCG TABS TAKE 1 TABLET [...] UA Negative Negative - 4(70) +++ mg/dL [facility] Blood, UA Positive Negative - 50 Chris/mcL [facility] Clarity, UA Clear [facility] re Color, UA Yellow [facility] Glucose, UA Negative Negative - 2000(110) ++++ mg/dL [facility] Interpretation and review of laboratory results Abnormal [facility] Ketones, UA Negative Negative - 160(16) ++++ mg/dL [facility] Leukocytes, UA Negative Negative - 500+++ Dc/mcL [facility] Nitrite, UA Negative Negative - Positive [facility] pH, UA 7.0 5 - 9 [facility] e Protein, UA Negative Negative - 2000(20) ++++ mg/dL [facility] Spec Grav, UA 1.015 1 - 1.03 [facility] Urobilinogen, UA 0.2 0.2 - 12 mg/dL [facility] Health[facility] e PAP ACOG PANEL 2: 30 to 65on 08-05-2021 . . Normal [facility] Comment on above: Result Comment: Perf ormed at: WB Performed By: #### [id number] #### [facility] [address] [place] [address] Dr. Jazmin Turner Age Gdln ACOG Testing 30-65 Normal [facility] Comment on above: Performed By: #### [id number] #### [facility] [address] [address] [address] Jazmin Turner DIAGNOSIS: Comment Normal [facility] Comment on above: Result Comment: NEGA TIVE FOR INTRAEPITHELIAL LESION OR MALIGNANCY. Performed at: WB Performed By: #### [id number] #### [facility] [address] [address] [address] Jazmin Turner HPV Aptima Negative Normal [facility] Comment on above: Result Comment: This nucleic acid amplification test detects fourteen high-risk HPV types (16,18,31,33,35,39,45,51,52,56,58,59,66,68) without differentiation. Performed at: =G Performed By: #### [id number] #### [facility] [address] [place] [address] Dr. Jazmin Turner Methodology: Comment [facility] Comment on above: Result Comment: This liquid based ThinPrep(R) pap test was screened with the use of an image guided system. Performed at: WB Performed By: #### [id number] #### [facility] [address] [place] [address] Dr. Jazmin Turner Note: Comment Normal [facility] Comment on above: Result Comment: The Pap smear is a screening test designed to aid in the detection of premalignant and malignant conditions of the uterine cervix. It is not a diagnostic procedure and should not be used as the sole means of detecting cervical cancer. Both false-positive and false-negative reports do occur. . Performed at: WB Performed By: #### [id number] #### [facility] [address] [place] [address] Dr. Jazmin Turner Performed by: Comment Normal [facility] Comment on above: Result Comment: Tong Watts, Therapeutic Sales Specialist (ASCP) Performed at: WB Performed By: #### [id number] #### [facility] [address] [place] [address] Dr. Jazmin Turner Specimen adequacy: Comment Normal [facility] Comment on above: Result Comment: Sati sfactory for evaluation. Endocervical and/or squamous metaplastic cells (endocervical component) are present. Performed at: WB Performed By: #### [id number] #### [facility] [address] [place] [address] Dr. Jazmin Turner Cult,Urineon 12-24-2019 Cult,Urine Specimen Description .CLEAN CATCH URINE Special Requests NOT REPORTED Culture NO SIGNIFICANT GROWTH Report Status FINAL 12/24/2019 [facility] Comment on above: Performed By: #### U #### [facility] [address] [place] [address] Hyster Machine Operator: Robert Ross MD [facility] [address] [place] [address] Hyster Machine Operator: Tariq Mesa MD Urinalysis w/ Microon 2019 ----- Normal [facility] Comment on above: Performed By: #### U AMIC #### [facility] [address] [place], [place] [id number] Hyster Machine Operator: Tariq Mesa MD Acetoacetic Acid,Ur Negative Normal NEG [facility] Comment on above: Performed By: #### U AMIC #### [facility] [address] [place], [place] [address]83 Hyster Machine Operator: Tariq Mesa MD Bilirubin, SemiQt,Ur Negative Normal NEG [facility] Comment on above: Performed By: #### U AMIC #### [facility] [address] [place], [place] [id number] Hyster Machine Operator: Tariq Mesa MD Color (U) YELLOW Normal YEL [facility] Comment on above: Performed By: #### U AMIC #### [facility] [address] [place], [place] [id number] Hyster Machine Operator: Tariq Mesa MD Epithelial cells LM.HPF (Urine sed) [#/Area] None Normal 0-25 [facility] Comment on above: Performed By: #### U AMIC #### [facility] [address] [place], [place] [address]83 Hyster Machine Operator: Tariq Mesa MD Glucose Ql (U) Negative Normal NEG [facility] in Hospital Comment on above: Performed By: #### U AMIC #### [facility] [address] [place], [place] 7284683 Hyster Machine Operator: Tariq Mesa MD Hemoglobin, Ur 2+ Abnormal NEG [facility] Comment on above: Performed By: #### U AMIC #### [facility] [address] [place], [place] [address]83 Hyster Machine Operator: Tariq Mesa MD Leukocyte esterase Test strip Ql (U) Negative Normal NEG [facility] Comment on above: Performed By: #### U AMIC #### [facility] [address] [place], [place] 0495783 Hyster Machine Operator: Tariq Mesa MD Nitrite,Ur Negative Normal NEG [facility] Comment on above: Performed By: #### U AMIC #### [facility] [address] [place], [place] [address]83 Hyster Machine Operator: Tariq Mesa MD pH (U) 7.5 [pH] Normal 5.0-9.0 [facility] Comment on above: Performed By: #### U AMIC #### [facility] [address] [place], [place] 1245383 Hyster Machine Operator: Tariq Mesa MD Protein Ql (U) Negative Normal NEG [facility] Comment on above: Performed By: #### U AMIC #### [facility] [address] [place], [facility] Hyster Machine Operator: Tariq Mesa MD RBC (U) [#/Vol] None Normal 0-2 [facility] Comment on above: Performed By: #### U AMIC #### [facility] [address] [place], [place] [address]26[address] Hyster Machine Operator: Tariq Mesa MD Specific gravity (U) [Rel density] 1.020 Normal 1.010-1.020 [facility] Comment on above: Performed By: #### U AMIC #### [facility] [address] [place], [place] 466[address]83 Hyster Machine Operator: Tariq Mesa MD Turbidity CLEAR Normal CLEAR [facility] Comment on above: Performed By: #### U AMIC #### [facility] [address] [place], [place] 6266883 Hyster Machine Operator: Tariq Mesa MD Urobilinogen,Ur Normal Normal NORM [facility] Comment on above: Performed By: #### U AMIC #### [facility] [address] [place] [address] Hyster Machine Operator: Tariq Mesa MD WBC (U) [#/Vol] None Normal 0-5 [facility] Comment on above: Performed By: #### U AMIC #### [facility] [address] [place] [address] Hyster Machine Operator: Tariq Mesa MD Amorphous sediment LM Ql (Urine sed) NOT REPORTED Normal NONE [facility] Comment on above: Performed By: #### U AMIC #### [facility] [address] [place] [address] Hyster Machine Operator: Tariq Mesa MD Bacteria LM.HPF (Urine sed) [#/Area] NOT REPORTED Normal [facility] Comment on above: Performed By: #### U AMIC #### [facility] [address] [place] [address] Hyster Machine Operator: Tariq Mesa MD Casts LM.LPF (Urine sed) [#/Area] NOT REPORTED Normal [facility] Comment on above: Performed By: #### U AMIC #### [facility] [address] [place] [address] Hyster Machine Operator: Tariq Mesa MD Comment NOT REPORTED Normal [facility] Comment on above: Performed By: #### U AMIC #### [facility] [address] [place] [address] Hyster Machine Operator: Tariq Mesa MD Crystals LM Nom (Urine sed) NOT REPORTED Normal [facility] Comment on above: Performed By: #### U AMIC #### [facility] [address] [place], [place] [address] Hyster Machine Operator: Tariq Mesa MD Epithelial, Renal NOT REPORTED Normal 0 [facility] Comment on above: Performed By: #### U AMIC #### [facility] [address] [place] [address] Hyster Machine Operator: Tariq Mesa MD Mucus Strands NOT REPORTED Normal [facility] Comment on above: Performed By: #### U AMIC #### [facility] [address] [place] [address] Hyster Machine Operator: Tariq Mesa MD Other Observations NOT REPORTED Normal NREQ [facility] Comment on above: Performed By: #### U AMIC #### [facility] [address] [place] [address] Hyster Machine Operator: Tariq Mesa MD Trichomonas NOT REPORTED Normal [facility] Comment on above: Performed By: #### U AMIC #### [facility] [address] [place] [address] Hyster Machine Operator: Tariq Mesa MD Yeast LM Ql (Urine sed) NOT REPORTED Normal [facility] Comment on above: Performed By: #### U AMIC #### [facility] [address] [place] [address] Hyster Machine Operator: Tariq Mesa MD Urinalysis with Microscopico n 12-23-2019 Amorphous, UA NOT REPORTED None [facility] Bacteria, UA NOT REPORTED None [facility] [place] Bilirubin Urine Negative NEGATIVE [facility] [place] Casts UA NOT REPORTED /LPF [facility] [place] Color, UA YELLOW YELLOW [facility] [place] Crystals, UA NOT REPORTED None /HPF [facility] Epithelial Cells UA None [facility] [place] Glucose, Ur Negative NEGATIVE [facility] [place] Interpretation and review of laboratory results Abnormal [facility] [place] Ketones Ql (U) Negative NEGATIVE [facility] [place] Leukocyte esterase Test strip Ql (U) Negative NEGATIVE [facility] [place] Mucus, UA NOT REPORTED None [facility] [place] Nitrite, Urine Negative NEGATIVE [facility] [place] Other Observations UA NOT REPORTED NOT REQ. [facility] pH, UA 7.5 [facility] [place] Protein (U) [Mass/Vol] Negative NEGATIVE [place], [place] RBC (U) [#/Vol] None [facility] [place] Renal Epithelial, UA NOT REPORTED 0 /HPF Me [facility], [place] Specific [place], UA 1.020 [place], [place] Trichomonas, UA NOT REPORTED None [facility] [place] Turbidity UA CLEAR CLEAR [place] Urinalysis Comments NOT REPORTED [place] Urine Hgb 2+ Abnormal NEGATIVE [place] Urobilinogen, Urine Normal Normal [place] WBC, UA None [place] Yeast, UA NOT REPORTED None [place] Cult,Urineon 07-27-2019 Cult,Urine Specimen Description .CLEAN CATCH URINE Special Requests NOT REPORTED Culture NO SIGNIFICANT GROWTH Report Status FINAL 07/26/2019 Normal [facility] Comment on above: Performed By: #### U RC #### [address] [id number] Hyster Machine Operator: Robert Ross MD [facility] [address] [place] [address] [place] [address] Hyster Machine Operator: Tariq Mesa MD Urinalysis w/ Microon 2019 ----- Normal [facility] Comment on above: Performed By: #### U AMIC #### [facility] [address] [place] [address] Hyster Machine Operator: Tariq Mesa MD Acetoacetic Acid,Ur Negative Normal NEG [facility] Comment on above: Performed By: #### U AMIC #### [facility] [address] [place] [address] Hyster Machine Operator: Tariq Mesa MD Bacteria LM.HPF (Urine sed) [#/Area] 1+ Abnormal NONE [facility] Comment on above: Performed By: #### U AMIC #### [facility] [address] [place] [address] Hyster Machine Operator: Tariq Mesa MD Bilirubin, SemiQt,Ur Negative Normal [facility] Comment on above: Performed By: #### U AMIC #### [facility] [address] [place], [place] 398[address]83 Hyster Machine Operator: Tariq Mesa MD Color (U) YELLOW Normal YEL [facility] Comment on above: Performed By: #### U AMIC #### [facility] [address] [place], [place] 8519183 Hyster Machine Operator: Tariq Mesa MD Epithelial cells LM.HPF (Urine sed) [#/Area] 2 TO 5 Normal 0-25 [facility] Comment on above: Performed By: #### U AMIC #### [facility] [address] [place], [place] [address]83 Hyster Machine Operator: Tariq Mesa MD Glucose Ql (U) Negative Normal NEG [facility] Comment on above: Performed By: #### U AMIC #### [facility] [address] [place], [place] 2128383 Hyster Machine Operator: Tariq Mesa MD Hemoglobin, Ur 1+ Abnormal NEG [facility] Comment on above: Performed By: #### U AMIC #### [facility] [address] [place] [address] Dr[address] [place], [place] 48[address] Hyster Machine Operator: Tariq Mesa MD Leukocyte esterase Test strip Ql (U) Negative Normal [facility] Comment on above: Performed By: #### U AMIC #### [facility] [address] [place], [place] [address]64[address] Hyster Machine Operator: Tariq Mesa MD Mucus Strands TRACE Abnormal NONE [facility] Comment on above: Performed By: #### U AMIC #### [facility] [address] [place], [place] [address]27[address] Hyster Machine Operator: Tariq Mesa MD Nitrite,Ur Negative Normal [facility] Comment on above: Performed By: #### U AMIC #### [facility] [address] [place], [place] 8159883 Hyster Machine Operator: Tariq Mesa MD pH (U) 7.5 [pH] Normal 5.0-9.0 [facility] Comment on above: Performed By: #### U AMIC #### [facility] [address] [place], [place] [address]12[address]83 Hyster Machine Operator: Tariq Mesa MD Protein Ql (U) Negative Normal NEG [facility] Comment on above: Performed By: #### U AMIC #### [facility] [address] [place], [place] [address] Hyster Machine Operator: Tariq Mesa MD RBC (U) [#/Vol] 0 TO 2 Normal 0-2 [facility] Comment on above: Performed By: #### U AMIC #### [facility] [address] [place], [place] [address]83 Hyster Machine Operator: Tariq Mesa MD Specific gravity (U) [Rel density] 1.010 Normal 1.010-1.020 [facility] Comment on above: Performed By: #### U AMIC #### [facility] [address] [place], [place] 7427383 Hyster Machine Operator: Tariq Mesa MD Turbidity CLEAR Normal CLEAR [facility] Comment on above: Performed By: #### U AMIC #### [facility] [address] [place], [place] 215[address]83 Hyster Machine Operator: Tariq Mesa MD Urobilinogen,Ur Normal Normal NORM [facility] Comment on above: Performed By: #### U AMIC #### [facility] [address] [place], [place] 527[address]83 Hyster Machine Operator: Tariq Mesa MD WBC (U) [#/Vol] None Normal 0-5 [facility] Comment on above: Performed By: #### U AMIC #### [facility] [address] [place] [address] Hyster Machine Operator: Tariq Mesa MD Amorphous sediment LM Ql (Urine sed) NOT REPORTED Normal NONE [facility] Comment on above: Performed By: #### U AMIC #### [facility] [address] [place] [address] Hyster Machine Operator: Tariq Mesa MD Casts LM.LPF (Urine sed) [#/Area] NOT REPORTED Normal [facility] Comment on above: Performed By: #### U AMIC #### [facility] [address] [place] [address] Hyster Machine Operator: Tariq Mesa MD Comment NOT REPORTED Normal [facility] Comment on above: Performed By: #### U AMIC #### [facility] [address] [place] [address] Hyster Machine Operator: Tariq Mesa MD Crystals LM Nom (Urine sed) NOT REPORTED Normal [facility] Comment on above: Performed By: #### U AMIC #### [facility] [address] [place], [facility] Hyster Machine Operator: Tariq Mesa MD Epithelial, Renal NOT REPORTED Normal 0 [facility] Comment on above: Performed By: #### U AMIC #### [facility] [address] [place], [facility]83 Hyster Machine Operator: Tariq Mesa MD Other Observations NOT REPORTED Normal NREQ [facility] Comment on above: Performed By: #### U AMIC #### [facility] [address] [place] [address] Hyster Machine Operator: Tariq Mesa MD Trichomonas NOT REPORTED Normal NONE [facility] Comment on above: Performed By: #### U AMIC #### [facility] [address] [place], [place] 494[address] Hyster Machine Operator: Tariq Mesa MD Yeast LM Ql (Urine sed) NOT REPORTED Normal NONE [facility] Comment on above: Performed By: #### U [facility] #### [facility] [address] [place] [address] Hyster Machine Operator: Tariq Mesa MD Urinalysis with Microscopico n 07-25-2019 Amorphous, UA NOT REPORTED None [facility], [place] Bacteria, UA 1+ Abnormal None [place] Bilirubin Urine Negative NEGATIVE [place] Casts UA NOT REPORTED /LPF [place] Color, UA YELLOW YELLOW [place] Crystals, UA NOT REPORTED None /HPF [place], [place] Epithelial Cells UA 2 TO 5 [place] Glucose, Ur Negative NEGATIVE [place] Interpretation and review of laboratory results Abnormal [place] Ketones Ql (U) Negative NEGATIVE [place] Leukocyte esterase Test strip Ql (U) Negative NEGATIVE [place] Mucus, UA TRACE Abnormal None [place] Nitrite, Urine Negative NEGATIVE [place] Other Observations UA NOT REPORTED NOT REQ. [place] pH, UA 7.5 [place] Protein (U) [Mass/Vol] Negative NEGATIVE [place] RBC (U) [#/Vol] 0 TO 2 [place] Renal Epithelial, UA NOT REPORTED 0 /HPF Me [place], [place] Specific [place], UA 1.010 [place], [place] Trichomonas, UA NOT REPORTED None [facility] [place] Turbidity UA CLEAR CLEAR [place] Urinalysis Comments NOT REPORTED [place] Urine Hgb 1+ Abnormal NEGATIVE [place] Urobilinogen, Urine Normal Normal [place] WBC, UA None [place] Yeast, UA NOT REPORTED None [place] Vital Signs Date Time Vital Sign Value Performing Clinician Faci lity 04-05-2023 11:19-0500 Body mass index (BMI) [Ratio] 35.51 kg/m2 [facility] Vibha DO Work Phone: [facility] 04-05-2023 11:19-0500 Body weight 88.05 kg Jessica Vibha DO Work Phone: [facility] 04-05-2023 11:19-0500 Diastolic blood pressure 78 mm[Hg] Jessica Vibha DO Work Phone: [facility] 04-05-2023 11:19-0500 Systolic blood pressure 114 mm[Hg] Jessica Vibha DO Work Phone: [facility] Healthcare Encounters Encounter Date Encounter Type Care Provider Facility Start: 06-08-2023 End: 06-08-2023 ambulatory BERE LUPE Not Available Start: 04-26-2023 End: 04-26-2023 ambulatory JESSICA VIBHA Not Available Start: 04-19-2023 End: 04-19-2023 ambulatory BERE LUPE Not Available Start: 04-05-2023 End: 04-05-2023 ambulatory JESSICA VIBHA Not Available Start: 04-05-2023 End: 04-05-2023 flow sheet Jessica Vibha DO Work Phone: [facility] Comment on above: Third [...] End: 12-24-2019 Patient encounter procedure BRYNN BAH [facility] Start: 12-23-2019 End: 12-23-2019 Subsequent hospital visit by physician Brynn Bah [facility] Laboratory Comment on above: Urinary frequency; OAB (overactive bladder); Incomplete bladder emptying Start: 07-25-2019 End: 07-26-2019 Patient encounter procedure AGUILAR WOODY [facility] Start: 07-25-2019 End: 07-25-2019 Subsequent [...] Urnls dip stick/tabl et reagent auto microscopy Aguilaramelie Woody Work Phone: Plan of Treatment Date Care Activity Detail Author Start: 08-25-2027 Screening for malign ant neoplasm of cervix [facility] Start: 08-24-2025 Screening for malign ant neoplasm of cervix Pap Smear [facility] Healthcare Start: 08-28-2023 End: 08-28-2023 Patient encounter procedure 08/28/2023 4:00 PM EDT Office Visit [facility] [address] [place] [address] Jessica Dunne, DO [address] [place] [address] [facility] Start: 04-19-2023 End: 04-19-2023 Patient encounter procedure 04/19/2023 3:20 PM EST Routine [facility] [address] [place] [address] Bere Andrade PA [address] [place], [place] [id number] [facility] Start: 04-19-2023 End: 04-19-2023 Professional / ancillary services management 04/19/2023 3:00 PM EST Ancillary Procedure [facility] [address] [place] [address] [facility] Start: 10-21-2022 Influenza vaccination Influenza Vacc ine (#1) [facility] Start: 01-13-2020 End: 01-13-2020 Procedure visit 01/13/2020 Procedure visit Urology Danyel Carson MD [address], [address] [place] [address] [phone] [facility] UROLOGY [facility] [place] [facility] Start: 10-31-2019 End: 10-31-2019 Office Visit 10/31/2019 Office Visit Urology Aguilar Woody, FISH HATCHERY ASSISTANT - CELL STRIPPER FINAL [address] [place] [id number] [facility] Start: 10-22-2019 Influenza vaccination [place] Start: 10-14-2015 DTaP/Tdap/Td vaccine (7 - Td) DTaP/Tdap/Td vaccine (7 - Td) [place] Start: 2009 Screening for malign ant neoplasm of cervix Cervical cancer screen [place] Start: 10-12-2007 DTaP/Tdap/Td vaccine (1 - Tdap) DTaP/Tdap/Td vaccine (1 - Tdap) [place] Start: 10-12-2003 HIV screening HIV screen [place], [place] Start: 1994 Pneumococcal 0-64 ye ars Vaccine (1 of 1 - PPSV23) Pneumococcal 0-64 years Vaccine (1 of 1 - PPSV23) [place] Start: 1989 Varicella vaccine (1 of 2 - 2-dose childhood series) Varicella vaccine (1 of 2 - 2-dose childhood series) [place] End: 12-23-2019 Culture, Urine Culture, Urine Microbiology Routine Urinary frequency OAB (overactive bladder) Incomplete bladder emptying 1 Occurrences starting 12/23/2019 until 12/23/2019 [place] Comment on above: 1 Occurrences starti ng 12/23/2019 until 12/23/2019 Culture, Urine [place] End: 07-25-2019 Culture, Urine Culture, Urine Microbiology Routine Urinary frequency 1 Occurrences starting 07/25/2019 until 07/25/2019 [place] Comment on above: 1 Occurrences starti ng 07/25/2019 until 07/25/2019 Payers Date Payer Category Payer Unknown BCBS BCBS [id number] [id number] 2022-Present [phone] [address] [place] [address] [id number] 2022 Unknown [id number] 2014 Private Health Insurance [employer] A ETNA NAP CHOICE POS II xxxxxxxxxx 2014-Present [phone] [id number] [place] [address] xxxxxxxxxx [id number] .[id number] 1988 Unknown [id number] 2.16.840.1.464081.3.579.2 .173 1988 Unknown [id number] 2.16.840.1.247566.3.579.2 .173 1988 Unknown [id number] 2.16.840.1.347098.3.579.2 .593 1988 Unknown [id number] 2.16.840.1.010561.3.579.2 .1259 1988 Unknown [id number] 2.16.840.1.407586.3.579.2 .1259 1988 Unknown [id number] 2.16.840.1.137791.3.579.2 .9 1988 Unknown [id number] 2.16.840.1.017124.3.579.2 .1258 1988 Unknown [id number] 2.16.840.1.047824.3.579.2 .1258 1988 Unknown [id number] 2.16.840.1.088748.3.579.2 .1258 1988 Unknown [id number] 2.16.840.1.800041.3.579.2 .1258 1988 Unknown [id number] 2.16.840.1.155088.3.579.2 .9 1988 Unknown [id number] 2.16.840.1.710206.3.579.2 .1259 1959 Private Health Insurance [id number] .[id number] Social History Date Type Detail Facility Start: 02-20-2003 End: 08-10-2022 Tobacco smoking status NHIS Current every day smoker [facility] Start: 02-20-2003 History of tobacco use Cigarette Smoker [place] Start: 12-23-2019 End: 08-10-2022 Cigarettes smoked current (pack per day) - Reported [facility] Start: 12-23-2019 Tobacco use and exposure Never used [place] Start: 12-23-2019 End: 04-05-2023 Alcohol intake Current drinker of alcohol (finding) [place] Start: 07-25-2019 Alcohol Comment rare [place] Sex Assigned At Not on file [place] Start: 08-10-2022 End: 01-09-2023 Alcohol Use [...] or more drinks on 1 occasion? Monthly [facility] Start: 08-10-2022 Tobacco Comment Patient smokes 11-20 cigarettes/day after 31-60 minutes of waking up.Thinking about quitting [facility] Start: 08-10-2022 Alcohol Comment 5 or 6 drinks; 2 to 4 times a month. caffeine: 1-2 cups/day soda/pop [facility] Start: 08-23-2022 [facility] Start: 1990 Sex Assigned At Female [facility] Start: 08-09-2022 Gender identity Identifies as female gender (finding) [facility] History of Present illness Narrative 04-05-2023 Laura Barakat, ROLL OFF DRIVER - 04/05/2023 11:10 AM EST Note Date [...] nursing note reviewed. Exam conducted with a database management specialist present. Vitals: Estimated body mass index is 35.51 kg/m as calculated from the following: Height as of 10/14/: 5' 2 . Weight as of this [...] FoundDocuments on File Type Date Recorded Patient Bottle Capping Machine Operator Expl anation ACP-Advance Directive ACP-Power of Arboriculturist Documents on File Type Date Recorded Patient Bottle Capping Machine Operator Expl anation Advance Directives and Living Will Power of Arboriculturist Summary Purpose Family History No Family History Records FoundNo Family History Records FoundNo Family History Records Found Additional Source Comments INFORMATION SOURCE (unrecogn ized section and content) DATE CREATED AUTHOR 12/25/2019 [facility] DATE CREATED AUTHOR AUTHOR'S ORGANIZ ATION 08/06/2021 [facility] DATE CREATED AUTHOR AUTHOR'S ORGANIZ ATION 06/10/2023 [facility] EPIC Reason for Visit (unrecogniz ed section and content) Reason Comments Routine Visit Care Teams (unrecognized sec tion and content) Trench Shovel Operator Relationship Specialty Start Date End Date Brynn Bah MD [address] [place], [place] [id number] PCP - General Family Medicine 08/10/22 Ana Rosa Hazel NP [address] [place], [place] [phone] PCP - Emmanuel Bellamy 09/20/22 FOR RECORDS PERTAINING TO PATIENTS WHO [...] BE BASED ON THE PRIMARY CLINICAL RECORDS. [facility] [employer] [facility]. provides no warranty or guarantee of the accuracy or completeness of information in this document.
[2023-08-31 15:10] LABS: Age Gdln ACOG Testing Note (.); HPV Aptima Negative (Negative); IGP, Aptima HPV, rfx 16/18,45 Note (.)
== END 2023-08-28 20:44 | disposition home or self-care (01) ==
LOC: LAB 20:43
PROVIDERS: PCP Family Medicine; Visit Provider Obstetrics & Gynecology
DX: Z01.419 Encounter for gynecological examination (general) (routine) without abnormal findings (principal)
CPT/HCPCS: 88175

== ENCOUNTER 2024-03-20 08:49 | Outpatient (OUT) | payer BC, SELFPAY ==
--- OUTSIDE RECORDS SUMMARY | 2024-03-20 08:56 | XMS_ITS | CCD ---
Author Organization [facility] Care Team Providers Care Silver Lap Machine Tender Name Role Phone Brynn Bah Primary Care Provider OLVINBRYNN Primary Care Unavailable COLTON GOODMAN Referring Unavailable AGUILAR WOODY Referring Unavailable OLVINBRYNN Primary Care Unavailable VIBHA, DR LOPEZ Admitting Unavailable VIBHA, DR LOPEZ Attending Unavailable VIBHA, DR LOPEZ Consulting Unavailable Olvin WU, Brynn Rodriguez Primary Care Provider Ilir ENGINEERING SYSTEMS ANALYST, Ana Rosa Merrill Unavailable BERE ANDRADE Attending Unavailable VIBHA, JESSICA Attending Unavailable BERE ANDRADE Attending Unavailable VIBHA, JESSICA Attending Unavailable LUPE, BERE Attending Unavailable VIBHA, JESSICA Attending Unavailable LUPE, BERE Attending Unavailable LUPE, BERE Attending Unavailable VIBHA, JESSICA Attending Unavailable VIBHA, JESSICA Attending Unavailable Medications Current Medications Medication Drug [...] take 1 tablet by mouth once daily [id number] 0.18/0.215/0.25 MG-25 MCG TABS TAKE 1 TABLET [...] UA Negative Negative - 4(70) +++ mg/dL [facility] Blood, UA Positive Negative - 50 Chris/mcL [facility] Clarity, UA Clear [facility] Color, UA Yellow [facility] Glucose, UA Negative Negative - 1999(110) ++++ mg/dL [facility] Interpretation and review of laboratory results Abnormal [facility] Ketones, UA Negative Negative - 160(16) ++++ mg/dL [facility] Leukocytes, UA Negative Negative - 500+++ Dc/mcL [facility] Nitrite, UA Negative Negative - Positive [facility] pH, UA 7.0 5 - 9 [facility] Protein, UA Negative Negative - 1999(20) ++++ mg/dL [facility] Spec Grav, UA 1.015 1 - 1.03 [facility] Urobilinogen, UA 0.2 0.2 - 12 mg/dL [facility] PAP ACOG PANEL 2: 30 to 65on 08-05-2021 . . Normal [facility] Comment on above: Result Comment: Perf ormed at: WB Performed By: #### [id number] #### [facility] [address] [place] [address] Dr. Jazmin Turner Age Gdln ACOG Testing 30-65 Normal [facility] Comment on above: Performed By: #### [id number] #### [facility] [address] [address] [address] Jazmin Turner DIAGNOSIS: Comment Normal [facility] Comment on above: Result Comment: NEGA TIVE FOR INTRAEPITHELIAL LESION OR MALIGNANCY. Performed at: WB Performed By: #### [id number] #### [facility] [address] [address] [address] Jazmin Turner HPV Aptima Negative Normal Negative [facility] Comment on above: Result Comment: This nucleic acid amplification test detects fourteen high-risk HPV types (16,18,31,33,35,39,45,51,52,56,58,59,66,68) without differentiation. Performed at: =G Performed By: #### [id number] #### [facility] [address] [place] [address] Dr. Jazmin Turner Methodology: Comment [facility] Comment on above: Result Comment: This liquid based ThinPrep(R) pap test was screened with the use of an image guided system. Performed at: WB Performed By: #### [id number] #### [facility] [address] [place] [address] Dr. Jazmin Tunrer Note: Comment Normal [facility] Comment on above: Result Comment: The Pap smear is a screening test designed to aid in the detection of premalignant and malignant conditions of the uterine cervix. It is not a diagnostic procedure and should not be used as the sole means of detecting cervical cancer. Both false-positive and false-negative reports do occur. . Performed at: WB Performed By: #### [id number] #### [facility] [address] [place] [address] Dr. Jazmin Turner Performed by: Comment Normal [facility] Comment on above: Result Comment: Tong Watts, Patient Coordinator (ASCP) Performed at: WB Performed By: #### [id number] #### [facility] [address] [place] [address] Dr. Jazmin Turner Specimen adequacy: Comment Normal [facility] Comment on above: Result Comment: Sati sfactory for evaluation. Endocervical and/or squamous metaplastic cells (endocervical component) are present. Performed at: WB Performed By: #### [id number] #### [facility] [address] [place] [address] Dr. Jazmin Turner Cult,Urineon 12-24-2019 Cult,Urine Specimen Description .CLEAN CATCH URINE Special Requests NOT REPORTED Culture NO SIGNIFICANT GROWTH Report Status FINAL 12/24/2019 Normal [facility] Comment on above: Performed By: #### U RC #### [facility] [address] [place] [address] Neurology Nurse: Robert Ross MD [facility] [address] [place] [address] Neurology Nurse: Tariq Mesa MD Urinalysis w/ Microon 2019 ----- Normal [facility] Comment on above: Performed By: #### U AMIC #### [facility] [address] [place] [address] Neurology Nurse: Tariq Mesa MD Acetoacetic Acid,Ur Negative Normal NEG [facility] Comment on above: Performed By: #### U AMIC #### [facility] [address] [place] [id number] Neurology Nurse: Tariq Mesa MD Bilirubin, SemiQt,Ur Negative Normal NEG [facility] Comment on above: Performed By: #### U AMIC #### [facility] [address] [place], [place] [address] Neurology Nurse: Tariq Mesa MD Color (U) YELLOW Normal YEL [facility] Comment on above: Performed By: #### U AMIC #### [facility] [address] [place], [place] [address] Neurology Nurse: Tariq Mesa MD Epithelial cells LM.HPF (Urine sed) [#/Area] None Normal 0-25 [facility] Comment on above: Performed By: #### U AMIC #### [facility] [address] [place], [place] [id number] Neurology Nurse: Tariq Mesa MD Glucose Ql (U) Negative Normal NEG [facility] in Hospital Comment on above: Performed By: #### U AMIC #### [facility] [address] [place], [place] [address] Neurology Nurse: Tariq Mesa MD Hemoglobin, Ur 2+ Abnormal NEG [facility] in Hospital Comment on above: Performed By: #### U AMIC #### [facility] [address] [place], [place] [address] Neurology Nurse: Tariq Mesa MD Leukocyte esterase Test strip Ql (U) Negative Normal NEG [facility] Comment on above: Performed By: #### U AMIC #### [facility] [address] [place], [place] 1760[address] Neurology Nurse: Tariq Mesa MD Nitrite,Ur Negative Normal NEG [facility] Comment on above: Performed By: #### U AMIC #### [facility] [address] [place], [facility] Neurology Nurse: Tariq Mesa MD pH (U) 7.5 [pH] Normal 5.0-9.0 [facility] Comment on above: Performed By: #### U AMIC #### [facility] [address] [place], [place] [id number] Neurology Nurse: Tariq Mesa MD Protein Ql (U) Negative Normal NEG [facility] Comment on above: Performed By: #### U AMIC #### [facility] [address] [place] [id number] Neurology Nurse: Tariq Mesa MD RBC (U) [#/Vol] None Normal 0-2 [facility] Comment on above: Performed By: #### U AMIC #### [address] [place], [place] [address] Neurology Nurse: Tariq Mesa MD Specific gravity (U) [Rel density] 1.020 Normal 1.010-1.020 [facility] Comment on above: Performed By: #### U AMIC #### [facility] [address] [place], [place] [address] Neurology Nurse: Tariq Mesa MD Turbidity CLEAR Normal CLEAR [facility] Comment on above: Performed By: #### U AMIC #### [facility] [address] [place], [place] [address] Neurology Nurse: Tariq Mesa MD Urobilinogen,Ur Normal Normal NORM [facility] Comment on above: Performed By: #### U AMIC #### [facility] [address] [place] [address] Neurology Nurse: Tariq Mesa MD WBC (U) [#/Vol] None Normal 0-5 [facility] Comment on above: Performed By: #### U AMIC #### [facility] [address] [place], [place] [address] Neurology Nurse: Tariq Mesa MD Amorphous sediment LM Ql (Urine sed) NOT REPORTED Normal NONE [facility] Comment on above: Performed By: #### U AMIC #### [facility] [address] [place] [address] Neurology Nurse: Tariq Mesa MD Bacteria LM.HPF (Urine sed) [#/Area] NOT REPORTED Normal NONE [facility] Comment on above: Performed By: #### U AMIC #### [facility] [address] [place] [address] Neurology Nurse: Tariq Mesa MD Casts LM.LPF (Urine sed) [#/Area] NOT REPORTED Normal [facility] Comment on above: Performed By: #### U AMIC #### [facility] [address] [place] [address] Neurology Nurse: Tariq Mesa MD Comment NOT REPORTED Normal [facility] Comment on above: Performed By: #### U AMIC #### [facility] [address] [place] [address] Neurology Nurse: Tariq Mesa MD Crystals LM Nom (Urine sed) NOT REPORTED Normal [facility] Comment on above: Performed By: #### U AMIC #### [facility] [address] [place], [place] [address]83 Neurology Nurse: Tariq Mesa MD Epithelial, Renal NOT REPORTED Normal 0 [facility] Comment on above: Performed By: #### U AMIC #### [facility] [address] [place] [address] Neurology Nurse: Tariq Mesa MD Mucus Strands NOT REPORTED Normal [facility] Comment on above: Performed By: #### U AMIC #### [facility] [address] [place] [address] Neurology Nurse: Tariq Mesa MD Other Observations NOT REPORTED Normal NREQ [facility] Comment on above: Performed By: #### U AMIC #### [facility] [address] [place], [place] [address] Neurology Nurse: Tariq Mesa MD Trichomonas NOT REPORTED Normal [facility] Comment on above: Performed By: #### U AMIC #### [facility] [address] [place] [address] Neurology Nurse: Tariq Mesa MD Yeast LM Ql (Urine sed) NOT REPORTED Normal [facility] Comment on above: Performed By: #### U AMIC #### [facility] [address] [place] [address] Neurology Nurse: Tariq Mesa MD Urinalysis with Microscopico n 12-23-2019 Amorphous, UA NOT REPORTED None [facility] [place] Bacteria, UA NOT REPORTED None [facility]- [place] Bilirubin Urine Negative NEGATIVE [facility] Casts UA NOT REPORTED /LPF [facility] [place], [place] Color, UA YELLOW YELLOW [facility] [place] Crystals, UA NOT REPORTED None /HPF [facility] [place] Epithelial Cells UA None [facility] [place] Glucose, Ur Negative NEGATIVE [facility] Interpretation and review of laboratory results Abnormal [facility]- [place] Ketones Ql (U) Negative NEGATIVE [facility]- [place] Leukocyte esterase Test strip Ql (U) Negative NEGATIVE [facility] Mucus, UA NOT REPORTED None [facility] [place] Nitrite, Urine Negative NEGATIVE [facility]- [place] Other Observations UA NOT REPORTED NOT REQ. [facility]- [place] pH, UA 7.5 [place], [place] Protein (U) [Mass/Vol] Negative NEGATIVE [place] RBC (U) [#/Vol] None [facility] [place] Renal Epithelial, UA NOT REPORTED 0 /HPF [place], [place] Specific [place], UA 1.020 [place], [place] Trichomonas, UA NOT REPORTED None [facility] [place] Turbidity UA CLEAR CLEAR [place], [place] Urinalysis Comments NOT REPORTED [place] Urine Hgb 2+ Abnormal NEGATIVE [place], [place] Urobilinogen, Urine Normal Normal [place] WBC, UA None [place] Yeast, UA NOT REPORTED None [place], [place] - [place] Cult,Urineon 07-27-2019 Cult,Urine Specimen Description .CLEAN CATCH URINE Special Requests NOT REPORTED Culture NO SIGNIFICANT GROWTH Report Status FINAL 07/26/2019 Normal [facility] Comment on above: Performed By: #### U RC #### [facility] [address] [place] [address] [id number] Neurology Nurse: Robert Ross MD [facility] [address] [place] [address] [place] [address] Neurology Nurse: Tariq Mesa MD Urinalysis w/ Microon 2019 ----- Normal [facility] Comment on above: Performed By: #### U AMIC #### [facility] [address] [place] [address] [place] [address] Neurology Nurse: Tariq Mesa MD Acetoacetic Acid,Ur Negative Normal NEG [facility] Comment on above: Performed By: #### U AMIC #### [facility] [address] [place] [address] [place] [address] Neurology Nurse: Tariq Mesa MD Bacteria LM.HPF (Urine sed) [#/Area] 1+ Abnormal [facility] Comment on above: Performed By: #### U AMIC #### [address] [place] [address] Neurology Nurse: Tariq Mesa MD Bilirubin, SemiQt,Ur Negative Normal [facility] Comment on above: Performed By: #### U AMIC #### [facility] [address] [place] [phone] Neurology Nurse: Tariq Mesa MD Color (U) YELLOW Normal YEL [facility] Comment on above: Performed By: #### U AMIC #### [facility] [address] [place] [phone] Neurology Nurse: Tariq Mesa MD Epithelial cells LM.HPF (Urine sed) [#/Area] 2 TO 5 Normal 0-25 [facility] Comment on above: Performed By: #### U AMIC #### [facility] [address] [place] [address] Neurology Nurse: Tariq Mesa MD Glucose Ql (U) Negative Normal NEG [facility] Comment on above: Performed By: #### U AMIC #### [facility] [address] [place], [place] [address]83 Neurology Nurse: Tariq Mesa MD Hemoglobin, Ur 1+ Abnormal NEG [facility] Comment on above: Performed By: #### U AMIC #### [facility] [address] [place], [place] [address]83 Neurology Nurse: Tariq Mesa MD Leukocyte esterase Test strip Ql (U) Negative Normal NEG [facility] Comment on above: Performed By: #### U AMIC #### [facility] [address] [place], [place] [address]83 Neurology Nurse: Tariq Mesa MD Mucus Strands TRACE Abnormal NONE [facility] Comment on above: Performed By: #### U AMIC #### [facility] [address] [place], [place] [address]27283 Neurology Nurse: Tariq Mesa MD Nitrite,Ur Negative Normal [facility] Comment on above: Performed By: #### U AMIC #### [facility] [address] [place], [place] [address]83 Neurology Nurse: Tariq Mesa MD pH (U) 7.5 [pH] Normal 5.0-9.0 [facility] Comment on above: Performed By: #### U AMIC #### [facility] [address] [place], [place] 9278183 Neurology Nurse: Tariq Mesa MD Protein Ql (U) Negative Normal NEG [facility] Comment on above: Performed By: #### U AMIC #### [facility] [address] [place], [place] 454[address]83 Neurology Nurse: Tariq Mesa MD RBC (U) [#/Vol] 0 TO 2 Normal 0-2 [facility] Comment on above: Performed By: #### U AMIC #### [facility] [address] [place], [place] [address]83 Neurology Nurse: Tariq Mesa MD Specific gravity (U) [Rel density] 1.010 Normal 1.010-1.020 [facility] Comment on above: Performed By: #### U AMIC #### [address] [place], [place] 2944383 Neurology Nurse: Tariq Mesa MD Turbidity CLEAR Normal CLEAR [facility] Comment on above: Performed By: #### U AMIC #### [facility] [address] [place], [place] 8438683 Neurology Nurse: Tariq Mesa MD Urobilinogen,Ur Normal Normal NORM [facility] Comment on above: Performed By: #### U AMIC #### [facility] [address] [place], [place] [address]8783 Neurology Nurse: Tariq Mesa MD WBC (U) [#/Vol] None Normal 0-5 [facility] Comment on above: Performed By: #### U AMIC #### [facility] [address] [place] [address] Neurology Nurse: Tariq Mesa MD Amorphous sediment LM Ql (Urine sed) NOT REPORTED Normal NONE [facility] Comment on above: Performed By: #### U AMIC #### [facility] [address] [place], [place] 9375483 Neurology Nurse: Tariq Mesa MD Casts LM.LPF (Urine sed) [#/Area] NOT REPORTED Normal [facility] Comment on above: Performed By: #### U AMIC #### [facility] [address] [place] [address] Neurology Nurse: Tariq Mesa MD Comment NOT REPORTED Normal [facility] Comment on above: Performed By: #### U AMIC #### [facility] [address] [place] [address] Neurology Nurse: Tariq Mesa MD Crystals LM Nom (Urine sed) NOT REPORTED Normal NONE [facility] Comment on above: Performed By: #### U AMIC #### [facility] [address] [place], [place] [address]83 Neurology Nurse: Tariq Mesa MD Epithelial, Renal NOT REPORTED Normal 0 [facility] Comment on above: Performed By: #### U AMIC #### [facility] [address] [place], [place] 133[address]83 Neurology Nurse: Tariq Mesa MD Other Observations NOT REPORTED Normal NREQ [facility] Comment on above: Performed By: #### U AMIC #### [facility] [address] [place], [place] 301[address]83 Neurology Nurse: Tariq Mesa MD Trichomonas NOT REPORTED Normal NONE [facility] Comment on above: Performed By: #### U AMIC #### [facility] [address] [place], [place] [address]367483 Neurology Nurse: Tariq Mesa MD Yeast LM Ql (Urine sed) NOT REPORTED Normal NONE [facility] Comment on above: Performed By: #### U [facility] #### [facility] [address] [place] [address] Neurology Nurse: Tariq Mesa MD Urinalysis with Microscopico n 07-25-2019 Amorphous, UA NOT REPORTED None [facility]- [place], [place] Bacteria, UA 1+ Abnormal None [place] Bilirubin Urine Negative NEGATIVE [facility], [place] Casts UA NOT REPORTED /LPF [facility], [place] Color, UA YELLOW YELLOW [place] Crystals, UA NOT REPORTED None /HPF [facility], [place] Epithelial Cells UA 2 TO 5 [place] Glucose, Ur Negative NEGATIVE [place] Interpretation and review of laboratory results Abnormal [place] Ketones Ql (U) Negative NEGATIVE [place] Leukocyte esterase Test strip Ql (U) Negative NEGATIVE [place] Mucus, UA TRACE Abnormal None [place] Nitrite, Urine Negative NEGATIVE [place] Other Observations UA NOT REPORTED NOT REQ. [place] pH, UA 7.5 [place] Protein (U) [Mass/Vol] Negative NEGATIVE [place] RBC (U) [#/Vol] 0 TO [address] [facility]- [place], [place] Renal Epithelial, UA NOT REPORTED 0 /HPF [place] Specific [place], UA 1.010 [place] Trichomonas, UA NOT REPORTED None [facility], [place] Turbidity UA CLEAR CLEAR [place] Urinalysis Comments NOT REPORTED [place] Urine Hgb 1+ Abnormal NEGATIVE [place] Urobilinogen, Urine Normal Normal [place] WBC, UA None [place] Yeast, UA NOT REPORTED None [facility], [place] - [place] Vital Signs Date Time Vital Sign Value Performing Clinician Faci lity 04-05-2023 11:19-0500 Body mass index (BMI) [Ratio] 35.51 kg/m2 Jessica Vibha DO Work Phone: [facility] 04-05-2023 11:19-0500 Body weight 88.05 kg Jessica Vibha DO Work Phone: [facility] 04-05-2023 11:19-0500 Diastolic blood pressure 78 mm[Hg] Jessica Vibha DO Work Phone: [facility] 04-05-2023 11:19-0500 Systolic blood pressure 114 mm[Hg] Jessica Vibha DO Work Phone: [facility] Healthcare Encounters Encounter Date Encounter Type Care Provider Facility Start: 08-28-2023 End: 08-28-2023 ambulatory JESSICA VIBHA Not Available Start: 06-08-2023 End: 06-08-2023 ambulatory BERE LUPE Not Available Start: 04-26-2023 End: 04-26-2023 ambulatory JESSICA VIBHA Not Available Start: 04-19-2023 End: 04-19-2023 ambulatory BERE LUPE Not Available Start: 04-05-2023 End: 04-05-2023 flow sheet Jessica Vibha DO Work Phone: [facility] OB Comment on above: Third trimester preg audi Start: 04-05-2023 End: 04-05-2023 ambulatory JESSICA VIBHA Not Available Start: 03-22-2023 End: 03-22-2023 ambulatory BERE LUPE Not Available Start: 03-08-2023 End: 03-08-2023 ambulatory JESSICA VIBHA Not Available Start: 02-22-2023 End: 02-22-2023 ambulatory BERE LUPE Not Available Start: 02-09-2023 End: 02-09-2023 ambulatory JESSICA VIBHA Not Available Start: 01-11-2023 End: 01-11-2023 ambulatory BERE LUPE Not Available Start: 08-03-2021 End: 08-03-[address] JESSICA DUNNE Facility: Start: 12-23-2019 End: 12-24-2019 Patient encounter procedure BRYNN BAH [facility] Start: 12-23-2019 End: 12-23-2019 Subsequent hospital visit by physician Brynn DAVID Laboratory Comment on above: Urinary frequency; OAB (overactive bladder); Incomplete bladder emptying Start: 07-25-2019 End: 07-26-2019 Patient encounter procedure AGUILAR WOODY [facility] Start: 07-25-2019 End: 07-25-2019 Subsequent [...] Screening for malign ant neoplasm of cervix [facility] Start: 08-24-2025 Screening for malign ant neoplasm of cervix Pap Smear [facility] Start: 08-28-2023 End: 08-28-2023 Patient encounter procedure 08/28/2023 4:00 PM EDT Office Visit [facility] [address] [place] [id number] Jessica Dunne DO [address] [place] [address] [facility] Start: 04-19-2023 End: 04-19-2023 Patient encounter procedure 04/19/2023 3:20 PM EST Routine [facility] [address] [place] [address] Bere Andrade PA [address] [facility] [address] [place], [place] [id number] [facility] Start: 04-19-2023 End: 04-19-2023 Professional / ancillary services management 04/19/2023 3:00 PM EST Ancillary Procedure [facility] [address] [place] [address] [facility] Start: 10-21-2022 Influenza vaccination Influenza Vacc ine (#1) [facility] Start: 01-13-2020 End: 01-13-2020 Procedure visit 01/13/2020 Procedure visit Urology Danyel Carson MD [address], [address] [place] [address] [facility] Start: 10-31-2019 End: 10-31-2019 Office Visit 10/31/2019 Office Visit Urology Aguilar Woody, PROPERTY DAMAGE CLAIMS ADJUSTOR - EXTERIOR INTERIOR SPECIALIST [address] [place] [address] [facility] Start: 10-22-2019 Influenza vaccination M [place], [place] Start: 10-14-2015 DTaP/Tdap/Td vaccine (7 - Td) DTaP/Tdap/Td vaccine (7 - Td) [place], [place] Start: 2009 Screening for malign ant neoplasm of cervix Cervical cancer screen [place], [place] Start: 10-12-2007 DTaP/Tdap/Td vaccine (1 - Tdap) DTaP/Tdap/Td vaccine (1 - Tdap) [place] Start: 10-12-2003 HIV screening HIV screen [place], [place] Start: 1994 Pneumococcal 0-64 ye ars Vaccine (1 of 1 - PPSV23) Pneumococcal 0-64 years Vaccine (1 of 1 - PPSV23) [place] Start: 1989 Varicella vaccine (1 of 2 - 2-dose childhood series) Varicella vaccine (1 of 2 - 2-dose childhood series) [place] End: 12-23-2019 Culture, Urine Culture, Urine Microbiology Routine Urinary frequency OAB (overactive bladder) Incomplete bladder emptying 1 Occurrences starting 12/23/2019 until 12/23/2019 [place] Comment on above: 1 Occurrences starti ng 12/23/2019 until 12/23/2019 Culture, Urine [place] End: 07-25-2019 Culture, Urine Culture, Urine Microbiology Routine Urinary frequency 1 Occurrences starting 07/25/2019 until 07/25/2019 [place] Comment on above: 1 Occurrences starti ng 07/25/2019 until 07/25/2019 Payers Date Payer Category Payer Unknown BCBS BCBS xxxxxx [id number] 2022-Present [phone] [address] [place] [address] [id number] 2022 Unknown [id number] 2014 Private Health Insurance [employer] A ETNA NAP CHOICE POS II xxxxxxxxxx 2014-Present [phone] [address] [place] [address] xxxxxxxxxx [id number] 1988 Unknown [id number] .173 1988 Unknown [id number] [id number] .173 1988 Unknown [id number] [id number] .593 1988 Unknown [id number] 2.16.840.1.210846.3.579.2 .1259 1988 Unknown [id number] 2.16.840.1.716826.3.579.2 .9 1988 Unknown [id number] 2.16.840.1.774811.3.579.2 .9 1988 Unknown [id number] 2.16.840.1.812404.3.579.2 .9 1988 Unknown [id number] 2.16.840.1.837181.3.579.2 .9 1988 Unknown [id number] 2.16.840.1.059782.3.579.2 .1258 1988 Unknown [id number] 2.16.840.1.010320.3.579.2 .9 1988 Unknown [id number] 2.16.840.1.739770.3.579.2 .9 1988 Unknown [id number] 2.16.840.1.512475.3.579.2 .9 1988 Unknown [id number] [id number] .1259 1959 Private Health Insurance [id number] Social History Date Type Detail Facility Start: 02-20-2003 End: 08-10-2022 Tobacco smoking status INIS Current every day smoker [facility] Start: 02-20-2003 History of tobacco use Cigarette Smoker [place] Start: 12-23-2019 End: 08-10-2022 Cigarettes smoked current (pack per day) - Reported [facility] Start: 12-23-2019 Tobacco use and exposure Never used [place], [place] Start: 12-23-2019 End: 04-05-2023 Alcohol intake Current drinker of alcohol (finding) [place] Start: 07-25-2019 Alcohol Comment rare [place] Sex Assigned At Not on file [place] Start: 08-10-2022 End: 01-09-2023 Alcohol Use [...] Gender identity Identifies as female gender (finding) [facility] History of Present illness Narrative 04-05-2023 [...] nursing note reviewed. Exam conducted with a web content executive present. Vitals: Estimated body mass index is 35.51 kg/m as calculated from the following: Height as of 10/14/22: 5' 2 . 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 Advance Directives and Living Will Power of Crew Scheduler Summary Purpose Family History No Family History Records FoundNo Family History Records FoundNo Family History Records Found Additional Source Comments INFORMATION SOURCE (unrecogn ized section and content) DATE CREATED AUTHOR 12/25/2019 [facility] DATE CREATED AUTHOR AUTHOR'S ORGANIZ ATION 08/06/2021 [facility] DATE CREATED AUTHOR AUTHOR'S ORGANIZ ATION 09/05/2023 [facility] EPIC Reason for Visit (unrecogniz ed section and content) Reason Comments Routine Visit Care Teams (unrecognized sec tion and content) Silver Lap Machine Tender Relationship Specialty Start Date End Date Brynn Bah MD [address] [place] [address] PCP - General Family Medicine 08/10/22 Ana Rosa Hazel NP [address] [place] [address] PCP - [facility] 09/20/22 FOR RECORDS PERTAINING TO PATIENTS WHO [...] BE BASED ON THE PRIMARY CLINICAL RECORDS. [facility]. provides no warranty or guarantee of the accuracy or completeness of information in this document.
--- NOTE | 2024-03-20 16:22 | PC.NURSE ---
Carlene and 3 week old Chadd arrive for support. Mom gives history of , labor and delivery and breast feeding journey to date. Currently feels baby is nursing well, but latch remains shallow and her nipples tender. Mom explains that baby is frequently gassy, difficult to burp, fussy. Baby frequently has hiccups and struggles to pass gas. Baby weight obtained. Mouth assessed with gloved finger, latched on gloved finger. High arched palate, upper lip tie noted with thick frenulum. 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 Tip of tongue moveable. Referrals given to parents with discussion. Discussed use of body work such as health care aide and Cranial sacral therapy. Sown other options to help baby release gas and baby responds well. Baby to breast as mom usually positions at home. Noted to be on back, head looking over shoulder, shallow latch observed. Mom reports It just hurts . Baby off breast, demo of positioning, and deeper latch. Mom pleased with increased comfort, and increased swallows. Baby nurses 15 minutes well. Burped and to next breast for another 10 minutes. Parents pleased with feeding and will continue to use new positioning and latch. Sent with info about tongue and lip tie with referral list. Will call for further support once baby has been evaluated by pediatric dentist. Will call sooner if feels feedings are more difficult. Leaves ambulatory with no further questions.
== END 2024-03-20 16:43 | disposition home or self-care (01) ==
LOC: FBCO 08:52
PROVIDERS: PCP Family Medicine; Visit Provider Obstetrics & Gynecology
DX: Z39.1 Encounter for care and examination of lactating mother (principal)

== ENCOUNTER 2024-09-02 22:16 | Outpatient (REF) | payer BC, SELFPAY ==
--- OUTSIDE RECORDS SUMMARY | 2024-09-02 13:00 | XMS_ITS | Encounter Summary ---
Author Organization [facility] Address [address] [place] [address] Care Team Providers Care Recycling Assistant Name Role Phone Brynn Bah MD Primary Care Provider [phone] Reason for Visit * Reason Comments Well Women Visit Encounter Details Date Type Department Care Team (Late st Contact Info) Description 09/02/2024 1:00 PM EDT Office Visit [facility] [address] [place] [address] Kvng Dunne, DO [address] [place] [address] Well woman exam with routine gynecological exam; Encounter for surveillance of contraceptive pills; Migraine without aura and without status migrainosus, not intractable ; headache in second trimester ([facility]); Menorrhagia with regular cycle Social History Tobacco Use Types Packs/Day Years Used Date Smoking Tobacco: Every Day Cigarettes Started: 2003 Comments:Patient smokes 11-2 0 cigarettes/day after 31-60 minutes of waking up. Thinking about quitting Alcohol Use Standard Drinks/Week Comments Yes 0 (1 standard drink = 0.6 oz pure alcohol) 5 or 6 drinks; 2 to 4 times a month. caffeine: 1-2 cups/day soda/pop AUDIT-C Answer Date Recorded Q1: How often do you have a drink containing alc ohol? 2-4 times a month 01/09/2023 Q2: How many drinks containi ng alcohol do you have on a typical day when you are drinking? 5 or 6 01/09/2023 Q3: How often do you have si x or more drinks on one occasion? Monthly 01/09/2023 PHQ-2 Answer Date Recorded Patient Health Questionnaire-2 Score 0 05/14/2024 Comments Unknown Sex and Gender Information Value Date Recorded Sex Assigned at Female 08/09/2022 5:11 PM EDT Legal Sex Female 6:48 PM EDT Gender Identity Female 08/09/2022 5:11 PM EDT Sexual Orientation Not on file documented as of this encounter Last Filed Vital Signs Vital Sign Reading Time Taken Comments Blood Pressure 120/82 09/02/2024 1:06 PM EDT Pulse - - Temperature - - Respiratory Rate - - Oxygen Saturation - - Inhaled Oxygen Concentration - - Weight 76.4 kg (168 lb 8 oz) 09/02/2024 1:06 PM EDT Height - - Body Mass Index 30.82 06/12/2024 1:43 PM EDT documented in this encounter Progress Notes * Vivi Rashid MA - 09/02/2024 1:00 PM EDT Reason for Appointment: Patient ID: Carlene Nelson is a 33 y.o. female who presents for [facility] Women Visit Patient presents today for Annual Exam. 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 Deviated nasal septum 06/10/2024 Encounter for gynecological examination (general) (routine) without abnormal findings 06/10/2024 Facet arthropathy, cervical 06/10/2024 Fatigue 06/10/2024 History of abnormal cervical Papanicolaou smear 06/10/2024 History of nasal obstruction 06/10/2024 Incompetent nasal valve 06/10/2024 Increased frequency of urination 06/10/2024 Iron deficiency anemia 06/10/2024 Migraine without aura and without status migrainosus, not intractable 06/10/2024 Other chronic pain 06/10/2024 Slow transit constipation 06/10/2024 Spondylosis without myelopathy 06/10/2024 Status post nasal septoplasty 06/10/2024 Tension headache 06/10/2024 Tingling of left upper extremity 06/10/2024 Tobacco abuse 06/10/2024 Unspecified lump in the right breast, upper outer quadrant 06/10/2024 Urinary tract infectious disease 06/10/2024 Resolved Ambulatory Problems Diagnosis Date Noted Antepartum anemia ([facility]) 02/09/2023 Second trimester ([facility]) 02/09/2023 Third trimester ([facility]) 02/22/2023 Past Medical History: Diagnosis Date Abnormal Pap smear of cervix BMI 23.0-23.9, adult Breast lump on right side at 10 o'clock position Breast lump on right side at 10 o'clock position FOM (frequency of micturition) Frequency of micturition H/O abnormal cervical Papanicolaou smear History of kidney problems Migraines Well woman exam HISTORY PAST MEDICAL HISTORY SOCIAL HISTORY Past Medical History: Diagnosis Date Abnormal Pap smear of cervix BMI 23.0-23.9, adult Breast lump on right side at 10 o'clock position Breast lump on right side at 10 o'clock position Fatigue Fatigue FOM (frequency of micturition) Frequency of micturition H/O abnormal cervical Papanicolaou smear History of kidney problems when infant Migraines Well woman exam Social History Tobacco Use Smoking status: Every Day Types: Cigarettes Start date: 2003 Smokeless tobacco: Not on file Tobacco comments: Patient smokes 11-20 cigarettes/day after 31-60 minutes of waking up. Thinking about quitting Substance Use Topics Alcohol use: Yes Comment: 5 or 6 drinks; 2 to 4 times a month. caffeine: 1-2 cups/day soda/pop Drug use: Never FAMILY HISTORY Family History Problem Relation Name Age of Onset Ovarian cancer Mother Cecilia walden Cancer Mother Cecilia walden Migraines Mother Cecilia walden Migraines Brother Rico sanchez SURGICAL HISTORY Past Surgical History: Procedure Laterality Date SEPTOPLASTY 07/03/2019 Septoplasty/Turbs/Right Latera REVIEW OF SYSTEMS Review of Systems: Review of Systems Constitutional: Negative. HENT: Negative. Eyes: Negative. Respiratory: Negative. Cardiovascular: Negative. Gastrointestinal: Negative. Genitourinary: Negative. Musculoskeletal: Negative. Skin: Negative. Neurological: Negative. All other systems reviewed and are negative. Hematological: Negative. Endocrine: Negative. Allergic/Immunologic: Negative. OBJECTIVE Objective: Physical Exam Constitutional: Appearance: Normal appearance. Genitourinary: Right Adnexa: not tender and no mass present. Left Adnexa: not tender and no mass present. No cervical discharge. Breasts: Breasts are soft. Right: Normal. Left: Normal. HENT: Head: Normocephalic. Nose: Nose normal. Mouth/Throat: Mouth: Mucous membranes are moist. Cardiovascular: Rate and Rhythm: Normal rate. Pulmonary: Effort: Pulmonary effort is normal. Abdominal: General: Bowel sounds are normal. Palpations: Abdomen is soft. Musculoskeletal: General: Normal range of motion. Cervical back: Normal range of motion. Neurological: General: No focal deficit present. Mental Status: She is alert. Skin: General: Skin is warm and dry. Psychiatric: Mood and Affect: Mood normal. Vitals and nursing note reviewed. Exam conducted with a golf caddie present. Vitals: Estimated body mass index is 30.82 kg/m?? as calculated from the following: Height as of 06/12/24: 5' 2 . Weight as of this encounter: 168 lb 8 oz. BP: 120/82 Patient's last menstrual period was 08/31/2024 (approximate). ASSESSMENT & PLAN ICD-10-CM 1. Well woman exam with routine gynecological exam Z01.419 Pap Smear HPV DNA probe, amplified 2. Encounter for surveillance of contraceptive pills Z30.41 POCT , urine manually resulted 3. Migraine without aura and without status migrainosus, not intractable G43.009 Rimegepant Sulfate(Nurtec) 75 MG tablet dispersible US Pelvis w/ TV 4. headache in second trimester ([facility]) O26.892 magnesium oxide (Mag-Ox) 400 (240 Mg) MG tablet R51.9 5. Menorrhagia with regular cycle N92.0 CBC and differential TSH hCG, quantitative, Protime-INR T4, free APTT Hemoglobin A1c US Pelvis w/ TV APTT Annual Exam: Patient presents today for an annual exam. Patient states she is doing well and has complaints of headaches w/periods. Medication Nurtec was sent to pharmacy along w/magnesium. Pap was obtained without difficulty. Orders Placed This Encounter Procedures HPV DNA probe, amplified US Pelvis w/ TV CBC and differential TSH hCG, quantitative, Protime-INR T4, free APTT Hemoglobin A1c POCT , urine manually resulted Follow Up: Patient is to return in one year for annual unless needed otherwise. Documented by Vivi Rashid MA on behalf of: ROM[address]N Forrest Dr. came into room to discuss Tubal ligation and bilateral salpingectomy due to irregular bleeding and have completed child-bearing. Discussed removing skin tags at pre-op appointment. Documented on behalf of Dr. Kvng Dunne, documented in this encounter Plan of Treatment Upcoming Encounters Date Type Department Care Team (Late st Contact Info) Description 09/18/2024 1:00 PM EDT Ancillary Procedure [facility] [address] [address] 09/25/2024 1:30 PM EDT Procedure Visit [facility] [address] [place] [address] Kvng Dunne, [address] [place] [address] Scheduled Orders Name Type Priority Associated Diagnoses Orde r Schedule Pap Smear Pathology and Cytology Routine Well woman exam with routine gynecological exam Ordered: 09/02/2024 HPV DNA probe, amplified Microbiology Routine Well woman exam with routine gynecological exam Ordered: 09/02/2024 CBC and differential Lab Routine Menorrhagia with regular cycle Ordered: 09/02/2024 TSH Lab Routine Menorrhagia with regular cycle Ordered: 09/02/2024 hCG, quantitative, Lab Routine Menorrhagia with regular cycle Ordered: 09/02/2024 Protime-INR Lab Routine Menorrhagia with regular cycle Ordered: 09/02/2024 T4, free Lab Routine Menorrhagia with regular cycle Ordered: 09/02/2024 APTT Lab Routine Menorrhagia with regular cycle Expected: 09/02/2024 (Approximate), Expires: 09/02/2025 Hemoglobin A1c Lab Routine Menorrhagia with regular cycle Ordered: 09/02/2024 US Pelvis w/ TV Imaging Routine Migraine without aura and without status migrainosus, not intractable Menorrhagia with regular cycle Expected: 09/02/2024, Expires: 09/02/2025 documented as of this encounter Procedures Procedure Name Priority Date/Time Associated Diagnosis Comments POCT , URINE Routine 09/02/2024 1:17 PM EDT Encounter for surveillance of contraceptive pills documented in this encounter Results * POCT , urine manually resulted (09/02/2024 1:17 PM EDT) Preg Test, Ur Negative Negative Urine 09/02/2024 1:17 PM EDT [facility] POINT OF CARE TEST ENTER/EDIT OR DERABLES Final Result documented in this encounter Visit Diagnoses Diagnosis Well woman exam with routine gynecological exam Routine gynecological examination Encounter for surveillance of contraceptive pills Migraine without aura and without status migrainosus, not intractable headache in second trimester ([facility]) Menorrhagia with regular cycle documented in this encounter Care Teams Recycling Assistant Relationship Specialty Start Date End Date Brynn Bah MD [address] [place] [address] PCP - General Family Medicine 08/10/22 documented as of this encounter
--- OUTSIDE RECORDS SUMMARY | 2024-09-02 22:18 | XMS_ITS | Encounter Summary ---
Author Organization [facility] Address [address] [place] [address] Care Team Providers Care Power Shear Operator Name Role Phone Brynn Bah MD Primary Care Provider [phone] Ana Rosa Hazel MILKING MACHINE TECHNICIAN Unavailable Encounter Details Date Type Department Care Team (Late st Contact Info) Description 01/05/2023 Clinisync Result Encounter [facility] External Department Unsolicited Bere Andrade PA [address] [place] [address] Dr [place], [place] [id number] Social History Tobacco Use Types Packs/Day Years [...] more drinks on one occasion? Monthly 01/09/2023 Comments Yes Sex and Gender Information Value Date Recorded Sex Assigned at Female 08/09/2022 5:11 PM EDT Legal Sex Female 6:48 PM EDT Gender Identity Female 08/09/2022 5:11 PM EDT Sexual Orientation Not on file COVID-19 Exposure Response Date Recorded In the last 10 days, have myranda u been in contact with someone who was confirmed or suspected to have Coronavirus/COVID-19? No / Unsure 01/04/2023 10:15 AM EST documented as of this encounter Plan of Treatment Upcoming Encounters Date Type Department Care Team (Late st Contact Info) Description 09/18/2024 1:00 PM EDT Ancillary Procedure [facility] [address] [place] [address] 09/25/2024 1:30 PM EDT Procedure Visit [facility] [address] [place] [address] Kvng Dunne DO [address] [place] [address] Dr [place], [place] [id number] documented as of this encounter Procedures Procedure Name Priority Date/Time Associated Diagnosis Comments US OB CERVICAL LENGTH 01/05/2023 7:17 AM EST documented in this encounter Results * US OB CERVICAL LENGTH (01/05/2023 7:17 AM EST) Anatomical Region Laterality Modality Other 01/05/2023 7:17 AM EST Narrative 01/05/2023 7:17 AM EST [address] [address] Ultrasound Report Signed Patient: CARLENE NELSON MR#: [id number] : 1990 Acct:[id number] Age/Sex: 32 / F ADM Date: 01/04/23 Loc: US Attending Dr: Bere Andrade Ordering Physician: Bere Andrade Date of Service: 01/04/23 Procedure(s): US OB cervical length Accession Number(s): [id number] cc: Bere Andrade; Kvng Dunne D.O. The [address] [address] Patient Name: CARLENE NELSON MRN: [id number]:[id number] date: 1990 Sex: F Assigned Patient Location: US Current Patient Location: Accession/Order Number: [id number] Exam Date: 01/04/2023 18:00 Report Date: 01/05/2023 07:17 At the request of: BERE ANDRADE Procedure: US OB cervical length EXAMINATION: US OB anatomy, US OB cervical length HISTORY: ANATOMY SECOND TRIMESTER Z34.92 COMPARISON: No relevant comparison available. TECHNIQUE: Transabdominal sonographic examination was performed for obstetrical and evaluation. FINDINGS: Number: 1 Heart Rate: 145.9 bpm H.B. /min Amniotic Fluid Volume: Subjectively normal position: Cephalic presentation, longitudinal lie Placental Location: Anterior, placental edge 2.7 cm from the internal os. Grade 1 Cervix Length: 5.9 cm , closed Normal anatomy: Lateral ventricles, cerebellum, posterior fossa, nose, lips, orbits, four-chamber heart, RVOT, LVOT, diaphragm, stomach, kidneys, abdominal cord insertion, bladder, umbilical arteries, three-vessel cord, spine, extremities BIOMETRY: BPD: 5.0 cm 21 weeks 1 days , 52% HC: 18.9 cm 21 weeks 1 days, 42% AC: 15.9 cm 21 weeks 0 days, 39% FL: 3.3 cm 20 weeks 2 days , 16% EFW:375.1 grams; 13 ounces, 25% FL/AC: 20.7 FL/BPD: 65.6 HC/AC: 1.2 GESTATIONAL AGE: Age by EDC: 21 weeks 1 days JUAN LUIS by EDC: 05/16/2023 Age by current US: 20 weeks 6 days JUAN LUIS by current US: 05/18/2023 US/US OB cervical length IMPRESSION: Normal anatomy scan *Reference: [facility] Practice Guideline for the performance of Obstetric Ultrasound Examinations, November 20, 2006. Electronically authenticated by: WENDY AU Date: 01/05/2023 07:17 Dictated By: Wendy Au M.D. Signed By: 01/05/23719 DD/ 6 TD/TT: Scheme Technician: Procedure Note Radiology, Radiologist, - 01/05/2023 [place] [address] Ultrasound Report Signed Patient: CARLENE NELSON [facility]#: [id number] : 1990Acct:[id number] Age/Sex: 32 / FADM Date: 01/04/23 Loc: US Attending Dr: Bere Andrade Ordering Physician: Bere Andrade Date of Service: 01/04/23 Procedure(s): US OB cervical length Accession Number(s): [id number] cc: Bere Andrade; Kvng Dunne D.O. [place] [address] Patient Name: CARLENE NELSON MRN: [facility]:[id number] date: 1990 Sex: F Assigned Patient Location: US Current Patient Location: Accession/Order Number: [id number] Exam Date: 01/04/2023 18:00 Report Date: 01/05/2023 07:17 At the request of: BERE ANDRADE Procedure: US OB cervical length EXAMINATION: US OB anatomy, US OB cervical length HISTORY: ANATOMY SECOND TRIMESTER Z34.92 COMPARISON: No relevant comparison available. TECHNIQUE: Transabdominal sonographic examination was performed for obstetrical and evaluation. FINDINGS: Number: 1 Heart Rate: 145.9 bpm H.B. /min Amniotic Fluid Volume: Subjectively normal position: Cephalic presentation, longitudinal lie Placental Location: Anterior, placental edge 2.7 cm from the internal os. Grade 1 Cervix Length: 5.9 cm , closed Normal anatomy: Lateral ventricles, cerebellum, posterior fossa, nose,lips, orbits, four-chamber heart, RVOT, LVOT, diaphragm, stomach, kidneys,abdominal cord insertion, bladder, umbilical arteries, three-vessel cord, spine, extremities BIOMETRY: BPD: 5.0 cm 21 weeks 1 days , 52% HC: 18.9 cm 21 weeks 1 days, 42% AC: 15.9 cm 21 weeks 0 days, 39% FL: 3.3 cm 20 weeks 2 days , 16% EFW:375.1 grams; 13 ounces, 25% FL/AC: 20.7 FL/BPD: 65.6 HC/AC: 1.2 GESTATIONAL AGE: Age by EDC: 21 weeks 1 days JUAN LUIS by EDC: 05/16/2023 Age by current US: 20 weeks 6 days JUAN LUIS by current US: 05/18/2023 US/US OB cervical length IMPRESSION: Normal anatomy scan *Reference: [facility] Practice Guideline for the performance of Obstetric Ultrasound Examinations, November 20, 2006. Electronically authenticated by: WENDY AU Date: 01/05/2023 07:17 Dictated By: Wendy Au M.D. Signed By:01/05/23719 DD/ 6 TD/TT: Scheme Technician: us Bere DOWD [facility] Final Result documented in this encounter Visit Diagnoses Not on filedocumented in this encounter Care Teams Power Shear Operator Relationship Specialty Start Date End Date Brynn Bah MD [address] [place] [address] PCP - General Family Medicine 08/10/22 Ana Rosa Hazel NP PCP - Emmanuel Bellamy 08/20/22 documented as of this encounter
--- OUTSIDE RECORDS SUMMARY | 2024-09-02 22:18 | XMS_ITS | Encounter Summary ---
Author Organization [facility] Address [address] [place] [address] Care Team Providers Care Community Associate Name Role Phone Brennan Church MD Primary Care Provider [phone] Ana Rosa Hazel OVERHEAD CLEANER MAINTAINER Unavailable Encounter Details Date Type Department Care Team (Late st Contact Info) Description 03/27/2023 Clinisync Result Encounter [facility] External Department Unsolicited Provider, Generic External Data Social History Tobacco Use Types Packs/Day Years [...] on file documented as of this encounter Plan of Treatment Upcoming Encounters Date Type Department Care Team (Late st Contact Info) Description 09/18/2024 1:00 PM EDT Ancillary Procedure [facility] [address] [place] [address] 09/25/2024 1:30 PM EDT Procedure Visit [facility] OB [address] [place], [place] [address] [phone] Kvng Dunne, DO [address] [place] [address] [place] [address] documented as of this encounter Procedures Procedure Name Priority Date/Time Associated Diagnosis Comments US OB BPP W NON-STRESS 03/27/2023 3:25 PM EST documented in this encounter Results * US OB BPP W NON-STRESS (03/27/2023 3:25 PM EST) Anatomical Region Laterality Modality Other 03/27/2023 3:25 PM EST Narrative 03/27/2023 3:27 PM EST [place] [id number] Ultrasound Report Signed Patient: CARLENE NELSON MR#: [id number] : 1990 Acct:[id number] Age/Sex: 32 / F ADM Date: 03/27/23 Loc: US Attending Dr: Bere Andrade Ordering Physician: Bere Andrade Date of Service: 03/27/23 Procedure(s): US OB BPP w non-stress Accession Number(s): [id number] cc: Bere Andrade; BRENNAN CHURCH [address] [address] Patient Name: CARLENE NELSON MRN: [id number] date: 1990 Sex: F Assigned Patient Location: [facility] Current Patient Location: Accession/Order Number: [id number] Exam Date: 03/27/2023 14:00 Report Date: 03/27/2023 15:25 At the request of: BERE ANDRADE Procedure: US OB BPP w non-stress EXAMINATION: US OB BPP w non-stress HISTORY: EXCESSIVE GROWTH O36.63X0 COMPARISON: No relevant comparison available. TECHNIQUE: Ultrasound biophysical profile was performed in the radiology department. non-reactive stress testing was performed by nursing staff in the birthing center. FINDINGS: BREATHING MOVEMENTS: 2.0 GROSS BODY MOVEMENTS: 2.0 TONE: 2.0 QUALITATIVE AMNIOTIC FLUID VOLUME: 2.0 PRESENTATION: CEPHALIC HEART RATE: 138.5 bpm H.B./min AMNIOTIC FLUID VOLUME: 13.3 cm cm GESTATIONAL AGE: 32 weeks 6 days CONCLUSION: Total biophysical profile score: 8.0 Electronically authenticated by: WNEDY AU Date: 03/27/2023 15:25 Dictated By: Wendy Au M.D. Signed By: 03/27/23 1527 DD/ 1525 TD/TT: Displayer Merchandise: Procedure Note Radiology, Radiologist, - 04/26/[address] [address] Ultrasound Report Signed Patient: CARLENE NELSON MMR#: [id number] : 1990Acct:[id number] Age/Sex: 32 / FADM Date: 03/27/23 Loc: US Attending Dr: Bere Andrade Ordering Physician: Bere Andrade Date of Service: 03/27/23 Procedure(s): US OB BPP w non-stress Accession Number(s): [id number] cc: Bere Andrade; BRENNAN CHURCH [address] [address] Patient Name: CARLENE NELSON MRN: [id number] date: 1990 Sex: F Assigned Patient Location: [facility] Current Patient Location: Accession/Order Number: [id number] Exam Date: 03/27/2023 14:00 Report Date: 03/27/2023 15:25 At the request of: BERE ANDRADE Procedure: US OB BPP w non-stress EXAMINATION: US OB BPP w non-stress HISTORY: EXCESSIVE GROWTH O36.63X0 COMPARISON: No relevant comparison available. TECHNIQUE: Ultrasound biophysical profile was performed in the radiology department. non-reactive stress testing was performed by nursingstaff in the birthing center. FINDINGS: BREATHING MOVEMENTS: 2.0 GROSS BODY MOVEMENTS: 2.0 TONE: 2.0 QUALITATIVE AMNIOTIC FLUID VOLUME: 2.0 PRESENTATION: CEPHALIC HEART RATE: 138.5 bpm H.B./min AMNIOTIC FLUID VOLUME: 13.3 cm cm GESTATIONAL AGE: 32 weeks 6 days CONCLUSION: Total biophysical profile score: 8.0 Electronically authenticated by: WENDY AU Date: 03/27/2023 15:25 Dictated By: Wendy Au M.D. Signed By:03/27/23 1527 DD/ 1525 TD/TT: Displayer Merchandise: Generic External Data Provider [facility] Final Result documented in this encounter Visit Diagnoses Not on filedocumented in this encounter Care Teams Community Associate Relationship Specialty Start Date End Date Brennan Church MD [address] [place] [address] PCP - General Family Medicine 08/10/22 Ana Rosa Hazel NP PCP - [employer] 08/20/22 documented as of this encounter
--- OUTSIDE RECORDS SUMMARY | 2024-09-02 22:18 | XMS_ITS | Encounter Summary ---
Author Organization [facility] Address [address] [place] [address] Care Team Providers Care Milk Pasteurizer Name Role Phone Brennan Church MD Primary Care Provider [phone] Ana Rosa Hazel SOCIAL SERVICES ASSISTANT Unavailable Encounter Details Date Type Department Care Team (Late st Contact Info) Description 04/25/2023 Clinisync Result Encounter [facility] External Department Unsolicited [...] PM EDT Ancillary Procedure [facility] [address] [place] [address] [place] [address] 09/25/2024 1:30 PM EDT Procedure Visit [facility] OB [address] [place], [place] [address] [phone] Kvng Dunne, DO [address] [place] [address] [place] [address] documented as of this encounter Procedures Procedure Name Priority Date/Time Associated Diagnosis Comments US OB BPP W NON-STRESS 04/25/2023 7:42 AM EST documented in this encounter Results * US OB BPP W NON-STRESS (04/25/2023 7:42 AM EST) Anatomical Region Laterality Modality Other 04/25/2023 7:42 AM EST Narrative 04/25/2023 7:44 AM EST [place] [id number] Ultrasound Report Signed Patient: CARLENE NELSON MR#: [id number] : 1990 Acct:[id number] Age/Sex: 32 / F ADM Date: 04/24/23 Loc: US Attending Dr: Bere Andrade Ordering Physician: Bere Andrade Date of Service: 04/24/23 Procedure(s): US OB BPP w non-stress Accession Number(s): [id number] cc: Bere Andrade; BRENNAN CHURCH [address] [address] Patient Name: CARLENE NELSON MRN: [id number] date: 1990 Sex: F Assigned Patient Location: [facility] Current Patient Location: [facility] Accession/Order Number: [id number] Exam Date: 04/24/2023 16:04 Report Date: 04/25/2023 07:42 At the request of: BERE ANDRADE Procedure: US OB BPP w non-stress EXAMINATION: US OB BPP w non-stress HISTORY: EXCESSIVE GROWTH AFFECTING O36.63X0 COMPARISON: No relevant comparison available. TECHNIQUE: Ultrasound biophysical profile was performed in the radiology department. FINDINGS: BREATHING MOVEMENTS: 2.0 GROSS BODY MOVEMENTS: 2.0 TONE: 2.0 QUALITATIVE AMNIOTIC FLUID VOLUME: 2.0 PRESENTATION: CEPHALIC HEART RATE: 135.0 bpm H.B./min AMNIOTIC FLUID VOLUME: 13.0 cm cm GESTATIONAL AGE: 36 weeks 6 days CONCLUSION: Total biophysical profile score: 8.0 Electronically authenticated by: WENDY AU Date: 04/25/2023 07:42 Dictated By: Wendy Au M.D. Signed By: 04/25/2344 DD/ TD/TT: Director Of Audiology: Procedure Note Radiology, Radiologist, - 04/25/2023 [place] [address] Ultrasound Report Signed Patient: CARLENE NELSON MMR#: [id number] : 1990Acct:[id number] Age/Sex: 32 / FADM Date: 04/24/23 Loc: US Attending Dr: Bere Andrade Ordering Physician: Bere Andrade Date of Service: 04/24/23 Procedure(s): US OB BPP w non-stress Accession Number(s): [id number] cc: Bere Andrade; BRENNAN CHURCH [place] [id number] Patient Name: CARLENE NELSON MRN: [facility]:[id number] date: 1990 Sex: F Assigned Patient Location: [facility] Current Patient Location: [facility] Accession/Order Number: [id number] Exam Date: 04/24/2023 16:04 Report Date: 04/25/2023 07:42 At the request of: BERE ANDRADE Procedure: US OB BPP w non-stress EXAMINATION: US OB BPP w non-stress HISTORY: EXCESSIVE GROWTH AFFECTING O36.63X0 COMPARISON: No relevant comparison available. TECHNIQUE: Ultrasound biophysical profile was performed in the radiology department. FINDINGS: BREATHING MOVEMENTS: 2.0 GROSS BODY MOVEMENTS: 2.0 TONE: 2.0 QUALITATIVE AMNIOTIC FLUID VOLUME: 2.0 PRESENTATION: CEPHALIC HEART RATE: 135.0 bpm H.B./min AMNIOTIC FLUID VOLUME: 13.0 cm cm GESTATIONAL AGE: 36 weeks 6 days CONCLUSION: Total biophysical profile score: 8.0 Electronically authenticated by: WENDY AU Date: 04/25/2023 07:42 Dictated By: Wendy Au M.D. Signed By:04/25/2344 DD/ TD/TT: Director Of Audiology: us Generic External Data Provider [facility] Final Result documented in this encounter Visit Diagnoses Not on filedocumented in this encounter Care Teams Milk Pasteurizer Relationship Specialty Start Date End Date Brennan Church MD [address] [place] [address] PCP - General Family Medicine 08/10/22 Ana Rosa Hazel NP PCP - [place] [employer] 08/20/22 documented as of this encounter
--- OUTSIDE RECORDS SUMMARY | 2024-09-02 22:18 | XMS_ITS | Encounter Summary ---
Author Organization [facility] Address [address] [place] [address] Care Team Providers Care Outpatient Therapist Name Role Phone Brennan Church MD Primary Care Provider [phone] Ana Rosa Hazel COMPUTER ASSEMBLER Unavailable Encounter Details Date Type Department Care Team (Late st Contact Info) Description 04/19/2023 Clinisync Result Encounter [facility] External Department Unsolicited [...] EDT Ancillary Procedure [facility] OB [address] [place] [address] 09/25/2024 1:30 PM EDT Procedure Visit [facility] [address] [facility] [place] [address] Jessica Dunne, DO [address] [place] [address] [place] [address] documented as of this encounter Procedures Procedure Name Priority Date/Time Associated Diagnosis Comments US OB GROWTH 04/19/2023 3:36 PM EST documented in this encounter Results * US OB GROWTH (04/19/2023 3:36 PM EST) Anatomical Region Laterality Modality Other 04/19/2023 3:36 PM EST Narrative 04/19/2023 3:39 [place] [address] Ultrasound Report Signed Patient: CARLENE NELSON MR#: [id number] : 1990 Acct:[id number] Age/Sex: 32 / F ADM Date: 04/19/23 Loc: [facility] Attending Dr: Jessica Dunne D.O. Ordering Physician: Jessica Dunne D.O. Date of Service: 04/19/23 Procedure(s): US OB growth Accession Number(s): [id number] cc: BRENNAN CHURCH Corey D.O. The [address] [address] Patient Name: CARLENE NELSON MRN: [id number] date: 1990 Sex: F Assigned Patient Location: [facility] Current Patient Location: [facility] Accession/Order Number: [id number] Exam Date: 04/19/2023 15:02 Report Date: 04/19/2023 15:36 At the request of: JESSICA DUNNE Procedure: US OB growth EXAMINATION: US OB growth HISTORY: LGA COMPARISON: No relevant comparison available. FINDINGS: Heart Rate: 144.0 bpm Amniotic Fluid Volume: 7.0 cm, oligohydramnios Number: 1.0 Position: Cephalic presentation, longitudinal lie Maximum Vertical Pocket: 1.0 cm cm 5.0 cm cm 0.0 cm cm 1.0 cm cm BIOMETRY: BPD: 9.0 cm cm; 36 weeks 4 days; 73% HC: 33.8 cmcm; 38 weeks 5 days , 81% AC: 36.0 cm cm; 39 weeks 6 days, > 97% FL: 7.3 cm cm; 37 weeks 2 days; 73.5 % % EFW: 3591.4 grams, 7 lbs. 15 oz., greater than 97% FL/AC: 20.2 FL/BPD: 80.4 HC/AC: 0.9 GESTATIONAL AGE: Age by EDC: 36 weeks 1 days JUAN LUIS by EDC: 05/16/2023 Age by US: 38 weeks 1 day JUAN LUIS by US: 05/02/2023 Bere Zavala was advised of the findings by the technologist at the time of exam US/US OB growth IMPRESSION: Oligohydramnios Large for gestational age, estimated weight greater than 97% Electronically authenticated by: WENDY AU Date: 04/19/2023 15:36 Dictated By: Wendy Au M.D. Signed By: 04/19/23 1539 DD/ TD/TT: Gold Leaf Printer: Procedure Note Radiology, Radiologist, MD - 04/26/2023 [place] [address] Ultrasound Report Signed Patient: CARLENE NELSON MMR#: [id number] : 1990Acct:[id number] Age/Sex: 32 / FADM Date: 04/19/23 Loc: [facility]OM[facility] Attending Dr: Jessica Dunne D.O. Ordering Physician: Jessica Dunne D.O. Date of Service: 04/19/23 Procedure(s): US OB growth Accession Number(s): [id number] cc: BRENNAN CHURCH ; Jessica Dunne D.O. The [address] [address] Patient Name: CARLENE NELSON MRN: [id number] date: 1990 Sex: F Assigned Patient Location: [facility] Current Patient Location: [facility] Accession/Order Number: [id number] Exam Date: 04/19/2023 15:02 Report Date: 04/19/2023 15:36 At the request of: JESSICA DUNNE Procedure: US OB growth EXAMINATION: US OB growth HISTORY: LGA COMPARISON: No relevant comparison available. FINDINGS: Heart Rate: 144.0 bpm Amniotic Fluid Volume: 7.0 cm, oligohydramnios Number: 1.0 Position: Cephalic presentation, longitudinal lie Maximum Vertical Pocket: 1.0 cm cm 5.0 cm cm 0.0 cm cm 1.0 cm cm BIOMETRY: BPD: 9.0 cm cm; 36 weeks 4 days; 73% HC: 33.8 cmcm; 38 weeks 5 days , 81% AC: 36.0 cm cm; 39 weeks 6 days, > 97% FL: 7.3 cm cm; 37 weeks 2 days; 73.5 % % EFW: 3591.4 grams, 7 lbs. 15 oz., greater than 97% FL/AC: 20.2 FL/BPD: 80.4 HC/AC: 0.9 GESTATIONAL AGE: Age by EDC: 36 weeks 1 days JUAN LUIS by EDC: 05/16/2023 Age by US: 38 weeks 1 day JUAN LUIS by US: 05/02/2023 Bere Zavala was advised of the findings by the technologist at the time ofexam US/US OB growth IMPRESSION: Oligohydramnios Large for gestational age, estimated weight greater than 97% Electronically authenticated by: WENDY AU Date: 04/19/2023 15:36 Dictated By: Wendy Au M.D. Signed By:04/19/23 1539 DD/ 35 TD/TT: Gold Leaf Printer: us Generic External Data Provider [facility] Final Result documented in this encounter Visit Diagnoses Not on filedocumented in this encounter Care Teams Outpatient Therapist Relationship Specialty Start Date End Date Brennan hCurch MD [address] [place] [address] PCP - General Family Medicine 08/10/22 Ana Rosa Hazel NP PCP - Emmanuel Bellamy 08/20/22 documented as of this encounter
--- OUTSIDE RECORDS SUMMARY | 2024-09-02 22:18 | XMS_ITS | Encounter Summary ---
Author Organization [facility] Address [address] [place] [address] Care Team Providers Care Business Information Analyst Name Role Phone Brynn Bah MD Primary Care Provider [phone] Encounter Details Date Type Department Care Team (Late st Contact Info) Description 09/02/2024 Bamboo flowsheet [facility] OB [address] [place] [address] Kvng Dunne, DO [address] [place], [facility]11 Social History Tobacco Use Types Packs/Day Years [...] 09/18/2024 1:00 PM EDT Ancillary Procedure [facility] OB [address] [place] [address] 09/25/2024 1:30 PM EDT Procedure Visit [facility] OB [address] [facility] [place] [address] Kvng Dunne, [address] [place] [address] documented as of this encounter Visit Diagnoses Not on filedocumented in this encounter Care Teams Business Information Analyst Relationship Specialty Start Date End Date Brynn Bah MD [address] [place] [address] PCP - General Family Medicine 08/10/22 documented as of this encounter
--- OUTSIDE RECORDS SUMMARY | 2024-09-02 22:18 | XMS_ITS | Encounter Summary ---
Author Organization [facility] Address [address] [place] [address] Care Team Providers Care Transmission Calibration Engineer Name Role Phone Brynn Bah MD Primary Care Provider [phone] Ana Rosa Hazel DIET CLERK Unavailable Encounter Details Date Type Department Care Team (Late st Contact Info) Description 01/05/2023 Clinisync Result Encounter [facility] External Department Unsolicited Bere Andrade PA [address] [place] [address] [place], [place] [id number] Social History Tobacco Use Types Packs/Day Years [...] In the last 10 days, have myranda lance been in contact with someone who was confirmed or suspected to have Coronavirus/COVID-19? No / Unsure 01/04/2023 10:15 AM EST documented as of this encounter Plan of Treatment Upcoming Encounters Date Type Department Care Team (Late st Contact Info) Description 09/18/2024 1:00 PM EDT Ancillary Procedure [facility] [address] [place] [phone] 09/25/2024 1:30 PM EDT Procedure Visit [facility] [address] [place], [place] [address] [address] Kvng Dunne DO [address] [place] [address] [place], [place] [phone] documented as of this encounter Procedures Procedure Name Priority Date/Time Associated Diagnosis Comments US OB ANATOMY 01/05/2023 7:17 AM EST documented in this encounter Results * US OB ANATOMY (01/05/2023 7:17 AM EST) Anatomical Region Laterality Modality Other 01/05/2023 7:17 AM EST Narrative 01/05/2023 7:17 AM EST [address] [address] Ultrasound Report Signed Patient: CARLENE NELSON MR#: [id number] : 1990 Acct:[id number] Age/Sex: 32 / F ADM Date: 01/04/23 Loc: US Attending Dr: Bere Andrade Ordering Physician: Bere Andrade Date of Service: 01/04/23 Procedure(s): US OB anatomy Accession Number(s): [id number] cc: Bere Andrade; Kvng Dunne D.O. The [address] [address] Patient Name: CARLENE NELOSN MRN: [id number] date: 1990 Sex: F Assigned Patient Location: US Current Patient Location: Accession/Order Number: [id number] Exam Date: 01/04/2023 18:00 Report Date: 01/05/2023 07:17 At the request of: BERE ANDRADE Procedure: US OB anatomy EXAMINATION: US OB anatomy, US OB cervical [...] LUIS by current US: 05/18/2023 US/US OB anatomy IMPRESSION: Normal anatomy scan *Reference: [facility] Practice Guideline for the performance of Obstetric Ultrasound Examinations, November 20, 2006. Electronically authenticated by: WENDY AU Date: 01/05/2023 07:17 Dictated By: Wendy Au M.D. Signed By: 01/05/23719 DD/ 6 TD/TT: Pumper Gauger: Procedure Note Radiology, Radiologist, - 01/05/2023 [place] [address] Ultrasound Report Signed Patient: CARLENE NELSON [facility]#: [id number] : 1990Acct:[id number] Age/Sex: 32 / FADM Date: 01/04/23 Loc: US Attending Dr: Bere Andrade Ordering Physician: Bere Andrade Date of Service: 01/04/23 Procedure(s): US OB anatomy Accession Number(s): [id number] cc: Bere Andrade; Kvng Dunne D.O. [place] [address] Patient Name: CARLENE NELSON MRN: [facility]:[id number] date: 1990 Sex: F Assigned Patient Location: US Current Patient Location: Accession/Order Number: [id number] Exam Date: 01/04/2023 18:00 Report Date: 01/05/2023 07:17 At the request of: BERE ANDRADE Procedure: US OB anatomy EXAMINATION: US OB anatomy, US OB cervical [...] LUIS by current US: 05/18/2023 US/US OB anatomy IMPRESSION: Normal anatomy scan *Reference: [facility] Practice Guideline for the performance of Obstetric Ultrasound Examinations, November 20, 2006. Electronically authenticated by: WENDY AU Date: 01/05/2023 07:17 Dictated By: Wendy Au M.D. Signed By:01/05/23719 DD/ 6 TD/TT: Pumper Gauger: us Bere DOWD [facility] Final Result documented in this encounter Visit Diagnoses Not on filedocumented in this encounter Care Teams Transmission Calibration Engineer Relationship Specialty Start Date End Date Brynn Bah MD [address] [place] [address] PCP - General Family Medicine 08/10/22 Ana Rosa Hazel NP PCP - Emmanuel Bellamy 08/20/22 documented as of this encounter
--- OUTSIDE RECORDS SUMMARY | 2024-09-02 22:18 | XMS_ITS | Encounter Summary ---
Author Organization [facility] Address [address] [place] [address] Care Team Providers Care Trimmer Meat Name Role Phone Brennan Church MD Primary Care Provider [phone] Ana Rosa Hazel MANAGEMENT SCIENTIST Unavailable Encounter Details Date Type Department Care Team (Late st Contact Info) Description 04/04/2023 Clinisync Result Encounter [facility] External Department Unsolicited [...] EDT Ancillary Procedure [facility] [address] [facility] [address] 09/25/2024 1:30 PM EDT Procedure Visit [facility] OB [address] [place] [address] [place] [address] Jessica Dunne, DO [address] [place] [address] [place] [address] documented as of this encounter Procedures Procedure Name Priority Date/Time Associated Diagnosis Comments US OB BPP W NON-STRESS 04/04/2023 7:10 AM EST documented in this encounter Results * US OB BPP W NON-STRESS (04/04/2023 7:10 AM EST) Anatomical Region Laterality Modality Other 04/04/2023 7:10 AM EST Narrative 04/04/2023 7:12 [place] [address] Ultrasound Report Signed Patient: CARLENE NELSON MR#: [id number] : 1990 Acct:[id number] Age/Sex: 32 / F ADM Date: 04/03/23 Loc: US Attending Dr: Jessica Dunne D.O. Ordering Physician: Jessica Dunne D.O. Date of Service: 04/03/23 Procedure(s): US OB BPP w non-stress Accession Number(s): [id number] cc: BRENNAN CHURCH ; Jessica Dunne D.O. [address] [address] Patient Name: CARLENE NELSON MRN: [id number] date: 1990 Sex: F Assigned Patient Location: [facility] Current Patient Location: Accession/Order Number: [id number] Exam Date: 04/03/2023 16:07 Report Date: 04/04/2023 07:10 At the request of: JESSICA DUNNE Procedure: US OB BPP w non-stress EXAMINATION: US OB BPP w non-stress HISTORY: EXCESSIVE GROWTH AFFECTING O36.63X0 COMPARISON: No relevant comparison available. TECHNIQUE: Ultrasound biophysical profile was performed in the radiology department. FINDINGS: BREATHING MOVEMENTS: 2.0 GROSS BODY MOVEMENTS: 2.0 TONE: 2.0 QUALITATIVE AMNIOTIC FLUID VOLUME: 2.0 PRESENTATION: CEPHALIC HEART RATE: 136.4 bpm H.B./min AMNIOTIC FLUID VOLUME: 11.4 cm cm GESTATIONAL AGE: 33 weeks 6 days CONCLUSION: Total biophysical profile score: 8.0 Electronically authenticated by: WENDY AU Date: 04/04/2023 07:10 Dictated By: Wendy Au M.D. Signed By: 04/04/23711 DD/ 9 TD/TT: [employer] Floorperson: Procedure Note Radiology, Radiologist, - 04/26/2023 [place] [address] Ultrasound Report Signed Patient: CARLENE NELSON MMR#: [id number] : 1990Acct:[id number] Age/Sex: 32 / FADM Date: 04/03/23 Loc: US Attending Dr: Jessica Dunne D.O. Ordering Physician: Jessica Dunne D.O. Date of Service: 04/03/23 Procedure(s): US OB BPP w non-stress Accession Number(s): [id number] cc: BRENNAN CHURCH ; Jessica Dunne D.O. The [address] [address] Patient Name: CARLENE NELSON MRN: [id number] date: 1990 Sex: F Assigned Patient Location: [facility] Current Patient Location: Accession/Order Number: [id number] Exam Date: 04/03/2023 16:07 Report Date: 04/04/2023 07:10 At the request of: JESSICA DUNNE Procedure: US OB BPP w non-stress EXAMINATION: US OB BPP w non-stress HISTORY: EXCESSIVE GROWTH AFFECTING O36.63X0 COMPARISON: No relevant comparison available. TECHNIQUE: Ultrasound biophysical profile was performed in the radiology department. FINDINGS: BREATHING MOVEMENTS: 2.0 GROSS BODY MOVEMENTS: 2.0 TONE: 2.0 QUALITATIVE AMNIOTIC FLUID VOLUME: 2.0 PRESENTATION: CEPHALIC HEART RATE: 136.4 bpm H.B./min AMNIOTIC FLUID VOLUME: 11.4 cm cm GESTATIONAL AGE: 33 weeks 6 days CONCLUSION: Total biophysical profile score: 8.0 Electronically authenticated by: WENDY AU Date: 04/04/2023 07:10 Dictated By: Wendy Au M.D. Signed By:04/04/23711 DD/ 9 TD/TT: [employer] Floorperson: us Generic External Data Provider [facility] Final Result documented in this encounter Visit Diagnoses Not on filedocumented in this encounter Care Teams Trimmer Meat Relationship Specialty Start Date End Date Brennan Church MD [address] [place] [address] PCP - General Family Medicine 08/10/22 Ana Rosa Hazel NP PCP - [place] [employer] 08/20/22 documented as of this encounter
--- OUTSIDE RECORDS SUMMARY | 2024-09-02 22:18 | XMS_ITS | Encounter Summary ---
Author Organization [facility] Address [address] [place] [address] Care Team Providers Care Chain Offbearer Name Role Phone Brennan Church MD Primary Care Provider [phone] Ana Rosa Hazel MBA INTERNSHIP Unavailable Encounter Details Date Type Department Care Team (Late st Contact Info) Description 04/10/2023 Clinisync Result Encounter [facility] External Department Unsolicited [...] EDT Ancillary Procedure [facility] [address] [place] [address] 09/25/2024 1:30 PM EDT Procedure Visit [facility] [address] [place], [place] [address] [address] Kvng Dunne, DO [address] [place] [address] [place] [address] documented as of this encounter Procedures Procedure Name Priority Date/Time Associated Diagnosis Comments US OB BPP W NON-STRESS 04/10/2023 2:37 PM EST documented in this encounter Results * US OB BPP W NON-STRESS (04/10/2023 2:37 PM EST) Anatomical Region Laterality Modality Other 04/10/2023 2:37 PM EST Narrative 04/10/2023 2:40 [place] [address] Ultrasound Report Signed Patient: CARLENE NELSON MR#: [id number] : 1990 Acct:[id number] Age/Sex: 32 / F ADM Date: 04/10/23 Loc: [facility] 250-[address]: Bere Andrade Ordering Physician: Bere Andrade Date of Service: 04/10/23 Procedure(s): US OB BPP w non-stress Accession Number(s): [id number] cc: Bere Andrade; BRENNAN CHURCH [place] [id number] Patient Name: CARLENE NELSON MRN: [id number] date: 1990 Sex: F Assigned Patient Location: US Current Patient Location: [facility] Accession/Order Number: [id number] Exam Date: 04/10/2023 13:56 Report Date: 04/10/2023 14:37 At the request of: BERE ANDRADE Procedure: US OB BPP w non-stress EXAMINATION: US OB BPP w non-stress HISTORY: EXCESSIVE GROWTH O36.63X0 COMPARISON: Ultrasound OB biophysical 04/03/2023 TECHNIQUE: Ultrasound biophysical profile was performed in the radiology department. BREATHING MOVEMENTS: 2.0 GROSS BODY MOVEMENTS: 2.0 TONE: 2.0 QUALITATIVE AMNIOTIC FLUID VOLUME: 2.0 PRESENTATION: CEPHALIC HEART RATE: 137.1 bpm bpm. AMNIOTIC FLUID VOLUME: 11.8 cm GESTATIONAL AGE: 34 weeks 6 days CONCLUSION: Total biophysical profile score 8.0. Electronically authenticated by: WOJCIECH GAO Date: 04/10/2023 14:37 Dictated By: Wojciech Gao M.D. Signed By: 04/10/23 1440 DD/ 1437 TD/TT: Mold Laminator: Procedure Note Radiology, Radiologist, - 04/26/2023 [place] [address] Ultrasound Report Signed Patient: CARLENE NELSON MMR#: [id number] : 1990Acct:[id number] Age/Sex: 32 / FADM Date: 04/10/23 Loc: [facility] 250-[address]: Bere Andrade Ordering Physician: Bere Andrade Date of Service: 04/10/23 Procedure(s): US OB BPP w non-stress Accession Number(s): [id number] cc: Bere Andrade; BRENNAN CHURCH [place] [id number] Patient Name: CARLENE NELSON MRN: [id number] date: 1990 Sex: F Assigned Patient Location: US Current Patient Location: [facility] Accession/Order Number: [id number] Exam Date: 04/10/2023 13:56 Report Date: 04/10/2023 14:37 At the request of: BERE ANDRADE Procedure: US OB BPP w non-stress EXAMINATION: US OB BPP w non-stress HISTORY: EXCESSIVE GROWTH O36.63X0 COMPARISON: Ultrasound OB biophysical 04/03/2023 TECHNIQUE: Ultrasound biophysical profile was performed in the radiology department. BREATHING MOVEMENTS: 2.0 GROSS BODY MOVEMENTS: 2.0 TONE: 2.0 QUALITATIVE AMNIOTIC FLUID VOLUME: 2.0 PRESENTATION: CEPHALIC HEART RATE: 137.1 bpm bpm. AMNIOTIC FLUID VOLUME: 11.8 cm GESTATIONAL AGE: 34 weeks 6 days CONCLUSION: Total biophysical profile score 8.0. Electronically authenticated by: WOJCIECH GAO Date: 04/10/2023 14:37 Dictated By: Wojciech Gao M.D. Signed By:04/10/23 1440 DD/ 1437 TD/TT: Mold Laminator: Generic External Data Provider [facility] Final Result documented in this encounter Visit Diagnoses Not on filedocumented in this encounter Care Teams Chain Offbearer Relationship Specialty Start Date End Date Brennan Church MD [address] [place] [address] PCP - General Family Medicine 08/10/22 Ana Rosa Hazel NP PCP - [place] 08/20/22 documented as of this encounter
--- OUTSIDE RECORDS SUMMARY | 2024-09-02 22:18 | XMS_ITS | Encounter Summary ---
Author Organization [facility] Address [address] [place] [address] Care Team Providers Care Manager Brand Name Role Phone Brennan Church MD Primary Care Provider [phone] Ana Rosa Hazel CAMPAIGN MANAGEMENT SPECIALIST Unavailable Encounter Details Date Type Department Care Team (Late st Contact Info) Description 04/21/2023 Clinisync Result Encounter [facility] External Department Unsolicited [...] PM EDT Ancillary Procedure [facility] [address] [place] [address] [place] [address] 09/25/2024 1:30 PM EDT Procedure Visit [facility] OB [address] [place] [address] [place] [address] Jessica Dunne, DO [address] [place] [address] [place] [address] documented as of this encounter Procedures Procedure Name Priority Date/Time Associated Diagnosis Comments US OB BPP W NON-STRESS 04/21/2023 8:11 PM EST documented in this encounter Results * US OB BPP W NON-STRESS (04/21/2023 8:11 PM EST) Anatomical Region Laterality Modality Other 04/21/2023 8:11 PM EST Narrative 04/21/2023 8:14 [place] [address] Ultrasound Report Signed Patient: CARLENE NELSON MR#: [id number] : 1990 Acct:[id number] Age/Sex: 32 / F ADM Date: 04/21/23 Loc: [facility] Attending Dr: Jessica Dunne D.O. Ordering Physician: Jessica Dunne D.O. Date of Service: 04/21/23 Procedure(s): US OB BPP w non-stress Accession Number(s): [id number] cc: BRENNAN CHURCH ; Jessica Dunne D.O. [address] [id number] Patient Name: CARLENE NELSON MRN: [id number] date: 1990 Sex: F Assigned Patient Location: [facility] Current Patient Location: Accession/Order Number: [id number] Exam Date: 04/21/2023 18:33 Report Date: 04/21/2023 20:11 At the request of: JESSICA DUNNE Procedure: US OB BPP w non-stress US OB BPP w non-stress, 04/21/2023 5:33 PM NEGATIVE CLEANER: History: well-being. Comparison: None Technique: Transabdominal grayscale and color Doppler imaging of the fetus was performed with particular attention paid to the elements of biophysical profile over 30 minutes. Findings: There is a single live intrauterine gestation in the cephalic presentation. The placenta is anterior. The LEOBARDO measures 11.3 centimeters. There is cardiac motion present at 123 bpm. BPP: Tone-2 Movement-2 Breathing-2 Amniotic fluid volume-2 Total: 09/27 US/US OB BPP w non-stress Impression: Normal BPP of 09/27. Electronically authenticated by: TRINA GAINES Date: 04/21/2023 20:11 Dictated By: Trina Gaines III, M.D. Signed By: 04/21/232013 DD/ 10 TD/TT: Assembling Machine Operator: Procedure Note Radiology, Radiologist, MD - 04/26/2023 [place] [address] Ultrasound Report Signed Patient: CARLENE NELSON MMR#: [id number] : 1990Acct:[id number] Age/Sex: 32 / FADM Date: 04/21/23 Loc: [facility] Attending Dr: Jessica Dunne D.O. Ordering Physician: Jessica Dunne D.O. Date of Service: 04/21/23 Procedure(s): US OB BPP w non-stress Accession Number(s): [id number] cc: BRENNAN CHURCH ; Jessica Dunne D.O. The [place] [id number] Patient Name: CARLENE NELSON MRN: [id number] date: 1990 Sex: F Assigned Patient Location: [facility] Current Patient Location: Accession/Order Number: [id number] Exam Date: 04/21/2023 18:33 Report Date: 04/21/2023 20:11 At the request of: JESSICA DUNNE Procedure: US OB BPP w non-stress US OB BPP w non-stress, 04/21/2023 5:33 PM NEGATIVE CLEANER: History: well-being. Comparison: None Technique: Transabdominal grayscale and color Doppler imaging of the fetuswas performed with particular attention paid to the elements of fetalbiophysical profile over 30 minutes. Findings: There is a single live intrauterine gestation in the cephalicpresentation. The placenta is anterior. The LEOBARDO measures 11.3 centimeters. There is cardiac motion present at 123 bpm. BPP: Tone-2 Movement-2 Breathing-2 Amniotic fluid volume-2 Total: 09/27 US/US OB BPP w non-stress Impression: Normal BPP of 09/27. Electronically authenticated by: TRINA GAINES Date: 04/21/2023 20:11 Dictated By: Trina Gaines III, M.D. Signed By:04/21/232013 DD/ 10 TD/TT: Assembling Machine Operator: us Generic External Data Provider [facility] Final Result documented in this encounter Visit Diagnoses Not on filedocumented in this encounter Care Teams Manager Brand Relationship Specialty Start Date End Date Brennan Church MD [address] [place] [address] PCP - General Family Medicine 08/10/22 Ana Rosa Hazel NP PCP - [place] [employer] 08/20/22 documented as of this encounter
--- OUTSIDE RECORDS SUMMARY | 2024-09-02 22:18 | XMS_ITS | Encounter Summary ---
Author Organization [facility] Address [address] [place] [address] Care Team Providers Care Datawarehouse Developer Name Role Phone Brynn Bah MD Primary Care Provider Ana Rosa Hazel SHEET METAL LAY OUT WORKER Unavailable Encounter Details Date Type Department Care Team (Late st Contact Info) Description 11/12/2022 Abstract [facility] OB [address] [facility] [place] [address] Kvng Dunne, DO [address] [facility] [place] [address] Social History Tobacco Use Types Packs/Day Years Used Date Smoking Tobacco: Every Day Cigarettes Started: 2003 Comments:Patient smokes 11-2 0 cigarettes/day after 31-60 minutes of waking up. Thinking about quitting Alcohol Use Standard Drinks/Week Comments Yes 0 (1 standard drink = 0.6 oz pure alcohol) 5 or 6 drinks; 2 to 4 times a month. caffeine: 1-2 cups/day soda/pop Comments Yes Sex and Gender Information Value Date Recorded Sex Assigned at Female 08/09/2022 5:11 PM EDT Legal Sex Female 6:48 PM EDT Gender Identity Female 08/09/2022 5:11 PM EDT Sexual Orientation Not on file COVID-19 Exposure Response Date Recorded In the last 10 days, have yo u been in contact with someone who was confirmed or suspected to have Coronavirus/COVID-19? No / Unsure 11/02/2022 1:20 PM EDT documented as of this encounter Plan of Treatment Upcoming Encounters Date Type Department Care Team (Late st Contact Info) Description 09/18/2024 1:00 PM EDT Ancillary Procedure [facility] [address] [facility] [place] [address] 09/25/2024 1:30 PM EDT Procedure Visit [facility] OB [address] [facility] [place] [address] Kvng Dunne, DO [address] [facility] [place] [address] documented as of this encounter Visit Diagnoses Not on filedocumented in this encounter Care Teams Datawarehouse Developer Relationship Specialty Start Date End Date Brynn Bah MD [address] [place] [address] PCP - General Family Medicine 08/10/22 Ana Rosa Hazel NP PCP - [place] [employer] 08/20/22 documented as of this encounter
--- OUTSIDE RECORDS SUMMARY | 2024-09-02 22:18 | XMS_ITS | Encounter Summary ---
Author Organization [facility] Address [address] [place] [address] Care Team Providers Care Automation And Control Engineer Name Role Phone Brynn Bah MD Primary Care Provider [phone] Ana Rosa Hazel SLEEVE FIXER Unavailable Encounter Details Date Type Department Care Team (Late st Contact Info) Description 12/05/2022 Abstract [facility] [address] [facility] [place] [place] [address] Bere Zavala PA [address] [facility] [place] [address] Social History Tobacco Use Types Packs/Day Years [...] suspected to have Coronavirus/COVID-19? No / Unsure 11/30/2022 10:18 AM EDT documented as of this encounter Plan of Treatment Upcoming Encounters Date Type Department Care Team (Late st Contact Info) Description 09/18/2024 1:00 PM EDT Ancillary Procedure [facility] OB [address] [facility] [place] [place] [address] 09/25/2024 1:30 PM EDT Procedure Visit [facility] OB [address] [facility] [place] [place] [address] Kvng Dunne, [address] [facility] [place] [address] documented as of this encounter Visit Diagnoses Not on filedocumented in this encounter Care Teams Automation And Control Engineer Relationship Specialty Start Date End Date Brynn Bah MD [address] [place] [address] PCP - General Family Medicine 08/10/22 Ana Rosa Hazel NP PCP - [place] [employer] 08/20/22 documented as of this encounter
--- OUTSIDE RECORDS SUMMARY | 2024-09-02 22:18 | XMS_ITS | Encounter Summary ---
Author Organization [facility] Address [address] [place] [address] Care Team Providers Care Targeting Acquisition Officer Name Role Phone Brennan Church MD Primary Care Provider [phone] Ana Rosa Hazel PRODUCTION SOUND MIXER Unavailable Encounter Details Date Type Department Care Team (Late st Contact Info) Description 03/27/2023 Clinisync Result Encounter NOMS External Department Unsolicited Bere Andrade PA [address] [place] [address] [place], [place] [id number] Social History Tobacco Use Types Packs/Day Years [...] PM EDT Ancillary Procedure [facility] OB [address] [place] [address] [place] [address] 09/25/2024 1:30 PM EDT Procedure Visit [facility] OB [address] [place], [place] [address] [place] [address] Kvng Dunne, DO [address] [place] [address] [place], [place] [address] documented as of this encounter Procedures Procedure Name Priority Date/Time Associated Diagnosis Comments US OB BPP W NON-STRESS 03/27/2023 3:25 PM EST documented in this encounter Results * US OB BPP W NON-STRESS (03/27/2023 3:25 PM EST) Anatomical Region Laterality Modality Other 03/27/2023 3:25 PM EST Narrative 03/27/2023 3:27 PM EST [address] [address] Ultrasound Report Signed Patient: CARLENE NELSON MR#: [id number] : 1990 Acct:[id number] Age/Sex: 32 / F ADM Date: 03/27/23 Loc: US Attending Dr: Bere Andrade Ordering Physician: Bere Andrade Date of Service: 03/27/23 Procedure(s): US OB BPP w non-stress Accession Number(s): [id number] cc: Bere Andrade; BRENNAN CHURCH [address] [address] Patient Name: CARLENE NELSON MRN: [id number] date: 1990 Sex: F Assigned Patient Location: [facility] Current Patient Location: Accession/Order Number: [id number] Exam Date: 03/27/2023 14:00 Report Date: 03/27/2023 [...] Signed By: 03/27/23 1527 DD/ 1525 TD/TT: Oxygen Therapy Technician: Procedure Note Radiology, Radiologist, MD - 03/27/2023 [place] [address] Ultrasound Report Signed Patient: CARLENE NELSON MMR#: [id number] : 1990Acct:[id number] Age/Sex: 32 / FADM Date: 03/27/23 Loc: US Attending Dr: Bere Andrade Ordering Physician: Bere Andrade Date of Service: 03/27/23 Procedure(s): US OB BPP w non-stress Accession Number(s): [id number] cc: Bere Andrade; BRENNAN CHURCH [place] [id number] Patient Name: CARLENE NELSON MRN: [id number] date: 1990 Sex: F Assigned Patient Location: [facility] Current Patient Location: Accession/Order Number: [id number] Exam Date: 03/27/2023 14:00 Report Date: 03/27/2023 [...] M.D. Signed By:03/27/23 1527 DD/ 1525 TD/TT: Oxygen Therapy Technician: Bere DOWD [facility] Final Result documented in this encounter Visit Diagnoses Not on filedocumented in this encounter Care Teams Targeting Acquisition Officer Relationship Specialty Start Date End Date Brennan Church MD [address] [place] [address] PCP - General Family Medicine 08/10/22 Ana Rosa Hazel NP PCP - [place] [employer] 08/20/22 documented as of this encounter
--- OUTSIDE RECORDS SUMMARY | 2024-09-02 22:18 | XMS_ITS | Encounter Summary ---
Author Organization [facility] Address [address] [place] [address] Care Team Providers Care Java Application Developer Name Role Phone Brennan Church MD Primary Care Provider [phone] Ana Rosa Hazel TELEGRAPH SERVICE RATER Unavailable Encounter Details Date Type Department Care Team (Late st Contact Info) Description 03/22/2023 Clinisync Result Encounter [facility] External Department Unsolicited [...] EDT Ancillary Procedure [facility] [address] [place] [address] 09/25/2024 1:30 PM EDT Procedure Visit [facility] [address] [place] [address] Jessica Dunne, DO [address] [place] [address] [place] [address] documented as of this encounter Procedures Procedure Name Priority Date/Time Associated Diagnosis Comments US OB GROWTH 03/22/2023 4:05 PM EST documented in this encounter Results * US OB GROWTH (03/22/2023 4:05 PM EST) Anatomical Region Laterality Modality Other 03/22/2023 4:05 PM EST Narrative 03/22/2023 4:08 PM EST The [place] [id number] Ultrasound Report Signed Patient: CARLENE NELSON MR#: [id number] : 1990 Acct:[id number] Age/Sex: 32 / F ADM Date: 03/22/23 Loc: [facility] Attending Dr: Jessica Dunne D.O. Ordering Physician: Jessica Dunne D.O. Date of Service: 03/22/23 Procedure(s): US OB growth Accession Number(s): [id number] cc: BRENNAN CHURCH ; Jessica Dunne D.O. The [address] [address] Patient Name: CARLENE NELSON MRN: [id number] date: 1990 Sex: F Assigned Patient Location: [facility] Current Patient Location: [facility] Accession/Order Number: [id number] Exam Date: 03/22/2023 15:11 Report Date: 03/22/2023 16:05 At the request of: JESSICA DUNNE Procedure: US OB growth EXAMINATION: US OB growth HISTORY: LGA COMPARISON: No relevant comparison available. FINDINGS: Heart Rate: 149.0 bpm Amniotic Fluid Volume: 10.7 cm Number: 1.0 Position: Cephalic presentation Maximum Vertical Pocket: 3.2 cm cm 1.9 cm cm 3.3 cm cm 2.2 cm cm BIOMETRY: BPD: 8.4 cm cm; 33 weeks 6 days; 88% HC: 30.6 cmcm; 34 weeks 1 days , 67% AC: 31.2 cm cm; 35 weeks 1 days, >97% FL: 6.3 cm cm; 32 weeks 4 days; 51.0 % % EFW: 2385.3 grams, 5 lbs. 4 oz., 95% FL/AC: 20.2 FL/BPD: 74.9 HC/AC: 1.0 GESTATIONAL AGE: Age by EDC: 32 weeks 1 days JUAN LUIS by EDC: 05/16/2023 Age by US: 34 weeks 0 days JUAN LUIS by US: 05/03/2023 US/US OB growth IMPRESSION: Large for gestational age. Estimated weight 95th percentile Electronically authenticated by: WENDY AU Date: 03/22/2023 16:05 Dictated By: Wendy Au M.D. Signed By: 03/22/23 1608 DD/ 1605 TD/TT: Fur Trimming Machine Operator: Procedure Note Radiology, Radiologist, - 03/22/2023 [place] [address] Ultrasound Report Signed Patient: CARLENE NELSON MMR#: [id number] : 1990Acct:[id number] Age/Sex: 32 / FADM Date: 03/22/23 Loc: [facility] Attending Dr: Jessica Dunne D.O. Ordering Physician: Jessica Dunne D.O. Date of Service: 03/22/23 Procedure(s): US OB growth Accession Number(s): [id number] cc: BRENNAN CHURCH ; Jessica Dunne D.O. The [place] [id number] Patient Name: CARLENE NELSON MRN: [id number] date: 1990 Sex: F Assigned Patient Location: [facility] Current Patient Location: [facility] Accession/Order Number: [id number] Exam Date: 03/22/2023 15:11 Report Date: 03/22/2023 16:05 At the request of: JESSICA DUNNE Procedure: US OB growth EXAMINATION: US OB growth HISTORY: LGA COMPARISON: No relevant comparison available. FINDINGS: Heart Rate: 149.0 bpm Amniotic Fluid Volume: 10.7 cm Number: 1.0 Position: Cephalic presentation Maximum Vertical Pocket: 3.2 cm cm 1.9 cm cm 3.3 cm cm 2.2 cm cm BIOMETRY: BPD: 8.4 cm cm; 33 weeks 6 days; 88% HC: 30.6 cmcm; 34 weeks 1 days , 67% AC: 31.2 cm cm; 35 weeks 1 days, >97% FL: 6.3 cm cm; 32 weeks 4 days; 51.0 % % EFW: 2385.3 grams, 5 lbs. 4 oz., 95% FL/AC: 20.2 FL/BPD: 74.9 HC/AC: 1.0 GESTATIONAL AGE: Age by EDC: 32 weeks 1 days JUAN LUIS by EDC: 05/16/2023 Age by US: 34 weeks 0 days JUAN LUIS by US: 05/03/2023 US/US OB growth IMPRESSION: Large for gestational age. Estimated weight 95th percentile Electronically authenticated by: WENDY AU Date: 03/22/2023 16:05 Dictated By: Wendy Au M.D. Signed By:03/22/23 1608 DD/ 1605 TD/TT: Fur Trimming Machine Operator: us Generic External Data Provider [facility] Final Result documented in this encounter Visit Diagnoses Not on filedocumented in this encounter Care Teams Java Application Developer Relationship Specialty Start Date End Date Brennan Church MD [address] [place] [address] PCP - General Family Medicine 08/10/22 Ana Rosa Hazel NP PCP - [place] [employer] 08/20/22 documented as of this encounter
--- OUTSIDE RECORDS SUMMARY | 2024-09-02 22:18 | XMS_ITS | Encounter Summary ---
Author Organization [facility] Address [address] [place] [address] Care Team Providers Care Cyber Security Specialist Name Role Phone Brennan Church MD Primary Care Provider [phone] Ana Rosa Hazel LAWN CARE PROFESSIONAL Unavailable Encounter Details Date Type Department Care Team (Late st Contact Info) Description 04/18/2023 Clinisync Result Encounter [facility] External Department Unsolicited [...] EDT Ancillary Procedure [facility] OB [address] [place] [address] 09/25/2024 1:30 PM EDT Procedure Visit [facility] OB [address] [place], [place] [address] [address] Kvng Dunne, DO [address] [place] [address] [place] [address] documented as of this encounter Procedures Procedure Name Priority Date/Time Associated Diagnosis Comments US OB BPP W NON-STRESS 04/18/2023 7:21 AM EST documented in this encounter Results * US OB BPP W NON-STRESS (04/18/2023 7:21 AM EST) Anatomical Region Laterality Modality Other 04/18/2023 7:21 AM EST Narrative 04/18/2023 7:23 AM EST [place] [id number] Ultrasound Report Signed Patient: CARLENE NELSON MR#: [id number] : 1990 Acct:[id number] Age/Sex: 32 / F ADM Date: 04/17/23 Loc: US Attending Dr: Bere Andrade Ordering Physician: Bere Andrade Date of Service: 04/17/23 Procedure(s): US OB BPP w non-stress Accession Number(s): [id number] cc: Bere Andrade; BRENNAN CHURCH [address] [address] Patient Name: CARLENE NELSON MRN: [id number] date: 1990 Sex: F Assigned Patient Location: US Current Patient Location: Accession/Order Number: [id number] Exam Date: 04/17/2023 16:35 Report Date: 04/18/2023 07:21 At the request of: BERE ANDRADE Procedure: US OB BPP w non-stress EXAMINATION: US OB BPP w non-stress HISTORY: EXCESSIVE GROWTH O36.63Z0 COMPARISON: No relevant comparison available. TECHNIQUE: Ultrasound biophysical profile was performed in the radiology department. non-reactive stress testing was performed by nursing staff in the birthing center. FINDINGS: BREATHING MOVEMENTS: 2.0 GROSS BODY MOVEMENTS: 2.0 TONE: 2.0 QUALITATIVE AMNIOTIC FLUID VOLUME: 2.0 PRESENTATION: CEPHALIC HEART RATE: 142.1 bpm H.B./min AMNIOTIC FLUID VOLUME: 11.0 cm cm GESTATIONAL AGE: 35 weeks 6 days CONCLUSION: Total biophysical profile score: 8.0 Electronically authenticated by: WENDY AU Date: 04/18/2023 07:21 Dictated By: Wendy Au M.D. Signed By: 04/18/23722 DD/ 0 TD/TT: Bookseamer Blindstitch: Procedure Note Radiology, Radiologist, - 04/26/2023 [place] [address] Ultrasound Report Signed Patient: CARLENE NELSON MMR#: [id number] : 1990Acct:[id number] Age/Sex: 32 / FADM Date: 04/17/23 Loc: US Attending Dr: Bere Andrade Ordering Physician: Bere Andrade Date of Service: 04/17/23 Procedure(s): US OB BPP w non-stress Accession Number(s): [id number] cc: Bere Andrade; BRENNAN CHURCH [address] [address] Patient Name: CARLENE NELSON MRN: [id number] date: 1990 Sex: F Assigned Patient Location: US Current Patient Location: Accession/Order Number: [id number] Exam Date: 04/17/2023 16:35 Report Date: 04/18/2023 07:21 At the request of: BERE ANDRADE Procedure: US OB BPP w non-stress EXAMINATION: US OB BPP w non-stress HISTORY: EXCESSIVE GROWTH O36.63Z0 COMPARISON: No relevant comparison available. TECHNIQUE: Ultrasound biophysical profile was performed in the radiology department. non-reactive stress testing was performed by nursingstaff in the birthing center. FINDINGS: BREATHING MOVEMENTS: 2.0 GROSS BODY MOVEMENTS: 2.0 TONE: 2.0 QUALITATIVE AMNIOTIC FLUID VOLUME: 2.0 PRESENTATION: CEPHALIC HEART RATE: 142.1 bpm H.B./min AMNIOTIC FLUID VOLUME: 11.0 cm cm GESTATIONAL AGE: 35 weeks 6 days CONCLUSION: Total biophysical profile score: 8.0 Electronically authenticated by: WENDY AU Date: 04/18/2023 07:21 Dictated By: Wendy Au M.D. Signed By:04/18/23722 DD/ 0 TD/TT: Bookseamer Blindstitch: Generic External Data Provider [facility] Final Result documented in this encounter Visit Diagnoses Not on filedocumented in this encounter Care Teams Cyber Security Specialist Relationship Specialty Start Date End Date Brennan Church MD [address] [place] [address] PCP - General Family Medicine 08/10/22 Ana Rosa Hazel NP PCP - [place] [employer] 08/20/22 documented as of this encounter
--- OUTSIDE RECORDS SUMMARY | 2024-09-02 22:18 | XMS_ITS | Encounter Summary ---
Author Organization [facility] Address [address] [place] [address] Care Team Providers Care Apparel Pattern Maker Name Role Phone Brennan Church MD Primary Care Provider [phone] Ana Rosa Hazel GOLD BLOWER Unavailable Encounter Details Date Type Department Care Team (Late st Contact Info) Description 03/22/2023 Clinisync Result Encounter [facility] External Department Unsolicited Jessica Dunne, [address] [facility] [address] [place], [place] [id number] Social History Tobacco Use Types Packs/Day Years [...] EDT Ancillary Procedure [facility] OB [address] [facility] [place] [phone] 09/25/2024 1:30 PM EDT Procedure Visit [facility] OB [address] [place], [place] [address] [phone] Jessica Dunne [address] [place] [address] documented as of this encounter Procedures Procedure Name Priority Date/Time Associated Diagnosis Comments OB GROWTH 03/22/2023 4:05 PM EST documented in this encounter Results * OB GROWTH (03/22/2023 4:05 PM EST) Anatomical Region Laterality Modality Other 03/22/2023 4:05 PM EST Narrative 03/22/2023 4:08 PM EST [address] [address] Ultrasound Report Signed Patient: CARLENE NELSON MR#: [id number] : 1990 Acct:[id number] Age/Sex: 32 / F ADM Date: 03/22/23 Loc: [facility] Attending Dr: Jessica Dunne D.O. Ordering Physician: Jessica Dunne D.O. Date of Service: 03/22/23 Procedure(s): US OB growth Accession Number(s): [id number] cc: BRENNAN CHURCH ; Jessica Dunne D.O. [address] [address] Patient Name: CARLENE NELSON MRN: [id number] date: 1990 Sex: F Assigned Patient Location: [facility] Current Patient Location: [facility] Accession/Order Number: [id number] Exam Date: 03/22/2023 15:11 Report Date: 03/22/2023 [...] Dictated By: Wendy Au M.D. Signed By: 03/22/238 DD/ 04 TD/TT: Roaster Supervisor: Procedure Note Radiology, Radiologist, - 04/26/2023 [place] [address] Ultrasound Report Signed Patient: CARLENE NELSON MMR#: [id number] : 1990Acct:[id number] Age/Sex: 32 / FADM Date: 03/22/23 Loc: [facility]OM[facility] Attending Dr: Jessica Dunne D.O. Ordering Physician: Jessica Dunne D.O. Date of Service: 03/22/23 Procedure(s): US OB growth Accession Number(s): [id number] cc: BRENNAN CHURCH ; Jessica Dunne D.O. The [place] [id number] Patient Name: CARLENE NELSON MRN: [id number] date: 1990 Sex: F Assigned Patient Location: [facility] Current Patient Location: [facility] Accession/Order Number: [id number] Exam Date: 03/22/2023 15:11 Report Date: 03/22/2023 [...] M.D. Signed By:03/22/23 1608 DD/ 1605 TD/TT: Roaster Supervisor: us Jessica Dunne DO [facility] Final Result documented in this encounter Visit Diagnoses Not on filedocumented in this encounter Care Teams Apparel Pattern Maker Relationship Specialty Start Date End Date Brennan Church MD [address] [place] [address] PCP - General Family Medicine 08/10/22 Ana Rosa Hazel NP PCP - [place] [employer] 08/20/22 documented as of this encounter
--- OUTSIDE RECORDS SUMMARY | 2024-09-02 22:18 | XMS_ITS | Encounter Summary ---
Author Organization [facility] Address [address] [place] [address] Care Team Providers Care Financial Analysis Advisor Name Role Phone Brennan Church MD Primary Care Provider [phone] Ana Rosa Hazel ACTIVATED SLUDGE OPERATOR Unavailable Encounter Details Date Type Department Care Team (Late st Contact Info) Description 04/20/2023 Clinisync Result Encounter [facility] External Department Unsolicited Jessica Dunne, [address] [facility] [address] [place], [place] [phone] Social History Tobacco Use Types Packs/Day Years [...] PM EDT Ancillary Procedure [facility] OB [address] [place] [address] [place] [phone] 09/25/2024 1:30 PM EDT Procedure Visit [facility] OB [address] [place], [place] [address] [address] Jessica Dunne [address] [place] [address] documented as of this encounter Procedures Procedure Name Priority Date/Time Associated Diagnosis Comments US OB BPP W NON-STRESS 04/20/2023 8:22 AM EST documented in this encounter Results * US OB BPP W NON-STRESS (04/20/2023 8:22 AM EST) Anatomical Region Laterality Modality Other 04/20/2023 8:22 AM EST Narrative 04/20/2023 8:25 AM EST [address] [address] Ultrasound Report Signed Patient: CARLENE NELSON MR#: [id number] : 1990 Acct:[id number] Age/Sex: 32 / F ADM Date: Loc: [facility] 257-[address]: Jessica Dunne D.O. Ordering Physician: Jessica Dunne D.O. Date of Service: 04/20/23 Procedure(s): US OB BPP w non-stress Accession Number(s): [id number] cc: BRENNAN CHURCH Corey D.O. The [address] [address] Patient Name: CARLENE NELSON MRN: [id number] date: 1990 Sex: F Assigned Patient Location: [facility] Current Patient Location: [facility] Accession/Order Number: [id number] Exam Date: 04/20/2023 07:30 Report Date: 04/20/2023 08:22 At the request of: JESSICA DUNNE Procedure: US OB BPP w non-stress EXAMINATION: US OB BPP w non-stress HISTORY: [id number] COMPARISON: 04/17/2023 TECHNIQUE: Ultrasound biophysical profile was performed in the radiology department. FINDINGS: BREATHING MOVEMENTS: 0.0 GROSS BODY MOVEMENTS: 2.0 TONE: 2.0 QUALITATIVE AMNIOTIC FLUID VOLUME: 2.0 PRESENTATION: CEPHALIC HEART RATE: 128.0 bpm H.B./min AMNIOTIC FLUID VOLUME: 10.6 cm cm GESTATIONAL AGE: 36 weeks 2 days CONCLUSION: Total biophysical profile score: 6.0 Electronically authenticated by: WENDY AU Date: 04/20/2023 08:22 Dictated By: Wendy Au M.D. Signed By: 04/20/23824 DD/ 1 TD/TT: Vegetable Farming Supervisor: Procedure Note Radiology, Radiologist, MD - 04/26/2023 [place] [address] Ultrasound Report Signed Patient: CARLENE NELSON MMR#: [id number] : 1990Acct:[id number] Age/Sex: 32 / FADM Date: Loc: [facility] 257-[address]: Jessica Dunne D.O. Ordering Physician: Jessica Dunne D.O. Date of Service: 04/20/23 Procedure(s): US OB BPP w non-stress Accession Number(s): [id number] cc: BRENNAN CHURCH ; Jessica Dunne D.O. The [place] [id number] Patient Name: CARLENE NELSON MRN: [id number] date: 1990 Sex: F Assigned Patient Location: [facility] Current Patient Location: [facility] Accession/Order Number: [id number] Exam Date: 04/20/2023 07:30 Report Date: 04/20/2023 08:22 At the request of: JESSICA DUNNE Procedure: US OB BPP w non-stress EXAMINATION: US OB BPP w non-stress HISTORY: [id number] COMPARISON: 04/17/2023 TECHNIQUE: Ultrasound biophysical profile was performed in the radiology department. FINDINGS: BREATHING MOVEMENTS: 0.0 GROSS BODY MOVEMENTS: 2.0 TONE: 2.0 QUALITATIVE AMNIOTIC FLUID VOLUME: 2.0 PRESENTATION: CEPHALIC HEART RATE: 128.0 bpm H.B./min AMNIOTIC FLUID VOLUME: 10.6 cm cm GESTATIONAL AGE: 36 weeks 2 days CONCLUSION: Total biophysical profile score: 6.0 Electronically authenticated by: WENDY AU Date: 04/20/2023 08:22 Dictated By: Wendy Au M.D. Signed By:04/20/23824 DD/ 1 TD/TT: Vegetable Farming Supervisor: [facility] [place] [place] DO [facility] Final Result documented in this encounter Visit Diagnoses Not on filedocumented in this encounter Care Teams Financial Analysis Advisor Relationship Specialty Start Date End Date Brennan Church MD [address] [place] [address] PCP - General Family Medicine 08/10/22 Ana Rosa Hazel NP PCP - [facility] [place] 08/20/22 documented as of this encounter
--- OUTSIDE RECORDS SUMMARY | 2024-09-02 22:18 | XMS_ITS | Encounter Summary ---
Author Organization [facility] Address [address] [place] [address] Care Team Providers Care Automobile And Property Underwriter Name Role Phone Brynn Bah MD Primary Care Provider [phone] Ana Rosa Hazel TIPPLE REPAIRER Unavailable Encounter Details Date Type Department Care Team (Late st Contact Info) Description 04/27/2023 Abstract [facility] OB [address] [facility] [place] [address] Kvng Dunne, DO [address] [facility] [place] [address] Social History Tobacco Use Types Packs/Day Years [...] EDT Ancillary Procedure [facility] OB [address] [facility] [place] [address] 09/25/2024 1:30 PM EDT Procedure Visit [facility] OB [address] [facility] [place] [address] Kvng Dunne, [address] [facility] [place] [address] documented as of this encounter Visit Diagnoses Not on filedocumented in this encounter Care Teams Automobile And Property Underwriter Relationship Specialty Start Date End Date Brynn Bah MD [address] [place] [address] PCP - General Family Medicine 08/10/22 Ana Rosa Hazel NP PCP - [place] [employer] 08/20/22 documented as of this encounter
--- OUTSIDE RECORDS SUMMARY | 2024-09-02 22:18 | XMS_ITS | Encounter Summary ---
Author Organization [facility] Address [address] [place] [address] Care Team Providers Care Certified Orthotic Fitter Name Role Phone Brynn Bah MD Primary Care Provider Ana Rosa Hazel GREEN CHAIN PULLER Unavailable Encounter Details Date Type Department Care Team (Late st Contact Info) Description 09/04/2023 Orders Only [facility] OB [address] [place] [employer] [address] [place] [address] Shana Felix LPN [address] [place], [place] [phone] Social History Tobacco Use Types Packs/Day Years [...] drinks on one occasion? Monthly 01/09/2023 Comments No Sex and Gender Information Value Date Recorded Sex Assigned at Female 08/09/2022 5:11 PM EDT Legal Sex Female 6:48 PM EDT Gender Identity Female 08/09/2022 5:11 PM EDT Sexual Orientation Not on file documented as of this encounter Plan of Treatment Upcoming Encounters Date Type Department Care Team (Late st Contact Info) Description 09/18/2024 1:00 PM EDT Ancillary Procedure [facility] OB [address] [facility] [place] [address] 09/25/2024 1:30 PM EDT Procedure Visit [facility] OB [address] [facility] [place] [address] [address] Dunne [address] [place], [place] [address] documented as of this encounter Procedures Procedure Name Priority Date/Time Associated Diagnosis Comments PAP SMEAR Routine 08/28/2023 12:00 AM EDT documented in this encounter Results * Pap Smear (08/28/2023 12:00 AM EDT) Swab Cervical swab / Unknown Vibha Nurse [facility] Ob LAB CYTOLOGY ORDERABLES Final Result EXTERNAL LAB documented in this encounter Visit Diagnoses Not on filedocumented in this encounter Care Teams Certified Orthotic Fitter Relationship Specialty Start Date End Date Brynn Bah MD [address] [place] [address] PCP - General Family Medicine 08/10/22 Ana Rosa Hazel NP PCP - [place] [employer] 08/20/22 documented as of this encounter
--- OUTSIDE RECORDS SUMMARY | 2024-09-02 22:18 | XMS_ITS | Clinical Summary ---
Author Organization [facility] Address [address] [place] [address] Care Team Providers Care Clerk Checker Name Role Phone Brynn Bah MD Primary Care Provider [phone] Allergies No known active allergies Medications Multiple Vitamin (multivitamin) tablet Take 1 tablet by mouth Daily Active norethindrone (Micronor) 0.35 MG tabletIndicatio ns: control counseling Take 1 tablet (0.35 mg) by mouth Daily 84 tablet 3 06/04/19 25 Active ASHWAGANDHA GUMMIES PO Take by mouth Active Rimegepant Sulfate (Nurtec) 75 MG tablet dispersibleIndi cations:Migrain e without aura and without status migrainosus, not intractable Take 75 mg by mouth 1 time for 1 dose 30 tablet 2 09/03/19 25 025 Active magnesium oxide (Mag-Ox) 400 MG tabletIndicatio ns:Migraine without aura and without status migrainosus, not intractable Take 1 tablet (400 mg) by mouth in the morning. 30 tablet 3 09/03/19 25 025 Active magnesium oxide (Mag-Ox) 400 (240 Mg) MG tabletIndicatio ns: headache in second trimester ([facility]) TAKE 1 TABLET BY MOUTH EVERY DAY IN THE MORNING 90 tablet 3 05/17/19 25 025 Discontinued(Re order) magnesium oxide (Mag-Ox) 400 (240 Mg) MG tabletIndicatio ns: headache in second trimester ([facility]-HCC) Take 1 tablet (400 mg) by mouth in the morning. 90 tablet 3 09/03/19 25 025 Discontinued magnesium oxide (Mag-Ox) 400 MG tablet Take 1 tablet by mouth in the morning. 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 Deviated nasal septum 06/10/2024 Encounter for gynecological examination (general) (routine) without abnormal findings 06/10/2024 Facet arthropathy, cervical 06/10/2024 Fatigue 06/10/2024 History of abnormal cervical Papanicolaou smear 06/10/2024 History of nasal obstruction 06/10/2024 Incompetent nasal valve 06/10/2024 Increased frequency of urination 06/10/2024 Iron deficiency anemia 06/10/2024 Migraine without aura and wi thout status migrainosus, not intractable 06/10/2024 Other chronic pain 06/10/2024 Slow transit constipation 06/10/2024 Spondylosis without myelopathy 06/10/2024 Status post nasal septoplasty 06/10/2024 Tension headache 06/10/2024 Tingling of left upper extremity 06/10/2024 Tobacco abuse 06/10/2024 Unspecified lump in the right breast, upper oute r quadrant 06/10/2024 Urinary tract infectious disease 06/10/2024 Hematuria 02/22/2023 Resolved Problems Problem Noted Date Diagnosed Date Resolved Date Third trimester ([facility]) 02/22/2023 04/28/2023 Antepartum anemia ([facility]) 02/09/2023 04/28/2023 Second trimester ([facility]) 02/09/2023 04/28/2023 Encounters Date Type Department Care Team Description 09/02/2024 1:00 PM EDT Office Visit [facility] [address] [place] [address] Kvng Dunne, DO Well woman exam with routine gynecological exam; Encounter for surveillance of contraceptive pills; Migraine without aura and without status migrainosus, not intractable ; headache in second trimester ([facility]); Menorrhagia with regular cycle 09/02/2024 Bamboo flowsheet [facility] [address] [place] [address] Kvng Dunne DO 06/12/2024 1:40 PM EDT Office Visit [facility] [address] [place] [address] Trish Fraga MD Ear fullness, left (Primary Dx); ETD (Eustachian tube dysfunction), bilateral 06/12/2024 Bamboo flowsheet [facility] [address] [facility] [address] [place] [address] Trish Fraga MD 06/12/2024 Travel 06/03/2024 Telephone [facility] [address] [place] [address] Kvng Dunne DO from Last 3 Months Family History Medical History Relation Name Comments Migraines Brother Rico sanchez Cancer Mother Cecilia walden Migraines Mother Cecilia walden Ovarian cancer Mother Cecilia walden Relation Name Status Comments Brother Rico sanchez Alive Daughter Alive Father Alive Mother Cecilia walden Alive Social History Tobacco Use Types Packs/Day Years Used Date Smoking Tobacco: Every Day Cigarettes Started: 2003 Tobacco Cessation:Ready to Q uit: Not Asked; Counseling Given: Not Answered Comments:Patient smokes 11-20 cigarettes/day after 31-60 minutes of [...] PM EDT Sexual Orientation Not on file Last Filed Vital Signs Vital Sign Reading Time Taken Comments Blood Pressure 120/82 09/02/2024 1:06 PM EDT Pulse 98 06/12/2024 1:43 PM EDT Temperature 36.3 C (97.4 F) 03/25/2024 1:07 PM EST Respiratory Rate 18 05/14/2024 1:43 PM EDT Oxygen Saturation 98% 05/14/2024 1:43 PM EDT Inhaled Oxygen Concentration - - Weight 76.4 kg (168 lb 8 oz) 09/02/2024 1:06 PM EDT Height 157.5 cm (5' 2 ) 06/12/2024 1:43 PM EDT Body Mass Index 30.82 06/12/2024 1:43 PM EDT Plan of Treatment Upcoming Encounters Date Type Department Care Team (Late st Contact Info) Description 09/18/2024 1:00 PM EDT Ancillary Procedure [facility] [address] [facility] [address] [place] [id number] 09/25/2024 1:30 PM EDT Procedure [facility] [address] [facility] [place] [address] Kvng Dunne, DO [facility] [place] [address] Health Maintenance Due Date Last Done Comments Influenza Vaccine (#1) 2024 Pap Smear 08/27/2026 08/28/2023, 08/24/2022, 06/0 08/2020 Cervical Cancer Screening 08/25/2027 HPV/Cotest 08/25/2027 08/24/2022 Procedures Procedure Name Priority Date/Time Associated Diagnosis Comments POCT , URINE Routine 09/02/2024 1:17 PM EDT Encounter for surveillance of contraceptive pills PAP SMEAR Routine 08/28/2023 12:00 AM EDT THINPREP PAP AND HPV MRNA E6/E7 W/RFL HPV 16,18/45 Routine 08/24/2022 9:29 AM EDT Well woman exam with routine gynecological exam from Last 3 Months or Most Recently Relevant to Health Maintenance Results * POCT , urine manually resulted (09/02/2024 1:17 PM EDT) Preg Test, Ur Negative Negative Urine 09/02/2024 1:17 PM EDT Kvng Vibha DO POINT OF CARE TEST ENTER/EDIT OR DERABLES Final Result * Pap Smear (08/28/2023 12:00 AM EDT) Swab Cervical swab / Unknown Vibha Nurse [facility] CYTOLOGY ORDERABLES Final Result EXTERNAL LAB * THINPREP PAP AND HPV MRNA E6/E7 W/RFL HPV 16,18/45 (08/24/2022 9:29 AM EDT) Kvng Vibha DO LAB BLOOD ORDERABLES Final Resul t EXTERNAL LAB from Last 3 Months or Most Recently Relevant to Health Maintenance Insurance BS Care Teams Clerk Checker Relationship Specialty Start Date End Date Brynn Bah MD [address] [place] [address] PCP - General Family Medicine 08/10/22
--- OUTSIDE RECORDS SUMMARY | 2024-09-02 22:19 | XMS_ITS | CCD ---
Author Organization [facility] Care Team Providers Care Copy Coordinator Name Role Phone Brynn Bah Primary Care Provider BRYNN BAH Primary Care Unavailable COLTON TINSLEY Referring Unavailable AGUILAR WOODY Referring Unavailable BRYNN BAH Primary Care Unavailable VIBHA, DR LOPEZ Admitting Unavailable VIBHA, DR LOPEZ Attending Unavailable VIBHA, DR LOPEZ Consulting Unavailable Brynn Bah MD Primary Care Provider Ana Rosa Hazel NP Unavailable Ana Rosa Hazel NP Unavailable MARGARET GAMBLE Attending Unavailab SHANIQUA Richardson Attending Unavailable JESSICA DUNNE Attending Unavailable BRYNN BAH Attending Unavailable TRISH OG Attending Unavailable BRYNN BHA Referring Unavailable Medications Current Medications Medication Drug Class(es) Dates Sig (Normalized) Sig (Original) amoxicillin 500 mg oral capsule (2 sources) Penicillin-class Antibacterial Start: 03-25-2024 End: 04-04-2024 take 1 capsule by mouth in the morning amoxicillin (Amoxil) 500 MG capsule Indications: Acute bilateral otitis media Take 1 capsule (500 mg) by mouth in the morning and 1 capsule (500 mg) before bedtime. Do all this for 10 days. 20 capsule 03/25/2024 04/04/2024 Active ASHWAGANDHA GUMMIES PO (2 sources) ASHWAGANDHA GUMMIES PO Take by mouth Active azelastine hydrochloride 0.137 mg/actuat metered dose nasal spray (2 sources) Histamine-1 Receptor Antagonist Start: 04-28-2019 take 1 spray(s) nasal route twice daily azelastine (ASTELIN) 0.1 % nasal spray SPRAY 1 SPRAY INTO EACH NOSTRIL TWICE A DAY 0 04/28/2019 Active Ethinyl Estradiol / norgestimate (2 sources) Progestin, Estrogen Start: 05-27-2019 take 1 tablet by mouth once daily QPN-[id number]-OMOIKDHP 0.18/0.215/0.25 MG-25 MCG TABS TAKE 1 TABLET BY MOUTH EVERY DAY 0 05/27/2019 Active magnesium oxide 400 mg oral tablet (20 sources) Start: 09-02-2024 End: 09-02-2024 take 1 tablet by mouth once in the morning magnesium oxide (Mag-Ox) 400 (240 Mg) MG tablet Indications: headache in second trimester ([facility]) Take 1 tablet (400 mg) by mouth in the morning. 90 tablet 3 09/02/2024 09/02/2024 Discontinued Start: 08-22-2024 End: 10-02-2024 take 1 tablet by mouth in the morning magnesium oxide (Mag-Ox) 400 MG tablet Indications: Migraine without aura and without status migrainosus, not intractable Take 1 tablet (400 mg) by mouth in the morning. 30 tablet 3 09/02/2024 10/02/2024 Active Start: 05-16-2024 End: 09-02-2024 take 1 tablet by mouth once daily in the morning magnesium oxide (Mag-Ox) 400 (240 Mg) MG tablet Indications: headache in second trimester ([facility]) TAKE 1 TABLET BY MOUTH EVERY DAY IN THE MORNING 90 tablet 3 05/16/2024 09/02/2024 Discontinued (Reorder) Start: 05-11-2023 take 1 tablet by ned th once daily in the morning magnesium oxide (Mag-Ox) 400 (240 Mg) MG tablet Indications: headache in second trimester TAKE 1 TABLET BY MOUTH EVERY DAY IN THE MORNING 90 tablet 3 05/11/2023 Active Start: 02-08-2023 take 1 tablet by ned th once in the morning magnesium oxide (Mag-Ox) 400 (240 Mg) MG tablet Indications: headache in second trimester TAKE 1 TABLET BY MOUTH IN THE MORNING 30 tablet 2 02/08/2023 Active Multiple Vitamin (multivitamin) tablet (6 sources) take 1 tablet by mouth once daily Multiple Vitamin (multivitamin) tablet Take 1 tablet by mouth Daily Active norethindrone 0.35 mg oral tablet (15 sources) Start: 03-08-19 End: 08-27-19 take 1 tablet by mouth once daily norethindrone (Micronor) 0.35 MG tablet Indications: control counseling Take 1 tablet (0.35 mg) by mouth Daily 84 tablet 3 06/03/2024 Active omeprazole 20 mg delayed release oral capsule (2 sources) Proton Pump Inhibitor Start: 03-22-19 End: 03-21-19 take 1 capsule by mouth before mealtime omeprazole (PriLOSEC) [address] capsule Indications: Heart burn Take 1 capsule (20 mg) by mouth in the morning. Take before meals. Do not crush or chew.. 30 capsule 11 03/22/2023 03/21/2024 Active polysaccharide iron complex 391 mg oral capsule (2 sources) Start: 10-28-19 End: 10-27-19 take 1 capsule by mouth in the morning iron polysaccharides (ProFe) 391.3 (180 Fe) MG capsule Indications: Anemia affecting in first trimester Take 1 capsule (391.3 mg) by mouth in the morning. 30 capsule 11 10/27/2022 10/27/2023 Active predniSONE 20 mg oral tablet (2 sources) Start: 04-09-19 End: 04-12-19 take 1 tablet by mouth in the morning predniSONE (Deltasone) 20 MG tablet Indications: Acute middle ear effusion, left Take 1 tablet (20 mg) by mouth in the morning and 1 tablet (20 mg) before bedtime. Do all this for 3 days. 6 tablet 04/09/2024 04/12/2024 Active rimegepant 75 mg disintegrating oral tablet (2 sources) Start: 09-03-19 End: 09-03-19 take 1 tablet by mouth once Rimegepant Sulfate (Nurtec) 75 MG tablet dispersible Indications: Migraine without aura and without status migrainosus, not intractable Take 75 mg by mouth 1 time for 1 dose 30 tablet 2 09/02/2024 09/02/2024 Active Completed/Discontinued Medications Medication Drug Class(es) Dates Sig (Normalized) Sig (Original) MV-Min-Fe Fum-FA-DHA ( 1 PO) (11 sources) End: 06-12-2024 MV-Min-Fe Fum-FA-DHA ( 1 PO) Take by mouth 06/12/2024 Discontinued (Therapy completed) MV-Min- Fe Fum-FA-DHA ( 1 PO) Take by mouth. Active MV-Min- Fe Fum-FA-DHA ( 1 PO) Take by mouth. 0 Active Problems Active Problems Problem Classification Problem Date Documented Da te Episodic/Chronic Contraceptive and procreative management (2 sources) Oral contraception; Translations: [Encounter for surveillance of contraceptive pills] 09-02-2024 Episodic Deficiency and other anemia (6 sources) Anemia; Translations: [Anemia, unspecified] Onset: 06-10-2024 06-10-2024 Episodic Deficiency and other anemia (6 sources) Iron deficiency anemia; Translations: [Iron deficiency anemia, unspecified] Onset: 06-10-2024 06-10-2024 Episodic Genitourinary symptoms and ill-defined conditions (20 sources) Increased frequency of urination; Translations: [Incomplete emptying of bladder] Onset: 02-22-2023 02-22-2023 Episodic Headache; including migraine (14 sources) Migraine without aura, not refractory ; Translations: [Migraine without aura, not intractable, without status migrainosus] Onset: 06-10-2024 06-10-2024 Chronic Immunizations and screening for infectious disease (1 source) Encounter for screening for human papillomavirus (HPV); Translations: [ENC SCREENING HUMAN PAPILLOMAVIRUS] Onset: 08-04-2021 Episodic Lymphadenitis (6 sources) Cervical lymphadenopathy; Translations: [Localized enlarged lymph nodes] Onset: 06-10-2024 06-10-2024 Episodic Malaise and fatigue (6 sources) Fatigue; Translations: [Other fatigue] Onset: 06-10-2024 06-10-2024 Episodic Menstrual disorders (2 sources) Menorrhagia; Translations: [Excessive and frequent menstruation with regular cycle] 09-02-2024 Chronic Nonmalignant breast conditions (6 sources) Lump in upper outer quadrant of right breast; Translations: [Unspecified lump in the right breast, upper outer quadrant] Onset: 06-10-2024 06-10-2024 Episodic Other acquired deformities (6 sources) Incompetence of nasal valve; 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] Onset: 06-10-2024 06-10-2024 Episodic Other complications of (2 sources) Headache; Translations: [Other specified related conditions, second trimester] 09-02-2024 Episodic Other congenital anomalies (6 sources) Congenital anomaly of skull; 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, unspecified] Onset: 06-10-2024 06-10-2024 Chronic Other diseases of bladder and urethra (1 source) Overactive bladder; Translations: [OAB (overactive bladder)] Chronic Other ear and sense organ disorders (2 sources) Ear sensations - finding; Translations: [Other specified disorders of left ear] 06-12-2024 Episodic Other female genital disorders (6 sources) History of abnormal cervical Papanicolaou smear ; Translations: [Personal history of other diseases of the female genital tract] Onset: 06-10-2024 06-10-2024 Episodic Other gastrointestinal disorders (6 sources) Slow transit constipation; Translations: [Slow transit constipation] Onset: 06-10-2024 06-10-2024 Episodic Other lower respiratory disease (6 sources) H/O: respiratory disease; Translations: [Personal history of other diseases of the respiratory system] Onset: 06-10-2024 06-10-2024 Episodic Other nervous system disorders (6 sources) Chronic pain; Translations: [Other chronic pain] Onset: 06-10-2024 06-10-2024 Chronic Other nervous system disorders (6 sources) Paresthesia of left upper limb; Translations: [Paresthesia of skin] Onset: 06-10-2024 06-10-2024 Episodic Other screening for suspected conditions (not mental disorders or infectious disease) (4 sources) Encounter for screening for malignant neoplasm of cervix; Translations: [ENC SCREENING MALIG NEOPLASM CERV] Onset: 08-03-2021 Episodic Other upper respiratory disease (6 sources) Allergic rhinitis; Translations: [Allergic rhinitis, unspecified] Onset: 06-10-2024 06-10-2024 Chronic Other upper respiratory disease (6 sources) Deviated nasal septum; Translations: [Deviated nasal septum] Onset: 06-10-2024 06-10-2024 Episodic Other upper respiratory infections (2 sources) Viral upper respiratory tract infection; Translations: [Acute upper respiratory infection, unspecified] 03-25-2024 Episodic Otitis media and related conditions (6 sources) Acute bilateral otitis media ; Translations: [Otitis media, unspecified, bilateral] 03-25-2024 Episodic Residual codes; unclassified (6 sources) Tobacco user; Translations: [Tobacco use] Onset: 06-10-2024 06-10-2024 Episodic Spondylosis; intervertebral disc disorders; other back problems (12 sources) Arthropathy of cervical spine facet joint; Translations: [Spondylosis without myelopathy or radiculopathy, cervical region] Onset: 06-10-2024 06-10-2024 Chronic Urinary tract infections (6 sources) Urinary tract infectious disease; Translations: [Urinary tract infection, site not specified] Onset: 06-10-2024 06-10-2024 Episodic Past or Other Problems Problem Classification Problem Date Documented Da te Episodic/Chronic Other complications of (14 sources) Anemia of ; Translations: [Anemia complicating , unspecified trimester] Onset: 02-09-2023 Resolved: 04-28-2023 02-09-2023 Chronic Other and delivery including normal (20 sources) Third trimester ; Translations: [Encounter for supervision of normal , unspecified, third trimester] Onset: 02-09-2023 Resolved: 04-28-2023 03-29-2023 Episodic Results Test Name Value Interpretation Reference Range Facility HCG ( test) Ql (U)o n 09-02-2024 Interpretation and review of laboratory results Normal [facility] Preg Test, Ur Negative Negative [facility] e Urinalysis macro (dipstick) panel (U)Ordered By: Pearl Soni on 04-05-2023 Bilirubin, UA Negative Negative - 4(70) +++ mg/dL [facility] Blood, UA Positive Negative - 50 Chris/mcL [facility] Clarity, UA Clear [facility] re Color, UA Yellow [facility] Glucose, UA Negative Negative - 1999(110) ++++ mg/dL [facility] Interpretation and review of laboratory results Abnormal [facility] Ketones, UA Negative Negative - 160(16) ++++ mg/dL [facility] Leukocytes, UA Negative Negative - 500+++ Dc/mcL [facility] Nitrite, UA Negative Negative - Positive [facility] pH, UA 7.0 5 - 9 [facility] Protein, UA Negative Negative - 1999(20) ++++ mg/dL [facility] Spec Grav, UA 1.015 1 - 1.03 [facility] Urobilinogen, UA 0.2 0.2 - 12 mg/dL [facility] P[facility] ACOG PANEL 2: 30 to 65on 08-05-[address] [facility] Comment on above: Result Comment: Perf ormed at: WB Performed By: #### [id number] #### [facility] [address] [address] [address] Jazmin Turner Age Gdln ACOG Testing 30-[address] [facility] Comment on above: Performed By: #### [id number] #### [facility] [address] [address] [address] Jazmin Turner DIAGNOSIS: Comment Normal [facility] Comment on above: Result Comment: NEGA TIVE FOR INTRAEPITHELIAL LESION OR MALIGNANCY. Performed at: WB Performed By: #### [id number] #### [facility] [address] [place] [address] Dr. Jazmin Turner HPV Aptima Negative Normal Negative [facility] Comment on above: Result Comment: This nucleic acid amplification test detects fourteen high-risk HPV types (16,18,31,33,35,39,45,51,52,56,58,59,66,68) without differentiation. Performed at: =G Performed By: #### [id number] #### [facility] [address] [address] [address] Jazmin Turner Methodology: Comment Normal [facility] Comment on above: Result Comment: This liquid based ThinPrep(R) pap test was screened with the use of an image guided system. Performed at: WB Performed By: #### [id number] #### [facility] [address] [place] [address] Dr. Jazmin Turner Note: Comment Normal [facility] Comment on above: Result Comment: The Pap smear is a screening test designed to aid in the detection of premalignant and malignant conditions of the uterine cervix. It is not a diagnostic procedure and should not be used as the sole means of detecting cervical cancer. Both false-positive and false-negative reports do occur. . Performed at: WB Performed By: #### [id number] #### [facility] [address] [address] [address] Jazmin Turner Performed by: Comment Normal [facility] Comment on above: Result Comment: Tong Watts, Information Resources Manager (ASCP) Performed at: WB Performed By: #### [id number] #### [facility] [address], [place] [address] Dr. Jazmin Turner Specimen adequacy: Comment Normal [facility] Comment on above: Result Comment: Sati sfactory for evaluation. Endocervical and/or squamous metaplastic cells (endocervical component) are present. Performed at: WB Performed By: #### [id number] #### [facility] [address] [address] [address] Jazmin Turner Cult,Urineon 12-24-2019 Cult,Urine Specimen Description .CLEAN CATCH URINE Special Requests NOT REPORTED Culture NO SIGNIFICANT GROWTH Report Status FINAL 12/24/2019 Normal [facility] Comment on above: Performed By: #### U RC #### [address] [address] Estimator Binding: Robert Ross MD [facility] [address] [place] [address] Estimator Binding: Tariq Mesa MD Urinalysis w/ Microon 2019 ----- Normal [facility] Comment on above: Performed By: #### U AMIC #### [facility] [address] [place] [address] Estimator Binding: Tariq Mesa MD Acetoacetic Acid,Ur Negative Normal NEG [facility] Comment on above: Performed By: #### U AMIC #### [facility] [address] [place] [address] Estimator Binding: Tariq Mesa MD Bilirubin, SemiQt,Ur Negative Normal NEG [facility] Comment on above: Performed By: #### U AMIC #### [facility] [address] [place] [address] Estimator Binding: Tariq Mesa MD Color (U) YELLOW Normal YEL [facility] Comment on above: Performed By: #### U AMIC #### [facility] [address] [place], [place] [id number] Estimator Binding: Tariq Mesa MD Epithelial cells LM.HPF (Urine sed) [#/Area] None Normal 0-25 [facility] Comment on above: Performed By: #### U AMIC #### [facility] [address] [place], [place] [id number] Estimator Binding: Tariq Mesa MD Glucose Ql (U) Negative Normal NEG [facility] Comment on above: Performed By: #### U AMIC #### [address] [place], [place] [id number] Estimator Binding: Tariq Mesa MD Hemoglobin, Ur 2+ Abnormal NEG [facility] Comment on above: Performed By: #### U AMIC #### [facility] [address] [place] [address] Dr. [place], [place] [id number] Estimator Binding: Tariq Mesa MD Leukocyte esterase Test strip Ql (U) Negative Normal NEG [facility] Comment on above: Performed By: #### U AMIC #### [address] [place], [place] [id number] Estimator Binding: Tariq Mesa MD Nitrite,Ur Negative Normal [facility] Comment on above: Performed By: #### U AMIC #### [facility] [address] [place], [place] [id number] Estimator Binding: Tariq Mesa MD pH (U) 7.5 [pH] Normal 5.0-9.0 [facility] Comment on above: Performed By: #### U AMIC #### [facility] [address] [place] [address] Dr. [place], [place] [id number] Estimator Binding: Tariq Mesa MD Protein Ql (U) Negative Normal NEG [facility] Comment on above: Performed By: #### U AMIC #### [facility] [address] [place], [place] [id number] Estimator Binding: Tariq Mesa MD RBC (U) [#/Vol] None Normal 0-2 [facility] Comment on above: Performed By: #### U AMIC #### [facility] [address] [place] [id number] Estimator Binding: Tariq Mesa MD Specific gravity (U) [Rel density] 1.020 Normal 1.010-1.020 [facility] Comment on above: Performed By: #### U AMIC #### [facility] [address] [place] [address] Estimator Binding: Tariq Mesa MD Turbidity CLEAR Normal CLEAR [facility] Comment on above: Performed By: #### U AMIC #### [facility] [address] [place] [id number] Estimator Binding: Tariq Mesa MD Urobilinogen,Ur Normal Normal NORM [facility] Comment on above: Performed By: #### U AMIC #### [address] [place] [id number] Estimator Binding: Tariq Mesa MD WBC (U) [#/Vol] None Normal 0-5 [facility] Comment on above: Performed By: #### U AMIC #### [facility] [address] [place] [id number] Estimator Binding: Tariq Mesa MD Amorphous sediment LM Ql (Urine sed) NOT REPORTED Normal [facility] Comment on above: Performed By: #### U AMIC #### [facility] [address] [place] [address] Estimator Binding: Tariq Mesa MD Bacteria LM.HPF (Urine sed) [#/Area] NOT REPORTED Normal [facility] Comment on above: Performed By: #### U AMIC #### [facility] [address] [place] [address] Estimator Binding: Tariq Mesa MD Casts LM.LPF (Urine sed) [#/Area] NOT REPORTED Normal [facility] Comment on above: Performed By: #### U AMIC #### [facility] [address] [place] [address] Estimator Binding: Tariq Mesa MD Comment NOT REPORTED Normal [facility] Comment on above: Performed By: #### U AMIC #### [facility] [address] [place] [address] Estimator Binding: Tariq Mesa MD Crystals LM Nom (Urine sed) NOT REPORTED Normal NONE [facility] Comment on above: Performed By: #### U AMIC #### [facility] [address] [place] [address] Estimator Binding: Tariq Mesa MD Epithelial, Renal NOT REPORTED Normal 0 [facility] Comment on above: Performed By: #### U AMIC #### [facility] [address] [place] [id number] Estimator Binding: Tariq Mesa MD Mucus Strands NOT REPORTED Normal NONE [facility] Comment on above: Performed By: #### U AMIC #### [facility] [address] [place] [id number] Estimator Binding: Tariq Mesa MD Other Observations NOT REPORTED Normal NREQ [facility] Comment on above: Performed By: #### U AMIC #### [facility] [address] [place] [address] Estimator Binding: Tariq Mesa MD Trichomonas NOT REPORTED Normal [facility] Comment on above: Performed By: #### U AMIC #### [facility] [address] [place], [place] [id number] Estimator Binding: Tariq Mesa MD Yeast LM Ql (Urine sed) NOT REPORTED Normal NONE [facility] Comment on above: Performed By: #### U [facility] #### [facility] [address] [place] [address] Estimator Binding: Tariq Mesa MD Urinalysis with Microscopico n 12-23-2019 Amorphous, UA NOT REPORTED None [place], [place] Bacteria, UA NOT REPORTED None [place], [place] Bilirubin Urine Negative NEGATIVE [place] Casts UA NOT REPORTED /LPF [place] Color, UA YELLOW YELLOW [place] Crystals, UA NOT REPORTED None /HPF [place] Epithelial Cells UA None [place] Glucose, Ur Negative NEGATIVE [place] Interpretation and review of laboratory results Abnormal [place] Ketones Ql (U) Negative NEGATIVE [place] Leukocyte esterase Test strip Ql (U) Negative NEGATIVE [place] Mucus, UA NOT REPORTED None [place] Nitrite, Urine Negative NEGATIVE [place] Other Observations UA NOT REPORTED NOT REQ. [place] pH, UA 7.5 [place] Protein (U) [Mass/Vol] Negative NEGATIVE [place] RBC (U) [#/Vol] None [place] Renal Epithelial, UA NOT REPORTED 0 /HPF [place], [place] Specific [place], UA 1.020 [place], [place] Trichomonas, UA NOT REPORTED None [facility] [place] Turbidity UA CLEAR CLEAR [place] Urinalysis Comments NOT REPORTED [place] Urine Hgb 2+ Abnormal NEGATIVE [place] Urobilinogen, Urine Normal Normal [place] WBC, UA None [place] Yeast, UA NOT REPORTED None [place] Cult,Urineon 07-27-2019 Cult,Urine Specimen Description .CLEAN CATCH URINE Special Requests NOT REPORTED Culture NO SIGNIFICANT GROWTH Report Status FINAL 07/26/2019 Normal [facility] Comment on above: Performed By: #### U RC #### [facility] [address] [place], [place] [id number] Estimator Binding: Robert Ross MD [facility] [address] [place], [place] [phone] Estimator Binding: Tariq Mesa MD Urinalysis w/ Microon 2019 ----- Normal [facility] Comment on above: Performed By: #### U AMIC #### [facility] [address] [place], [place] [phone] Estimator Binding: Tariq Mesa MD Acetoacetic Acid,Ur Negative Normal NEG [facility] Comment on above: Performed By: #### U AMIC #### [facility] [address] [place] [address] Estimator Binding: Tariq Mesa MD Bacteria LM.HPF (Urine sed) [#/Area] 1+ Abnormal [facility] Comment on above: Performed By: #### U AMIC #### [facility] [address] [place] [address] Estimator Binding: Tariq Mesa MD Bilirubin, SemiQt,Ur Negative Normal [facility] Comment on above: Performed By: #### U AMIC #### [facility] [address] [place], [place] [phone] Estimator Binding: Tariq Mesa MD Color (U) YELLOW Normal YEL [facility] Comment on above: Performed By: #### U AMIC #### [facility] [address] [place] [address] Estimator Binding: Tariq Mesa MD Epithelial cells LM.HPF (Urine sed) [#/Area] 2 TO 5 Normal 0-25 [facility] Comment on above: Performed By: #### U AMIC #### [facility] [address] [place] [address] Estimator Binding: Tariq Mesa MD Glucose Ql (U) Negative Normal NEG [facility] Comment on above: Performed By: #### U AMIC #### [facility] [address] [place] [address] Estimator Binding: Tariq Mesa MD Hemoglobin, Ur 1+ Abnormal NEG [facility] Comment on above: Performed By: #### U AMIC #### [facility] [address] [place] [address] Estimator Binding: Tariq Mesa MD Leukocyte esterase Test strip Ql (U) Negative Normal NEG [facility] Comment on above: Performed By: #### U AMIC #### [facility] [address] [place] [address] [place] [address] Estimator Binding: Tariq Mesa MD Mucus Strands TRACE Abnormal [facility] Comment on above: Performed By: #### U AMIC #### [facility] [address] [place] [address] Estimator Binding: Tariq Mesa MD Nitrite,Ur Negative Normal NEG [facility] Comment on above: Performed By: #### U AMIC #### [facility] [address] [place] [address] [place] [address] Estimator Binding: Tariq Mesa MD pH (U) 7.5 [pH] Normal 5.0-9.0 [facility] Comment on above: Performed By: #### U AMIC #### [facility] [address] [place] [address] [place] [address] Estimator Binding: Tariq Mesa MD Protein Ql (U) Negative Normal NEG [facility] Comment on above: Performed By: #### U AMIC #### [facility] [address] [place] [address] Estimator Binding: Tariq Mesa MD RBC (U) [#/Vol] 0 TO 2 Normal 0-2 [facility] Comment on above: Performed By: #### U AMIC #### [facility] [address] [place] [address] Estimator Binding: Tariq Mesa MD Specific gravity (U) [Rel density] 1.010 Normal 1.010-1.020 [facility] Comment on above: Performed By: #### U AMIC #### [facility] [address] [place], [place] [id number] Estimator Binding: Tariq Mesa MD Turbidity CLEAR Normal CLEAR [facility] Comment on above: Performed By: #### U AMIC #### [facility] [address] [place] [address] Estimator Binding: Tariq Mesa MD Urobilinogen,Ur Normal Normal NORM [facility] Comment on above: Performed By: #### U AMIC #### [facility] [address] [place], [place] [id number] Estimator Binding: Tariq Mesa MD WBC (U) [#/Vol] None Normal 0-5 [facility] Comment on above: Performed By: #### U AMIC #### [facility] [address] [place], [place] [id number] Estimator Binding: Tariq Mesa MD Amorphous sediment LM Ql (Urine sed) NOT REPORTED Normal NONE [facility] Comment on above: Performed By: #### U AMIC #### [facility] [address] [place], [place] [id number] Estimator Binding: Tariq Mesa MD Casts LM.LPF (Urine sed) [#/Area] NOT REPORTED Normal [facility] Comment on above: Performed By: #### U AMIC #### [facility] [address] [place] [address] Estimator Binding: Tariq Mesa MD Comment NOT REPORTED Normal [facility] Comment on above: Performed By: #### U AMIC #### [facility] [address] [place] [address] Estimator Binding: Tariq Mesa MD Crystals LM Nom (Urine sed) NOT REPORTED Normal [facility] Comment on above: Performed By: #### U AMIC #### [facility] [address] [place], [place] [id number] Estimator Binding: Tariq Mesa MD Epithelial, Renal NOT REPORTED Normal [address] [place] [address] Comment on above: Performed By: #### U AMIC #### [facility] [address] [place], [place] [id number] Estimator Binding: Tariq Mesa MD Other Observations NOT REPORTED Normal NREQ [facility] Comment on above: Performed By: #### U AMIC #### [facility] [address] [place], [place] [id number] Estimator Binding: Tariq Mesa MD Trichomonas NOT REPORTED Normal [facility] Comment on above: Performed By: #### U AMIC #### [facility] [address] [place], [place] [id number] Estimator Binding: Tariq Mesa MD Yeast LM Ql (Urine sed) NOT REPORTED Normal [facility] Comment on above: Performed By: #### U AMIC #### [facility] [address] [place] [address] Estimator Binding: Tariq Mesa MD Urinalysis with Microscopico n 07-25-2019 Amorphous, UA NOT REPORTED None [facility] [place] Bacteria, UA 1+ Abnormal None [facility] [place], [place] Bilirubin Urine Negative NEGATIVE [facility] [place] Casts UA NOT REPORTED /LPF [facility] [place] Color, UA YELLOW YELLOW [facility]- [place] Crystals, UA NOT REPORTED None /HPF [facility]- [place] Epithelial Cells UA 2 TO 5 [facility] Glucose, Ur Negative NEGATIVE [facility] Interpretation and review of laboratory results Abnormal [facility] Ketones Ql (U) Negative NEGATIVE [facility]- [place], [place] Leukocyte esterase Test strip Ql (U) Negative NEGATIVE [facility], [place] Mucus, UA TRACE Abnormal None [facility] Nitrite, Urine Negative NEGATIVE [facility], [place] Other Observations UA NOT REPORTED NOT REQ. [facility], [place] pH, UA 7.5 [facility] Protein (U) [Mass/Vol] Negative NEGATIVE [facility], [place] RBC (U) [#/Vol] 0 TO 2 [facility] [place] Renal Epithelial, UA NOT REPORTED 0 /HPF Me [facility], [place] Specific Chuckey, UA 1.010 [facility], [place] Trichomonas, UA NOT REPORTED None [facility] [place] Turbidity UA CLEAR CLEAR [facility], [place] Urinalysis Comments NOT REPORTED [facility], [place] Urine Hgb 1+ Abnormal NEGATIVE [facility], [place] Urobilinogen, Urine Normal Normal [facility], [place] WBC, UA None [facility], [place] Yeast, UA NOT REPORTED None [facility], [place] - [facility], [place] Vital Signs Date Time Vital Sign Value Performing Clinician Radames gonzalez 09-02-2024 13:06-0400 Body mass index (BMI) [Ratio] 30.82 kg/m2 Jessica Biz In A Box JV Work Phone: [facility] 09-02-2024 13:06-0400 [facility] 09-02-2024 13:06-0400 Diastolic blood pressure 82 mm[Hg] Jessica Biz In A Box JV Work Phone: [facility] 09-02-2024 13:06-0400 Systolic blood pressure 120 mm[Hg] Jessica B[employer] In [employer] JV Work Phone: [facility] 06-12-2024 13:43-0400 Body height 157.5 cm Trish Og MD Work Phone: [facility] 06-12-2024 13:43-0400 Body mass index (BMI) [Ratio] 31.28 kg/m2 Trish Og MD Work Phone: [facility] 06-12-2024 13:43-0400 Body weight 77.56 kg Trish Og MD Work Phone: [facility] 06-12-2024 13:43-0400 Diastolic blood pressure 84 mm[Hg] Trish Og MD Work Phone: [facility] 06-12-2024 13:43-0400 Heart rate 98 /min Trish Og MD Work Phone: [facility] 06-12-2024 13:43-0400 Systolic blood pressure 127 mm[Hg] Trish Og MD Work Phone: [facility] 04-09-2024 16:23-0500 Body height 157.5 cm Shaniqua Majors SODA CLERK Work Phone: [facility] 04-09-2024 16:23-0500 Body mass index (BMI) [Ratio] 32.59 kg/m2 Shaniqua Majors SODA CLERK Work Phone: [facility] 04-09-2024 16:23-0500 Body weight 80.83 kg Shaniqua Majors SODA CLERK Work Phone: [facility] 04-09-2024 16:23-0500 Diastolic blood pressure 78 mm[Hg] Shaniqua Majors SODA CLERK Work Phone: [facility] 04-09-2024 16:23-0500 Heart rate 74 /min Shaniqua Majors SODA CLERK Work Phone: [facility] 04-09-2024 16:23-0500 Respiratory rate 18 /min Shaniqua Majors SODA CLERK Work Phone: [facility] 04-09-2024 16:23-0500 SaO2% (BldA) [Mass fraction] 98 % Shaniqua Majors SODA CLERK Work Phone: [facility] 04-09-2024 16:23-0500 Systolic blood pressure 126 mm[Hg] Shaniqua Majors SODA CLERK Work Phone: [facility] 03-25-2024 13:07-0500 Body mass index (BMI) [Ratio] 31.46 kg/m2 Margaret Asherzpatrick SODA CLERK Work Phone: [facility] 03-25-2024 13:07-0500 Body temperature 97.39 [degF] Margaret Yeepatrick SODA CLERK Work Phone: [facility] 03-25-2024 13:07-0500 Body weight 78.02 kg Margaret Yeepatrick SODA CLERK Work Phone: [facility] 03-25-2024 13:07-0500 Diastolic blood pressure 72 mm[Hg] Margaret Asherzpatrick SODA CLERK Work Phone: [facility] 03-25-2024 13:07-0500 Systolic blood pressure 118 mm[Hg] Margaret Asherzpatrick SODA CLERK Work Phone: [facility] 04-05-2023 11:19-0500 Body mass index (BMI) [Ratio] 35.51 kg/m2 Jessica Vibha DO Work Phone: [facility] 04-05-2023 11:19-0500 Body weight 88.05 kg Jessica Vibha DO Work Phone: [facility] 04-05-2023 11:19-0500 Diastolic blood pressure 78 mm[Hg] Jessica Vibha DO Work Phone: [facility] 04-05-2023 11:19-0500 Systolic blood pressure 114 mm[Hg] Jessica Vibha DO Work Phone: [facility] Healthcare Encounters Encounter Date Encounter Type Care Provider Facility Start: 09-02-2024 End: 09-02-2024 Bamboo flowsheet Jessica Vibha DO Work Phone: [facility] Start: 09-02-2024 End: 09-02-2024 Bamboo flowsheet Jessica Vibha DO Work Phone: [facility] Start: 09-02-2024 End: 09-02-2024 Patient encounter procedure Jessica Vibha DO Work Phone: [facility] Start: 09-02-2024 End: 09-02-2024 Periodic preventive med est patient 18-39 yrs Jessica Dunne DO Work Phone: [facility] Comment on above: Well woman exam with routine gynecological exam; Encounter for surveillance of contraceptive pills; Migraine without aura and without status migrainosus, not intractable ; headache in second trimester ([facility]-HCC); Menorrhagia with regular cycle Start: 06-12-2024 End: 06-12-2024 Bamboo flowsheet Trish Og MD Work Phone: [facility] Start: 06-12-2024 End: 06-12-2024 Bamboo flowsheet Trish Og MD Work Phone: [facility] Start: 06-12-2024 End: 06-12-2024 ambulatory TRISH OG Not Available Start: 06-12-2024 End: 06-12-2024 Office outpatient new 30 minutes Trish Og MD Work Phone: [facility] Comment on above: Ear fullness, left ( Primary Dx); ETD (Eustachian tube dysfunction), bilateral Start: 06-10-2024 Patient encounter status Tate Og MD Work Phone: [facility] Start: 05-14-2024 End: 05-14-2024 ambulatory BRYNN BAH Not Available Start: 04-09-2024 End: 04-09-2024 Office outpatient visit 15 minutes Shaniqua Harris SODA CLERK Work Phone: [facility] Comment on above: Acute middle ear eff usion, left (Primary Dx) Start: 04-09-2024 End: 04-09-2024 ambulatory SHANIQUA HARRIS Not Available Start: 04-09-2024 End: 04-09-2024 Bamboo flowsheet Shaniqua Harris SODA CLERK Work Phone: [facility] Start: 04-09-2024 End: 04-09-2024 Bamboo flowsheet Shaniqua Harris SODA CLERK Work Phone: [facility] Start: 03-25-2024 End: 03-25-2024 Bamboo flowsheet Margaret Gamble SODA CLERK Work Phone: [facility] Start: 03-25-2024 End: 03-25-2024 Bamboo flowsheet Margaret Gamble SODA CLERK Work Phone: [facility] Start: 03-25-2024 End: 03-25-2024 Office outpatient visit 15 minutes Margaret Gamble SODA CLERK Work Phone: [facility] Comment on above: Acute bilateral otit is media (Primary Dx); Viral URI with cough Start: 03-25-2024 End: 03-25-2024 ambulatory MARGARET GAMBLE Not Available Start: 08-28-2023 End: 08-28-2023 ambulatory JESSICA DUNNE Not Available Start: 04-05-2023 End: 04-05-2023 flow sheet Jessica Dunne DO Work Phone: [facility] Comment on above: Third trimester preg audi Start: 08-03-2021 End: 08-03-[address] JESSICA DUNNE Facility: Start: 12-23-2019 End: 12-24-2019 Patient encounter procedure [facility] Start: 12-23-2019 End: 12-23-2019 Subsequent hospital visit by physician Brynn DAVID Laboratory Comment on above: Urinary frequency; OAB (overactive bladder); Incomplete bladder emptying Start: 07-25-2019 End: 07-26-2019 Patient encounter procedure AGUILAR Sarabia MESHAJOHANA [facility] Start: 07-25-2019 End: 07-25-2019 Subsequent hospital visit by physician Brynn DAVID Laboratory Comment on above: Urinary frequency Procedures Date Procedure Procedure Detail Performing Clinician Start: 09-02-2024 Urine test visual color cmprsn meths Jessica Dunne DO Work Phone: Start: 06-10-2024 H/O: surgery Status post nasal septoplasty Trish Og MD Work Phone: Start: 08-28-2023 Microscopic observation [Identifier] in Cervix by Cyto stain Margaret Gamble NP Work Phone: Start: 04-05-2023 Urnls dip stick/tablet rgnt non-auto w/o micrscp Jessica Vibha DO Work Phone: Start: 08-24-2022 Microscopic observation [Identifier] in Cervix by Cyto stain Jessica Vibha DO Work Phone: Start: 12-23-2019 Culture bacterial quanttative colony count urine BRYNN BAH Start: 12-23-2019 Urnls dip stick/tablet reagent auto microscopy BRYNN BAH Start: 12-23-2019 Urnls dip stick/tablet reagent auto microscopy Colton Morley Etelvinaevelia Work Phone: Start: 07-25-2019 Culture bacterial quanttative colony count urine BRYNN BAH Start: 07-25-2019 Urnls dip stick/tablet reagent auto microscopy BRYNN BAH Start: 07-25-2019 Urnls dip stick/tablet reagent auto microscopy Aguilar Woody Work Phone: Plan of Treatment Date Care Activity Detail Author Start: 08-25-2027 Screening for malign ant neoplasm of cervix [facility] Start: 08-27-2026 Screening for malign ant neoplasm of cervix Pap Smear [facility] Start: 08-24-2025 Screening for malign ant neoplasm of cervix Pap Smear [facility] Start: 10-21-2024 Influenza vaccination [facility] Start: 09-25-2024 End: 09-25-2024 Patient encounter procedure 09/25/2024 1:30 PM EDT Procedure Visit [facility] [address] [place] [address] Jessica Dunne, DO [address] [place] [address] [facility] Start: 09-18-2024 End: 09-18-2024 Professional / ancillary services management 09/18/2024 1:00 PM EDT Ancillary Procedure [facility] [address] [place] [address] [facility] Start: 09-02-2024 End: 09-02-2025 aPTT in Blood by Coagulation assay APTT Lab Routine Menorrhagia with regular cycle Expected: 09/02/2024 (Approximate), Expires: 09/02/2025 [facility] Comment on above: Expected: 09/02/2024 (Approximate), Expires: 09/02/2025 Start: 09-02-2024 End: 09-02-2025 US Pelvis US Pelvis w/ TV Imaging Routine Migraine without aura and without status migrainosus, not intractable Menorrhagia with regular cycle Expected: 09/02/2024, Expires: 09/02/2025 [facility] Comment on above: Expected: 09/02/2024 , Expires: 09/02/2025 Start: 09-02-2024 End: 09-02-2024 Patient encounter procedure [facility] Comment on above: Arrived Start: 08-19-2024 Influenza vaccination Influenza Vacc ine (#1) [facility] Comment on above: Postponed from 10/21 (Supply/Drug Shortage) Start: 04-09-2024 End: 04-09-2024 Patient encounter procedure 04/09/2024 4:30 PM EST Office Visit [facility] [address] [place] [phone] Shaniqua Harris NP [address] [place] [address] Arrived [facility] Comment on above: Arrived Start: 03-25-2024 End: 03-25-2024 Patient encounter procedure 03/25/2024 1:00 PM EST Office Visit [facility] [address] [place] [facility] [place] [phone] Margaret Gamble NP [address] [place] [address] Arrived [facility] Comment on above: Arrived Start: 10-22-2023 Influenza vaccination Influenza Vacc ine (#1) [facility] Start: 08-28-2023 End: 08-28-2023 Patient encounter procedure 08/28/2023 4:00 PM EDT Office Visit [facility] [address] [address] Jessica Dunne DO [address] [place], [place] [phone] [facility] Start: 04-19-2023 End: 04-19-2023 Patient encounter procedure 04/19/2023 3:20 PM EST Routine [facility] [address] [place] [address] Bere Zavala PA [address] [address] [facility] Start: 04-19-2023 End: 04-19-2023 Professional / ancillary services management 04/19/2023 3:00 PM EST Ancillary Procedure [facility] [address] [place] [address] [place] [address] [facility] Start: 10-21-2022 Influenza vaccination Influenza Vacc ine (#1) [facility] Start: 01-13-2020 End: 01-13-2020 Procedure visit 01/13/2020 Procedure visit Urology Danyel Carson MD [address] [place] [address], [address] [place] [address] [phone] [facility] Start: 10-31-2019 End: 10-31-2019 Office Visit 10/31/2019 Office Visit Urology Aguilar Woody, COMMERCIAL ARTIST LETTERING - HEALTHCARE CUSTOMER SERVICE [address] [place] [address] [facility] [address] [place] [address] [phone] [facility] Start: 10-22-2019 Influenza vaccination [place], [place] Start: 10-14-2015 DTaP/Tdap/Td vaccine (7 - Td) DTaP/Tdap/Td vaccine (7 - Td) [place], [place] Start: 2009 Screening for malign ant neoplasm of cervix Cervical cancer screen [place] Start: 10-12-2007 DTaP/Tdap/Td vaccine (1 - Tdap) DTaP/Tdap/Td vaccine (1 - Tdap) [place] Start: 10-12-2003 [facility] [place] [place] Start: 1994 Pneumococcal 0-64 ye ars Vaccine (1 of 1 - PPSV23) Pneumococcal 0-64 years Vaccine (1 of 1 - PPSV23) [place], [place] Start: 1989 Varicella vaccine (1 of 2 - 2-dose childhood series) Varicella vaccine (1 of 2 - 2-dose childhood series) [place], [place] CBC W Auto Different ial panel - Blood CBC and differential Lab Routine Menorrhagia with regular cycle Ordered: 09/02/2024 [facility] Comment on above: Ordered: 09/02/2024 End: 12-23-2019 Culture, Urine Culture, Urine Microbiology Routine Urinary frequency OAB (overactive bladder) Incomplete bladder emptying 1 Occurrences starting 12/23/2019 until 12/23/2019 [place] Comment on above: 1 Occurrences starti ng 12/23/2019 until 12/23/2019 Culture, Urine [place] End: 07-25-2019 Culture, Urine Culture, Urine Microbiology Routine Urinary frequency 1 Occurrences starting 07/25/2019 until 07/25/2019 [place] Comment on above: 1 Occurrences starti ng 07/25/2019 until 07/25/2019 Cytology Cervical or vaginal smear or scraping study Pap Smear Pathology and Cytology Routine Well woman exam with routine gynecological exam Ordered: 09/02/2024 [facility] Work Phone: Comment on above: Ordered: 09/02/2024 hCG, quantitative, hCG, quantitative, Lab Routine Menorrhagia with regular cycle Ordered: 09/02/2024 [facility] Comment on above: Ordered: 09/02/2024 Hemoglobin A1c/Hemoglobin.total in Blood Hemoglobin A1c Lab Routine Menorrhagia with regular cycle Ordered: 09/02/2024 [facility] Comment on above: Ordered: 09/02/2024 Human papilloma viru s DNA [Presence] in Unspecified specimen by Probe with amplification HPV DNA probe, amplified Microbiology Routine Well woman exam with routine gynecological exam Ordered: 09/02/2024 [facility] Comment on above: Ordered: 09/02/2024 Prothrombin time (PT ) in Blood by Coagulation assay Protime-INR Lab Routine Menorrhagia with regular cycle Ordered: 09/02/2024 [facility] Comment on above: Ordered: 09/02/2024 Thyrotropin [Units/volume] in Serum or Plasma TSH Lab Routine Menorrhagia with regular cycle Ordered: 09/02/2024 [facility] Comment on above: Ordered: 09/02/2024 Thyroxine (T4) free [Mass/volume] in Serum or Plasma T4, free Lab Routine Menorrhagia with regular cycle Ordered: 09/02/2024 [facility] Comment on above: Ordered: 09/02/2024 Payers Date Payer Category [id number] 2022 Unknown [facility] xxxxxx [id number] 2022-Present [phone] [address] [place] [address] [id number] 2022 Unknown [id number] 2014 Private Health Insurance [employer] A [employer] NAP CHOICE POS II xxxxxxxxxx 2014-Present [phone] [address] [place] [address] xxxxxxxxxx [id number] 1988 Unknown [id number] 1988 Unknown [id number] 1988 Unknown [id number] 1988 Unknown [id number] 1988 Unknown [id number] 1988 Unknown [id number] 1988 Unknown [id number] 1988 Unknown [id number] 1959 Private Health Insurance [id number] Social History Date Type Detail Facility Start: 02-20-2003 End: 03-25-2024 Tobacco smoking status MOIS Current every day smoker [facility] Start: 02-20-2003 History of tobacco use Cigarette Sm[place] Start: 12-23-2019 End: 05-14-2024 Cigarettes smoked current (pack per day) - Reported [facility] Start: 12-23-2019 Tobacco use and exposure Never used [place] Start: 12-23-2019 End: 09-02-2024 Alcohol intake Current drinker of alcohol (finding) [place] Start: 07-25-2019 Alcohol Comment rare [place] Sex Assigned At Not on file [place] Start: 01-09-2023 End: 05-14-2024 Alcohol Use Disorder Identification Test - Consumption [...] [facility] History of Present illness Narrative 09-02-2024 Vivi Rashid MA - 09/02/2024 1:00 PM EDT Note Date & Type Note Facility 09-02-2024 History of Presen t illness Narrative Reason for Appointment: Patient ID: Carlene Nelson is a 33 y.o. female who presents for Well Women Visit Patient presents today for Annual Exam. MEDICATIONS Current Outpatient Medications Medication Instructions SAGE PEREZ PO Take by mouth magnesium oxide (Mag-Ox) [...] Ambulatory Problems Diagnosis Date Noted Antepartum anemia ([facility]) 02/09/2023 Second trimester ([facility]) 02/09/2023 Third trimester ([facility]) 02/22/2023 Past Medical History: Diagnosis Date Abnormal [...] nursing note reviewed. Exam conducted with a traffic representative present. Vitals: Estimated body mass index is 30.82 kg/m as calculated from the following: Height [...] without status migrainosus, not intractable G43.009 Rimegepant Sulfate (Nurtec) 75 MG tablet dispersible US Pelvis w/ TV 4. headache in second trimester ([facility]) O26.892 magnesium oxide (Mag-Ox) 400 (240 Mg) [...] pre-op appointment. Documented on behalf of Dr. Jessica Dunne, documented in this encounter [facility] History of Present illness Narrative 06-12-2024 Trish Og MD - 06/12/2024 1:40 PM EDT Note Date & Type Note Facility 06-12-2024 History of Presen t illness Narrative Subjective Patient ID: Carlene Nelson is a 33 y.o. female who presents for Otitis Media Pt reports she had ear pain 5 mo ago and has been told she has had OME since then. H/O BM&T as a young child. Has been tx with flonase and an allergy pill. Used one bottle of flonase one spray each side. H/O septo, rodger IT SMR and RT nasal valve surgery in 2019 Review of Systems All other systems reviewed and are negative. Family History Problem Relation Name Age of Onset Ovarian cancer Mother Cecilia walden Cancer Mother Cecilia walden Migraines Mother Cecilia walden Migraines Brother Rico sanchez Active Ambulatory Problems Diagnosis Date Noted Hematuria [...] aura and without status migrainosus, not intractable (CMS/HCC) 06/10/2024 Other chronic pain 06/10/2024 Slow transit constipation 06/10/2024 Spondylosis without myelopathy 06/10/2024 Status post nasal septoplasty 06/10/2024 Tension headache 06/10/2024 Tingling of left upper extremity 06/10/2024 Tobacco abuse 06/10/2024 Unspecified lump in the right breast, upper outer quadrant 06/10/2024 Urinary tract infectious disease 06/10/2024 Resolved Ambulatory Problems Diagnosis Date Noted Antepartum anemia 02/09/2023 Second trimester 02/09/2023 Third trimester 02/22/2023 Past Medical History: Diagnosis Date Abnormal Pap smear of cervix BMI 23.0-23.9, adult Breast lump on right side at 10 o'clock position Breast lump on right side at 10 o'clock position FOM (frequency of micturition) Frequency of micturition H/O abnormal cervical Papanicolaou smear History of kidney problems Migraines (CMS/HCC) Well woman exam Past Surgical History: Procedure Laterality Date SEPTOPLASTY 07/03/2019 Septoplasty/Turbs/Right Latera No Known Allergies Current Outpatient Medications on File Prior to Visit Medication Sig Dispense Refill magnesium oxide (Mag-Ox) 400 (240 Mg) MG tablet TAKE 1 TABLET BY MOUTH EVERY DAY IN THE MORNING 90 tablet 3 Multiple Vitamin (multivitamin) tablet Take 1 tablet by mouth Daily norethindrone (Micronor) 0.35 MG tablet Take 1 tablet (0.35 mg) by mouth Daily 84 tablet 3 [DISCONTINUED] Jencycla 0.35 MG tablet TAKE 1 TABLET BY MOUTH EVERY DAY 84 tablet 3 [DISCONTINUED] MV-Min-Fe Fum-FA-DHA ( 1 PO) Take by mouth No current facility-administered medications on file prior to visit. Objective Last Recorded Vitals Vitals: 06/12/24 1343 BP: 127/84 Pulse: 98 ENT Physical Exam Constitutional Appearance: patient appears well-developed, well-nourished and well-groomed, Head and Face Appearance: head appears normal and face appears atraumatic; Ear Ear Canals: right ear canal normal; left ear canal normal; Tympanic Membranes: right tympanic membrane normal; left tympanic membrane normal; Ear comments: Rodger tymps normal Nose External Nose: nares patent bilaterally; external nose normal; Internal Nose: septum normal; Oral Cavity/Oropharynx Tongue: normal; Oral mucosa: normal; Hard palate: normal; Soft palate: normal; Tonsils: normal; Neck Neck: neck normal; neck palpation normal; Thyroid: thyroid normal; Respiratory Inspection: breathing unlabored; normal breathing rate; Auscultation: breath sounds are clear; Cardiovascular Inspection: extremities are warm and well perfused; no peripheral edema present; Auscultation: regular rate and rhythm; Assessment/Plan Diagnoses and all orders for this visit: Ear fullness, left - Ambulatory referral to ENT ETD (Eustachian tube dysfunction), bilateral Pt does not have a ME effusion. She may have had it at onset resulting in residual fluid in the mastoid. This will resolve without tx. documented in this encounter [facility] History of Present illness Narrative 04-09-2024 Shaniqua Harris NP - 04/09/2024 4:30 PM EST Note Date & Type Note Facility 04-09-2024 History of Presen t illness Narrative Images from the original note were not included. Carlene Nelson is a 33 y.o. female presents with chief complaint of Ear Fullness HPI: Presents to the office with left ear fullness that began about 3 weeks ago. Was seen on 03/25/24, was diagnosed with bilateral ear infection and prescribed Amoxicillin. Started taking an antihistamine and using Flonase daily on 03/29/24. Does not feel like these medications are doing much. Has noticed an increase in nose bleeds since using Flonase. Reports her hearing is back to normal. HPI SUBJECTIVE: MEDICATIONS: Current Outpatient Medications Medication Instructions Jencycla 0.35 mg, Oral, Daily magnesium oxide (MAG-OX) 400 mg, Oral, Every morning MV-Min-Fe Fum-FA-DHA ( 1 PO) Take by mouth. ALLERGIES: No Known Allergies SURGICAL HISTORY: Past Surgical History: Procedure Laterality Date SEPTOPLASTY 07/03/2019 Septoplasty/Turbs/Right Latera FAMILY HISTORY: Family History Problem Relation Name Age of Onset Ovarian cancer Mother SOCIAL HISTORY: Social History Tobacco Use Smoking status: Every Day Types: Cigarettes Start date: 2003 Tobacco comments: Patient smokes 11-20 cigarettes/day after 31-60 minutes of waking up. Thinking about quitting Substance Use Topics Alcohol use: Yes Comment: 5 or 6 drinks; 2 to 4 times a month. caffeine: 1-2 cups/day soda/pop Drug use: Never Depression: Not on file REVIEW OF SYMPTOMS: Review of Systems Constitutional: Negative. HENT: Positive for ear pain. Respiratory: Negative. Cardiovascular: Negative. Gastrointestinal: Negative. Genitourinary: Negative. Musculoskeletal: Negative. Skin: Negative. Neurological: Negative. Psychiatric/Behavioral: Negative. OBJECTIVE: Visit Vitals BP 126/78 (BP Location: Left arm, Patient Position: Sitting, BP Cuff Size: Adult) Pulse 74 Resp 18 Ht 5' 2 Wt 178 lb 3.2 oz SpO2 98% BMI 32.59 kg/m OB Status Unknown Smoking Status Every Day BSA 1.88 m Physical Exam Vitals and nursing note reviewed. Constitutional: Appearance: Normal appearance. HENT: Head: Normocephalic and atraumatic. Right Ear: Tympanic membrane is scarred. Tympanic membrane is not erythematous or bulging. Left Ear: A middle ear effusion is present. Tympanic membrane is not erythematous or bulging. Cardiovascular: Rate and Rhythm: Normal rate and regular rhythm. Heart sounds: Normal heart sounds. Pulmonary: Effort: Pulmonary effort is normal. No respiratory distress. Breath sounds: Normal breath sounds. No stridor. No wheezing, rhonchi or rales. Skin: General: Skin is warm and dry. Neurological: General: No focal deficit present. Mental Status: She is alert and oriented to person, place, and time. Psychiatric: Mood and Affect: Mood normal. Behavior: Behavior normal. ASSESSMENT AND PLAN: Assessment/Plan Problem List Items Addressed This Visit None Visit Diagnoses Acute middle ear effusion, left - Primary Relevant Medications predniSONE (Deltasone) 20 MG tablet 1 tablet two times daily for 3 days Fluid behind tympanic membrane with no active signs of infection. Explained to patient antibiotics are not indicated as there is no active infection and this could take 4-6 weeks to resolve fully. May use flonase or antihistamine OTC to help dry up secretions. Instructed to notify office immediately if patient begins to experience and sharp ear pain or fevers. Patient verbalizes understanding. Continue taking flonase and an antihistamine daily Take prednisone 1 tablet two times daily for 3 days Follow up in 1-2 weeks if not feeling any better documented in this encounter [facility] History of Present illness Narrative 03-25-2024 Margaret Gamble NP - 03/25/2024 1:00 PM EST Note Date & Type Note Facility 03-25-2024 History of Presen t illness Narrative Images from the original note were not included. Carlene Nelson is a 33 y.o. female presents with chief complaint of Earache HPI: HPI Patient is present with c/o swelling in left neck, plugged left ear, and a productive cough with clear mucus. Patient states this started last Monday. SUBJECTIVE: MEDICATIONS: Current Outpatient Medications Medication Instructions Jencycla 0.35 mg, Oral, Daily magnesium oxide (MAG-OX) 400 mg, Oral, Every morning MV-Min-Fe Fum-FA-DHA ( 1 PO) Oral I have reviewed and reconciled the history and medication list with the patient today. REVIEW OF SYMPTOMS: Review of Systems Constitutional: Positive for fatigue. HENT: Positive for congestion, rhinorrhea and sore throat. Respiratory: Positive for cough and wheezing. Negative for shortness of breath. Cardiovascular: Negative for chest pain and palpitations. Gastrointestinal: Negative. Musculoskeletal: Negative. Skin: Negative. Neurological: Negative. OBJECTIVE: Visit Vitals OB Status Unknown Smoking Status Every Day Physical Exam Vitals and nursing note reviewed. Constitutional: Appearance: She is well-developed. HENT: Head: Normocephalic. Right Ear: Hearing normal. Left Ear: Hearing normal. Nose: Congestion and rhinorrhea present. Mouth/Throat: Mouth: Mucous membranes are moist. Pharynx: Posterior oropharyngeal erythema present. No oropharyngeal exudate. Tonsils: No tonsillar exudate. Cardiovascular: Rate and Rhythm: Normal rate and regular rhythm. Heart sounds: Normal heart sounds. Pulmonary: Effort: Pulmonary effort is normal. Breath sounds: Normal breath sounds. Abdominal: General: Abdomen is flat. There is no distension. Tenderness: There is no abdominal tenderness. Musculoskeletal: Cervical back: Neck supple. Lymphadenopathy: Cervical: Right cervical: No superficial cervical adenopathy. Left cervical: No superficial cervical adenopathy. Skin: General: Skin is warm. Capillary Refill: Capillary refill takes less than 2 seconds. Neurological: General: No focal deficit present. Mental Status: She is alert and oriented to person, place, and time. ASSESSMENT AND PLAN: Assessment/Plan Diagnoses and all orders for this visit: Acute bilateral otitis media - amoxicillin (Amoxil) 500 MG capsule; Take 1 capsule (500 mg) by mouth in the morning and 1 capsule (500 mg) before bedtime. Do all this for 10 days. Viral URI with cough Most likely viral in nature, will need to run its course. Educated patient viral infections such as colds/flus do not respond to abx and typically do not begin to improve until 7-10 days into the illness. Discussed symptomatic treatment with patient. Humidifier at bedside to moisten area. Push fluids. Rest. Good handwashing. Follow up if symptoms do not improve. To ER for markedly worsening symptoms. documented in this encounter [facility] History of Present illness Narrative [...] nursing note reviewed. Exam conducted with a traffic representative present. Vitals: Estimated body mass index is [...] incidental documented in this encounter [facility] Evaluation note Note Date & Type Note Facility Evaluation note Diagnosis Acute bilateral otitis media- Primary Viral URI with cough documented in this encounter [facility] Evaluation note Note Date & Type Note Facility Evaluation note Diagnosis Acute middle ear effusion, left- Primary documented in this encounter [facility] Evaluation note Note Date & Type Note Facility Evaluation note Diagnosis Ear fullness, left- Primary ETD (Eustachian tube dysfunction), bilateral documented in this encounter [facility] Evaluation note Note Date & Type Note Facility Evaluation note Diagnosis Well woman exam with routine gynecological exam Routine gynecological examination Encounter for surveillance of contraceptive pills Migraine without aura and without status migrainosus, not intractable headache in second trimester ([facility]) Menorrhagia with regular cycle documented in this encounter [facility] Assessments Diagnosis Urinary frequency OAB (overactive bladder) Hypertonicity of bladder Incomplete bladder emptying Diagnosis Urinary frequency Advance Directives Documents on File Type Date Recorded Patient Senior Project Manager Expl anation ACP-Advance Directive ACP-Power of Business Continuity Manager Documents on File Type Date Recorded Patient Senior Project Manager Expl anation Advance Directives and Living Will Power of Business Continuity Manager Summary Purpose Family History No Family History Records FoundNo Family History Records FoundNo Family History Records Found Additional Source Comments INFORMATION SOURCE (unrecogn ized section and content) DATE CREATED AUTHOR 12/25/2019 [facility] DATE CREATED AUTHOR AUTHOR'S ORGANIZ ATION 08/06/2021 [facility] DATE CREATED AUTHOR AUTHOR'S ORGANIZ ATION 06/13/2024 [facility] EPIC Reason for Visit (unrecogniz ed section and content) Reason Comments Routine Visit Reason Comments Earache Reason Comments Ear Fullness Reason Comments Otitis Media Specialty Diagnoses / Procedures Referred By Steffany t Referred To Contact Otolaryngology Diagnoses Chronic allergic otitis media of left ear Procedures [place] [facility] MDM 60 MINUTES Brynn Bah MD [address] [place] [address] Phone: tel: fax: Trish Og MD [address] [facility] [address] [place] [address] Phone: tel: fax: Referral ID Status Reason Start Date Expiration Date V isits Requested Visits Authorized [id number] Closed Specialty Services Required 05/14/2024 11/10/2024 1 1 Reason Comments Well Women Visit Care Teams (unrecognized sec tion and content) Copy Coordinator Relationship Specialty Start Date End Date Brynn Bah MD [address] [place] [address] PCP - General Family Medicine 08/10/22 Ana Rosa Hazel, SODA CLERK [address] [place] [address] PCP - [employer] [employer] 09/20/22 Copy Coordinator Relationship Specialty Start Date End Date Brynn Bah MD [address] [place] [address] PCP - General Family Medicine 08/10/22 Ana Rosa Hazel, SODA CLERK PCP - [employer] 08/20/22 Copy Coordinator Relationship Specialty Start Date End Date Brynn Bah MD [address] [place] [address] PCP - General Family Medicine 08/10/22 Ana Rosa Hazel SODA CLERK PCP - [employer] 08/20/22 Copy Coordinator Relationship Specialty Start Date End Date Brynn Bah MD [address] [place] [address] PCP - General Family Medicine 08/10/22 Ana Rosa Hazel SODA CLERK PCP - [employer] 08/20/22 Copy Coordinator Relationship Specialty Start Date End Date Brynn Bah MD [address] [place] [address] PCP - General Family Medicine 08/10/22 Ana Rosa Hazel SODA CLERK PCP - [employer] 08/20/22 Copy Coordinator Relationship Specialty Start Date End Date Brynn Bah MD [address] [facility] [place] [address] PCP - General Family Medicine 08/10/22 Ana Rosa Hazel SODA CLERK PCP - [employer] 08/20/22 Copy Coordinator Relationship Specialty Start Date End Date Brynn Bah MD [address] [facility] [place] [address] PCP - General Family Medicine 08/10/22 Copy Coordinator Relationship Specialty Start Date End Date Brynn Bah MD [address] [place] [address] PCP - General Family Medicine 08/10/22 FOR RECORDS PERTAINING TO PATIENTS WHO ARE [...] BE BASED ON THE PRIMARY CLINICAL RECORDS. [facility] [employer] [facility]. provides no warranty or guarantee of the accuracy or completeness of information in this document.
[2024-09-05 16:09] LABS: Age Gdln ACOG Testing Note (.); IGP, Aptima HPV, rfx 16/18,45 Note (.)
== END 2024-09-02 22:17 | disposition home or self-care (01) ==
LOC: LAB 22:16
PROVIDERS: PCP Family Medicine; Visit Provider Obstetrics & Gynecology
DX: Z01.419 Encounter for gynecological examination (general) (routine) without abnormal findings (principal)
CPT/HCPCS: 88175

== ENCOUNTER 2024-09-25 08:09 | Outpatient (REF) | payer BC, SELFPAY | END 2024-09-25 08:10 | disposition home or self-care (01) | LOC: LAB 08:09 | PROVIDERS: PCP Family Medicine; Visit Provider Obstetrics & Gynecology | DX: N92.0 Excessive and frequent menstruation with regular cycle (principal); D22.0 Melanocytic nevi of lip | CPT/HCPCS: 88305 ==

== ENCOUNTER 2024-09-25 14:44 | Outpatient (OUT) | payer BC, SELFPAY ==
--- OUTSIDE RECORDS SUMMARY | 2024-09-18 13:00 | XMS_ITS | Encounter Summary ---
Author Organization [facility] Address [address] [place] [address] Care Team Providers Care Stock Digger Name Role Phone Brynn Bah MD Primary Care Provider [phone] Encounter Details Date Type Department Care Team (Latest Contact Info) Description 09/18/2024 1:00 PM EDT Ancillary Procedure [facility] [address] [place] [address] [place] [phone] Migraine without aura and without status migrainosus, not intractable ; Menorrhagia with regular cycle Social History Tobacco [...] Care Team (Late st Contact Info) Description 11/11/2024 1:20 PM EDT Office Visit [facility] [address] [place] [address] Bere Zavala PA [address] [place] [address] documented as of this encounter Procedures Procedure Name Priority Date/Time Associated Diagnosis Comments US PELVIC COMPLETE W/ TV Routine 09/18/2024 1:26 PM EDT Migraine without aura and without status migrainosus, not intractable Menorrhagia with regular cycle documented in this encounter Results * US Pelvis w/ TV (09/18/2024 1:26 PM EDT) Anatomical Region Laterality Modality Pelvis Ultrasound 09/19/2024 8:35 AM EDT Narrative 09/19/2024 8:35 AM EDT EXAM: US PELVIC COMPLETE W/ TV HISTORY: Irregular cycles, frequent cycles, migraines. COMPARISON: None available. TECHNIQUE: Two-dimensional transabdominal grayscale ultrasound imaging of the pelvis was performed. Color flow Doppler imaging of the ovaries was also performed. Transvaginal was performed. FINDINGS: UTERUS 8.7 x 3.6 x 5.7 cm The uterus is anteverted in position and demonstrates a mildly heterogeneous echotexture. Multiple nabothian cysts are visualized within the cervix. ENDOMETRIUM 1.5 cm The endometrium demonstrates a normal, homogeneous echotexture. RIGHT OVARY 5.5 x 3.8 x 5.3 cm The right ovary demonstrates a normal echotexture. There is normal color Doppler flow. There is a 5.1 cm complex cyst visualized. LEFT OVARY 2.7 x 1.7 x 1.4 cm The left ovary demonstrates a normal echotexture. There is normal color Doppler flow. No fluid is present within the cul-de-sac. IMPRESSION: 1. Mildly heterogeneous uterus. 2. Thickened endometrium. This is most likely related to patient's menstrual cycle. 3. Complex right ovarian cyst. A follow-up pelvic ultrasound in 6-8 weeks is recommended to monitor for resolution. 4. Normal color Doppler flow within the bilateral ovaries. Interpreted by: Electronically signed by IVORY HENDRICKSON II, MD, PHD at 19-Sep-2024 08:33:51 AM [facility] Procedure Note Ivory Hendrickson MD - 09/19/2024 EXAM: US PELVIC COMPLETE W/ TV HISTORY: Irregular cycles, frequent cycles, migraines. COMPARISON: None available. TECHNIQUE: Two-dimensional transabdominal grayscale ultrasound imaging ofthe pelvis was performed. Color flow Doppler imaging of the ovaries wasalso performed. Transvaginal was performed. FINDINGS: UTERUS 8.7 x 3.6 x 5.7 cm The uterus is anteverted in position and demonstrates a mildlyheterogeneous echotexture. Multiple nabothian cysts are visualized withinthe cervix. ENDOMETRIUM 1.5 cm The endometrium demonstrates a normal, homogeneous echotexture. RIGHT OVARY 5.5 x 3.8 x 5.3 cm The right ovary demonstrates a normal echotexture. There is normal colorDoppler flow. There is a 5.1 cm complex cyst visualized. LEFT OVARY 2.7 x 1.7 x 1.4 cm The left ovary demonstrates a normal echotexture. There is normal colorDoppler flow. No fluid is present within the cul-de-sac. IMPRESSION: 1. Mildly heterogeneous uterus. 2. Thickened endometrium. This is most likely related to patient'smenstrual cycle. 3. Complex right ovarian cyst. A follow-up pelvic ultrasound in 6-8 weeksis recommended to monitor for resolution. 4. Normal color Doppler flow within the bilateral ovaries. Interpreted by: Electronically signed by IVORY HENDRICKSON II, MD, PHD [id number] 08:33:51 AM [facility] us Kvng Dunne DO IM US PROCEDURES Final Result documented in this encounter Visit Diagnoses Diagnosis Migraine without aura and without status migrainosus, not intractable Menorrhagia with regular cycle documented in this encounter Care Teams Stock Digger Relationship Specialty Start Date End Date Brynn Bah MD [address] [place] [address] PCP - General Family Medicine 6/21/23 documented as of this encounter
--- OUTSIDE RECORDS SUMMARY | 2024-09-19 13:20 | XMS_ITS | Encounter Summary ---
Author Organization [facility] Address [address] [place] [address] Care Team Providers Care Shield Operator Name Role Phone Brynn Bah MD Primary Care Provider [phone] Reason for Visit * Reason Comments Follow-up Encounter Details Date Type Department Care Team (Late st Contact Info) Description 09/19/2024 1:20 PM EDT Office Visit [facility] Medicine [address] [place] [id number] Brynn Bah MD [address] [place], [place] [id number] Meniere disease, left (Primary Dx) Social History Tobacco Use Types Packs/Day Years [...] Sign Reading Time Taken Comments Blood Pressure 124/80 09/19/2024 1:17 PM EDT Pulse 90 09/19/2024 1:17 PM EDT Temperature - - Respiratory Rate 18 09/19/2024 1:17 PM EDT Oxygen Saturation 98% 09/19/2024 1:17 PM EDT Inhaled Oxygen Concentration - - Weight 74 kg (163 lb 3.2 oz) 09/19/2024 1:17 PM EDT Height 157.5 cm (5' 2 ) 09/19/2024 1:17 PM EDT Body Mass Index 29.85 09/19/2024 1:17 PM EDT documented in this encounter Progress Notes * Brynn Bah MD - 09/19/2024 1:20 PM EDT Images from the original note were not included. Subjective Patient ID: Carlene Nelson is a 33 y.o. female who presents for Follow-up. HPI History of Present Illness Vertigo has significantly improved taking hydrochlorothiazide watching salt intake Objective BP 124/80 (BP Location: Left arm, Patient Position: Sitting, BP Cuff Size: Large adult) Pulse 90 Resp 18 Ht 5' 2 Wt 163 lb 3.2 oz LMP 08/31/2024 (Approximate) SpO2 98% BMI 29.85 kg/m?? Physical Exam Constitutional: Appearance: Normal appearance. She is normal weight. Musculoskeletal: Cervical back: Normal range of motion and neck supple. Skin: General: Skin is warm and dry. Neurological: General: No focal deficit present. Mental Status: She is alert and oriented to person, place, and time. Mental status is at baseline. Psychiatric: Mood and Affect: Mood normal. Behavior: Behavior normal. Thought Content: Thought content normal. Judgment: Judgment normal. Physical Exam Assessment & Plan Meniere disease, left Cont with hydrochlorothiazide and watching salt intake Assessment & Plan documented in this encounter Plan of Treatment Upcoming Encounters Date Type Department Care Team (Late st Contact Info) Description 11/11/2024 1:20 PM EDT Office Visit [facility] [address] [place] [phone] Bere Zavala PA [address] [place] [address] documented as of this encounter Visit Diagnoses Diagnosis Meniere disease, left- Primary documented in this encounter Care Teams Shield Operator Relationship Specialty Start Date End Date Brynn Bah MD [address] [place] [address] PCP - General Family Medicine 08/10/22 documented as of this encounter
--- OUTSIDE RECORDS SUMMARY | 2024-09-25 13:30 | XMS_ITS | Encounter Summary ---
Author Organization [facility] Address [address] [place] [address] Care Team Providers Care Director Learning Services Name Role Phone Brynn Bah MD Primary Care Provider [phone] Reason for Visit * Reason Comments Pre-op Visit EMBX Encounter Details Date Type Department Care Team (Late st Contact Info) Description 09/25/2024 1:30 PM EDT Procedure Visit [facility] [address] [facility] [place] [address] Kvng Dunne DO [address] [facility] [place] [address] Pre-op examination; Request for sterilization; Menorrhagia with regular cycle; Abnormal uterine bleeding (AUB); Pelvic pain; Complex ovarian cyst Social History Tobacco Use Types Packs/Day Years [...] Patient Health Questionnaire-2 Score 0 05/14/2024 Comments No Sex and Gender Information Value Date Recorded Sex Assigned at Female 08/09/2022 5:11 PM EDT Legal Sex Female 6:48 PM EDT Gender Identity Female 08/09/2022 5:11 PM EDT Sexual Orientation Not on file documented as of this encounter Last Filed Vital Signs Vital Sign Reading Time Taken Comments Blood Pressure 104/70 09/25/2024 1:48 PM EDT Pulse - - Temperature - - Respiratory Rate - - Oxygen Saturation - - Inhaled Oxygen Concentration - - Weight 74 kg (163 lb 1.9 oz) 09/25/2024 1:48 PM EDT Height - - Body Mass Index 29.84 09/19/2024 1:17 PM EDT documented in this encounter Plan of Treatment Upcoming Encounters Date Type Department Care Team (Late st Contact Info) Description 11/11/2024 1:20 PM EDT Office Visit GARRISON MARSH [address] [facility] [place] [address] Bere Zavala PA [address] [facility] [place] [address] Scheduled Orders Name Type Priority Associated Diagnoses Orde r Schedule Lactate dehydrogenase, isoenzymes Lab Routine Complex ovarian cyst Expected: 09/25/2024 (Approximate), Expires: 09/25/2025 CEA Lab Routine Complex ovarian cyst Expected: 09/25/2024 (Approximate), Expires: 09/25/2025 HCG, tumor marker Lab Routine Complex ovarian cyst Expected: 09/25/2024 (Approximate), Expires: 09/25/2025 CA 125 Lab Routine Complex ovarian cyst Expected: 09/25/2024 (Approximate), Expires: 09/25/2025 AFP tumor marker Lab Routine Complex ovarian cyst Expected: 09/25/2024 (Approximate), Expires: 09/25/2025 Endometrial biopsy Procedures Routine Menorrhagia with regular cycle Abnormal uterine bleeding (AUB) Ordered: 09/25/2024 documented as of this encounter Procedures Procedure Name Priority Date/Time Associated Diagnosis Comments POCT , URINE Routine 09/25/2024 1:52 PM EDT Pre-op examination Menorrhagia with regular cycle Abnormal uterine bleeding (AUB) Pelvic pain documented in this encounter Results * POCT , urine manually resulted (09/25/2024 1:52 PM EDT) Preg Test, Ur Negative Negative Urine 09/25/2024 1:52 PM EDT Kvng Vibha DO POINT OF CARE TEST ENTER/EDIT OR DERABLES Final Result documented in this encounter Visit Diagnoses Diagnosis Pre-op examination Request for sterilization Menorrhagia with regular cycle Abnormal uterine bleeding (AUB) Pelvic pain Complex ovarian cyst documented in this encounter Care Teams Director Learning Services Relationship Specialty Start Date End Date Brynn Bah MD [address] [place] [address] PCP - General Family Medicine 08/10/22 documented as of this encounter
--- OUTSIDE RECORDS SUMMARY | 2024-09-25 14:46 | XMS_ITS | Encounter Summary ---
Author Organization [facility] Address [address] [place] [address] Care Team Providers Care Supervisor Coil Winding Name Role Phone Brynn Bah MD Primary Care Provider [phone] Ana Rosa Hazel STEAM HAMMER OPERATOR Unavailable Encounter Details Date Type Department Care Team (Late st Contact Info) Description 01/05/2023 Clinisync Result Encounter [facility] External Department Unsolicited Bere Andrade PA [address] [place] [address] [place], [place] [id number] Social History Tobacco Use Types Packs/Day Years [...] Office Visit [facility] [address] [facility] [place] [address] Bere Andrade PA [address] [facility] [place] [address] documented as of this encounter Procedures Procedure Name Priority Date/Time Associated Diagnosis Comments US OB CERVICAL LENGTH 01/05/2023 7:17 AM EST documented in this encounter Results * US OB CERVICAL LENGTH (01/05/2023 7:17 AM EST) Anatomical Region Laterality Modality Other 01/05/2023 7:17 AM EST Narrative 01/05/2023 7:17 AM EST [address] [address] Ultrasound Report Signed Patient: CARLENE NELSON MR#: [id number] : 1990 Acct:[id number] Age/Sex: 32 / F ADM Date: 01/04/23 Loc: US Attending Dr: Bere Andrade Ordering Physician: Bere Andrade Date of Service: 01/04/23 Procedure(s): US OB cervical length Accession Number(s): [id number] cc: Bere Andrade; Kvng Dunne D.O. The [address] [address] Patient Name: CARLENE NELSON MRN: [id number] date: 1990 Sex: F Assigned Patient Location: US Current Patient Location: Accession/Order Number: [id number] Exam Date: 01/04/2023 18:00 Report Date: 01/05/2023 [...] Dictated By: Wendy Au M.D. Signed By: 01/05/23 0720 DD/ 0717 TD/TT: Strapping Machine Tender: Procedure Note Radiology, Radiologist, MD - 01/05/[address] [address] Ultrasound Report Signed Patient: CARLENE NELSON MMR#: [id number] : 1990Acct:[id number] Age/Sex: 32 / FADM Date: 01/04/23 Loc: US Attending Dr: Bere Andrade Ordering Physician: Bere Andrade Date of Service: 01/04/23 Procedure(s): US OB cervical length Accession Number(s): [id number] cc: Bere Andrade; Kvng Dunne D.O. [address] [address] Patient Name: CARLENE NELSON MRN: [id number] date: 1990 Sex: F Assigned Patient Location: US Current Patient Location: Accession/Order Number: [id number] Exam Date: 01/04/2023 18:00 Report Date: 01/05/2023 [...] Au M.D. Signed By:01/05/23719 DD/ 6 TD/TT: Strapping Machine Tender: us Bere DOWD [facility] Final Result documented in this encounter Visit Diagnoses Not on filedocumented in this encounter Care Teams Supervisor Coil Winding Relationship Specialty Start Date End Date Brynn Bah MD [address] [place] [address] PCP - General Family Medicine 08/10/22 Ana Rosa Hazel NP PCP - Emmanuel Bellamy 08/20/22 documented as of this encounter
--- OUTSIDE RECORDS SUMMARY | 2024-09-25 14:46 | XMS_ITS | Encounter Summary ---
Author Organization [facility] Address [address] [place] [address] Care Team Providers Care Cold Working Supervisor Name Role Phone Brynn Bah MD Primary Care Provider [phone] Encounter Details Date Type Department Care Team (Late st Contact Info) Description 09/10/2024 Orders Only [facility]i [facility] [address] [place] [address] Shana Felix LPN [address] [facility] [id number] Social History Tobacco Use Types Packs/Day Years [...] 11/11/2024 1:20 PM EDT Office Visit [facility] [address] [facility] [place] [address] Bere Zavala PA [address] [facility] [place] [address] documented as of this encounter Procedures Procedure Name Priority Date/Time Associated Diagnosis Comments PAP SMEAR Routine 09/02/2024 12:00 AM EDT documented in this encounter Results * Pap Smear (09/02/2024 12:00 AM EDT) Swab Cervical swab / Unknown us Vibha Nurse [facility] Ob LAB CYTOLOGY ORDERABLES Final Result EXTERNAL LAB documented in this encounter Visit Diagnoses Not on filedocumented in this encounter Care Teams Cold Working Supervisor Relationship Specialty Start Date End Date Brynn Bah MD [address] [place] [address] PCP - General Family Medicine 08/10/22 documented as of this encounter
--- OUTSIDE RECORDS SUMMARY | 2024-09-25 14:46 | XMS_ITS | Encounter Summary ---
Author Organization [facility] Address [address] [place] [address] Care Team Providers Care Drafter Tool Design Name Role Phone Brynn Bah MD Primary Care Provider [phone] Ana Rosa Hazel FELT CHECKER Unavailable Encounter Details Date Type Department Care Team (Late st Contact Info) Description 01/05/2023 Clinisync Result Encounter [facility] External Department Unsolicited Bere Andrade PA [address] [place] [address] [place], [place] [id number] Social History Tobacco Use Types Packs/Day Years [...] EDT Office Visit [facility] [address] [facility] [place] [address] Bere Andrade PA [address] [place] [address] documented as of this encounter Procedures Procedure Name Priority Date/Time Associated Diagnosis Comments US OB ANATOMY 01/05/2023 7:17 AM EST documented in this encounter Results * US OB ANATOMY (01/05/2023 7:17 AM EST) Anatomical Region Laterality Modality Other 01/05/2023 7:17 AM EST Narrative 01/05/2023 7:17 AM EST The [address] [address] Ultrasound Report Signed Patient: CARLENE NELSON MR#: [id number] : 1990 Acct:[id number] Age/Sex: 32 / F ADM Date: 01/04/23 Loc: US Attending Dr: Bere Andrade Ordering Physician: Bere Andrade Date of Service: 01/04/23 Procedure(s): US OB anatomy Accession Number(s): [id number] cc: Bere Andrade; Kvng Dunne D.O. The [address] [address] Patient Name: CARLENE NELSON MRN: [id number] date: 1990 Sex: F Assigned Patient Location: US Current Patient Location: Accession/Order Number: [id number] Exam Date: 01/04/2023 18:00 Report Date: 01/05/2023 [...] Dictated By: Wendy Au M.D. Signed By: 01/05/2320 DD/ TD/TT: Stitch Bonder Machine Operator Helper: Procedure Note Radiology, Radiologist, MD - 01/05/2023 The [place] [id number] Ultrasound Report Signed Patient: CARLENE NELSON MMR#: [id number] : 1990Acct:[id number] Age/Sex: 32 / FADM Date: 01/04/23 Loc: US Attending Dr: Bere Andrade Ordering Physician: Bere Andrade Date of Service: 01/04/23 Procedure(s): US OB anatomy Accession Number(s): [id number] cc: Bere Andrade; Kvng Dunne D.O. The [place] [address] Patient Name: CARLENE NELSON MRN: [id number] date: 1990 Sex: F Assigned Patient Location: US Current Patient Location: Accession/Order Number: [id number] Exam Date: 01/04/2023 18:00 Report Date: 01/05/2023 [...] Au M.D. Signed By:01/05/23719 DD/ 6 TD/TT: Stitch Bonder Machine Operator Helper: Bere [facility]D [facility] Final Result documented in this encounter Visit Diagnoses Not on filedocumented in this encounter Care Teams Drafter Tool Design Relationship Specialty Start Date End Date Brynn Bah MD [address] [place] [address] PCP - General Family Medicine 08/10/22 Ana Rosa Hazel NP PCP - Emmanuel Bellamy 08/20/22 documented as of this encounter
--- OUTSIDE RECORDS SUMMARY | 2024-09-25 14:46 | XMS_ITS | Encounter Summary ---
Author Organization [facility] Address [address] [place] [address] Care Team Providers Care Rn Perioperative Name Role Phone Brynn Bah MD Primary Care Provider [phone] Ana Rosa Hazel MANAGER RESTAURANT Unavailable Encounter Details Date Type Department Care Team (Late Contact Info) Description 12/05/2022 Abstract [facility] Harshad MARSH [address] [facility] [place] [address] Bere Zavala PA [address] [facility] [place] [address] Social History Tobacco Use Types Packs/Day Years [...] EDT Office Visit [facility] Harshad MARSH [address] [facility] [place] [address] Bere Zavala PA [address] [facility] [place] [address] documented as of this encounter Visit Diagnoses Not on filedocumented in this encounter Care Teams Rn Perioperative Relationship Specialty Start Date End Date Brynn Bah MD [address] [place] [address] PCP - General Family Medicine 08/10/22 Ana Rosa Hazel NP PCP - Emmanuel Commercial 08/20/22 documented as of this encounter
--- OUTSIDE RECORDS SUMMARY | 2024-09-25 14:46 | XMS_ITS | Encounter Summary ---
Author Organization [facility] Address [address] [place] [address] Care Team Providers Care Entry Level Electrical Engineer Name Role Phone Brynn Bah MD Primary Care Provider [phone] Encounter Details Date Type Department Care Team (Latest Contact Info) Description 09/19/2024 Travel Social History Tobacco Use Types Packs/Day Years [...] Encounters Date Type Department Care Team (Late Contact Info) Description 11/11/2024 1:20 PM EDT Office Visit GARRISON MARSH [address] [place] [address] Bere Zavala PA [address] [facility] [place] [address] documented as of this encounter Visit Diagnoses Not on filedocumented in this encounter Care Teams Entry Level Electrical Engineer Relationship Specialty Start Date End Date Brynn Bah MD [address] [place] [address] PCP - General Family Medicine 08/10/22 documented as of this encounter
--- OUTSIDE RECORDS SUMMARY | 2024-09-25 14:46 | XMS_ITS | Encounter Summary ---
Author Organization [facility] Address [address] [place] [address] Care Team Providers Care Unarmed Security Guard Name Role Phone Brynn Bah MD Primary Care Provider [phone] Ana Rosa Hazel PATTERN LAYOUT WORKER Unavailable Encounter Details Date Type Department Care Team (Late st Contact Info) Description 11/12/2022 Abstract [facility] [address] [facility] [address] Kvng Dunne DO [address] [facility] [address] [place], [place] [address] Social History Tobacco Use Types Packs/Day Years [...] EDT Office Visit [facility] Harshad MARSH [address] [facility] [address] Bere Zavala PA [address] [facility] [place] [address] documented as of this encounter Visit Diagnoses Not on filedocumented in this encounter Care Teams Unarmed Security Guard Relationship Specialty Start Date End Date Brynn Bah MD [address] [place] [address] PCP - General Family Medicine 08/10/22 Ana Rosa Hazel NP PCP - Emmanuel Commercial 08/20/22 documented as of this encounter
--- OUTSIDE RECORDS SUMMARY | 2024-09-25 14:46 | XMS_ITS | Encounter Summary ---
Author Organization [facility] Address [address] [place] [address] Care Team Providers Care Beverage Distiller Name Role Phone Brynn Bah MD Primary Care Provider [phone] Encounter Details Date Type Department Care Team (Late st Contact Info) Description 09/19/2024 Bamboo flowsheet [facility] Family Medicine [address] [place] [address] Brynn Bah MD [address] [place] [address] Social History Tobacco Use Types Packs/Day Years [...] Description 11/11/2024 1:20 PM EDT Office Visit NOMColin MARSH [address] [facility] [place] [address] Bere Zavala PA [address] [facility] [address] [place], [place] [address] documented as of this encounter Visit Diagnoses Not on filedocumented in this encounter Care Teams Beverage Distiller Relationship Specialty Start Date End Date Brynn Bah MD [address] [place] [address] PCP - General Family Medicine 08/10/22 documented as of this encounter
--- OUTSIDE RECORDS SUMMARY | 2024-09-25 14:47 | XMS_ITS | Encounter Summary ---
Author Organization [facility] Address [address] [place] [address] Care Team Providers Care Wildland Fire Operations Specialist Name Role Phone Brennan Church MD Primary Care Provider [phone] Ana Rosa Hazel METAL ROOFER Unavailable Encounter Details Date Type Department Care Team (Late st Contact Info) Description 03/27/2023 Clinisync Result Encounter [facility] External Department Unsolicited Bere Andrade PA [address] [place] [address] [place] [address] Social History Tobacco Use Types Packs/Day Years [...] 1:20 PM EDT Office Visit [facility] Harshad MORALESGYN [address] [facility] [place] [address] Bere Andrade PA [address] [facility] [address] [place], [facility]11 documented as of this encounter Procedures Procedure Name Priority Date/Time Associated Diagnosis Comments US OB BPP W NON-STRESS 03/27/2023 3:25 PM EST documented in this encounter Results * US OB BPP W NON-STRESS (03/27/2023 3:25 PM EST) Anatomical Region Laterality Modality Other 03/27/2023 3:25 PM EST Narrative 03/27/2023 3:27 PM EST [address] [address] Ultrasound Report Signed Patient: CARLENE NELSON MR#: [id number] : 1990 Acct:[id number] Age/Sex: 32 / F ADM Date: 03/27/23 Loc: US Attending Dr: Bere Andrade Ordering Physician: Bere Andrade Date of Service: 03/27/23 Procedure(s): US OB BPP w non-stress Accession Number(s): [id number] cc: Bere Andrade; BRENNAN CHURCH [address] [address] Patient Name: CARLENE NELSON MRN: [id number] date: 1990 Sex: F Assigned Patient Location: [facility] Current Patient Location: Accession/Order Number: [id number] Exam Date: 03/27/2023 14:00 Report Date: 03/27/2023 [...] Signed By: 03/27/23 1527 DD/ 1525 TD/TT: Outside Energy Sales Representatives: Procedure Note Radiology, Radiologist, - 03/27/2023 [place] [address] Ultrasound Report Signed Patient: CARLENE NELSON MMR#: [id number] : 1990Acct:[id number] Age/Sex: 32 / FADM Date: 03/27/23 Loc: US Attending Dr: Bere Andrade Ordering Physician: Bere Andrade Date of Service: 03/27/23 Procedure(s): US OB BPP w non-stress Accession Number(s): [id number] cc: Bere Andrade; BRENNAN CHURCH [address] [address] Patient Name: CARLENE NELSON MRN: [id number] date: 1990 Sex: F Assigned Patient Location: [facility] Current Patient Location: Accession/Order Number: [id number] Exam Date: 03/27/2023 14:00 Report Date: 03/27/2023 [...] M.D. Signed By:03/27/23 1527 DD/ 1525 TD/TT: Outside Energy Sales Representatives: Bere D[facility]D [facility] Final Result documented in this encounter Visit Diagnoses Not on filedocumented in this encounter Care Teams Wildland Fire Operations Specialist Relationship Specialty Start Date End Date Brennan Church MD [address] [place] [address] PCP - General Family Medicine 08/10/22 Ana Rosa Hazel NP PCP - Emmanuel Bellamy 08/20/22 documented as of this encounter
--- OUTSIDE RECORDS SUMMARY | 2024-09-25 14:47 | XMS_ITS | Encounter Summary ---
Author Organization [facility] Address [address] [place] [address] Care Team Providers Care Scout Leaser Name Role Phone Brennan Church MD Primary Care Provider [phone] Ana Rosa Hazel PASTA MAKER Unavailable Encounter Details Date Type Department Care [...] 11/11/2024 1:20 PM EDT Office Visit GARRISON Patricia OBGYN [address] [facility] [place] [address] Bere Zavala PA [address] [facility] [address] [place], [facility] documented as of this encounter Procedures Procedure Name Priority Date/Time Associated Diagnosis Comments US OB GROWTH 04/19/2023 3:36 PM EST documented in this encounter Results * US OB GROWTH (04/19/2023 3:36 PM EST) Anatomical Region Laterality Modality Other 04/19/2023 3:36 PM EST Narrative 04/19/2023 3:39 PM EST The [address] [address] Ultrasound Report Signed Patient: CARLENE NELSON MR#: [id number] : 1990 Acct:[id number] Age/Sex: 32 / F ADM Date: 04/19/23 Loc: NOMS Attending Dr: Jessica Dunne D.O. Ordering Physician: Jessica Dunne D.O. Date of Service: 04/19/23 Procedure(s): US OB growth Accession Number(s): [id number] cc: BRENNAN CHURCH ; Jessica Dunne D.O. The [address] [address] Patient Name: CARLENE NELSON MRN: [id number] date: 1990 Sex: F Assigned Patient Location: [facility] Current Patient Location: [facility] Accession/Order Number: [id number] Exam Date: 04/19/2023 15:02 Report Date: 04/19/2023 [...] Au M.D. Signed By: 04/19/23 1539 DD/ 1536 TD/TT: Plan Consultant: Procedure Note Radiology, Radiologist, MD - 04/26/2023 [place] [address] Ultrasound Report Signed Patient: CARLENE NELSON MMR#: [id number] : 1990Acct:[id number] Age/Sex: 32 / FADM Date: 04/19/23 Loc: NOMS Attending Dr: Jessica Dunne D.O. Ordering Physician: Jessica Dunne D.O. Date of Service: 04/19/23 Procedure(s): US OB growth Accession Number(s): [id number] cc: BRENNAN CHURCH Corey D.O. The [place] [id number] Patient Name: CARLENE NELSON MRN: [id number] date: 1990 Sex: F Assigned Patient Location: [facility] Current Patient Location: [facility] Accession/Order Number: [id number] Exam Date: 04/19/2023 15:02 Report Date: 04/19/2023 [...] day JUAN LUIS by US: 05/02/2023 Bere Lucas was advised of the findings by the technologist at the time ofexam US/US OB growth IMPRESSION: Oligohydramnios Large for gestational age, estimated weight greater than 97% Electronically authenticated by: WENDY AU Date: 04/19/2023 15:36 Dictated By: Wendy Au M.D. Signed By:04/19/23 1539 DD/ 1536 TD/TT: Plan Consultant: us Generic External Data Provider [facility] Final Result documented in this encounter Visit Diagnoses Not on filedocumented in this encounter Care Teams Scout Leaser Relationship Specialty Start Date End Date Brennan Church MD [address] [place] [address] PCP - General Family Medicine 08/10/22 Ana Rosa Hazel NP PCP - [place] Commercial 08/20/22 documented as of this encounter
--- OUTSIDE RECORDS SUMMARY | 2024-09-25 14:47 | XMS_ITS | Encounter Summary ---
Author Organization [facility] Address [address] [place] [address] Care Team Providers Care Liquor Stores And Agencies Supervisor Name Role Phone Brennan Church MD Primary Care Provider [phone] Ana Rosa Hazel LOGISTICS SYSTEM ENGINEER Unavailable Encounter Details Date Type Department Care [...] EDT Office Visit [facility]ad OBGYN [address] [facility] [place] [place] [address] Bere Andrade PA [address] [facility] [address] [place], [place] [address] documented as of this encounter Procedures Procedure Name Priority Date/Time Associated Diagnosis Comments US OB BPP W NON-STRESS 04/25/2023 7:42 AM EST documented in this encounter Results * US OB BPP W NON-STRESS (04/25/2023 7:42 AM EST) Anatomical Region Laterality Modality Other 04/25/2023 7:42 AM EST Narrative 04/25/2023 7:44 AM EST [address] [address] Ultrasound Report Signed Patient: CARLENE NELSON MR#: [id number] : 1990 Acct:[id number] Age/Sex: 32 / F ADM Date: 04/24/23 Loc: US Attending Dr: Bere Andrade Ordering Physician: Bere Andrade Date of Service: 04/24/23 Procedure(s): US OB BPP w non-stress Accession Number(s): [id number] cc: Bere Andrade; BRENNAN CHURCH [address] [address] Patient Name: CARLENE NELSON MRN: [id number] date: 1990 Sex: F Assigned Patient Location: [facility] Current Patient Location: [facility] Accession/Order Number: [id number] Exam Date: 04/24/2023 16:04 Report Date: 04/25/2023 [...] Dictated By: Wendy Au M.D. Signed By: 04/25/23 0744 DD/ 0742 TD/TT: Fur Mixer Operator: Procedure Note Radiology, Radiologist, MD - 04/25/2023 [place] [address] Ultrasound Report Signed Patient: CARLENE NELSON MMR#: [id number] : 1990Acct:[id number] Age/Sex: 32 / FADM Date: 04/24/23 Loc: US Attending Dr: Bere Andrade Ordering Physician: Bere Andrade Date of Service: 04/24/23 Procedure(s): US OB BPP w non-stress Accession Number(s): [id number] cc: Bere Andrade; BRENNAN CHURCH [place] [id number] Patient Name: CARLENE NELSON MRN: [facility]:[id number] date: 1990 Sex: F Assigned Patient Location: [facility] Current Patient Location: [facility] Accession/Order Number: [id number] Exam Date: 04/24/2023 16:04 Report Date: 04/25/2023 [...] Wendy Au M.D. Signed By:04/25/2344 DD/ TD/TT: Fur Mixer Operator: us Generic External Data Provider [facility] Final Result documented in this encounter Visit Diagnoses Not on filedocumented in this encounter Care Teams Liquor Stores And Agencies Supervisor Relationship Specialty Start Date End Date Brennan Church MD [address] [place] [address] PCP - General Family Medicine 08/10/22 Ana Rosa Hazel NP PCP - Emmanuel Bellamy 08/20/22 documented as of this encounter
--- OUTSIDE RECORDS SUMMARY | 2024-09-25 14:47 | XMS_ITS | Encounter Summary ---
Author Organization [facility] Address [address] [place] [address] Care Team Providers Care Head Banquet Waiter/Waitress Name Role Phone Brennan Church MD Primary Care Provider [phone] Ana Rosa Hazel PHOTOLITHOGRAPHER Unavailable Encounter Details Date Type Department Care [...] EDT Office Visit [facility] [address] [place] [phone] Bere Andrade PA [address] [facility] [address] [place], [place] [id number] documented as of this encounter Procedures Procedure Name Priority Date/Time Associated Diagnosis Comments US OB BPP W NON-STRESS 04/18/2023 7:21 AM EST documented in this encounter Results * US OB BPP W NON-STRESS (04/18/2023 7:21 AM EST) Anatomical Region Laterality Modality Other 04/18/2023 7:21 AM EST Narrative 04/18/2023 7:23 AM EST [address] [address] Ultrasound Report Signed Patient: CARLENE NELSON MR#: [id number] : 1990 Acct:[id number] Age/Sex: 32 / F ADM Date: 04/17/23 Loc: US Attending Dr: Bere Andrade Ordering Physician: Bere Andrade Date of Service: 04/17/23 Procedure(s): US OB BPP w non-stress Accession Number(s): [id number] cc: Bere Andrade; BRENNAN CHURCH [address] [address] Patient Name: CARLENE NELSON MRN: [id number] date: 1990 Sex: F Assigned Patient Location: US Current Patient Location: Accession/Order Number: [id number] Exam Date: 04/17/2023 16:35 Report Date: 04/18/2023 [...] M.D. Signed By: 04/18/23722 DD/ 0 TD/TT: Community Midwife: Procedure Note Radiology, Radiologist, MD - 04/26/2023 [place] [address] Ultrasound Report Signed Patient: CARLENE NELSON MMR#: [id number] : 1990Acct:[id number] Age/Sex: 32 / FADM Date: 04/17/23 Loc: US Attending Dr: Bere Andrade Ordering Physician: Bere Andrade Date of Service: 04/17/23 Procedure(s): US OB BPP w non-stress Accession Number(s): [id number] cc: Bere Andrade; BRENNAN CHURCH [address] [address] Patient Name: CARLENE NELSON MRN: [id number] date: 1990 Sex: F Assigned Patient Location: US Current Patient Location: Accession/Order Number: [id number] Exam Date: 04/17/2023 16:35 Report Date: 04/18/2023 [...] Au M.D. Signed By:04/18/23722 DD/ 0 TD/TT: Community Midwife: us Generic External Data Provider [facility] Final Result documented in this encounter Visit Diagnoses Not on filedocumented in this encounter Care Teams Head Banquet Waiter/Waitress Relationship Specialty Start Date End Date Brennan Church MD [address] [place] [address] PCP - General Family Medicine 08/10/22 Ana Rosa Hazel NP PCP - [place] [employer] 08/20/22 documented as of this encounter
--- OUTSIDE RECORDS SUMMARY | 2024-09-25 14:47 | XMS_ITS | Encounter Summary ---
Author Organization [facility] Address [address] [place] [address] Care Team Providers Care Field Mechanical Meter Tester Name Role Phone Brennan Church MD Primary Care Provider [phone] Ana Rosa Hazle FILER FINISH Unavailable Encounter Details Date Type Department Care [...] EDT Office Visit [facility] [address] [place] [address] Bere Andrade PA [address] [facility] [address] [place], [place] [phone] documented as of this encounter Procedures Procedure Name Priority Date/Time Associated Diagnosis Comments US OB BPP W NON-STRESS 03/27/2023 3:25 PM EST documented in this encounter Results * US OB BPP W NON-STRESS (03/27/2023 3:25 PM EST) Anatomical Region Laterality Modality Other 03/27/2023 3:25 PM EST Narrative 03/27/2023 3:27 PM EST [address] [address] Ultrasound Report Signed Patient: CARLENE NELSON MR#: [id number] : 1990 Acct:[id number] Age/Sex: 32 / F ADM Date: 03/27/23 Loc: US Attending Dr: Bere Andrade Ordering Physician: Bere Andrade Date of Service: 03/27/23 Procedure(s): US OB BPP w non-stress Accession Number(s): [id number] cc: Bere Andrade; BRENNAN CHURCH [address] [address] Patient Name: CARLENE NELSON MRN: [id number] date: 1990 Sex: F Assigned Patient Location: [facility] Current Patient Location: Accession/Order Number: [id number] Exam Date: 03/27/2023 14:00 Report Date: 03/27/2023 [...] Signed By: 03/27/23 1527 DD/ 1525 TD/TT: Plate Shop Helper: Procedure Note Radiology, Radiologist, MD - 04/26/2023 [place] [address] Ultrasound Report Signed Patient: CARLENE NELSON MMR#: [id number] : 1990Acct:[id number] Age/Sex: 32 / FADM Date: 03/27/23 Loc: US Attending Dr: Bere Andrade Ordering Physician: Bere Andrade Date of Service: 03/27/23 Procedure(s): US OB BPP w non-stress Accession Number(s): [id number] cc: Bere Andrade; BRENNAN CHURCH [address] [address] Patient Name: CARLENE NELSON MRN: [id number] date: 1990 Sex: F Assigned Patient Location: [facility] Current Patient Location: Accession/Order Number: [id number] Exam Date: 03/27/2023 14:00 Report Date: 03/27/2023 [...] M.D. Signed By:03/27/23 1527 DD/ 1525 TD/TT: Plate Shop Helper: us Generic External Data Provider [facility] Final Result documented in this encounter Visit Diagnoses Not on filedocumented in this encounter Care Teams Field Mechanical Meter Tester Relationship Specialty Start Date End Date Brennan Church MD [address] [place] [address] PCP - General Family Medicine 08/10/22 Ana Rosa Hazel NP PCP - [place] [employer] 08/20/22 documented as of this encounter
--- OUTSIDE RECORDS SUMMARY | 2024-09-25 14:47 | XMS_ITS | Encounter Summary ---
Author Organization [facility] Address [address] [place] [address] Care Team Providers Care Mechanics Handyman Name Role Phone Brennan Church MD Primary Care Provider Ana Rosa Hazel GAUGE MAKER Unavailable Encounter Details Date Type Department [...] EDT Office Visit [facility] [address] [place] [address] Bere Zavala PA [address] [place] [address] documented as of this encounter Procedures Procedure Name Priority Date/Time Associated Diagnosis Comments US OB GROWTH 03/22/2023 4:05 PM EST documented in this encounter Results * US OB GROWTH (03/22/2023 4:05 PM EST) Anatomical Region Laterality Modality Other 03/22/2023 4:05 PM EST Narrative 03/22/2023 4:08 PM EST The [address] [address] Ultrasound Report Signed Patient: CARLENE NELSON MR#: [id number] : 1990 Acct:[id number] Age/Sex: 32 / F ADM Date: 03/22/23 Loc: [facility] Attending Dr: Jessica Dunne D.O. Ordering Physician: Jessica Dunne D.O. Date of Service: 03/22/23 Procedure(s): US OB growth Accession Number(s): [id number] cc: BRENNAN CHURCH ; Jessica Dunne D.O. The [address] [address] Patient Name: CARLENE NELSON MRN: [id number] date: 1990 Sex: F Assigned Patient Location: [facility] Current Patient Location: [facility] Accession/Order Number: [id number] Exam Date: 03/22/2023 15:11 Report Date: 03/22/2023 [...] Au M.D. Signed By: 03/22/23 1608 DD/ 04 TD/TT: Woven Blind Loom Tender: Procedure Note Radiology, Radiologist, MD - 03/22/2023 [place] [address] Ultrasound Report Signed Patient: CARLENE NELSON MMR#: [id number] : 1990Acct:[id number] Age/Sex: 32 / FADM Date: 03/22/23 Loc: [facility] Attending Dr: Jessica Dunne D.O. Ordering Physician: Jessica Dunne D.O. Date of Service: 03/22/23 Procedure(s): US OB growth Accession Number(s): [id number] cc: BRENNAN CHURCH ; Jessica Dunne D.O. The [address] [address] Patient Name: CARLENE NELSON MRN: [id number] date: 1990 Sex: F Assigned Patient Location: [facility] Current Patient Location: [facility] Accession/Order Number: [id number] Exam Date: 03/22/2023 15:11 Report Date: 03/22/2023 [...] 16:05 Dictated By: Wendy Au M.D. Signed By:03/22/238 DD/ 04 TD/TT: Woven Blind Loom Tender: us Generic External Data Provider [facility] Final Result documented in this encounter Visit Diagnoses Not on filedocumented in this encounter Care Teams Mechanics Handyman Relationship Specialty Start Date End Date Brennan Church MD [address] [place] [address] PCP - General Family Medicine 08/10/22 Ana Rosa Hazel NP PCP - [place] [employer] 08/20/22 documented as of this encounter
--- OUTSIDE RECORDS SUMMARY | 2024-09-25 14:47 | XMS_ITS | Encounter Summary ---
Author Organization [facility] Address [address] [place] [address] Care Team Providers Care Emt Name Role Phone Brennan Church MD Primary Care Provider [phone] Ana Rosa Hazel IT OPERATIONS SPECIALIST Unavailable Encounter Details Date Type Department [...] EDT Office Visit [facility] [address] [place] [phone] Bere Zavala PA [address] [facility] [address] [place], [place] [address] documented as of this encounter Procedures Procedure Name Priority Date/Time Associated Diagnosis Comments US OB BPP W NON-STRESS 04/04/2023 7:10 AM EST documented in this encounter Results * US OB BPP W NON-STRESS (04/04/2023 7:10 AM EST) Anatomical Region Laterality Modality Other 04/04/2023 7:10 AM EST Narrative 04/04/2023 7:12 AM EST [address] [address] Ultrasound Report Signed Patient: CARLENE NELSON MR#: [id number] : 1990 Acct:[id number] Age/Sex: 32 / F ADM Date: 04/03/23 Loc: US Attending Dr: Jessica Dunne D.O. Ordering Physician: Jessica Dunne D.O. Date of Service: 04/03/23 Procedure(s): US OB BPP w non-stress Accession Number(s): [id number] cc: BRENNAN CHURCH ; Jessica Dunne D.O. The [address] [address] Patient Name: CARLENE NELSON MRN: [id number] date: 1990 Sex: F Assigned Patient Location: [facility] Current Patient Location: Accession/Order Number: [id number] Exam Date: 04/03/2023 16:07 Report Date: 04/04/2023 [...] M.D. Signed By: 04/04/23711 DD/ 9 TD/TT: Lanolin Plant Operator: Procedure Note Radiology, Radiologist, MD - 04/26/2023 [place] [address] Ultrasound Report Signed Patient: CARLENE NELSON MMR#: [id number] : 1990Acct:[id number] Age/Sex: 32 / FADM Date: 04/03/23 Loc: US Attending Dr: Jessica Dunne D.O. Ordering Physician: Jessica Dunne D.O. Date of Service: 04/03/23 Procedure(s): US OB BPP w non-stress Accession Number(s): [id number] cc: BRENNAN CHURCH ; Jessica Dunne D.O. The [place] [id number] Patient Name: CARLENE NELSON MRN: [id number] date: 1990 Sex: F Assigned Patient Location: [facility] Current Patient Location: Accession/Order Number: [id number] Exam Date: 04/03/2023 16:07 Report Date: 04/04/2023 [...] Au M.D. Signed By:04/04/23711 DD/ 9 TD/TT: Lanolin Plant Operator: us Generic External Data Provider [facility] Final Result documented in this encounter Visit Diagnoses Not on filedocumented in this encounter Care Teams Emt Relationship Specialty Start Date End Date Brennan Church MD [address] [place] [address] PCP - General Family Medicine 08/10/22 Ana Rosa Hazel NP PCP - [place] [employer] 08/20/22 documented as of this encounter
--- OUTSIDE RECORDS SUMMARY | 2024-09-25 14:47 | XMS_ITS | Clinical Summary ---
Author Organization [facility] Address [address] [place] [address] Care Team Providers Care Addiction Nurse Name Role Phone Brynn Bha MD Primary Care Provider [phone] Allergies No known active allergies Medications Multiple Vitamin (multivitamin) tablet Take 1 tablet by mouth Daily Active norethindrone (Micronor) 0.35 MG tabletIndicati ons: control counseling Take 1 tablet (0.35 mg) by mouth Daily 84 tablet 3 06/04/19 25 Active ASHWAGANDHA GUMMIES PO Take by mouth Activ e magnesium oxide (Mag-Ox) 400 MG tabletIndicati ons:Migraine without aura and without status migrainosus, not intractable Take 1 tablet (400 mg) by mouth in the morning. 30 tablet 3 09/03/19 25 025 Active hydroCHLOROthi azide (HYDRODiuril) 25 MG tabletIndicati ons:Meniere disease, left Take 1 tablet (25 mg) by mouth Daily 30 tablet 11 09/06/19 25 026 Active Rimegepant Sulfate (Nurtec) 75 MG tablet dispersibleInd ications:Migra ine without aura and without status migrainosus, not intractable Take 75 mg by mouth Daily as needed (Migraines) 30 tablet 2 09/06/19 25 Active magnesium oxide (Mag-Ox) 400 (240 Mg) MG tabletIndicati ons: headache in second trimester (HHS-HCC) TAKE 1 TABLET BY MOUTH EVERY DAY IN THE MORNING 90 tablet 3 05/17/19 25 025 Discontinued(R eorder) Rimegepant Sulfate (Nurtec) 75 MG tablet dispersibleInd ications:Migra ine without aura and without status migrainosus, not intractable Take 75 mg by mouth 1 time for 1 dose 30 tablet 2 09/03/19 25 025 Discontinued(M ed list cleanup) magnesium oxide (Mag-Ox) 400 (240 Mg) MG tabletIndicati ons: headache in second trimester (HHS-HCC) Take 1 tablet (400 mg) by mouth in the morning. 90 tablet 3 09/03/19 25 025 Discontinued magnesium oxide (Mag-Ox) 400 MG tablet Take 1 tablet by mouth in the morning. 08/23/19 25 025 Discontinued(R eorder) Nurtec 75 MG tablet dispersible Take 75 mg by mouth Daily as needed 09/05/19 25 025 Discontinued(R eorder) mupirocin (Bactroban) 2 % ointmentIndica tions:Angular cheilitis due to bacterial infection Apply topically in the morning and in the evening and before bedtime. Do all this for 10 days. 22 g 09/06/19 25 025 Additional Information Patient not taking.Reported on 09/19/2024 Active Problems Problem Noted Date Diagnosed Date [...] Date Diagnosed Date Resolved Date Third trimester ([facility]) 02/22/2023 04/28/2023 Antepartum anemia ([facility]) 02/09/2023 04/28/2023 Second trimester ([facility]) 02/09/2023 04/28/2023 Encounters Date Type Department Care Team Description 09/25/2024 1:30 PM EDT Procedure Visit [facility] Harshad MORALESGYN [address] [place] [address] Kvng Dunne, Pre-op examination; Request for sterilization; Menorrhagia with regular cycle; Abnormal uterine bleeding (AUB); Pelvic pain; Complex ovarian cyst 09/19/2024 1:20 PM EDT Office Visit [facility] [address] [place] [address] Brynn Bah MD Meniere disease, left (Primary Dx) 09/19/2024 Bamboo flowsheet [facility] [address] [facility] [place] [address] Brynn Bah MD 09/19/2024 Travel 09/18/2024 1:00 PM EDT Ancillary Procedure [facility] [address] [place] [address] Migraine without aura and without status migrainosus, not intractable ; Menorrhagia with regular cycle 09/10/2024 Orders Only [facility]AL[facility] [address] [place] [address] Shana Felix LPN 09/05/2024 1:20 PM EDT Office Visit [facility] [address] [place] [address] rBynn Bah MD Angular cheilitis due to bacterial infection (Primary Dx); Vertigo; Meniere disease, left 09/05/2024 Refill [facility]AL[facility] [address] [place] [address] Zeny Blankenship LPN Migraine without aura and without status migrainosus, not intractable 09/05/2024 Bamboo flowsheet [facility] [address] [place] [address] Brynn Bah MD 09/05/2024 Travel 09/02/2024 1:00 PM EDT Office Visit [facility] [address] [place] [address] Kvng Dunne DO Well woman exam with routine gynecological exam; Encounter for surveillance of contraceptive pills; Migraine without aura and without status migrainosus, not intractable ; headache in second trimester ([facility]); Menorrhagia with regular cycle 09/02/2024 Clinisync Result Encounter [facility] External Department Unsolicited Kvng Dunne DO 09/02/2024 Bamboo flowsheet [facility] OBGAMAL [address] [place] [address] Kvng Dunne DO from Last 3 Months Immunizations Immunization Administration Dates Next Due DTP 01/14/1991,12/11/1989,10/09/1989 ,05/01/1989 DTaP, Unspecified 08/16/1993 Hep B, Adolescent or Pediatric 04/25/2006,2005,10/13/2005 HiB, unspecified 06/11/1990 MMR 07/13/2001,06/11/1990 OPV 08/16/1993,01/14/1991,10/09/1989 ,05/01/1989 Tdap 10/13/2005 Family History Medical History Relation Name Comments Migraines Brother Rico sanchez Cancer Mother Cecilia walden Migraines Mother Cecilia walden Ovarian cancer Mother Ceiclia walden Relation Name Status Comments Brothmaynor sanchez Alive Daughter Alive Father Alive Mother [...] Pressure 104/70 09/25/2024 1:48 PM EDT Pulse 90 09/19/2024 1:17 PM EDT Temperature 36.3 C (97.4 F) 03/25/2024 1:07 PM EST Respiratory Rate 18 09/19/2024 1:17 PM EDT Oxygen Saturation 98% 09/19/2024 1:17 PM EDT Inhaled Oxygen Concentration - - Weight 74 kg (163 lb 1.9 oz) 09/25/2024 1:48 PM EDT Height 157.5 cm (5' 2 ) 09/19/2024 1:17 PM EDT Body Mass Index 29.84 09/19/2024 1:17 PM EDT Plan of Treatment Upcoming Encounters Date Type Department Care Team (Late st Contact Info) Description 11/11/2024 1:20 PM EDT Office Visit [facility] [address] [place] [address] Bere Zavala PA [address] [place] [address] Health Maintenance Due Date Last Done Comments Influenza Vaccine (#1) 2024 HPV/Cotest 08/25/2027 08/24/2022 Cervical Cancer Screening 09/03/2027 Pap Smear 09/03/2027 09/02/2024, 09/2023, 08/24/2022, Additional history exists Procedures Procedure Name Priority Date/Time Associated Diagnosis Comments POCT , URINE Routine 09/25/2024 1:52 PM EDT Pre-op examination Menorrhagia with regular cycle Abnormal uterine bleeding (AUB) Pelvic pain US PELVIC COMPLETE W/ TV Routine 09/18/2024 1:26 PM EDT Migraine without aura and without status migrainosus, not intractable Menorrhagia with regular cycle POCT , URINE Routine 09/02/2024 1:17 PM EDT Encounter for surveillance of contraceptive pills IGP,APTIMA HPV,AGE GDLN Routine 09/02/2024 12:52 PM EDT PAP SMEAR Routine 09/02/2024 12:00 AM EDT THINPREP PAP AND HPV MRNA E6/E7 W/RFL HPV 16,18/45 Routine 08/24/2022 9:29 AM EDT Well woman exam with routine gynecological exam from Last 3 Months or Most Recently Relevant to Health Maintenance Results * POCT , urine manually resulted (09/25/2024 1:52 PM EDT) Only the most recent of2 resultswithin the time period is included. Preg Test, Ur Negative Negative Urine 09/25/2024 1:52 PM EDT us Kvng Dunne DO POINT OF CARE TEST ENTER/EDIT OR DERABLES Final Result * US Pelvis w/ TV (09/18/2024 1:26 [...] ovaries. Interpreted by: Electronically signed by IVORY CHAMBERS II, MD, PHD at 19-Sep-2024 08:33:51 AM [facility] Procedure Note Ivory Chambers MD - 09/19/2024 EXAM: US PELVIC COMPLETE [...] ovaries. Interpreted by: Electronically signed by IVORY CHAMBERS II, MD, PHD [id number] 08:33:51 AM [facility] us Kvng Vibha DO [facility] [place] PROCEDURES Final Result * IGP,APTIMA HPV,AGE GDLN (09/02/2024 12:52 PM EDT) AGE GDLN ACOG TESTING Note . [facility] Comment: TESTS RESULT FLAG UNITS REF RANGE LAB Clinician Provided Cytology Information Source.............Cervix;Endocervix No. of containers..01 ThinPrep Vial Age Algo ACOG Shirley... 30-65 01 FLAG LEGEND: L-Low Normal,H-High Normal,LL-Alert Low,HH-Alert High <-Panic Low,>-Panic High,A-Abnormal,AA-Critical Abnormal Performed at: 01 =G [facility] [address] [place] [address] Cherrie Roberson MD, IGP, APTIMA HPV, RFX 16/18,45 Note . [facility] Comment: TESTS RESULT FLAG UNITS REF RANGE LAB DIAGNOSIS: 02 NEGATIVE FOR INTRAEPITHELIAL LESION OR MALIGNANCY. Specimen adequacy: 02 Satisfactory for evaluation. Endocervical and/or squamous metaplastic cells (endocervical component) are present. Performed by: 02 Gaudencio Aldrich, Crowning Inspector ([facility]) . 02 Note: Note 02 The Pap smear is a screening test designed to aid in the detection of premalignant and malignant conditions of the uterine cervix. It is not a diagnostic procedure and should not be used as the sole means of detecting cervical cancer. Both false-positive and false-negative reports do occur. Test Methodology: Note 02 This liquid based ThinPrep(R) pap test was screened with the use of an image guided system. HPV Genotype Reflex Note 02 Criteria not met, HPV Genotype not performed. FLAG LEGEND: L-Low Normal,H-High Normal,LL-Alert Low,HH-Alert High <-Panic Low,>-Panic High,A-Abnormal,AA-Critical Abnormal Performed at: 02 [facility] [address] [place] [address] Cherrie Roberson MD, HPV APTIMA Negative Negative [facility] Comment: This nucleic acid amplification test detects fourteen high- risk HPV types (16,18,31,33,35,39,45,51,52,56,58,59,66,68) without differentiation. Performed at: = - [facility] [place], [place] [id number] Human Resources Operations Manager: Cherrie Roberson MD, Phone: [phone] Performed at: - [facility] [place], [place] [id number] Human Resources Operations Manager: Cherrie Roberson MD, Phone: [phone] 09/02/2024 12:5 2 PM EDT 09/03/2024 6:17 AM EDT Narrative [facility] - 09/05/2024 4:09 PM EDT BRUSH-SPATULA CERVIX ENDOCERVIX Generic External Data Provider LAB BLOOD ORDERAB LES Final Result Performing Organization Address [facility] Co de Phone Number [facility] * Pap Smear (09/02/2024 12:00 AM EDT) Swab Cervical swab / Unknown Vibha Nurse [facility] Ob LAB CYTOLOGY ORDERABLES Final Result Performing Organization Address [facility]/ZIP Co de Phone Number EXTERNAL LAB * THINPREP PAP AND HPV MRNA E6/E7 W/RFL HPV 16,18/45 (08/24/2022 9:29 AM EDT) Kvng Dunne DO LAB BLOOD ORDERABLES Final Resul t Performing Organization Address [facility]/ZIP Co de Phone Number EXTERNAL LAB from Last 3 Months or Most Recently Relevant to Health Maintenance Insurance [facility] Care Teams Addiction Nurse Relationship Specialty Start Date End Date Brynn Bah MD [address] [place] [address] PCP - General Family Medicine 08/10/22
--- OUTSIDE RECORDS SUMMARY | 2024-09-25 14:47 | XMS_ITS | Encounter Summary ---
Author Organization [facility] Address [address] [place] [address] Care Team Providers Care Nursing Teacher Name Role Phone Brynn Bah MD Primary Care Provider [phone] Ana Rosa Hazel PLANTING MATERIAL CARRIER Unavailable Encounter Details Date Type Department Care Team (Late st Contact Info) Description 04/27/2023 Abstract [facility] [address] [place] [address] Kvng Dunne DO [address] [place] [address] Social History Tobacco Use Types Packs/Day Years [...] PM EDT Office Visit [facility] [address] [place] [address] Bere Zavala PA [address] [place], [place] [phone] documented as of this encounter Visit Diagnoses Not on filedocumented in this encounter Care Teams Nursing Teacher Relationship Specialty Start Date End Date Brynn Bah MD [address] [place] [address] PCP - General Family Medicine 08/10/22 Ana Rosa Hazel NP PCP - [place] [employer] 08/20/22 documented as of this encounter
--- OUTSIDE RECORDS SUMMARY | 2024-09-25 14:47 | XMS_ITS | Encounter Summary ---
Author Organization [facility] Address [address] [place] [address] Care Team Providers Care Social Science Manager Name Role Phone Brynn Bah MD Primary Care Provider [phone] Ana Rosa Hazel METAL MINER Unavailable Encounter Details Date Type Department Care Team (Late st Contact Info) Description 09/04/2023 Orders Only [facility] [address] [place] [address] Shana Felix LPN [address] [place] [address] Social History Tobacco Use Types Packs/Day Years [...] EDT Office Visit [facility] [address] [place] [address] Bere Zavala PA [address] [place] [address] documented as of this encounter Procedures Procedure [...] on filedocumented in this encounter Care Teams Social Science Manager Relationship Specialty Start Date End Date Brynn Bah MD [address] [place] [address] PCP - General Family Medicine 08/10/22 Ana Rosa Hazel NP PCP - [place] [employer] 08/20/22 documented as of this encounter
--- OUTSIDE RECORDS SUMMARY | 2024-09-25 14:47 | XMS_ITS | Encounter Summary ---
Author Organization [facility] Address [address] [place] [address] Care Team Providers Care Forest Law And Policy Professor Name Role Phone Brennan Church MD Primary Care Provider [phone] Ana Rosa Hazel BOX CAR LOADER Unavailable Encounter Details Date Type Department Care [...] EDT Office Visit [facility] [address] [place] [address] Bere Zavala PA [address] [place] [address] documented as of this encounter Procedures Procedure Name Priority Date/Time Associated Diagnosis Comments US OB BPP W NON-STRESS 04/21/2023 8:11 PM EST documented in this encounter Results * US OB BPP W NON-STRESS (04/21/2023 8:11 PM EST) Anatomical Region Laterality Modality Other 04/21/2023 8:11 PM EST Narrative 04/21/2023 8:14 PM EST [address] [address] Ultrasound Report Signed Patient: CARLENE NELSON MR#: [id number] : 1990 Acct:[id number] Age/Sex: 32 / F ADM Date: 04/21/23 Loc: [facility] Attending Dr: Jessica Dunne D.O. Ordering Physician: Jessica Dunne D.O. Date of Service: 04/21/23 Procedure(s): US OB BPP w non-stress Accession Number(s): [id number] cc: BRENNAN CHURCH ; Jessica Dunne D.O. The [address] [address] Patient Name: CARLENE NELSON MRN: [id number] date: 1990 Sex: F Assigned Patient Location: [facility] Current Patient Location: Accession/Order Number: [id number] Exam Date: 04/21/2023 18:33 Report Date: 04/21/2023 20:11 At the request of: JESSICA DUNNE Procedure: US OB BPP w non-stress US OB BPP w non-stress, 04/21/2023 5:33 PM REMOTE ADVISOR: History: well-being. Comparison: None Technique: Transabdominal grayscale [...] M.D. Signed By: 04/21/232013 DD/ 10 TD/TT: Elevator Supervisor: Procedure Note Radiology, Radiologist, - 04/26/2023 [place] [address] Ultrasound Report Signed Patient: CARLENE NELSON MMR#: [id number] : 1990Acct:[id number] Age/Sex: 32 / FADM Date: 04/21/23 Loc: [facility] Attending Dr: Jessica Dunne D.O. Ordering Physician: Jessica Dunne D.O. Date of Service: 04/21/23 Procedure(s): US OB BPP w non-stress Accession Number(s): [id number] cc: BRENNAN CHURCH ; Jessica Dunne D.O. The [place] [address] Patient Name: CARLENE NELSON MRN: [id number] date: 1990 Sex: F Assigned Patient Location: [facility] Current Patient Location: Accession/Order Number: [id number] Exam Date: 04/21/2023 18:33 Report Date: 04/21/2023 20:11 At the request of: JESSICA DUNNE Procedure: US OB BPP w non-stress US OB BPP w non-stress, 04/21/2023 5:33 PM REMOTE ADVISOR: History: well-being. Comparison: None Technique: Transabdominal grayscale [...] III, M.D. Signed By:04/21/232013 DD/ 10 TD/TT: Elevator Supervisor: us Generic External Data Provider [facility] Final Result documented in this encounter Visit Diagnoses Not on filedocumented in this encounter Care Teams Forest Law And Policy Professor Relationship Specialty Start Date End Date Brennan Church MD [address] [place] [address] PCP - General Family Medicine 08/10/22 Ana Rosa Hazel NP PCP - Emmanuel Bellamy 08/20/22 documented as of this encounter
--- OUTSIDE RECORDS SUMMARY | 2024-09-25 14:47 | XMS_ITS | Encounter Summary ---
Author Organization [facility] Address [address] [place] [address] Care Team Providers Care Rock Star Name Role Phone Brennan Church MD Primary Care Provider [phone] Ana Rosa Hazel SKIVER HAND Unavailable Encounter Details Date Type Department Care Team (Late st Contact Info) Description 04/20/2023 Clinisync Result Encounter [facility] External Department Unsolicited Jessica Dunne, [address] [place], [place] [id number] Social History Tobacco Use Types Packs/Day Years [...] EDT Office Visit [facility] [address] [place] [address] Bere Zavala PA [address] [place], [facility] documented as of this encounter Procedures Procedure Name Priority Date/Time Associated Diagnosis Comments US OB BPP W NON-STRESS 04/20/2023 8:22 AM EST documented in this encounter Results * US OB BPP W NON-STRESS (04/20/2023 8:22 AM EST) Anatomical Region Laterality Modality Other 04/20/2023 8:22 AM EST Narrative 04/20/2023 8:25 AM EST [place] [id number] Ultrasound Report Signed Patient: CARLENE NELSON MR#: [id number] : 1990 Acct:[id number] Age/Sex: 32 / F ADM Date: Loc: [facility] 257- Attending Dr: Jessica Dunne D.O. Ordering Physician: Jessica Dunne D.O. Date of Service: 04/20/23 Procedure(s): US OB BPP w non-stress Accession Number(s): [id number] cc: BRENNAN CHURCH ; Jessica Dunne D.O. The [address] [id number] Patient Name: CARLENE NELSON MRN: [id number] date: 1990 Sex: F Assigned Patient Location: [facility] Current Patient Location: [facility] Accession/Order Number: [id number] Exam Date: 04/20/2023 07:30 Report Date: 04/20/2023 08:22 At the request of: JESSICA DUNNE Procedure: US OB BPP w non-stress EXAMINATION: US OB BPP w non-stress HISTORY: [id number] COMPARISON: 04/17/2023 TECHNIQUE: Ultrasound biophysical profile was [...] M.D. Signed By: 04/20/23824 DD/ 1 TD/TT: Tie Mill Operator: Procedure Note Radiology, Radiologist, - 04/26/2023 [place] [address] Ultrasound Report Signed Patient: CARLENE NELSON MMR#: [id number] : 1990Acct:[id number] Age/Sex: 32 / FADM Date: Loc: [facility] 257-[address]: Jessica Dunne D.O. Ordering Physician: Jessica Dunne D.O. Date of Service: 04/20/23 Procedure(s): US OB BPP w non-stress Accession Number(s): [id number] cc: BRENNAN CHURCH ; Jessica Dunne D.O. The [place] [address] Patient Name: CARLENE NELSON MRN: [id number] date: 1990 Sex: F Assigned Patient Location: [facility] Current Patient Location: [facility] Accession/Order Number: [id number] Exam Date: 04/20/2023 07:30 Report Date: 04/20/2023 08:22 At the request of: JESSICA DUNNE Procedure: US OB BPP w non-stress EXAMINATION: US OB BPP w non-stress HISTORY: [id number] COMPARISON: 04/17/2023 TECHNIQUE: Ultrasound biophysical profile was [...] Au M.D. Signed By:04/20/23824 DD/ 1 TD/TT: Tie Mill Operator: us Jessica Vibha DO [facility] Final Result documented in this encounter Visit Diagnoses Not on filedocumented in this encounter Care Teams Rock Star Relationship Specialty Start Date End Date Brennan Church MD [address] [place] [address] PCP - General Family Medicine 08/10/22 Ana Rosa Hazel NP PCP - [place] [employer] 08/20/22 documented as of this encounter
--- OUTSIDE RECORDS SUMMARY | 2024-09-25 14:47 | XMS_ITS | Encounter Summary ---
Author Organization [facility] Address [address] [place] [address] Care Team Providers Care Professor Of Theology Name Role Phone Brennan Church MD Primary Care Provider [phone] Ana Rosa Hazel ORDER CHECKER PACKER PROCESSER Unavailable Encounter Details Date Type Department Care Team (Late st Contact Info) Description 03/22/2023 Clinisync Result Encounter [facility] External Department Unsolicited Jessica Dunne, [address] [place], [place] [id number] Social History Tobacco Use Types Packs/Day Years [...] EDT Office Visit [facility] [address] [place] [address] Bere Zavala PA [address] [place], [facility] documented as of this encounter Procedures Procedure Name Priority Date/Time Associated Diagnosis Comments US OB GROWTH 03/22/2023 4:05 PM EST documented in this encounter Results * US OB GROWTH (03/22/2023 4:05 PM EST) Anatomical Region Laterality Modality Other 03/22/2023 4:05 PM EST Narrative 03/22/2023 4:08 [place] [address] Ultrasound Report Signed Patient: CARLENE NELSON MR#: [id number] : 1990 Acct:[id number] Age/Sex: 32 / F ADM Date: 03/22/23 Loc: [facility] Attending Dr: Jessica Dunne D.O. Ordering Physician: Jessica Dunne D.O. Date of Service: 03/22/23 Procedure(s): US OB growth Accession Number(s): [id number] cc: BRENNAN CHURCH ; Jessica Dunne D.O. The [address] [address] Patient Name: CARLENE NELSON MRN: [id number] date: 1990 Sex: F Assigned Patient Location: [facility] Current Patient Location: [facility] Accession/Order Number: [id number] Exam Date: 03/22/2023 15:11 Report Date: 03/22/2023 [...] Wendy Au M.D. Signed By: 03/22/238 DD/ 1605 TD/TT: Office Mail Clerk: Procedure Note Radiology, Radiologist, - 04/26/2023 [place] [address] Ultrasound Report Signed Patient: CARLENE NELSON MMR#: [id number] : 1990Acct:[id number] Age/Sex: 32 / FADM Date: 03/22/23 Loc: [facility] Attending Dr: Jessica Dunne D.O. Ordering Physician: Jessica Dunne D.O. Date of Service: 03/22/23 Procedure(s): US OB growth Accession Number(s): [id number] cc: BRENNAN CHURCH Corey D.O. The [place] [address] Patient Name: CARLENE NELSON MRN: [id number] date: 1990 Sex: F Assigned Patient Location: [facility] Current Patient Location: [facility] Accession/Order Number: [id number] Exam Date: 03/22/2023 15:11 Report Date: 03/22/2023 [...] M.D. Signed By:03/22/23 1608 DD/ 1605 TD/TT: Office Mail Clerk: us Jessica Dunne DO [facility] Final Result documented in this encounter Visit Diagnoses Not on filedocumented in this encounter Care Teams Professor Of Theology Relationship Specialty Start Date End Date Brennan Church MD [address] [place] [address] PCP - General Family Medicine 08/10/22 Ana Rosa Hazel NP PCP - [place] [employer] 08/20/22 documented as of this encounter
--- OUTSIDE RECORDS SUMMARY | 2024-09-25 14:47 | XMS_ITS | Encounter Summary ---
Author Organization [facility] Address [address] [place] [address] Care Team Providers Care Machine Binding Folder Name Role Phone Brennan Church MD Primary Care Provider [phone] Ana Rosa Hazel MANAGER PLANT Unavailable Encounter Details Date Type Department Care [...] OBGYN [address] [place] [address] Bere Andrade PA [address] [address] documented as of this encounter Procedures Procedure Name Priority Date/Time Associated Diagnosis Comments US OB BPP W NON-STRESS 04/10/2023 2:37 PM EST documented in this encounter Results * US OB BPP W NON-STRESS (04/10/2023 2:37 PM EST) Anatomical Region Laterality Modality Other 04/10/2023 2:37 PM EST Narrative 04/10/2023 2:40 PM EST [address] [address] Ultrasound Report Signed Patient: CARLENE NELSON MR#: [id number] : 1990 Acct:[id number] Age/Sex: 32 / F ADM Date: 04/10/23 Loc: [facility] 250-[address]: Bere Andrade Ordering Physician: Bere Andrade Date of Service: 04/10/23 Procedure(s): US OB BPP w non-stress Accession Number(s): [id number] cc: Bere Andrade; BRENNAN CHURCH [address] [address] Patient Name: ACRLENE NELSON MRN: [id number] date: 1990 Sex: F Assigned Patient Location: US Current Patient Location: [facility] Accession/Order Number: [id number] Exam Date: 04/10/2023 13:56 Report Date: 04/10/2023 [...] Signed By: 04/10/23 1440 DD/ 1437 TD/TT: Cmo: Procedure Note Radiology, Radiologist, MD - 04/26/2023 [place] [address] Ultrasound Report Signed Patient: CARLENE NELSON MMR#: [id number] : 1990Acct:[id number] Age/Sex: 32 / FADM Date: 04/10/23 Loc: [facility] 250-[address]: Bere Andrade Ordering Physician: Bere Andrade Date of Service: 04/10/23 Procedure(s): US OB BPP w non-stress Accession Number(s): [id number] cc: Bere Andrade; BRENNAN CHURCH [address] [address] Patient Name: CARLENE NELSON MRN: [id number] date: 1990 Sex: F Assigned Patient Location: Current Patient Location: [facility] Accession/Order Number: [id number] Exam Date: 04/10/2023 13:56 Report Date: 04/10/2023 [...] M.D. Signed By:04/10/23 1440 DD/ 1437 TD/TT: Cmo: us Generic External Data Provider [facility] Final Result documented in this encounter Visit Diagnoses Not on filedocumented in this encounter Care Teams Machine Binding Folder Relationship Specialty Start Date End Date Brennan Church MD [address] [place] [address] PCP - General Family Medicine 08/10/22 Ana Rosa Hazel NP PCP - Emmanuel Bellamy 08/20/22 documented as of this encounter
[2024-09-27 08:08] LABS: AFP, Serum, Tumor Marker <1.8 ng/mL (0.0-6.4); CEA <0.6 ng/mL (0.0-4.7)
== END 2024-09-25 14:45 | disposition home or self-care (01) ==
LOC: LAB 14:45
PROVIDERS: PCP Family Medicine; Visit Provider Obstetrics & Gynecology
DX: N92.0 Excessive and frequent menstruation with regular cycle (principal); N83.299 Other ovarian cyst, unspecified side; D22.0 Melanocytic nevi of lip
CPT/HCPCS: 36415; 82105; 82378; 83615; 83625; 84702; 86304; 88305

== ENCOUNTER 2024-10-17 12:52 | Outpatient (OUT) | payer BC, SELFPAY ==
--- OUTSIDE RECORDS SUMMARY | 2024-10-17 13:17 | XMS_ITS | CCD ---
Author Organization [facility] Care Team Providers Care Boom Tender Name Role Phone Brynn Bah Primary Care Provider [phone] BRYNN BAH Primary Care Unavailable COLTON GOODMAN Referring Unavailable AGUILAR WOODY Referring Unavailable BRYNN BAH Primary Care Unavailable VIBHA, DR LOPEZ Admitting Unavailable VIBHA, DR LOPEZ Attending Unavailable VIBHA, DR LOPEZ Consulting Unavailable Brynn Bah MD Primary Care Provider Ana Rosa Hazel NP Unavailable Ana Rosa Hazel NP Unavailable MARGARET GAMBLE Attending Unavailab SHANIQUA Richardson Attending Unavailable BRYNN BAH Attending Unavailable TRISH OG Attending Unavailable BRYNN BAH Referring Unavailable JESSICA DUNNE Attending Unavailable BRYNN BAH Attending Unavailable JESSICA DUNNE Referring Unavailable BRYNN BAH Attending Unavailable JESSICA DUNNE Attending Unavailable Medications Current Medications Medication Drug Class(es) Dates Sig (Normalized) Sig (Original) amoxicillin 500 mg oral capsule (2 sources) Penicillin-class Antibacterial Start: 03-25-19 25 End: 04-04-19 25 take 1 capsule by mouth in the morning amoxicillin (Amoxil) 500 MG capsule Indications: Acute bilateral otitis media Take 1 capsule (500 mg) by mouth in the morning and 1 capsule (500 mg) before bedtime. Do all this for 10 days. 20 capsule 03/25/2024 04/04/2024 Active ASHWAGANDHA GUMMIES PO (11 sources) ASHWAGANDHA BRETT IES PO Take by mouth Active azelastine hydrochloride 0.137 mg/actuat metered dose nasal spray (2 sources) Histamine-1 Receptor Antagonist Start: 04-28-19 20 take 1 spray(s) nasal route twice daily azelastine (ASTELIN) 0.1 % nasal spray SPRAY 1 SPRAY INTO EACH NOSTRIL TWICE A DAY 0 04/28/2019 Active Ethinyl Estradiol / norgestimate (2 sources) Progestin, Estrogen Start: 05-27-19 take 1 tablet by mouth once daily [id number] 0.18/0.215/0.25 MG-25 MCG TABS TAKE 1 TABLET BY MOUTH EVERY DAY 0 05/27/2019 Active hydroCHLOROthiazide 25 mg oral tablet (7 sources) Thiazide Diuretic Start: 09-06-19 End: 09-06-19 take 1 tablet by mouth once daily hydroCHLOROthiazide (HYDRODiuril) 25 MG tablet Indications: Meniere disease, left Take 1 tablet (25 mg) by mouth Daily 30 tablet 11 09/05/2024 09/05/2025 Active magnesium oxide 400 mg oral tablet (20 sources) Start: 09-03-19 End: 09-03-19 take 1 tablet by mouth once in the morning magnesium oxide (Mag-Ox) 400 (240 Mg) MG tablet Indications: headache in second trimester ([facility]) Take 1 tablet (400 mg) by mouth [...] MG tablet Indications: headache in second trimester ([facility]) TAKE 1 [...] 2 02/08/2023 Active Multiple Vitamin (multivitamin) tablet (15 sources) take 1 tablet by mouth once daily Multiple Vitamin (multivitamin) tablet Take 1 tablet by mouth Daily Active mupirocin 0.02 mg/mg topical ointment (2 sources) RNA Synthetase Inhibitor Antibacterial Start: End: mupirocin (Bactroban) 2 % ointment Indications: Angular cheilitis due to bacterial infection Apply topically in the morning and in the evening and before bedtime. Do all this for 10 days. 22 g 09/05/2024 09/15/2024 Active norethindrone 0.35 mg oral tablet (20 sources) Start: End: take 1 tablet by mouth once daily norethindrone (Micronor) 0.35 MG tablet Indications: control counseling Take 1 tablet (0.35 mg) by mouth Daily 84 tablet 3 06/03/2024 Active omeprazole 20 mg delayed release oral capsule (2 sources) Proton Pump Inhibitor Start: End: take 1 capsule by mouth before mealtime omeprazole (PriLOSEC) [address] capsule Indications: Heart burn Take 1 capsule (20 mg) by mouth in the morning. Take before meals. Do not crush or chew.. 30 capsule 11 03/22/2023 03/21/2024 Active polysaccharide iron complex 391 mg oral capsule (2 sources) Start: 023 End: take 1 capsule by mouth in the morning iron polysaccharides (ProFe) 391.3 (180 Fe) MG capsule Indications: Anemia affecting in first trimester Take 1 capsule (391.3 mg) by mouth in the morning. 30 capsule 11 10/27/2022 10/27/2023 Active predniSONE 20 mg oral tablet (2 sources) Start: 025 End: take 1 tablet by mouth in the morning predniSONE (Deltasone) 20 MG tablet Indications: Acute middle ear effusion, left Take 1 tablet (20 mg) by mouth in the morning and 1 tablet (20 mg) before bedtime. Do all this for 3 days. 6 tablet 04/09/2024 04/12/2024 Active rimegepant 75 mg disintegrating oral tablet (11 sources) Start: 025 End: 025 take 1 tablet by mouth once daily as needed Rimegepant Sulfate (Nurtec) 75 MG tablet dispersible Indications: Migraine without aura and without status migrainosus, not intractable Take 75 mg by mouth Daily as needed (Migraines) 30 tablet 2 09/05/2024 Active Completed/Discontinued Medications Medication Drug Class(es) Dates Sig (Normalized) Sig (Original) MV-Min-Fe Fum-FA-DHA ( 1 PO) (11 sources) End: 06-12-2024 MV-Min-Fe Fum-FA-DHA ( 1 PO) Take by mouth 06/12/2024 Discontinued (Therapy completed) MV-Min- Fe Fum-FA-DHA ( 1 PO) Take by mouth. Active MV-Min- Fe Fum-FA-DHA ( 1 PO) Take by mouth. 0 Active Problems Active Problems Problem Classification Problem Date Documented Date Episodic/Chronic Abdominal pain (1 source) Pain in pelvis; Translations: [Pelvic and perineal pain] 09-25-2024 Episodic Conditions associated with dizziness or vertigo (4 sources) Meniere's disease of left inner ear; Translations: [Meniere's disease, left ear] 09-05-2024 Chronic Conditions associated with dizziness or vertigo (2 sources) Vertigo; Translations: [Dizziness and giddiness] 09-05-2024 Episodic Contraceptive and procreative management (3 sources) Oral contraception; Translations: [Encounter for surveillance of contraceptive pills] 09-02-2024 Episodic Diseases of mouth; excluding dental (2 sources) Angular cheilitis due to bacterial infection; Translations: [Diseases of lips] 09-05-2024 Episodic Headache; including migraine (20 sources) Migraine without aura, not refractory ; Translations: [Migraine without aura, not intractable, without status migrainosus] Onset: 06-10-2024 06-10-2024 Chronic Immunizations and screening for infectious disease (1 source) Encounter for screening for human papillomavirus (HPV); Translations: [ENC SCREENING HUMAN PAPILLOMAVIRUS] Onset: 08-04-2021 Episodic Menstrual disorders (3 sources) Menorrhagia; Translations: [Excessive and frequent menstruation with regular cycle] 09-02-2024 Chronic Other complications of (2 sources) Headache; Translations: [Other specified related conditions, second trimester] 09-02-2024 Episodic Other congenital anomalies (15 sources) Congenital anomaly of skull; 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, unspecified] Onset: 06-10-2024 06-10-2024 Chronic Other diseases of bladder and urethra (1 source) Overactive bladder; Translations: [OAB (overactive bladder)] Chronic Other ear and sense organ disorders (2 sources) Ear sensations - finding; Translations: [Other specified disorders of left ear] 06-12-2024 Episodic Other female genital disorders (1 source) Abnormal uterine bleeding; Translations: [Abnormal uterine and vaginal bleeding, unspecified] 09-25-2024 Chronic Other nervous system disorders (15 sources) Chronic pain; Translations: [Other chronic pain] Onset: 06-10-2024 06-10-2024 Chronic Other screening for suspected conditions (not mental disorders or infectious disease) (4 sources) Encounter for screening for malignant neoplasm of cervix; Translations: [ENC SCREENING MALIG NEOPLASM CERV] Onset: 08-03-2021 Episodic Other upper respiratory disease (15 sources) Allergic rhinitis; Translations: [Allergic rhinitis, unspecified] Onset: 06-10-2024 06-10-2024 Chronic Other upper respiratory infections (2 sources) Viral upper respiratory tract infection; Translations: [Acute upper respiratory infection, unspecified] 03-25-2024 Episodic Otitis media and related conditions (6 sources) Acute bilateral otitis media ; Translations: [Otitis media, unspecified, bilateral] 03-25-2024 Episodic Ovarian cyst (1 source) Complex ovarian cyst; Translations: [Other ovarian cyst, unspecified side] 09-25-2024 Episodic Spondylosis; intervertebral disc disorders; other back problems (20 sources) Arthropathy of cervical spine facet joint; Translations: [Spondylosis without myelopathy or radiculopathy, cervical region] Onset: 06-10-2024 06-10-2024 Chronic Past or Other Problems Problem Classification Problem Date Documented Da te Episodic/Chronic Deficiency and other anemia (15 sources) Anemia; Translations: [Anemia, unspecified] Onset: 06-10-2024 06-10-2024 Episodic Deficiency and other anemia (15 sources) Iron deficiency anemia; Translations: [Iron deficiency anemia, unspecified] Onset: 06-10-2024 06-10-2024 Episodic Genitourinary symptoms and ill-defined conditions (20 sources) Increased frequency of urination; Translations: [Incomplete emptying of bladder] Onset: 02-22-2023 02-22-2023 Episodic Lymphadenitis (15 sources) Cervical lymphadenopathy; Translations: [Localized enlarged lymph nodes] Onset: 06-10-2024 06-10-2024 Episodic Malaise and fatigue (15 sources) Fatigue; Translations: [Other fatigue] Onset: 06-10-2024 06-10-2024 Episodic Nonmalignant breast conditions (15 sources) Lump in upper outer quadrant of right breast; Translations: [Unspecified lump in the right breast, upper outer quadrant] Onset: 06-10-2024 06-10-2024 Episodic Other acquired deformities (15 sources) Incompetence of nasal valve; 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] Onset: 06-10-2024 06-10-2024 Episodic Other complications of (20 sources) Anemia of ; Translations: [Anemia complicating , unspecified trimester] Onset: 02-09-2023 Resolved: 04-28-2023 02-09-2023 Chronic Other female genital disorders (15 sources) History of abnormal cervical Papanicolaou smear ; Translations: [Personal history of other diseases of the female genital tract] Onset: 06-10-2024 06-10-2024 Episodic Other gastrointestinal disorders (15 sources) Slow transit constipation; Translations: [Slow transit constipation] Onset: 06-10-2024 06-10-2024 Episodic Other lower respiratory disease (15 sources) H/O: respiratory disease; Translations: [Personal history of other diseases of the respiratory system] Onset: 06-10-2024 06-10-2024 Episodic Other nervous system disorders (15 sources) Paresthesia of left upper limb; Translations: [Paresthesia of skin] Onset: 06-10-2024 06-10-2024 Episodic Other and delivery including normal (20 sources) Third trimester ; Translations: [Encounter for supervision of normal , unspecified, third trimester] Onset: 02-09-2023 Resolved: 04-28-2023 03-29-2023 Episodic Other upper respiratory disease (15 sources) Deviated nasal septum; Translations: [Deviated nasal septum] Onset: 06-10-2024 06-10-2024 Episodic Residual codes; unclassified (15 sources) Tobacco user; Translations: [Tobacco use] Onset: 06-10-2024 06-10-2024 Episodic Urinary tract infections (15 sources) Urinary tract infectious disease; Translations: [Urinary tract infection, site not specified] Onset: 06-10-2024 06-10-2024 Episodic Results Test Name Value Interpretation Reference Range Facility ALL CA 125on 09-27-2024 CANCER ANTIGEN (CA) 125 14.1 U/mL 0.0 - 38.1 U/mL [facility] Comment on above: g4interactive El ectrochemiluminescence Immunoassay (ECLIA) Values obtained with different assay methods or kits cannot be used interchangeably. Results cannot be interpreted as absolute evidence of the presence or absence of malignant disease. ALL CEAon 09-27-2024 CEA <0.6 0.0 - 4.7 ng/mL [facility] Comment on above: Nonsmokers <3.9 Smokers <5.6 [facility] Electrochemiluminescence Immunoassay (ECLIA) Values obtained with different assay methods or kits cannot be used interchangeably. Results cannot be interpreted as absolute evidence of the presence or absence of malignant disease. Performed at: [address] [id number] [employer] Advisor: Main Buck PhD, Phone: [phone] [facility] AFP TUMOR MARKERon AFP, SERUM, TUMOR MARKER <1.8 0.0 - 6.4 ng/mL [facility] Comment on above: g4interactive El ectrochemiluminescence Immunoassay (ECLIA) Values obtained with different assay methods or kits cannot be used interchangeably. Results cannot be interpreted as absolute evidence of the presence or absence of malignant disease. This test is not interpretable in females. No Panel Informationon 09-27 [facility] UH HCG,BETA-QUANT,TUMOR AGAPITO Yamile 09-27-2024 HCG TUMOR MARKER <1 . mIU/mL [facility] Comment on above: Female (Non- ) 0 - 5 (Postmenopausal) 0 - 8 [facility] Electrochemiluminescence Immunoassay (ECLIA) The [employer] HCG + beta assay recognizes the holo-hormone, human chorionic gonadotropin (hCG), nicked forms of hCG, the beta-core fragment and the free beta-subunit in human serum and plasma. Results obtained with different test methods or kits cannot used interchangeably. This assay is intended for the early detection of . The result should not be used for treatment or for diagnostic purposes without confirmation of the diagnosis by another medically established diagnostic product or procedure. This test was developed and its performance characteristics determined by [employer]. It has not been cleared or approved by the Food and Drug Administration for use as a tumor marker. This test is not interpretable as a tumor marker in females. Performed at: [address] [id number] [employer] Advisor: Main Buck PhD, Phone: [phone] Endometrial biopsyon [facility] Laura Barakat LPN 09/20 10:50 AM Endometrial biopsy Date/Time: 09/25/2024 2:19 PM Performed by: Jessica Dunne DO Authorized by: Jessica Dunne DO Consent: Consent obtained: written Consent given by: patient Risks discussed: bleeding Patient agrees, verbalizes understanding, and wants to proceed: yes Indications: Indications: thickened endometrium and abnormal bleeding from female genital tract Pre-procedure: Urine test: negative Procedure: Tenaculum used: yes A local block was performed: no Local anesthetic: none Findings: Cervix: normal Specimen collected: specimen collected and sent to pathology Patient tolerance: tolerated well, no immediate complications [facility] HCG ( test) Ql (U)o n 09-25-2024 Interpretation and review of laboratory results Normal [facility] Preg Test, Ur Negative Negative [facility] US PELVIC COMPLETE W/ TVon 0 09-18-2024 US PELVIC COMPLETE W/ TV EXAM: US PELVIC COMPLETE W/ TV HISTORY: [...] II, MD, PHD at 19-Sep-2024 08:33:51 AM [facility] [employer] Normal Not Available Comment on above: Order Comment: US PE LVIS-TRANSVAG IF INDICATED Patient's last menstrual period was 08/31/2024 (approximate). IGP,APTIMA HPV,AGE GDLNon AGE GDLN ACOG TESTING Note . [facility] Comment on above: TESTS RESULT FLAG UN ITS REF RANGE LAB Clinician Provided Cytology Information Source.............Cervix;Endocervix No. of containers..01 ThinPrep Vial Age Algo ACOG Shirley... FLAG LEGEND: L-Low Normal,H-High Normal,LL-Alert Low,HH-Alert High <-Panic Low,>-Panic High,A-Abnormal,AA-Critical Abnormal Performed at: 01 =[address] [address] Cherrie Roberson MD, HPV APTIMA Negative Negative [facility] Comment on above: This nucleic acid am plification test detects fourteen high- risk HPV types (16,18,31,33,35,39,45,51,52,56,58,59,66,68) without differentiation. Performed at: =[address] [id number] [employer] Advisor: Cherrie Roberson MD, Phone: [phone] Performed at: [address] [id number] [employer] Advisor: Cherrie Roberson MD, Phone: [phone] IGP, APTIMA HPV, RFX 16/18,45 Note . [facility] Comment on above: TESTS RESULT FLAG UN ITS REF RANGE LAB DIAGNOSIS: 02 NEGATIVE FOR INTRAEPITHELIAL LESION OR MALIGNANCY. Specimen adequacy: 02 Satisfactory for evaluation. Endocervical and/or squamous metaplastic cells (endocervical component) are present. Performed by: 02 Gaudencio Aldrich, Customer Contact Specialist ([facility]) . 02 Note: Note 02 The Pap [...] High,A-Abnormal,AA-Critical Abnormal Performed at: 02 WB [facility] [address] [address] Cherrie Roberson MD, BRUSH-SPATULA CERVIX ENDOCERVIX [facility] HCG ( test) Ql (U)o n 09-02-2024 Interpretation and review of laboratory results Normal [facility] Preg Test, Ur Negative Negative [facility] Urinalysis macro (dipstick) panel (U)Ordered By: Pearl Soni on 04-05-2023 Bilirubin, UA Negative Negative - 4(70) +++ mg/dL [facility] Blood, UA Positive Negative - 50 Chris/mcL [facility] Clarity, UA Clear [facility] Color, UA Yellow [facility] Glucose, UA Negative Negative - 1999(110) ++++ mg/dL [facility] Interpretation and review of laboratory results Abnormal [facility] Ketones, UA Negative Negative - 160(16) ++++ mg/dL [facility] Leukocytes, UA Negative Negative - 500+++ Dc/mcL [facility] Nitrite, UA Negative Negative - Positive [facility] pH, UA 7.0 5 - 9 [facility] Protein, UA Negative Negative - 1999(20) ++++ mg/dL [facility] Spec Grav, UA 1.015 1 - 1.03 [facility] Urobilinogen, UA 0.2 0.2 - 12 mg/dL [facility] PAP ACOG PANEL 2: 30 to 65on 08-05-2021 . . Normal [facility] Comment on above: Result Comment: Perf ormed at: WB Performed By: #### [id number] #### [facility] [address] [address] [address] Jazmin Turner Age Gdln ACOG Testing 30-65 [facility] Comment on above: Performed By: #### [id number] #### [facility] [address] [address] [address] Jazmin Turner DIAGNOSIS: Comment Normal [facility] Comment on above: Result Comment: NEGA TIVE FOR INTRAEPITHELIAL LESION OR MALIGNANCY. Performed at: WB Performed By: #### [id number] #### [facility] [address] [address] [address] Jazmin Turner HPV Aptima Negative Normal Negative [facility] Comment on above: Result Comment: This nucleic acid amplification test detects fourteen high-risk HPV types (16,18,31,33,35,39,45,51,52,56,58,59,66,68) without differentiation. Performed at: =G Performed By: #### [id number] #### [facility] [address] [address] [address] Jazmin Turner Methodology: Comment [facility] Comment on above: Result Comment: This liquid based ThinPrep(R) pap test was screened with the use of an image guided system. Performed at: WB Performed By: #### [id number] #### [facility] [address] [address] [address] Jazmin Turner Note: Comment [facility] Comment on above: Result Comment: The Pap smear is a screening test designed to aid in the detection of premalignant and malignant conditions of the uterine cervix. It is not a diagnostic procedure and should not be used as the sole means of detecting cervical cancer. Both false-positive and false-negative reports do occur. . Performed at: WB Performed By: #### [id number] #### [facility] [address] [address] [address] Jazmin Turner Performed by: Comment Normal [facility] Comment on above: Result Comment: Brid get Watts, City Manager (ASCP) Performed at: WB Performed By: #### [id number] #### [facility] [address] [address] [address] Jazmin Turner Specimen adequacy: Comment Normal [facility] Comment on above: Result Comment: Sati sfactory for evaluation. Endocervical and/or squamous metaplastic cells (endocervical component) are present. Performed at: WB Performed By: #### [id number] #### [facility] [address] [place], [place] [address] Dr. Jazmin Turner Cult,Urineon 12-24-2019 Cult,Urine Specimen Description .CLEAN CATCH URINE Special Requests NOT REPORTED Culture NO SIGNIFICANT GROWTH Report Status FINAL 12/24/2019 Normal [facility] Comment on above: Performed By: #### U RC #### [address] [id number] [employer] Advisor: Robert Ross MD [facility] [address] [place], [place] [id number] [employer] Advisor: Tariq Mesa MD Urinalysis w/ Microon 2019 ----- Normal [facility] Comment on above: Performed By: #### U AMIC #### [facility] [address] [place], [place] [id number] [employer] Advisor: Tariq Mesa MD Acetoacetic Acid,Ur Negative Normal NEG [facility] Comment on above: Performed By: #### U AMIC #### [facility] [address] [place], [place] [id number] [employer] Advisor: Tariq Mesa MD Bilirubin, SemiQt,Ur Negative Normal NEG [facility] Comment on above: Performed By: #### U AMIC #### [facility] [address] [place] [address] [employer] Advisor: Tariq Mesa MD Color (U) YELLOW Normal YEL [facility] Comment on above: Performed By: #### U AMIC #### [facility] [address] [place] [id number] [employer] Advisor: Tariq Mesa MD Epithelial cells LM.HPF (Urine sed) [#/Area] None Normal 0-25 [facility] Comment on above: Performed By: #### U AMIC #### [facility] [address] [place] [id number] [employer] Advisor: Tariq Mesa MD Glucose Ql (U) Negative Normal NEG [facility] Comment on above: Performed By: #### U AMIC #### [facility] [address] [place] [id number] [employer] Advisor: Tariq Mesa MD Hemoglobin, Ur 2+ Abnormal NEG [facility] Comment on above: Performed By: #### U AMIC #### [facility] [address] [place] [id number] [employer] Advisor: Tariq Mesa MD Leukocyte esterase Test strip Ql (U) Negative Normal NEG [facility] Comment on above: Performed By: #### U AMIC #### [address] [place] [id number] [employer] Advisor: Tariq Mesa MD Nitrite,Ur Negative Normal NEG [facility] Comment on above: Performed By: #### U AMIC #### [facility] [address] [place] [id number] [employer] Advisor: Tariq Mesa MD pH (U) 7.5 [pH] Normal 5.0-9.0 [facility] Comment on above: Performed By: #### U AMIC #### [facility] [address] [place] [id number] [employer] Advisor: Tariq Mesa MD Protein Ql (U) Negative Normal NEG [facility] Comment on above: Performed By: #### U AMIC #### [facility] [address] [place] [id number] [employer] Advisor: Tariq Mesa MD RBC (U) [#/Vol] None Normal 0-2 [facility] Comment on above: Performed By: #### U AMIC #### [facility] [address] [place] [id number] [employer] Advisor: Tariq Mesa MD Specific gravity (U) [Rel density] 1.020 Normal 1.010-1.020 [facility] Comment on above: Performed By: #### U AMIC #### [facility] [address] [place] [id number] [employer] Advisor: Tariq Mesa MD Turbidity CLEAR Normal CLEAR [facility] Comment on above: Performed By: #### U AMIC #### [facility] [address] [place] [id number] [employer] Advisor: Tariq Mesa MD Urobilinogen,Ur Normal Normal NORM [facility] Comment on above: Performed By: #### U AMIC #### [facility] [facility] [address] [place] [id number] [employer] Advisor: Tariq Mesa MD WBC (U) [#/Vol] None Normal 0-5 [facility] Comment on above: Performed By: #### U AMIC #### [facility] [address] [place] [address] [employer] Advisor: Tariq Mesa MD Amorphous sediment LM Ql (Urine sed) NOT REPORTED Normal [facility] Comment on above: Performed By: #### U AMIC #### [facility] [address] [place] [phone] [employer] Advisor: Tariq Mesa MD Bacteria LM.HPF (Urine sed) [#/Area] NOT REPORTED Normal [facility] Comment on above: Performed By: #### U AMIC #### [facility] [address] [place] [phone] [employer] Advisor: Tariq Mesa MD Casts LM.LPF (Urine sed) [#/Area] NOT REPORTED Normal [facility] Comment on above: Performed By: #### U AMIC #### [facility] [address] [place], [place] [phone] [employer] Advisor: Tariq Mesa MD Comment NOT REPORTED Normal [facility] Comment on above: Performed By: #### U AMIC #### [facility] [address] [place], [place] [phone] [employer] Advisor: Tariq Mesa MD Crystals LM Nom (Urine sed) NOT REPORTED Normal NONE [facility] Comment on above: Performed By: #### U AMIC #### [facility] [address] [place], [place] [phone] [employer] Advisor: Tariq Mesa MD Epithelial, Renal NOT REPORTED Normal 0 [facility] Comment on above: Performed By: #### U AMIC #### [facility] [address] [place], [place] [phone] [employer] Advisor: Tariq Mesa MD Mucus Strands NOT REPORTED Normal [facility] Comment on above: Performed By: #### U AMIC #### [facility] [address] [place], [place] [phone] [employer] Advisor: Traiq Mesa MD Other Observations NOT REPORTED Normal [facility] Comment on above: Performed By: #### U AMIC #### [facility] [address] [place], [place] [phone] [employer] Advisor: Tariq Mesa MD Trichomonas NOT REPORTED Normal NONE [facility] Comment on above: Performed By: #### U AMIC #### [facility] [address] [place], [place] [phone] [employer] Advisor: Tariq Mesa MD Yeast LM Ql (Urine sed) NOT REPORTED Normal [facility] Comment on above: Performed By: #### U AMIC #### [facility] [address] [place] [address] [employer] Advisor: Tariq Mesa MD Urinalysis with Microscopico n 12-23-2019 Amorphous, UA NOT REPORTED None [place], [place] Bacteria, UA NOT REPORTED None [place], [place] Bilirubin Urine Negative NEGATIVE [place] Casts UA NOT REPORTED /LPF [place], [place] Color, UA YELLOW YELLOW [place] Crystals, UA NOT REPORTED None /HPF [place] Epithelial Cells UA None [place] Glucose, Ur Negative NEGATIVE [place] Interpretation and review of laboratory results Abnormal [place] Ketones Ql (U) Negative NEGATIVE [place] Leukocyte esterase Test strip Ql (U) Negative NEGATIVE [place] Mucus, UA NOT REPORTED None [place], [place] Nitrite, Urine Negative NEGATIVE [place] Other Observations UA NOT REPORTED NOT REQ. [place] pH, UA 7.5 [place] Protein (U) [Mass/Vol] Negative NEGATIVE [place] RBC (U) [#/Vol] None [place], [place] Renal Epithelial, UA NOT REPORTED 0 /HPF [place] Specific [place], UA 1.020 [place] Trichomonas, UA NOT REPORTED None [place], [place] Turbidity UA CLEAR CLEAR [place] Urinalysis Comments NOT REPORTED [place] Urine Hgb 2+ Abnormal NEGATIVE [place] Urobilinogen, Urine Normal Normal [place] WBC, UA None [place] Yeast, UA NOT REPORTED None [place], [place] - [place] Cult,Urineon 07-27-2019 Cult,Urine Specimen Description .CLEAN CATCH URINE Special Requests NOT REPORTED Culture NO SIGNIFICANT GROWTH Report Status FINAL 07/26/2019 Normal [facility] Comment on above: Performed By: #### U RC #### [facility] [address] [place] [address] [employer] Advisor: Robert Ross MD [facility] [address] [place] [address] [employer] Advisor: Tariq Mesa MD Urinalysis w/ Microon 2019 ----- Normal [facility] Comment on above: Performed By: #### U AMIC #### [facility] [address] [place] [phone] [employer] Advisor: Tariq Mesa MD Acetoacetic Acid,Ur Negative Normal NEG [facility] Comment on above: Performed By: #### U AMIC #### [address] [place] [phone] [employer] Advisor: Tariq Mesa MD Bacteria LM.HPF (Urine sed) [#/Area] 1+ Abnormal NONE [facility] Comment on above: Performed By: #### U AMIC #### [facility] [address] [place] [phone] [employer] Advisor: Tariq Mesa MD Bilirubin, SemiQt,Ur Negative Normal [facility] Comment on above: Performed By: #### U AMIC #### [address] [place] [phone] [employer] Advisor: Tariq Mesa MD Color (U) YELLOW Normal YEL [facility] Comment on above: Performed By: #### U AMIC #### [facility] [address] [place] [phone] [employer] Advisor: Tariq Mesa MD Epithelial cells LM.HPF (Urine sed) [#/Area] 2 TO 5 Normal 0-25 [facility] Comment on above: Performed By: #### U AMIC #### [address] [place] [address] [employer] Advisor: Tariq Mesa MD Glucose Ql (U) Negative Normal NEG [facility] Comment on above: Performed By: #### U AMIC #### [facility] [address] [place], [place] [phone] [employer] Advisor: Tariq Mesa MD Hemoglobin, Ur 1+ Abnormal NEG [facility] Comment on above: Performed By: #### U AMIC #### [facility] [address] [place], [place] [phone] [employer] Advisor: Tariq Mesa MD Leukocyte esterase Test strip Ql (U) Negative Normal NEG [facility] Comment on above: Performed By: #### U AMIC #### [facility] [address] [place], [place] [phone] [employer] Advisor: Tariq Mesa MD Mucus Strands TRACE Abnormal NONE [facility] Comment on above: Performed By: #### U AMIC #### [facility] [address] [place] [phone] [employer] Advisor: Tariq Mesa MD Nitrite,Ur Negative Normal NEG [facility] Comment on above: Performed By: #### U AMIC #### [facility] [address] [place] [address] [employer] Advisor: Tariq Mesa MD pH (U) 7.5 [pH] Normal 5.0-9.0 [facility] Comment on above: Performed By: #### U AMIC #### [facility] [address] [place], [facility] [employer] Advisor: Tariq Mesa MD Protein Ql (U) Negative Normal NEG [facility] Comment on above: Performed By: #### U AMIC #### [facility] [address] [place] [address] [employer] Advisor: Tariq Mesa MD RBC (U) [#/Vol] 0 TO 2 Normal 0-2 [facility] Comment on above: Performed By: #### U AMIC #### [facility] [address] [place] [address] [employer] Advisor: Tariq Mesa MD Specific gravity (U) [Rel density] 1.010 Normal 1.010-1.020 [facility] Comment on above: Performed By: #### U AMIC #### [facility] [address] [place], [place] [phone] [employer] Advisor: Tariq Mesa MD Turbidity CLEAR Normal CLEAR [facility] Comment on above: Performed By: #### U AMIC #### [facility] [address] [place], [place] [phone] [employer] Advisor: Tariq Mesa MD Urobilinogen,Ur Normal Normal NORM [facility] Comment on above: Performed By: #### U AMIC #### [facility] [address] [place], [place] [phone] [employer] Advisor: Tariq Mesa MD WBC (U) [#/Vol] None Normal 0-5 [facility] Comment on above: Performed By: #### U AMIC #### [facility] [address] [place], [place] [phone] [employer] Advisor: Tariq Mesa MD Amorphous sediment LM Ql (Urine sed) NOT REPORTED Normal [facility] Comment on above: Performed By: #### U AMIC #### [facility] [address] [place], [place] [phone] [employer] Advisor: Tariq Mesa MD Casts LM.LPF (Urine sed) [#/Area] NOT REPORTED Normal [facility] Comment on above: Performed By: #### U AMIC #### [facility] [address] [place], [place] [phone] [employer] Advisor: Tariq Mesa MD Comment NOT REPORTED Normal [facility] Comment on above: Performed By: #### U AMIC #### [facility] [address] [place], [place] [phone] [employer] Advisor: Tariq Mesa MD Crystals LM Nom (Urine sed) NOT REPORTED Normal [facility] Comment on above: Performed By: #### U AMIC #### [facility] [address] [place] [address] [employer] Advisor: Tariq Mesa MD Epithelial, Renal NOT REPORTED Normal [address] [place] [address] Comment on above: Performed By: #### U AMIC #### [facility] [address] [place] [phone] [employer] Advisor: Tariq Mesa MD Other Observations NOT REPORTED Normal [facility] Comment on above: Performed By: #### U AMIC #### [facility] [address] [place] [phone] [employer] Advisor: Tariq Mesa MD Trichomonas NOT REPORTED Normal [facility] Comment on above: Performed By: #### U AMIC #### [facility] [address] [place] [phone] [employer] Advisor: Tariq Mesa MD Yeast LM Ql (Urine sed) NOT REPORTED Normal NONE [facility] Comment on above: Performed By: #### U AMIC #### [facility] [address] [place] [address] [employer] Advisor: Tariq Mesa MD Urinalysis with Microscopico n 07-25-2019 Amorphous, UA NOT REPORTED None [facility] [place], [place] Bacteria, UA 1+ Abnormal None [facility], [place] Bilirubin Urine Negative NEGATIVE [facility] [place] Casts UA NOT REPORTED /LPF [facility], [place] Color, UA YELLOW YELLOW [facility], [place] Crystals, UA NOT REPORTED None /HPF [facility] [place], [place] Epithelial Cells UA 2 TO 5 [facility], [place] Glucose, Ur Negative NEGATIVE [facility] [place], [place] Interpretation and review of laboratory results Abnormal [facility], [place] Ketones Ql (U) Negative NEGATIVE [facility]- [place], [place] Leukocyte esterase Test strip Ql (U) Negative NEGATIVE [facility]- [place], [place] Mucus, UA TRACE Abnormal None [facility], [place] Nitrite, Urine Negative NEGATIVE [facility]- [place], [place] Other Observations UA NOT REPORTED NOT REQ. [facility], [place] pH, UA 7.5 [facility], [place] Protein (U) [Mass/Vol] Negative NEGATIVE [facility], [place] RBC (U) [#/Vol] 0 TO [address] [facility] [place], [place] Renal Epithelial, UA NOT REPORTED 0 /HPF [facility], [place] Specific [place], UA 1.010 [facility], [place] Trichomonas, UA NOT REPORTED None [facility], [place] Turbidity UA CLEAR CLEAR [facility], [place] Urinalysis Comments NOT REPORTED [facility], [place] Urine Hgb 1+ Abnormal NEGATIVE [facility], [place] Urobilinogen, Urine Normal Normal [facility], [place] WBC, UA None [facility], [place] Yeast, UA NOT REPORTED None [facility], [place] - [facility], [place] Vital Signs Date Time Vital Sign Value Performing Clinician Radames gonzalez 09-25-2024 13:48-0400 Body mass index (BMI) [Ratio] 29.84 kg/m2 Jessica Vibha DO Work Phone: [facility] 09-25-2024 13:48-0400 Body weight 73.99 kg Jessica Vibha DO Work Phone: [facility] 09-25-2024 13:48-0400 Diastolic blood pressure 70 mm[Hg] Jessica Vibha DO Work Phone: [facility] 09-25-2024 13:48-0400 Systolic blood pressure 104 mm[Hg] Jessica Vibha DO Work Phone: [facility] 09-19-2024 13:17-0400 Body height 157.5 cm Brynn Bah MD Work Phone: [facility] 09-19-2024 13:17-0400 Body mass index (BMI) [Ratio] 29.85 kg/m2 Brynn Bah MD Work Phone: [facility] 09-19-2024 13:17-0400 Body weight 74.03 kg Brynn Bah MD Work Phone: [facility] 09-19-2024 13:17-0400 Diastolic blood pressure 80 mm[Hg] Brynn Bah MD Work Phone: [facility] 09-19-2024 13:17-0400 Heart rate 90 /min Brynn Bah MD Work Phone: [facility] 09-19-2024 13:17-0400 Respiratory rate 18 /min Brynn Bah MD Work Phone: [facility] 09-19-2024 13:17-0400 SaO2% (BldA) [Mass fraction] 98 % Brynn Bah MD Work Phone: [facility] 09-19-2024 13:17-0400 Systolic blood pressure 124 mm[Hg] Brynn Bah MD Work Phone: [facility] 09-05-2024 13:26-0400 Body height 157.5 cm Brynn Bah MD Work Phone: [facility] 09-05-2024 13:26-0400 Body mass index (BMI) [Ratio] 30.36 kg/m2 Brynn Bah MD Work Phone: [facility] 09-05-2024 13:26-0400 Body weight 75.3 kg Brynn Bah MD Work Phone: [facility] 09-05-2024 13:26-0400 Diastolic blood pressure 68 mm[Hg] Brynn Bah MD Work Phone: [facility] 09-05-2024 13:26-0400 Heart rate 95 /min Brynn Bah MD Work Phone: [facility] 09-05-2024 13:26-0400 Respiratory rate 18 /min Brynn Bah MD Work Phone: [facility] 09-05-2024 13:26-0400 SaO2% (BldA) [Mass fraction] 98 % Brynn Bah MD Work Phone: [facility] 09-05-2024 13:26-0400 Systolic blood pressure 124 mm[Hg] Brynn Bah MD Work Phone: [facility] 09-02-2024 13:06-0400 Body mass index (BMI) [Ratio] 30.82 kg/m2 Jessica Vibha DO Work Phone: [facility] 09-02-2024 13:06-0400 Body weight 76.43 kg Jessica Vibha DO Work Phone: [facility] 09-02-2024 13:06-0400 Diastolic blood pressure 82 mm[Hg] Jessica Vibha DO Work Phone: [facility] 09-02-2024 13:06-0400 Systolic blood pressure 120 mm[Hg] Jessica Vibha DO Work Phone: [facility] 06-12-2024 13:43-0400 Body height 157.5 cm Trish Og MD Work Phone: [facility] 06-12-2024 13:43-0400 Body mass index (BMI) [Ratio] 31.28 kg/m2 Trish Og MD Work Phone: [facility] 06-12-2024 13:43-0400 Body weight 77.56 kg Trish Og MD Work Phone: [facility] 06-12-2024 13:43-0400 Diastolic blood pressure 84 mm[Hg] Trish Og MD Work Phone: [facility] 06-12-2024 13:43-0400 Heart rate 98 /min Trish Og MD Work Phone: [facility] 06-12-2024 13:43-0400 Systolic blood pressure 127 mm[Hg] Trish Og MD Work Phone: [facility] 04-09-2024 16:23-0500 Body height 157.5 cm Shaniqua Harris BEREAVEMENT PROGRAM COORDINATOR Work Phone: [facility] 04-09-2024 16:23-0500 Body mass index (BMI) [Ratio] 32.59 kg/m2 Shaniqua Harris BEREAVEMENT PROGRAM COORDINATOR Work Phone: [facility] 04-09-2024 16:23-0500 Body weight 80.83 kg Shaniqua Majors BEREAVEMENT PROGRAM COORDINATOR Work Phone: [facility] 04-09-2024 16:23-0500 Diastolic blood pressure 78 mm[Hg] Shaniqua Majors BEREAVEMENT PROGRAM COORDINATOR Work Phone: [facility] 04-09-2024 16:23-0500 Heart rate 74 /min Shaniqua Majors BEREAVEMENT PROGRAM COORDINATOR Work Phone: [facility] 04-09-2024 16:23-0500 Respiratory rate 18 /min Shaniqua Majors BEREAVEMENT PROGRAM COORDINATOR Work Phone: [facility] 04-09-2024 16:23-0500 SaO2% (BldA) [Mass fraction] 98 % Shaniqua Majors BEREAVEMENT PROGRAM COORDINATOR Work Phone: [facility] 04-09-2024 16:23-0500 Systolic blood pressure 126 mm[Hg] Shaniqua Majors BEREAVEMENT PROGRAM COORDINATOR Work Phone: [facility] 03-25-2024 13:07-0500 Body mass index (BMI) [Ratio] 31.46 kg/m2 Margaret Gamble BEREAVEMENT PROGRAM COORDINATOR Work Phone: [facility] 03-25-2024 13:07-0500 Body temperature 97.39 [degF] Margaret Gamble BEREAVEMENT PROGRAM COORDINATOR Work Phone: [facility] 03-25-2024 13:07-0500 Body weight 78.02 kg Margaret Gamble BEREAVEMENT PROGRAM COORDINATOR Work Phone: [facility] 03-25-2024 13:07-0500 Diastolic blood pressure 72 mm[Hg] Margaret Gamble BEREAVEMENT PROGRAM COORDINATOR Work Phone: [facility] 03-25-2024 13:07-0500 Systolic blood pressure 118 mm[Hg] Margaret Gamble BEREAVEMENT PROGRAM COORDINATOR Work Phone: [facility] 04-05-2023 11:19-0500 Body mass index (BMI) [Ratio] 35.51 kg/m2 Jessica Dunne DO Work Phone: [facility] 04-05-2023 11:19-0500 Body weight 88.05 kg Jessica Acostao DO Work Phone: [facility] 04-05-2023 11:19-0500 Diastolic blood pressure 78 mm[Hg] Jessica Acostao DO Work Phone: [facility] 04-05-2023 11:19-0500 Systolic blood pressure 114 mm[Hg] Jessica Acostao DO Work Phone: [facility] Healthcare Encounters Encounter Date Encounter Type Care Provider Facility Start: 09-25-2024 End: 09-27-2024 Clinisync Result Encounter Generic External Data Provider [facility] External Department Unsolicited Start: 09-25-2024 End: 09-27-2024 Clinisync Result Encounter Generic External Data Provider [facility] External Department Unsolicited Start: 09-25-2024 End: 09-25-2024 Patient encounter procedure Jessica Dunne DO Work Phone: [facility] Harshad MARSH Comment on above: Pre-op examination; Request for sterilization; Menorrhagia with regular cycle; Abnormal uterine bleeding (AUB); Pelvic pain; Complex ovarian cyst Start: 09-25-2024 End: 09-25-2024 Preprocedural examination done Jessica Dunne DO Work Phone: [facility] Start: 09-25-2024 End: 09-25-2024 ambulatory JESSICA DUNNE Not Available Start: 09-19-2024 End: 09-19-2024 Bamboo flowsheet Brynn Bah MD Work Phone: [facility] Start: 09-19-2024 End: 09-19-2024 Bamboo flowsheet Brynn Bah MD Work Phone: [facility] Start: 09-19-2024 End: 09-19-2024 Office outpatient visit 15 minutes Brynn Bah MD Work Phone: [facility] Comment on above: Meniere disease, lef t (Primary Dx) Start: 09-19-2024 End: 09-19-2024 ambulatory BRYNN BAH Not Available Start: 09-18-2024 End: 09-18-2024 ambulatory JESSICA VIBHA Not Available Start: 09-05-2024 End: 09-05-2024 Bamboo flowsheet Brynn Bah MD Work Phone: [facility] Start: 09-05-2024 End: 09-05-2024 Bamboo flowsheet Brynn Bah MD Work Phone: [facility] Start: 09-05-2024 End: 09-05-2024 Office outpatient visit 25 minutes Brynn Bah MD Work Phone: [facility] Comment on above: Angular cheilitis du e to bacterial infection (Primary Dx); Vertigo; Meniere disease, left Start: 09-05-2024 End: 09-05-2024 ambulatory BRYNN BAH Not Available Start: 09-02-2024 End: 09-02-2024 Bamboo flowsheet Jessica Vibha DO Work Phone: [facility] Start: 09-02-2024 End: 09-05-2024 Bamboo flowsheet Jessica Vibha DO Work Phone: [facility] Start: 09-02-2024 End: 09-05-2024 Clinisync Result Encounter Jessica Vibha DO Work Phone: [facility] External Department Unsolicited Start: 09-02-2024 End: 09-02-2024 Patient encounter procedure Jessica Vibha DO Work Phone: [facility] Healthcare Start: 09-02-2024 End: 09-02-2024 Periodic preventive med est patient 18-39 yrs Jessica Vibha DO Work Phone: [facility] Comment on above: Well woman exam with routine gynecological exam; Encounter for surveillance of contraceptive pills; Migraine without aura and without status migrainosus, not intractable ; headache in second trimester (HHS-HCC); Menorrhagia with regular cycle Start: 09-02-2024 End: 09-02-2024 ambulatory JESSICA VIBHA Not Available Start: 06-12-2024 End: 06-12-2024 Bamboo flowsheet Trish Og MD Work Phone: [facility] Start: 06-12-2024 End: 06-12-2024 Bamboo flowsheet Trish gO MD Work Phone: [facility] Start: [...] Office outpatient visit 15 minutes Shaniqua Harris BEREAVEMENT PROGRAM COORDINATOR Work Phone: [facility] Comment on above: Acute middle ear eff usion, left (Primary Dx) Start: 04-09-2024 End: 04-09-2024 ambulatory SHANIQUA HARRIS Not Available Start: 04-09-2024 End: 04-09-2024 Bamboo flowsheet Shaniqua Harris BEREAVEMENT PROGRAM COORDINATOR Work Phone: [facility] Start: 04-09-2024 End: 04-09-2024 Bamboo flowsheet Shaniqua Harris BEREAVEMENT PROGRAM COORDINATOR Work Phone: [facility] Start: 03-25-2024 End: 03-25-2024 Bamboo flowsheet Margaret Gamble BEREAVEMENT PROGRAM COORDINATOR Work Phone: [facility] Start: 03-25-2024 End: 03-25-2024 Bamboo flowsheet Margaret Gamble BEREAVEMENT PROGRAM COORDINATOR Work Phone: [facility] Start: 03-25-2024 End: 03-25-2024 Office outpatient visit 15 minutes Margaret Gamble BEREAVEMENT PROGRAM COORDINATOR Work Phone: [facility] Comment on above: Acute bilateral otit is media (Primary Dx); Viral URI with cough Start: 03-25-2024 End: 03-25-2024 ambulatory MARGARET GAMBLE Not Available Start: 04-05-2023 End: 04-05-2023 flow sheet Jessica Vibha DO Work Phone: [facility] Comment on above: Third trimester preg audi Start: 08-03-2021 End: 08-03-[address] JESSICA DUNNE Facility: Start: 12-23-2019 End: 12-24-2019 Patient encounter procedure [facility] Start: 12-23-2019 End: 12-23-2019 Subsequent hospital visit by physician Brynn DAVID Laboratory Comment on above: Urinary frequency; OAB (overactive bladder); Incomplete bladder emptying Start: 07-25-2019 End: 07-26-2019 [facility] Start: 07-25-2019 End: 07-25-2019 Subsequent hospital visit by physician Brynn DAVID Laboratory Comment on above: Urinary frequency Procedures Date Procedure Procedure Detail Performing Clinician Start: 09-25-2024 ALL CA 125 Jessica Vibha DO Work Phone: Start: 09-25-2024 ALL CEA Jessica Vibha DO Work Phone: Start: 09-25-2024 ELCH AFP TUMOR MARKER Jessica Vibha DO Work Phone: Start: 09-25-2024 [facility] HCG,BETA-QUANT,TUMOR MARKER Jessica Vibha DO Work Phone: Start: 09-25-2024 ENDOMETRIAL BIOPSY Jessica Vibha DO Work Phone: Start: 09-25-2024 Urine test visual color cmprsn meths Jessica Vibha DO Work Phone: Start: 09-02-2024 Urine test visual color cmprsn meths Jessica Vibha DO Work Phone: Start: 09-02-2024 IGP,APTIMA HPV,AGE GDLN Jessica Vibha DO Work Phone: Start: 09-02-2024 Microscopic observation [Identifier] in Cervix by Cyto stain Brynn Bah MD Work Phone: Start: 06-10-2024 H/O: surgery Status [...] Urnls dip stick/tablet reagent auto microscopy Colton Milli Goodman Work Phone: Start: 07-25-2019 Culture bacterial quanttative colony count urine BRYNN BAH Start: 07-25-2019 Urnls dip stick/tablet reagent auto microscopy BRYNN BAH Start: 07-25-2019 Urnls dip stick/tablet reagent auto microscopy Aguilar Woody Work Phone: Plan of Treatment Date Care Activity Detail Author Start: 09-03-2027 Screening for malign ant neoplasm of cervix [facility] Start: 08-25-2027 Screening for malign ant neoplasm of cervix [facility] Start: 08-27-2026 Screening for malign ant neoplasm of cervix Pap Smear [facility] Start: 08-24-2025 Screening for malign ant neoplasm of cervix Pap Smear [facility] Start: 11-11-2024 End: 11-11-2024 Patient encounter procedure 11/11/2024 1:20 PM EDT Office Visit GARRISON MARSH [address] [place] [address] [place] [address] Bere Zavala PA [address] [place] [address] [place] [address] [facility] Start: 10-21-2024 Influenza vaccination N [facility] Start: 09-25-2024 End: 09-25-2025 AFP tumor marker AFP tumor marker Lab Routine Complex ovarian cyst Expected: 09/25/2024 (Approximate), Expires: 09/25/2025 [facility] Comment on above: Expected: 09/25/2024 (Approximate), Expires: 09/25/2025 Start: 09-25-2024 End: 09-25-2025 CA 125 CA 125 Lab Routine Complex ovarian cyst Expected: 09/25/2024 (Approximate), Expires: 09/25/2025 [facility] Comment on above: Expected: 09/25/2024 (Approximate), Expires: 09/25/2025 Start: 09-25-2024 End: 09-25-2025 Carcinoembryonic Ag [Mass/volume] in Serum or Plasma CEA Lab Routine Complex ovarian cyst Expected: 09/25/2024 (Approximate), Expires: 09/25/2025 [facility] Comment on above: Expected: 09/25/2024 (Approximate), Expires: 09/25/2025 Start: 09-25-2024 End: 09-25-2025 HCG, tumor marker HCG, tumor marker Lab Routine Complex ovarian cyst Expected: 09/25/2024 (Approximate), Expires: 09/25/2025 [facility] Comment on above: Expected: 09/25/2024 (Approximate), Expires: 09/25/2025 Start: 09-25-2024 End: 09-25-2025 Lactate dehydrogenase, isoenzymes Lactate dehydrogenase, isoenzymes Lab Routine Complex ovarian cyst Expected: 09/25/2024 (Approximate), Expires: 09/25/2025 [facility] Work Phone: Comment on above: Expected: 09/25/2024 (Approximate), Expires: 09/25/2025 Start: 09-25-2024 End: 09-25-2024 Patient encounter procedure [facility] Start: 09-19-2024 End: 09-19-2024 Patient encounter procedure [facility] Comment on above: Arrived Start: 09-18-2024 End: 09-18-2024 Professional / ancillary services management 09/18/2024 1:00 PM EDT Ancillary Procedure [facility] [address] [place] [phone] [facility] Start: 09-05-2024 End: 09-05-2024 Patient encounter procedure 09/05/2024 1:20 PM EDT Office Visit [facility] [address] [place] [address] Brynn Bah MD [address] [place] [address] Arrived [facility] Comment on above: Arrived Start: 09-02-2024 End: 09-02-2025 aPTT in Blood [...] Start: 09-02-2024 End: 09-02-2024 Patient encounter procedure [facility] Comment on above: Arrived Start: 08-19-2024 Influenza vaccination Influenza Vacc ine (#1) [facility] Comment on above: Postponed from 10/21 (Supply/Drug Shortage) Start: 04-09-2024 End: 04-09-2024 Patient encounter procedure 04/09/2024 4:30 PM EST Office Visit [facility] [address] [place] [address] Shaniqua Harris NP [address] [facility], [place] [phone] Arrived [facility] Comment on above: Arrived Start: 03-25-2024 End: 03-25-2024 Patient encounter procedure 03/25/2024 1:00 PM EST Office Visit [facility] [address] [place] [phone] Margaret Gamble NP [address] [facility] [place], [place] [phone] Arrived [facility] Comment on above: Arrived Start: 10-22-2023 Influenza vaccination Influenza Vacc ine (#1) [facility] Start: 08-28-2023 End: 08-28-2023 Patient encounter procedure 08/28/2023 4:00 PM EDT Office Visit [facility] [address] [place] [address] Jessica Dunne DO [address] [facility] [address] [place], [place] [phone] [facility] Start: 04-19-2023 End: 04-19-2023 Patient encounter procedure 04/19/2023 3:20 PM EST Routine [facility] [address] [place] [address] Bere Zavala PA [address] [facility] [address] [place], [place] [phone] [facility] Start: 04-19-2023 End: 04-19-2023 Professional / ancillary services management 04/19/2023 3:00 PM EST Ancillary Procedure [facility] [address] [facility] [place] [address] [facility] Start: 10-21-2022 Influenza vaccination Influenza Vacc ine (#1) [facility] Start: 01-13-2020 End: 01-13-2020 Procedure visit 01/13/2020 Procedure visit Urology Danyel Carson MD [address] [place] [address], [address] [place] [address] [phone] [facility] Start: 10-31-2019 End: 10-31-2019 Office Visit 10/31/2019 Office Visit Urology Aguilar Woody, SK[employer] SPLITTER - SERVICES ENGINEER [address] [facility] [address] [place] [phone] [facility] Start: 10-22-2019 Influenza vaccination [place], [place] Start: 10-14-2015 DTaP/Tdap/Td vaccine (7 - Td) DTaP/Tdap/Td vaccine (7 - Td) [place], [place] Start: 2009 Screening for malign ant neoplasm of cervix Cervical cancer screen [place] Start: 10-12-2007 DTaP/Tdap/Td vaccine (1 - Tdap) DTaP/Tdap/Td vaccine (1 - Tdap) [place] Start: 10-12-2003 HIV screening HIV screen [place], [place] Start: 1994 Pneumococcal 0-64 ye ars Vaccine (1 of 1 - PPSV23) Pneumococcal 0-64 years Vaccine (1 of 1 - PPSV23) [place], [place] Start: 1989 Varicella vaccine (1 of 2 - 2-dose childhood series) Varicella vaccine (1 of 2 - 2-dose childhood series) [place] CBC W Auto Different ial panel - Blood CBC and differential Lab Routine Menorrhagia with regular cycle Ordered: 09/02/2024 [facility] Comment on above: Ordered: 09/02/2024 End: 12-23-2019 Culture, Urine Culture, Urine Microbiology Routine Urinary frequency OAB (overactive bladder) Incomplete bladder emptying 1 Occurrences starting 12/23/2019 until 12/23/2019 [place] Comment on above: 1 Occurrences starti ng 12/23/2019 until 12/23/2019 Culture, Urine [place] End: 07-25-2019 Culture, Urine Culture, Urine Microbiology Routine Urinary frequency 1 Occurrences starting 07/25/2019 until 07/25/2019 [facility] [place] Comment on above: 1 Occurrences starti ng 07/25/2019 until 07/25/2019 Cytology Cervical or vaginal smear or scraping study Pap Smear Pathology and Cytology Routine Well woman exam with routine gynecological exam Ordered: 09/02/2024 [facility] Work Phone: Comment on above: Ordered: 09/02/2024 hCG, quantitative, hCG, quantitative, Lab Routine Menorrhagia with regular cycle Ordered: 09/02/2024 [facility] Comment on above: Ordered: 09/02/2024 Hemoglobin A1c/Hemoglobin.total in Blood Hemoglobin A1c Lab Routine Menorrhagia with regular cycle Ordered: 09/02/2024 [facility] Comment on above: Ordered: 09/02/2024 Human papilloma viru s DNA [Presence] in Unspecified specimen by Probe with amplification HPV DNA probe, amplified Microbiology Routine Well woman exam with routine gynecological exam Ordered: 09/02/2024 [facility] Comment on above: Ordered: 09/02/2024 Prothrombin time (PT ) in Blood by Coagulation assay Protime-INR Lab Routine Menorrhagia with regular cycle Ordered: 09/02/2024 [facility] Comment on above: Ordered: 09/02/2024 Thyrotropin [Units/v olume] in Serum or Plasma TSH Lab Routine Menorrhagia with regular cycle Ordered: 09/02/2024 [facility] Comment on above: Ordered: 09/02/2024 Thyroxine (T4) free [Mass/volume] in Serum or Plasma T4, free Lab Routine Menorrhagia with regular cycle Ordered: 09/02/2024 [facility] Comment on above: Ordered: 09/02/2024 Immunizations Immunization Date Immunization Notes Care Provider [facility] 04-25-2006 hepatitis B vaccine, pediatric or pediatric/adolescent dosage Jessica Vibha DO Work Phone: [facility] 11-16-2005 hepatitis B vaccine, pediatric or pediatric/adolescent dosage Jessica Vibha DO Work Phone: [facility] 10-13-2005 hepatitis B vaccine, pediatric or pediatric/adolescent dosage Jessica Vibah DO Work Phone: [facility] 10-13-2005 tetanus toxoid, redu skye diphtheria toxoid, and acellular pertussis vaccine, adsorbed Jessica Vibha DO Work Phone: [facility] 07-13-2001 measles, mumps and rubella virus vaccine Jessica Vibha DO Work Phone: [facility] 08-16-1993 diphtheria, tetanus toxoids and acellular pertussis vaccine, unspecified formulation Jessica Vibha DO Work Phone: [facility] 08-16-1993 trivalent poliovirus vaccine, live, oral Jessica Vibha DO Work Phone: [facility] 01-14-1991 diphtheria, tetanus toxoids and pertussis vaccine Jessica Vibha DO Work Phone: [facility] 01-14-1991 trivalent poliovirus vaccine, live, oral Jessica Vibha DO Work Phone: [facility] 06-11-1990 haemophilus influenz ae type b vaccine, conjugate unspecified formulation Jessica Vibha DO Work Phone: [facility] 06-11-1990 measles, mumps and rubella virus vaccine Jessica Vibha DO Work Phone: [facility] 12-11-1989 diphtheria, tetanus toxoids and pertussis vaccine Jessica Vibha DO Work Phone: [facility] 10-09-1989 diphtheria, tetanus toxoids and pertussis vaccine Jessica Vibha DO Work Phone: [facility] 10-09-1989 trivalent poliovirus vaccine, live, oral Jessica Vibha DO Work Phone: [facility] 05-01-1989 diphtheria, tetanus toxoids and pertussis vaccine Jessica Vibha DO Work Phone: [facility] 05-01-1989 trivalent poliovirus vaccine, live, oral Jessica Vibha DO Work Phone: [facility] Payers Date Payer Category Payer [facility] [id number] 2022 Unknown BCBS BCBS [id number] [id number] 2022-Present [phone] [address] [place] [address] [id number] 2022 Unknown [id number] 2014 Private Health Insurance [employer] A ETNA NAP CHOICE POS II xxxxxxxxxx 2014-Present [phone] [address] [place] [address] xxxxxxxxxx [id number] 1988 Unknown [id number] 1988 Unknown [id number] 1988 Unknown [id number] 1988 Unknown [id number] 1988 Unknown [id number] 1988 Unknown [id number] 1988 Unknown [id number] 1988 Unknown [id number] 1988 Unknown [id number] .9 1988 Unknown [id number] .9 1988 Unknown [id number] .9 1988 Unknown [id number] .[id number] 1959 Private Health Insurance [id number] Social History Date Type Detail Facility Start: 02-20-2003 End: 03-25-2024 Tobacco smoking status RIIS Current every day smoker [facility] Start: 02-20-2003 History of tobacco use Cigarette Smoker [place], [place] Start: 12-23-2019 End: 05-14-2024 Cigarettes smoked current (pack per day) - Reported [facility] Start: 12-23-2019 Tobacco use and exposure Never used [place], [place] Start: 12-23-2019 End: 09-25-2024 Alcohol intake Current drinker of alcohol (finding) [place] Start: 07-25-2019 Alcohol Comment rare [place] Sex Assigned At Not on file [place] Start: 01-09-2023 End: 05-14-2024 Alcohol Use [...] times a month. caffeine: 1-2 cups/day soda/pop [facility] Start: 08-23-2022 [facility] Start: 1990 Sex Assigned At Female [facility] Start: 08-09-2022 Gender identity Identifies as female gender (finding) [facility] Clinical Notes 04-05-2023 to 09-25-2024 Wilma Perez - 09/25/2024 1:30 PM EDMary Bah MD - 09/19/2024 1:20 PM Jitendra Bah MD - 09/05/2024 1:20 PM EDTMcarli Rashid MA - 09/02/2024 1:00 PM EDT Note Date & Type Note Facility 09-25-2024 History of Presen t illness Narrative Associated Order(s): Endometrial biopsy Post-Procedure Diagnose(s): Menorrhagia with regular cycle; Abnormal uterine bleeding (AUB) Reason for Appointment: Patient ID: Carlene Nelson is a 33 y.o. female who presents for Pre-op Visit and EMBX Patient presents today for a Endometrial Biopsy and Pre Op/Endometrial Biopsy appointment. Patient is scheduled to undergo Da Jaquan assisted Bilateral Laparoscopic Salpingectomy and Endometrial Ablation with Helen on 10-25-[address] Dunne at [facility]. appointment. MEDICATIONS Current Outpatient Medications Medication Instructions SAGE GUMMIFABIEN PO Take by mouth hydroCHLOROthiazide (HYDRODIURIL) 25 mg, Oral, Daily magnesium oxide (MAG-OX) 400 mg, Oral, Every morning Multiple Vitamin (multivitamin) tablet 1 tablet, Daily norethindrone (MICRONOR) 0.35 mg, Oral, Daily Nurtec 75 mg, Oral, Daily PRN ALLERGIES No Known Allergies PROBLEMS Active Ambulatory [...] Ambulatory Problems Diagnosis Date Noted Antepartum anemia ([facility]) 02/09/2023 Second trimester ([facility]) 02/09/2023 Third trimester ([facility]) 02/22/2023 Past Medical History: Diagnosis Date Abnormal [...] Respiratory: Negative. Cardiovascular: Negative. Gastrointestinal: Negative. Genitourinary: Positive for menstrual problem and pelvic pain. Musculoskeletal: Negative. Skin: Negative. Neurological: Negative. All other systems reviewed and are negative. Hematological: Negative. Endocrine: Negative. Allergic/Immunologic: Negative. OBJECTIVE Objective: Physical Exam Constitutional: Appearance: Normal appearance. She is well-developed. Genitourinary: Vulva normal. Cardiovascular: Rate and Rhythm: Normal rate and [...] nursing note reviewed. Exam conducted with a goodwill ambassador present. Vitals: Estimated body mass index is 29.85 kg/m as calculated from the following: Height as of 09/19/24: 5' 2 . Weight as of 09/19/24: 163 lb 3.2 oz. BP: Patient's last menstrual period was 08/31/2024 (approximate). ASSESSMENT & PLAN Assessment/Plan Encounter Diagnosis: ICD-10-CM 1. Pre-op examination Z01.818 2. Request for sterilization Z30.2 3. Menorrhagia with regular cycle N92.0 4. Abnormal uterine bleeding (AUB) N93.9 5. Pelvic pain R10.2 Endometrial biopsy Date/Time: 09/25/2024 2:19 PM Performed by: Jessica Dunne DO Authorized by: Jessica Dunne DO Consent: Consent obtained: written Consent given by: patient Risks discussed: bleeding Patient agrees, verbalizes understanding, and wants to proceed: yes Indications: Indications: thickened endometrium and abnormal bleeding from female genital tract Pre-procedure: Urine test: negative Procedure: Tenaculum used: yes A local block was performed: no Local anesthetic: none Findings: Cervix: normal Specimen collected: specimen collected and sent to pathology Patient tolerance: tolerated well, no immediate complications EMBX: Patient was placed in dorsal lithotomy position with feet in stirrups. A sterile speculum was placed into the vagina and the cervix was visualized. The cervix was grasped with a single tooth tenaculum. The endometrial pipette was placed through the cervix into the uterus, endometrial curettage was performed and sampling was obtained, endometrial curettings were placed in formalin, and single tooth tenaculum was removed. Excellent hemostasis was assured. All instruments were removed from vagina. Skin Tag Removal: Patient presents today for skin tag removal. Patient signed consents for procedure. Patient was placed in dorsal lithotomy position and was draped in normal fashion. Area cleansed with alcohol, lidocaine injected after allowing sufficient time to take affect. roll picker and scissors used to remove affected area. Placed in formalin and sent to pathology. Post-procedure instructions given. Pre Op: Patient is doing well but has complaints of bleeding and pelvic pain. Patient has tried hormone therapy in the past but all attempts to subside patients issues have failed. I have discussed conservative management vs. surgical management with the patient in detail and patient desires surgical management at this time. Patient will undergo Da Jaquan assisted Bilateral Laparoscopic Salpingectomy and Endometrial Ablation with Helen on 10/25/24. Surgical consents were signed, mmc was reviewed, and patient is to proceed to [facility] OR. Reviewed ultrasound, 5.1cm cyst noted pt given tumor markers to have obtained. Follow Up: Patient is to follow up between 1-2 weeks post op to assess proper healing and recovery from procedure. Documented by Laura Barakat LPN on behalf of: Jessica Dunne DO documented in this encounter [facility] 09-19-2024 History of Presen t illness Narrative Images [...] LMP 08/31/2024 (Approximate) SpO2 98% BMI 29.85 kg/m Physical Exam Constitutional: Appearance: Normal appearance. She [...] Assessment & Plan documented in this encounter [facility] 09-05-2024 History of Presen t illness Narrative Images from the original note were not included. Subjective Patient ID: Carlene Nelson is a 33 y.o. female who presents for Nausea, Headache, and Earache (Left.). HPI History of Present Illness The patient presents for evaluation of vertigo, dry cracked lips, and migraines. She continues to experience fluid in her ear, which she suspects might be causing vertigo. Accompanying symptoms include nausea and a sensation of fullness in the ear. She reports no tinnitus or hearing loss, although she is uncertain due to the increased noise level at her workplace. The onset of these symptoms was approximately 2 weeks ago. She has been dealing with the fluid issue for about a year but notes that the current symptoms are different from her previous experiences. She has been attempting to reduce her salt intake after noticing an exacerbation of her symptoms following the consumption of chips. She sought consultation with an ENT specialist who found no abnormalities. However, during a recent visit for a hearing test, she was informed that vertigo could be a symptom of an underlying condition. She has a family history of vertigo, with both her father and brother being affected. She also reports persistent dry, cracked lips, which have not improved despite using various types of ChapStick. She has not yet received her prescription for Nurtec. Her migraines have recently recurred. She plans to undergo tubal ligation, followed by a partial hysterectomy six months later, as her migraines are often triggered by her menstrual cycle. Diet: She has been attempting to reduce her salt intake. PAST SURGICAL HISTORY: - Tubal ligation planned - Partial hysterectomy planned FAMILY HISTORY Her father and brother both have vertigo. Objective BP 124/68 (BP Location: Left arm, Patient Position: Sitting, BP Cuff Size: Adult) Pulse 95 Resp 18 Ht 5' 2 Wt 166 lb LMP 08/31/2024 (Approximate) SpO2 98% BMI 30.36 kg/m Physical Exam Constitutional: Appearance: Normal appearance. She is normal weight. HENT: Head: Normocephalic and atraumatic. Nose: Nose normal. Mouth/Throat: Mouth: Mucous membranes are moist. Eyes: Pupils: Pupils are equal, round, and reactive to light. Cardiovascular: Rate and Rhythm: Normal rate and regular rhythm. Heart sounds: No murmur heard. Pulmonary: Effort: Pulmonary effort is normal. Breath sounds: Normal breath sounds. No wheezing or rhonchi. Musculoskeletal: General: No swelling. Cervical back: Normal range of motion and neck supple. Right lower leg: No edema. Left lower leg: No edema. Skin: General: Skin is warm and dry. Findings: No rash. Neurological: Mental Status: She is alert and oriented to person, place, and time. Sensory: No sensory deficit. Gait: Gait normal. Psychiatric: Mood and Affect: Mood normal. Thought Content: Thought content normal. Judgment: Judgment normal. Physical Exam Ears: Scarring on the eardrum, likely from childhood, no significant fluid observed. Mouth/Throat: Dry, cracked lips, likely due to a bacterial infection. Assessment & Plan Angular cheilitis due to bacterial infection Orders: mupirocin (Bactroban) 2 % ointment; Apply topically in the morning and in the evening and before bedtime. Do all this for 10 days. Vertigo Meniere disease, left Orders: hydroCHLOROthiazide (HYDRODiuril) 25 MG tablet; Take 1 tablet (25 mg) by mouth Daily Assessment & Plan 1. Vertigo. - Symptoms suggest a possible diagnosis of M ni re's disease rather than benign positional vertigo. - Physical exam reveals no significant fluid in the ear, but there is scarring on the eardrum. - Advised to limit salt intake as it can exacerbate the condition. - Hydrochlorothiazide prescribed to help manage the salt balance. 2. Dry, cracked lips. - Condition appears to be a minor bacterial infection. - Physical exam findings indicate no significant fluid in the ear. - Advised to apply Bactroban ointment to the affected area and consider discontinuing the use of fluoride toothpaste. - Bactroban ointment prescribed for topical application. 3. Migraines. - Migraines have recently started up again. - Prescription for Nurtec provided to manage migraines. - Discussion included the potential for a partial hysterectomy in the future to address menstrual-related migraine triggers. Follow-up - A follow-up appointment is scheduled in 2 weeks. documented in this encounter [facility] 09-02-2024 History of Presen t illness Narrative Reason for Appointment: Patient ID: Carlene Nelson is a 33 y.o. female who presents for nuMVC Women Visit Patient presents today for Annual [...] Ambulatory Problems Diagnosis Date Noted Antepartum anemia ([facility]) 02/09/2023 Second trimester ([facility]) 02/09/2023 Third trimester ([facility]) 02/22/2023 Past Medical History: Diagnosis Date Abnormal [...] nursing note reviewed. Exam conducted with a goodwill ambassador present. Vitals: Estimated body mass index is [...] w/ TV 4. headache in second trimester ([facility]) O26.892 magnesium oxide (Mag-Ox) 400 (240 Mg) [...] Dr. Jessica Dunne, documented in this encounter [facility] 06-12-2024 History of Presen t illness Narrative [...] resolve without tx. documented in this encounter [facility] 04-09-2024 History of Presen t illness Narrative [...] feeling any better documented in this encounter [facility] 03-25-2024 History of Presen t illness Narrative [...] markedly worsening symptoms. documented in this encounter [facility] 04-05-2023 History of Presen t illness Narrative [...] nursing note reviewed. Exam conducted with a goodwill ambassador present. Vitals: Estimated body mass index is [...] in this encounter [facility] Evaluation note Diagnosis Third trimester state, incidental [facility] Diagnosis Acute bilateral otitis media- Primary Viral URI with cough [facility] Diagnosis Acute middle ear effusion, left- Primary [facility] Diagnosis Ear fullness, left- Primary ETD (Eustachian tube dysfunction), bilateral [facility] Diagnosis Well woman exam with routine gynecological exam Routine gynecological examination Encounter for surveillance of contraceptive pills Migraine without aura and without status migrainosus, not intractable headache in second trimester ([facility]) Menorrhagia with regular cycle [facility] Diagnosis Angular cheilitis due to bacterial infection- Primary Vertigo Dizziness and giddiness Meniere disease, left documented [facility] Diagnosis Meniere disease, left- Primary [facility] Diagnosis Pre-op examination Request for sterilization Menorrhagia with regular cycle Abnormal uterine bleeding (AUB) Pelvic pain Complex ovarian cyst documented in this encounter [facility] Assessments Diagnosis Urinary frequency OAB (overactive bladder) Hypertonicity of bladder Incomplete bladder emptying Diagnosis Urinary frequency Advance Directives Documents on File Type Date Recorded Patient Manager Clinical Research Expl anation ACP-Advance Directive ACP-Power of Purchasing Manager Documents on File Type Date Recorded Patient Manager Clinical Research Expl anation Advance Directives and Living Will Power of Purchasing Manager Summary Purpose Family History No Family History Records FoundNo Family History Records FoundNo Family History Records Found Additional Source Comments INFORMATION SOURCE (unrecogn ized section and content) DATE CREATED AUTHOR 12/25/2019 [facility] DATE CREATED AUTHOR AUTHOR'S ORGANIZ ATION 08/06/2021 [facility] DATE CREATED AUTHOR AUTHOR'S ORGANIZ ATION 09/28/2024 [facility] EPIC Reason for Visit (unrecogniz ed section and content) Reason Comments Routine Visit Reason Comments Earache Reason Comments Ear Fullness Reason Comments Otitis Media Specialty Diagnoses / Procedures Referred By Contac t Referred To Contact Otolaryngology Diagnoses Chronic allergic otitis media of left ear Procedures [place] [facility] 60 MINUTES Brynn Bah MD [address] [place] [address] Phone: tel: fax: rTish Og MD [address] [facility] [address] [place] [address] Phone: tel: fax: Referral ID Status Reason Start Date Expiration Date V isits Requested Visits Authorized [id number] Closed Specialty Services Required 05/14/2024 11/10/2024 1 1 Reason Comments Well Women Visit Reason Comments Nausea Headache Earache Left. Reason Comments Follow-up Reason Comments Pre-op Visit [facility] Care Teams (unrecognized sec tion and content) Boom Tender Relationship Specialty Start Date End Date Brynn Bah MD [address] [place] [address] PCP - General Family Medicine 08/10/22 Ana Rosa Hazel, BEREAVEMENT PROGRAM COORDINATOR [address] [place] [address] PCP - [facility] 09/20/22 Boom Tender Relationship Specialty Start Date End Date Brynn Bah MD [address] [place] [address] PCP - General Family Medicine 08/10/22 Ana Rosa Hazel, BEREAVEMENT PROGRAM COORDINATOR PCP - [facility] 08/20/22 Boom Tender Relationship Specialty Start Date End Date Brynn Bah MD [address] [place] [address] PCP - General Family Medicine 08/10/22 Ana Rosa Hazel, BEREAVEMENT PROGRAM COORDINATOR PCP - [facility] 08/20/22 Boom Tender Relationship Specialty Start Date End Date Brynn Bah MD [address] [place] [address] PCP - General Family Medicine 08/10/22 Ana Rosa Hazel, BEREAVEMENT PROGRAM COORDINATOR PCP - [facility] 08/20/22 Boom Tender Relationship Specialty Start Date End Date Brynn Bah MD [address] [facility] [place] [address] PCP - General Family Medicine 08/10/22 Ana Rosa Hazel, BEREAVEMENT PROGRAM COORDINATOR PCP - [facility] 08/20/22 Boom Tender Relationship Specialty Start Date End Date Brynn Bah MD [address] [facility] [place] [address] PCP - General Family Medicine 08/10/22 Ana Rosa Hazel BEREAVEMENT PROGRAM COORDINATOR PCP - [facility] 08/20/22 Boom Tender Relationship Specialty Start Date End Date Brynn Bah MD [address] [facility] [place] [address] PCP - General Family Medicine 08/10/22 Boom Tender Relationship Specialty Start Date End Date Brynn Bah MD [address] [facility] [place] [address] PCP - General Family Medicine 08/10/22 Boom Tender Relationship Specialty Start Date End Date Brynn Bah MD [address] [facility] [place] [address] PCP - General Family Medicine 08/10/22 Boom Tender Relationship Specialty Start Date End Date Brynn Bah MD [address] [place] [address] PCP - General Family Medicine 08/10/22 Boom Tender Relationship Specialty Start Date End Date Brynn Bah MD [address] [facility] [place] [address] PCP - General Family Medicine 08/10/22 Boom Tender Relationship Specialty Start Date End Date Brynn Bah MD [address] [facility] [place] [address] PCP - [facility] Medicine 08/10/22 Boom Tender Relationship Specialty Start Date End Date Brynn Bah MD [address] [facility] [place] [address] PCP - [facility] 08/10/22 Boom Tender Relationship Specialty Start Date End Date Brynn Bah MD [address] [facility] [place] [address] PCP - [facility] 08/10/22 Boom Tender Relationship Specialty Start Date End Date Brynn Bah MD [address] [facility] [place] [address] PCP - General [facility] Medicine 08/10/22 FOR RECORDS PERTAINING TO PATIENTS [...] PRIMARY CLINICAL RECORDS. [facility] [employer] [facility]. provides no warranty or guarantee of the accuracy or completeness of information in this document.
--- NOTE | 2024-10-17 13:34 | XR_ITS ---
[address] [address] Patient Name: RAFITA ISAAC MRN: [id number] date: 1990 Sex: F Assigned Patient Location: [facility] Current Patient Location: Accession/Order Number: [id number] Exam Date: 10/17/2024 13:35 Report Date: 10/18/2024 00:44 At the request of: JESSICA ABRAHAM DO Procedure: XR chest 2V XR chest 2V 10/17/2024 1:40 PM SIGNS AND SYMPTOMS: ^E Cigarette Use PROTOCOL: Frontal and lateral radiograph of the chest COMPARISON: None FINDINGS: The trachea is midline. The heart and mediastinal structures are within normal limits. The lung parenchyma is clear. The bony thorax is intact. XR/XR chest 2V IMPRESSION: No acute cardiopulmonary pathology. Impression dictated by: Wei Alonso M.D. 10/18/2024 12:44 AM Dictation Location: [place] [address] Electronically authenticated by: [id number] Date: 10/18/2024 00:44
== END 2024-10-17 12:53 | disposition home or self-care (01) ==
LOC: PST 12:53
PROVIDERS: PCP Family Medicine; Visit Provider Obstetrics & Gynecology
DX: Z01.810 Encounter for preprocedural cardiovascular examination (principal); N92.0 Excessive and frequent menstruation with regular cycle; N93.9 Abnormal uterine and vaginal bleeding, unspecified; R10.2 Pelvic and perineal pain
CPT/HCPCS: 71046

== ENCOUNTER 2024-10-24 10:17 | Day surgery (SDC) | payer BC, SELFPAY ==
[2024-10-17 13:23] VITALS: BP 129/79; PULSE 82; TEMP 36.4; O2SAT 98; BMI 28.9
[2024-10-24] VITALS (13 sets, daily range): BP systolic 73–104; BP diastolic 47–71; PULSE 62–76; TEMP 36.1–36.4; O2SAT 96–100; BMI 28.4
--- OUTSIDE RECORDS SUMMARY | 2024-10-24 10:25 | XMS_ITS | CCD ---
Author Organization [facility] Care Team Providers Care Senior Attorney Name Role Phone Brynn Bah Primary Care [...] capsule 03/25/2024 04/04/2024 Active ASHWAGANDHA GUMMIES PO (12 sources) ASHWAGANDHA BRETT IES PO Take by [...] take 1 tablet by mouth once daily [id number] 0.18/0.215/0.25 MG-25 MCG TABS TAKE 1 TABLET BY MOUTH EVERY DAY 0 05/27/2019 Active hydroCHLOROthiazide 25 mg oral tablet (8 sources) Thiazide Diuretic Start: 09-06-19 End: 09-06-19 [...] MG tablet Indications: headache in second trimester ([facility]) Take 1 tablet (400 mg) by [...] 2 02/08/2023 Active Multiple Vitamin (multivitamin) tablet (16 sources) take 1 tablet by mouth once [...] Active rimegepant 75 mg disintegrating oral tablet (12 sources) Start: 025 End: 025 take 1 [...] second trimester] 09-02-2024 Episodic Other congenital anomalies (16 sources) Congenital anomaly of skull; 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] 09-25-2024 Chronic Other nervous system disorders (16 sources) Chronic pain; Translations: [Other chronic pain] Onset: 06-10-2024 06-10-2024 Chronic Other screening for suspected conditions (not mental disorders or infectious disease) (4 sources) Encounter for screening for malignant neoplasm of cervix; Translations: [ENC SCREENING MALIG NEOPLASM CERV] Onset: 08-03-2021 Episodic Other upper respiratory disease (16 sources) Allergic rhinitis; Translations: [Allergic rhinitis, unspecified] [...] Da te Episodic/Chronic Deficiency and other anemia (16 sources) Anemia; Translations: [Anemia, unspecified] Onset: 06-10-2024 06-10-2024 Episodic Deficiency and other anemia (16 sources) Iron deficiency anemia; Translations: [Iron deficiency anemia, unspecified] Onset: 06-10-2024 06-10-2024 Episodic Genitourinary symptoms and ill-defined conditions (20 sources) Increased frequency of urination; Translations: [Incomplete emptying of bladder] Onset: 02-22-2023 02-22-2023 Episodic Lymphadenitis (16 sources) Cervical lymphadenopathy; Translations: [Localized enlarged lymph nodes] Onset: 06-10-2024 06-10-2024 Episodic Malaise and fatigue (16 sources) Fatigue; Translations: [Other fatigue] Onset: 06-10-2024 06-10-2024 Episodic Nonmalignant breast conditions (16 sources) Lump in upper outer quadrant of right breast; Translations: [Unspecified lump in the right breast, upper outer quadrant] Onset: 06-10-2024 06-10-2024 Episodic Other acquired deformities (16 sources) Incompetence of nasal valve; 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] Onset: 06-10-2024 06-10-2024 Episodic Other complications of (20 sources) Anemia of ; Translations: [Anemia complicating , unspecified trimester] Onset: 02-09-2023 Resolved: 04-28-2023 02-09-2023 Chronic Other female genital disorders (16 sources) History of abnormal cervical Papanicolaou smear ; Translations: [Personal history of other diseases of the female genital tract] Onset: 06-10-2024 06-10-2024 Episodic Other gastrointestinal disorders (16 sources) Slow transit constipation; Translations: [Slow transit constipation] Onset: 06-10-2024 06-10-2024 Episodic Other lower respiratory disease (16 sources) H/O: respiratory disease; Translations: [Personal history of other diseases of the respiratory system] Onset: 06-10-2024 06-10-2024 Episodic Other nervous system disorders (16 sources) Paresthesia of left upper limb; Translations: [Paresthesia of skin] Onset: 06-10-2024 06-10-2024 Episodic Other and delivery including normal (20 sources) Third trimester ; Translations: [Encounter for supervision of normal , unspecified, third trimester] Onset: 02-09-2023 Resolved: 04-28-2023 03-29-2023 Episodic Other upper respiratory disease (16 sources) Deviated nasal septum; Translations: [Deviated nasal septum] Onset: 06-10-2024 06-10-2024 Episodic Residual codes; unclassified (16 sources) Tobacco user; Translations: [Tobacco use] Onset: 06-10-2024 06-10-2024 Episodic Urinary tract infections (16 sources) Urinary tract infectious disease; Translations: [Urinary tract infection, site not specified] Onset: 06-10-2024 06-10-2024 Episodic Results Test Name Value Interpretation Reference Range Facility XR CHEST 2Von 10-18-2024 [place] [address] XRay Report Signed Patient: CARLENE NELSON MR#: [id number] : 1990 Acct:[id number] Age/Sex: 34 / F ADM Date: 10/17/24 Loc: [facility] Attending Dr: Jessica Dunne D.O. Ordering Physician: Jessica Dunne D.O. Date of Service: 10/17/24 Procedure(s): XR chest 2V Accession Number(s): [id number] cc: BRYNN BAH ; Jessica Dunne D.O. [place] [address] Patient Name: CARLENE NELSON MRN: [facility]:[id number] date: 1990 Sex: F Assigned Patient Location: [facility] Current Patient Location: Accession/Order Number: [id number] Exam Date: 10/17/2024 13:35 Report Date: 10/18/2024 00:44 At the request of: JESSICA DUNNE DO Procedure: XR chest 2V XR chest 2V 10/17/2024 1:40 PM SIGNS AND SYMPTOMS: E Cigarette Use PROTOCOL: Frontal and lateral radiograph of the chest COMPARISON: None FINDINGS: The trachea is midline. The heart and mediastinal structures are within normal limits. The lung parenchyma is clear. The bony thorax is intact. XR/XR chest 2V IMPRESSION: No acute cardiopulmonary pathology. Impression dictated by: Agapito Alonso M.D. 10/18/2024 12:44 AM Dictation Location: [place] [address] Electronically authenticated by: [id number] Y Date: 10/18/2024 00:44 Dictated By: Agapito Alonso M.D. Signed By: 10/18/2445 DD/ TD/TT: Underwriting Manager: [facility] Radiology Radiologflor diaz MD - 10/18/2024 [place] [address] XRay Report Signed Patient: CARLENE NELSON MR#: [id number] : 1990 Acct:[id number] Age/Sex: 34 / F ADM Date: 10/17/24 Loc: [facility] Attending Dr: Jessica Dunne D.O. Ordering Physician: Jessica Dunne D.O. Date of Service: 10/17/24 Procedure(s): XR chest 2V Accession Number(s): [id number] cc: BRYNN BAH Corey D.O. The [place] [id number] Patient Name: CARLENE NELSON MRN: [facility]:[id number] date: 1990 Sex: F Assigned Patient Location: [facility] Current Patient Location: Accession/Order Number: [id number] Exam Date: 10/17/2024 13:35 Report Date: 10/18/2024 00:44 At the request of: JESSICA DUNNE DO Procedure: XR chest 2V XR chest 2V 10/17/2024 1:40 PM SIGNS AND SYMPTOMS: E Cigarette Use PROTOCOL: Frontal and lateral radiograph of the chest COMPARISON: None FINDINGS: The trachea is midline. The heart and mediastinal structures are within normal limits. The lung parenchyma is clear. The bony thorax is intact. XR/XR chest 2V IMPRESSION: No acute cardiopulmonary pathology. Impression dictated by: Agapito Alonso M.D. 10/18/2024 12:44 AM Dictation Location: [place] [address] Electronically authenticated by: [id number] Y Date: 10/18/2024 00:44 Dictated By: Agapito Alonso M.D. Signed By: 10/18/2445 DD/ TD/TT: Underwriting Manager: [facility] Radiology Study observation (narrative) [facility] XR CHEST 2VOrdered By: Radio logist Radiology on 10-18-2024 [facility] Work Phone: ALL CA 125on 09-27-2024 CANCER ANTIGEN (CA) 125 14.1 U/mL 0.0 - 38.1 U/mL [facility] Comment on above: [employer] El ectrochemiluminescence Immunoassay (ECLIA) Values obtained with different assay methods or kits cannot be used interchangeably. Results cannot be interpreted as absolute evidence of the presence or absence of malignant disease. ALL CEAon 09-27-2024 CEA <0.6 0.0 - 4.7 ng/mL [facility] Comment on above: Nonsmokers <3.9 Smokers <5.6 [employer] Electrochemiluminescence Immunoassay (ECLIA) Values obtained with different assay methods or kits cannot be used interchangeably. Results cannot be interpreted as absolute evidence of the presence or absence of malignant disease. Performed at: [address] [id number] [employer]: Main Buck PhD, Phone: [phone] [facility] AFP TUMOR MARKERon AFP, SERUM, TUMOR MARKER <1.8 0.0 - 6.4 ng/mL [facility] Comment on above: [employer] El ectrochemiluminescence Immunoassay (ECLIA) Values obtained with different assay methods or kits cannot be used interchangeably. Results cannot be interpreted as absolute evidence of the presence or absence of malignant disease. This test is not interpretable in females. No Panel Informationon 09-27 [facility] HCG,BETA-QUANT,TUMOR AGAPITO Yamile 09-27-2024 HCG TUMOR MARKER <1 . mIU/mL [facility] Comment on above: Female (Non- ) [...] developed and its performance characteristics determined by [employer]. It has not been cleared or approved by the Food and Drug Administration for use as a tumor marker. This test is not interpretable as a tumor marker in females. Performed at: [address] [id number] [employer]: Main Buck PhD, Phone: [phone] Endometrial biopsyon Shun Laura PetersonshanelSAEID 09/20 10:50 AM Endometrial biopsy Date/Time: 09/25/2024 [...] Patient tolerance: tolerated well, no immediate complications [facility] HCG ( test) Ql (U)o n 09-25-2024 Interpretation and review of laboratory results Normal [facility] Preg Test, Ur Negative Negative [facility] US PELVIC COMPLETE W/ TVon 0 09-18-2024 [...] II, MD, PHD at 19-Sep-2024 08:33:51 AM [facility] Normal Not Available Comment on above: Order Comment: US PE LVIS-TRANSVAG IF INDICATED Patient's last menstrual period was 08/31/2024 (approximate). IGP,APTIMA HPV,AGE GDLNon AGE GDLN ACOG TESTING Note . [facility] Comment on above: TESTS RESULT FLAG UN ITS REF RANGE LAB Clinician Provided Cytology Information Source.............Cervix;Endocervix No. of containers..01 ThinPrep Vial Age Algo ACOG Shirley... 30-65 01 FLAG LEGEND: L-Low Normal,H-High Normal,LL-Alert Low,HH-Alert High <-Panic Low,>-Panic High,A-Abnormal,AA-Critical Abnormal Performed at: 01 [address] [place] [address] Cherrie Roberson MD, HPV APTIMA Negative Negative [facility] Comment on above: This nucleic acid am plification test detects fourteen high- risk HPV types (16,18,31,33,35,39,45,51,52,56,58,59,66,68) without differentiation. Performed at: =[address] [id number] [employer]: Cherrie Roberson MD, Phone: [phone] Performed at: [address] [id number] [employer]: Cherrie Roberson MD, Phone: [phone] IGP, APTIMA HPV, RFX 16/18,45 Note . [facility] Comment on above: TESTS RESULT FLAG UN ITS REF RANGE LAB DIAGNOSIS: 02 NEGATIVE FOR INTRAEPITHELIAL LESION OR MALIGNANCY. Specimen adequacy: 02 Satisfactory for evaluation. Endocervical and/or squamous metaplastic cells (endocervical component) are present. Performed by: 02 Gaudencio Aldrich, Consultants Intern (ASCP) . 02 Note: Note 02 The Pap [...] High,A-Abnormal,AA-Critical Abnormal Performed at: 02 WB [facility] [address] [place] [address] Cherrie Roberson MD, BRUSH-SPATULA CERVIX ENDOCERVIX [facility] HCG ( test) Ql (U)o n 09-02-2024 Interpretation and review of laboratory results Normal [facility] Preg Test, Ur Negative Negative [facility] Urinalysis macro (dipstick) panel (U)Ordered By: Pearl Soni on 04-05-2023 Bilirubin, UA Negative Negative - 4(70) +++ mg/dL [facility] Blood, UA Positive Negative - 50 Chris/mcL [facility] Clarity, UA Clear [facility] Color, UA Yellow [facility] Glucose, UA Negative Negative - 2000(110) ++++ mg/dL [facility] Interpretation and review of laboratory results Abnormal [facility] Ketones, UA Negative Negative - 160(16) ++++ mg/dL [facility] Leukocytes, UA Negative Negative - 500+++ Dc/mcL [facility] Nitrite, UA Negative Negative - Positive [facility] pH, UA 7.0 5 - 9 [facility] Protein, UA Negative Negative - 2000(20) ++++ mg/dL [facility] Spec Grav, UA 1.015 1 - 1.03 [facility] Urobilinogen, UA 0.2 0.2 - 12 mg/dL [facility] PAP ACOG PANEL 2: 30 to 65on 08-05-2021 . . Normal [facility] Comment on above: Result Comment: Perf ormed at: WB Performed By: #### 4 [id number] #### [facility] [address] [place] [address] Dr. Jazmin Turner Age Gdln ACOG Testing 30-65 Normal [facility] Comment on above: Performed By: #### [id number] #### [facility] [address] [place] [address] Dr. Jazmin Turner DIAGNOSIS: Comment Normal [facility] Comment on above: Result Comment: NEGA TIVE FOR INTRAEPITHELIAL LESION OR MALIGNANCY. Performed at: WB Performed By: #### 4 [id number] #### [facility] [address] [place] [address] Dr. Jazmin Turner HPV Aptima Negative Normal Negative [facility] Comment on above: Result Comment: This nucleic acid amplification test detects fourteen high-risk HPV types (16,18,31,33,35,39,45,51,52,56,58,59,66,68) without differentiation. Performed at: =G Performed By: #### 4 [id number] #### [facility] [address] [place] [address] Dr. Jazmin Turner Methodology: Comment Normal [facility] Comment on above: Result Comment: This liquid based ThinPrep(R) pap test was screened with the use of an image guided system. Performed at: WB Performed By: #### 4 [id number] #### [facility] [address] [place] [address] Dr. Jazmin Turner Note: Comment Normal [facility] Comment on above: Result Comment: The Pap smear is a screening test designed to aid in the detection of premalignant and malignant conditions of the uterine cervix. It is not a diagnostic procedure and should not be used as the sole means of detecting cervical cancer. Both false-positive and false-negative reports do occur. . Performed at: WB Performed By: #### 4 [id number] #### [facility] [address] [place] [address] Dr. Jazmin Turner Performed by: Comment Normal [facility] Comment on above: Result Comment: Tong Watts Counter Stacker (ASCP) Performed at: WB Performed By: #### 4 [id number] #### [facility] [address] [place] [address] Dr. Jazmin Turner Specimen adequacy: Comment Normal [facility] Comment on above: Result Comment: Sati sfactory for evaluation. Endocervical and/or squamous metaplastic cells (endocervical component) are present. Performed at: WB Performed By: #### 4 [id number] #### [facility] [address] [place], [place] [address] Dr. Jazmin Turner Cult,Urineon 12-24-2019 Cult,Urine Specimen Description .CLEAN CATCH URINE Special Requests NOT REPORTED Culture NO SIGNIFICANT GROWTH Report Status FINAL 12/24/2019 Normal [facility] Comment on above: Performed By: #### U RC #### [facility] [address] [place], [place] [id number] [employer]: Robert Ross MD [facility] [address] [place] [address] Dr[place], [place] [address] [employer]: Tariq Mesa MD Urinalysis w/ Microon 2019 ----- Normal [facility] Comment on above: Performed By: #### U AMIC #### [facility] [address] [place], [place] [address] [employer]: Tariq Mesa MD Acetoacetic Acid,Ur Negative Normal NEG [facility] Comment on above: Performed By: #### U AMIC #### [facility] [address] [place], [place] [id number] [employer]: Tariq Mesa MD Bilirubin, SemiQt,Ur Negative Normal NEG [facility] Comment on above: Performed By: #### U AMIC #### [facility] [address] [place], [place] [address] [employer]: Tariq Mesa MD Color (U) YELLOW Normal YEL [facility] Comment on above: Performed By: #### U AMIC #### [facility] [address] [place], [place] [address] [employer]: Tariq Mesa MD Epithelial cells LM.HPF (Urine sed) [#/Area] None Normal 0-25 [facility] Comment on above: Performed By: #### U AMIC #### [facility] [address] [place] [address] [employer]: Tariq Mesa MD Glucose Ql (U) Negative Normal NEG [facility] Comment on above: Performed By: #### U AMIC #### [facility] [address] [place] [address] [employer]: Tariq Mesa MD Hemoglobin, Ur 2+ Abnormal NEG [facility] Comment on above: Performed By: #### U AMIC #### [facility] [address] [place] [address] [employer]: Tariq Mesa MD Leukocyte esterase Test strip Ql (U) Negative Normal NEG [facility] Comment on above: Performed By: #### U AMIC #### [facility] [address] [place], [id number] [employer]: Tariq Mesa MD Nitrite,Ur Negative Normal NEG [facility] Comment on above: Performed By: #### U AMIC #### [address] [place] [address] [employer]: Tariq Mesa MD pH (U) 7.5 [pH] Normal 5.0-9.0 [facility] Comment on above: Performed By: #### U AMIC #### [facility] [address] [place] [address] [employer]: Tariq Mesa MD Protein Ql (U) Negative Normal NEG [facility] Comment on above: Performed By: #### U AMIC #### [facility] [address] [place] [address] [employer]: Tariq Mesa MD RBC (U) [#/Vol] None Normal 0-2 [facility] Comment on above: Performed By: #### U AMIC #### [facility] [address] [place], [place] [address] [employer]: Tariq Mesa MD Specific gravity (U) [Rel density] 1.020 Normal 1.010-1.020 [facility] Comment on above: Performed By: #### U AMIC #### [facility] [address] [place], [place] [address] [employer]: Tariq Mesa MD Turbidity CLEAR Normal CLEAR [facility] Comment on above: Performed By: #### U AMIC #### [facility] [address] [place] [address] [employer]: Tariq Mesa MD Urobilinogen,Ur Normal Normal NORM [facility] Comment on above: Performed By: #### U AMIC #### [facility] [address] [place] [address] [employer]: Tariq Mesa MD WBC (U) [#/Vol] None Normal 0-5 [facility] Comment on above: Performed By: #### U AMIC #### [facility] [address] [place] [address] [employer]: Tariq Mesa MD Amorphous sediment LM Ql (Urine sed) NOT REPORTED Normal [facility] Comment on above: Performed By: #### U AMIC #### [facility] [address] [place], [facility] [employer]: Tariq Mesa MD Bacteria LM.HPF (Urine sed) [#/Area] NOT REPORTED Normal [facility] Comment on above: Performed By: #### U AMIC #### [facility] [address] [place] [address] [employer]: Tariq Mesa MD Casts LM.LPF (Urine sed) [#/Area] NOT REPORTED Normal [facility] Comment on above: Performed By: #### U AMIC #### [facility] [address] [place], [place] [id number] [employer]: Tariq Mesa MD Comment NOT REPORTED Normal [facility] Comment on above: Performed By: #### U AMIC #### [facility] [address] [place], [place] [address] [employer]: Tariq Mesa MD Crystals LM Nom (Urine sed) NOT REPORTED Normal NONE [facility] Comment on above: Performed By: #### U AMIC #### [facility] [address] [place], [place] [id number] [employer]: Tariq Mesa MD Epithelial, Renal NOT REPORTED Normal 0 [facility] Comment on above: Performed By: #### U AMIC #### [facility] [address] [place], [place] [id number] [employer]: Tariq Mesa MD Mucus Strands NOT REPORTED Normal NONE [facility] Comment on above: Performed By: #### U AMIC #### [facility] [address] [place] [address] [employer]: Tariq Mesa MD Other Observations NOT REPORTED Normal [facility] Comment on above: Performed By: #### U AMIC #### [facility] [address] [place], [place] [address] [employer]: Tariq Mesa MD Trichomonas NOT REPORTED Normal NONE [facility] Comment on above: Performed By: #### U AMIC #### [facility] [address] [place] [address] [employer]: Tariq Mesa MD Yeast LM Ql (Urine sed) NOT REPORTED Normal [facility] Comment on above: Performed By: #### U AMIC #### [facility] [address] [place], [place] [address] [employer]: Tariq Mesa MD Urinalysis with Microscopico n 12-23-2019 Amorphous, UA NOT REPORTED None [place], [place] Bacteria, UA NOT REPORTED None [place], [place] Bilirubin Urine Negative NEGATIVE [place] Casts UA NOT REPORTED /LPF [place] Color, UA YELLOW YELLOW [place], [place] Crystals, UA NOT REPORTED None /HPF [place] Epithelial Cells UA None [place] Glucose, Ur Negative NEGATIVE [place] Interpretation and review of laboratory results Abnormal [place] Ketones Ql (U) Negative NEGATIVE [place] Leukocyte esterase Test strip Ql (U) Negative NEGATIVE [place] Mucus, UA NOT REPORTED None [place] Nitrite, Urine Negative NEGATIVE [place] Other Observations UA NOT REPORTED NOT REQ. [place] pH, UA 7.5 [place] Protein (U) [Mass/Vol] Negative NEGATIVE [place] RBC (U) [#/Vol] None [place] Renal Epithelial, UA NOT REPORTED 0 /HPF [place] Specific [place], UA 1.020 [place] Trichomonas, UA NOT REPORTED None [place], [place] Turbidity UA CLEAR CLEAR [place] Urinalysis Comments NOT REPORTED [place] Urine Hgb 2+ Abnormal NEGATIVE [place] Urobilinogen, Urine Normal Normal [place] WBC, UA None [place] Yeast, UA NOT REPORTED None [place] - [place] Cult,Urineon 07-27-2019 Cult,Urine Specimen Description .CLEAN CATCH URINE Special Requests NOT REPORTED Culture NO SIGNIFICANT GROWTH Report Status FINAL 07/26/2019 Normal [facility] Comment on above: Performed By: #### U #### [employer] [address] [place] [address] [employer]: Robert Ross MD [facility] [address] [place] [address] [employer]: Tariq Mesa MD Urinalysis w/ Microon 2019 ----- Normal [facility] Comment on above: Performed By: #### U AMIC #### [facility] [address] [place], [place] [id number] [employer]: Tariq Mesa MD Acetoacetic Acid,Ur Negative Normal [facility] Comment on above: Performed By: #### U AMIC #### [facility] [address] [place], [place] [address] [employer]: Tariq Mesa MD Bacteria LM.HPF (Urine sed) [#/Area] 1+ Abnormal NONE [facility] Comment on above: Performed By: #### U AMIC #### [address] [place], [place] [address] [employer]: Tariq Mesa MD Bilirubin, SemiQt,Ur Negative Normal [facility] Comment on above: Performed By: #### U AMIC #### [address] [place], [place] [address] [employer]: Tariq Mesa MD Color (U) YELLOW Normal [facility] Comment on above: Performed By: #### U AMIC #### [address] [place] [address] [employer]: Tariq Mesa MD Epithelial cells LM.HPF (Urine sed) [#/Area] 2 TO 5 Normal 0-25 [facility] Comment on above: Performed By: #### U AMIC #### [facility] [address] [place], [place] [id number] [employer]: Tariq Mesa MD Glucose Ql (U) Negative Normal NEG [facility] Comment on above: Performed By: #### U AMIC #### [facility] [address] [place], [place] [id number] [employer]: Tariq Mesa MD Hemoglobin, Ur 1+ Abnormal NEG [facility] Comment on above: Performed By: #### U AMIC #### [facility] [address] [place], [place] [id number] [employer]: Tariq Mesa MD Leukocyte esterase Test strip Ql (U) Negative Normal NEG [facility] Comment on above: Performed By: #### U AMIC #### [facility] [address] [place], [id number] [employer]: Tariq Mesa MD Mucus Strands TRACE Abnormal NONE [facility] Comment on above: Performed By: #### U AMIC #### [facility] [address] [place] [id number] [employer]: Tariq Mesa MD Nitrite,Ur Negative Normal NEG [facility] Comment on above: Performed By: #### U AMIC #### [facility] [address] [place] [id number] [employer]: Tariq Mesa MD pH (U) 7.5 [pH] Normal 5.0-9.0 [facility] Comment on above: Performed By: #### U AMIC #### [facility] [address] [place] [id number] [employer]: Tariq Mesa MD Protein Ql (U) Negative Normal NEG [facility] Comment on above: Performed By: #### U AMIC #### [facility] [address] [place] [id number] [employer]: Tariq Mesa MD RBC (U) [#/Vol] 0 TO 2 Normal 0-2 [facility] Comment on above: Performed By: #### U AMIC #### [facility] [address] [place] [address] [employer]: Tariq Mesa MD Specific gravity (U) [Rel density] 1.010 Normal 1.010-1.020 [facility] Comment on above: Performed By: #### U AMIC #### [facility] [address] [place], [place] [id number] [employer]: Tariq Mesa MD Turbidity CLEAR Normal CLEAR [facility] Comment on above: Performed By: #### U AMIC #### [facility] [address] [place], [place] [id number] [employer]: Tariq Mesa MD Urobilinogen,Ur Normal Normal NORM [facility] Comment on above: Performed By: #### U AMIC #### [facility] [address] [place], [place] [id number] [employer]: Tariq Mesa MD WBC (U) [#/Vol] None Normal 0-5 [facility] Comment on above: Performed By: #### U AMIC #### [facility] [address] [place], [place] [id number] [employer]: Tariq Mesa MD Amorphous sediment LM Ql (Urine sed) NOT REPORTED Normal [facility] Comment on above: Performed By: #### U AMIC #### [facility] [address] [place], [place] [id number] [employer]: Tariq Mesa MD Casts LM.LPF (Urine sed) [#/Area] NOT REPORTED Normal [facility] Comment on above: Performed By: #### U AMIC #### [facility] [address] [place], [place] [id number] [employer]: Tariq Mesa MD Comment NOT REPORTED Normal [facility] Comment on above: Performed By: #### U AMIC #### [facility] [address] [place], [place] [id number] [employer]: Tariq Mesa MD Crystals LM Nom (Urine sed) NOT REPORTED Normal [facility] Comment on above: Performed By: #### U AMIC #### [facility] [address] [place], [place] [id number] [employer]: Tariq Mesa MD Epithelial, Renal NOT REPORTED Normal 0 [facility] Comment on above: Performed By: #### U AMIC #### [facility] [address] [place] [address] [employer]: Tariq Mesa MD Other Observations NOT REPORTED Normal NREQ [facility] Comment on above: Performed By: #### U AMIC #### [facility] [address] [place] [place] [address] [employer]: Tariq Mesa MD Trichomonas NOT REPORTED Normal NONE [facility] Comment on above: Performed By: #### U AMIC #### [facility] [address] [place] [place] [address] [employer]: Tariq Mesa MD Yeast LM Ql (Urine sed) NOT REPORTED Normal NONE [facility] Comment on above: Performed By: #### U AMIC #### [facility] [address] [place] [place] [address] [employer]: Tariq Mesa MD Urinalysis with Microscopico n 07-25-2019 Amorphous, UA NOT REPORTED None [facility] [place] Bacteria, UA 1+ Abnormal None [facility], [place] Bilirubin Urine Negative NEGATIVE [facility] [place] Casts UA NOT REPORTED /LPF [facility], [place] Color, UA YELLOW YELLOW [facility], [place] Crystals, UA NOT REPORTED None /HPF [facility] [place] Epithelial Cells UA 2 TO 5 [facility], [place] Glucose, Ur Negative NEGATIVE [facility] [place] Interpretation and review of laboratory results Abnormal [facility] [place] Ketones Ql (U) Negative NEGATIVE [facility] [place] Leukocyte esterase Test strip Ql (U) Negative NEGATIVE [facility] [place] Mucus, UA TRACE Abnormal None [facility], [place] Nitrite, Urine Negative NEGATIVE [facility] [place] Other Observations UA NOT REPORTED NOT REQ. [facility] [place] pH, UA 7.5 [facility], [place] Protein (U) [Mass/Vol] Negative NEGATIVE [facility] [place] RBC (U) [#/Vol] 0 TO 2 [facility] [place] Renal Epithelial, UA NOT REPORTED 0 /HPF [facility] [place] Specific [place], UA 1.010 [facility] [place] Trichomonas, UA NOT REPORTED None [facility] [place] Turbidity UA CLEAR CLEAR [facility] [place] Urinalysis Comments NOT REPORTED [facility] [place] Urine Hgb 1+ Abnormal NEGATIVE [facility] [place] Urobilinogen, Urine Normal Normal [facility] [place] WBC, UA None [facility] [place] Yeast, UA NOT REPORTED None [facility] [place] - [facility] [place] Vital Signs Date Time Vital Sign Value Performing Clinician Radames gonzalez 09-25-2024 13:48-0400 Body mass index (BMI) [Ratio] 29.84 kg/m2 MRO Work Phone: [facility] 09-25-2024 13:48-0400 Body weight 73.99 kg Jessica Vibha [employer] Work Phone: [facility] 09-25-2024 13:48-0400 Diastolic blood pressure 70 mm[Hg] Jessica Vibha DO Work Phone: [facility] 09-25-2024 13:48-0400 Systolic blood pressure 104 mm[Hg] Jessica Vibha DO Work Phone: [facility] 09-19-2024 13:17-0400 Body height 157.5 cm Brynn Bah MD Work Phone: [facility] 09-19-2024 13:17-0400 Body mass index (BMI) [Ratio] 29.85 kg/m2 Brynn Bah MD Work Phone: [facility] 09-19-2024 13:17-0400 Body weight 74.03 kg Brynn Bah MD Work Phone: [facility] 09-19-2024 13:17-0400 Diastolic blood pressure 80 mm[Hg] Brynn Bah MD Work Phone: [facility] 09-19-2024 13:17-0400 Heart rate 90 /min Brynn Bah MD Work Phone: [facility] 09-19-2024 13:17-0400 Respiratory rate 18 /min Brynn Bah MD Work Phone: [facility] 09-19-2024 13:17-0400 SaO2% (BldA) [Mass fraction] 98 % Brynn Bah MD Work Phone: [facility] 09-19-2024 13:17-0400 Systolic blood pressure 124 mm[Hg] Brynn Bah MD Work Phone: [facility] 09-05-2024 13:26-0400 Body height 157.5 cm Brynn Bah MD Work Phone: [facility] 09-05-2024 13:26-0400 Body mass index (BMI) [Ratio] 30.36 kg/m2 Brynn Bah MD Work Phone: [facility] 09-05-2024 13:26-0400 Body weight 75.3 kg Brynn Bah MD Work Phone: [facility] 09-05-2024 13:26-0400 Diastolic blood pressure 68 mm[Hg] Brynn Bah MD Work Phone: [facility] 09-05-2024 13:26-0400 Heart rate 95 /min Brynn Bah MD Work Phone: [facility] 09-05-2024 13:26-0400 Respiratory rate 18 /min Brynn Bah MD Work Phone: [facility] 09-05-2024 13:26-0400 SaO2% (BldA) [Mass fraction] 98 % Brynn Bah MD Work Phone: [facility] 09-05-2024 13:26-0400 Systolic blood pressure 124 mm[Hg] Brynn Bah MD Work Phone: [facility] 09-02-2024 13:06-0400 Body mass index (BMI) [Ratio] 30.82 kg/m2 Jessica Dunne DO Work Phone: [facility] 09-02-2024 13:06-0400 Body weight 76.43 kg Jessica Vibha DO Work Phone: [facility] 09-02-2024 13:06-0400 Diastolic blood pressure 82 mm[Hg] Jessica Vibha DO Work Phone: [facility] 09-02-2024 13:06-0400 Systolic blood pressure 120 mm[Hg] Jessica Vibha DO Work Phone: [facility] 06-12-2024 13:43-0400 Body height 157.5 cm Trish Og MD Work Phone: [facility] 06-12-2024 13:43-0400 Body mass index (BMI) [Ratio] 31.28 kg/m2 Trish Og MD Work Phone: [facility] 06-12-2024 13:43-0400 Body weight 77.56 kg Trish Og MD Work Phone: [facility] 06-12-2024 13:43-0400 Diastolic blood pressure 84 mm[Hg] Trish Og MD Work Phone: [facility] 06-12-2024 13:43-0400 Heart rate 98 /min Trish Og MD Work Phone: [facility] 06-12-2024 13:43-0400 Systolic blood pressure 127 mm[Hg] Trish Og MD Work Phone: [facility] 04-09-2024 16:23-0500 Body height 157.5 cm Shaniqua Harris TITLE INSURANCE EXAMINER Work Phone: [facility] 04-09-2024 16:23-0500 Body mass index (BMI) [Ratio] 32.59 kg/m2 Shaniqua Harris TITLE INSURANCE EXAMINER Work Phone: [facility] 04-09-2024 16:23-0500 Body weight 80.83 kg Shaniqua Harris TITLE INSURANCE EXAMINER Work Phone: [facility] 04-09-2024 16:23-0500 Diastolic blood pressure 78 mm[Hg] Shaniqua Majors TITLE INSURANCE EXAMINER Work Phone: [facility] 04-09-2024 16:23-0500 Heart rate 74 /min Shaniqua Majors TITLE INSURANCE EXAMINER Work Phone: [facility] 04-09-2024 16:23-0500 Respiratory rate 18 /min Shaniqua Majors TITLE INSURANCE EXAMINER Work Phone: [facility] 04-09-2024 16:23-0500 SaO2% (BldA) [Mass fraction] 98 % Shaniqua Majors TITLE INSURANCE EXAMINER Work Phone: [facility] 04-09-2024 16:23-0500 Systolic blood pressure 126 mm[Hg] Shaniqua Majors TITLE INSURANCE EXAMINER Work Phone: [facility] 03-25-2024 13:07-0500 Body mass index (BMI) [Ratio] 31.46 kg/m2 Margaret Asherzpatrick TITLE INSURANCE EXAMINER Work Phone: [facility] 03-25-2024 13:07-0500 Body temperature 97.39 [degF] Margaret Yeepatrick TITLE INSURANCE EXAMINER Work Phone: [facility] 03-25-2024 13:07-0500 Body weight 78.02 kg Margaret Gamble TITLE INSURANCE EXAMINER Work Phone: [facility] 03-25-2024 13:07-0500 Diastolic blood pressure 72 mm[Hg] Margaret Gamble TITLE INSURANCE EXAMINER Work Phone: [facility] 03-25-2024 13:07-0500 Systolic blood pressure 118 mm[Hg] Margaret Gamble TITLE INSURANCE EXAMINER Work Phone: [facility] 04-05-2023 11:19-0500 Body mass index (BMI) [Ratio] 35.51 kg/m2 Jessica Vibha DO Work Phone: [facility] 04-05-2023 11:19-0500 Body weight 88.05 kg Jessica Vibha DO Work Phone: [facility] 04-05-2023 11:19-0500 Diastolic blood pressure 78 mm[Hg] Jessica Vibha DO Work Phone: [facility] 04-05-2023 11:19-0500 Systolic blood pressure 114 mm[Hg] Jessica Dunne DO Work Phone: [facility] Healthcare Encounters Encounter Date Encounter Type Care Provider Facility Start: 10-18-2024 End: 10-18-2024 Clinisync Result Encounter Generic External Data Provider [facility] External Department Unsolicited Start: 10-18-2024 End: 10-18-2024 Clinisync Result Encounter Generic External Data Provider [facility] External Department Unsolicited Start: 09-25-2024 End: 09-27-2024 Clinisync Result Encounter Generic External Data Provider [facility] External Department Unsolicited Start: 09-25-2024 End: 09-27-2024 Clinisync Result Encounter Generic External Data Provider [facility] External Department Unsolicited Start: 09-25-2024 End: 09-25-2024 Patient encounter procedure Jessica Dunne DO Work Phone: [facility] Harshad MARSH Comment on above: Pre-op examination; Request for sterilization; Menorrhagia with regular cycle; Abnormal uterine bleeding (AUB); Pelvic pain; Complex ovarian cyst Start: 09-25-2024 End: 09-25-2024 Preprocedural examination done Jessica Dunne DO Work Phone: [facility] Start: 09-25-2024 End: 09-25-2024 ambulatory JESSICA DUNNE Not Available Start: 09-19-2024 End: 09-19-2024 Bamboo flowsheet Brynn Bah MD Work Phone: [facility] Start: 09-19-2024 End: 09-19-2024 Bamboo flowsheet Brynn Bah MD Work Phone: [facility] Start: 09-19-2024 End: 09-19-2024 Office outpatient visit 15 minutes Brynn Bah MD Work Phone: [facility] Comment on above: Meniere disease, lef t [...] Bamboo flowsheet Jessica Vibha DO Work Phone: [facility] Start: 09-02-2024 End: 09-05-2024 Bamboo flowsheet Jessica Vibha DO Work Phone: [facility] Start: 09-02-2024 End: 09-05-2024 Clinisync Result Encounter Jessica Vibha DO Work Phone: [facility] External Department Unsolicited Start: 09-02-2024 End: 09-02-2024 Patient encounter procedure Jessica Vibha DO Work Phone: [facility] Healthcare Start: 09-02-2024 End: 09-02-2024 Periodic preventive med est patient 18-39 yrs Jessica Vibha DO Work Phone: [facility] Comment on above: Well woman [...] Office outpatient visit 15 minutes Shaniqua Harris TITLE INSURANCE EXAMINER Work Phone: [facility] Comment on above: Acute middle ear eff usion, left (Primary Dx) Start: 04-09-2024 End: 04-09-2024 ambulatory SHANIQUA HARRIS Not Available Start: 04-09-2024 End: 04-09-2024 Bamboo flowsheet Shaniqua Harris TITLE INSURANCE EXAMINER Work Phone: [facility] Start: 04-09-2024 End: 04-09-2024 Bamboo flowsheet Shaniqua Harris TITLE INSURANCE EXAMINER Work Phone: [facility] Start: 03-25-2024 End: 03-25-2024 Bamboo flowsheet Margaret Gamble TITLE INSURANCE EXAMINER Work Phone: [facility] Start: 03-25-2024 End: 03-25-2024 Bamboo flowsheet Margaret Gamble TITLE INSURANCE EXAMINER Work Phone: [facility] Start: 03-25-2024 End: 03-25-2024 Office outpatient visit 15 minutes Margaret Gamble TITLE INSURANCE EXAMINER Work Phone: [facility] Comment on [...] Start: 12-23-2019 End: 12-24-2019 Patient encounter procedure [facility] Start: 12-23-2019 End: 12-23-2019 Subsequent hospital visit by physician Brynn [facility] Comment on above: Urinary frequency; OAB (overactive bladder); Incomplete bladder emptying Start: 07-25-2019 End: 07-26-2019 Patient encounter procedure [facility] Start: 07-25-2019 End: 07-25-2019 Subsequent hospital visit by physician Brynn DAVID Laboratory Comment on above: Urinary frequency Procedures Date Procedure Procedure Detail Performing Clinician Start: 10-18-2024 XR CHEST 2V Generic External Mannie a Provider Start: 09-25-2024 ALL CA 125 Jessica Vibha [...] Urnls dip stick/tablet reagent auto microscopy Colton Goodman Work Phone: Start: 07-25-2019 Culture bacterial quanttative colony count urine BRYNN BAH Start: 07-25-2019 Urnls dip stick/tablet reagent auto microscopy BRYNN BAH Start: 07-25-2019 Urnls dip stick/tablet reagent auto microscopy Aguilar Woody Work Phone: Plan of Treatment Date Care Activity Detail Author Start: 09-03-2027 Screening for malign ant neoplasm of cervix [facility] Healthcare Start: 08-25-2027 Screening for malign ant neoplasm of cervix [facility] Healthcare Start: 08-27-2026 Screening for malign ant neoplasm of cervix Pap Smear [facility] Start: 08-24-2025 Screening for malign ant neoplasm of cervix Pap Smear [facility] Start: 11-11-2024 End: 11-11-2024 Patient encounter procedure 11/11/2024 1:20 PM EDT Office Visit [facility] [address] [address] Bere Zavala PA [address] [place] [address] [facility] [place] [facility] Start: 10-21-2024 [facility] Start: 09-25-2024 End: 09-25-2025 AFP tumor marker AFP tumor marker Lab Routine Complex ovarian cyst Expected: 09/25/2024 (Approximate), Expires: 09/25/2025 [facility] Comment on above: Expected: 09/25/2024 (Approximate), Expires: 09/25/2025 Start: 09-25-2024 End: 09-25-2025 CA 125 CA 125 Lab Routine Complex ovarian cyst Expected: 09/25/2024 (Approximate), Expires: 09/25/2025 [facility] Comment on above: Expected: 09/25/2024 (Approximate), Expires: 09/25/2025 Start: 09-25-2024 End: 09-25-2025 Carcinoembryonic Ag [Mass/volume] in Serum or Plasma CEA Lab Routine Complex ovarian cyst Expected: 09/25/2024 (Approximate), Expires: 09/25/2025 [facility] Comment on above: Expected: 09/25/2024 (Approximate), Expires: 09/25/2025 Start: 09-25-2024 End: 09-25-2025 HCG, tumor marker HCG, tumor marker Lab Routine Complex ovarian cyst Expected: 09/25/2024 (Approximate), Expires: 09/25/2025 [facility] Comment on above: Expected: 09/25/2024 (Approximate), Expires: 09/25/2025 Start: 09-25-2024 End: 09-25-2025 Lactate dehydrogenase, isoenzymes Lactate dehydrogenase, isoenzymes Lab Routine Complex ovarian cyst Expected: 09/25/2024 (Approximate), Expires: 09/25/2025 [facility] Work Phone: Comment on above: Expected: 09/25/2024 (Approximate), Expires: 09/25/2025 Start: 09-25-2024 End: 09-25-2024 Patient encounter procedure [facility] Start: 09-19-2024 End: 09-19-2024 Patient encounter procedure [facility] Comment on above: Arrived Start: 09-18-2024 End: 09-18-2024 Professional / ancillary services management 09/18/2024 1:00 PM EDT Ancillary Procedure [facility] [address] [phone] [facility] Start: 09-05-2024 End: 09-05-2024 Patient encounter procedure 09/05/2024 1:20 PM EDT Office Visit [facility] [address] [place] [phone] Brynn Bah MD [address] [place], [place] [id number] Arrived [facility] Comment on above: [...] 08-19-2024 Influenza vaccination Influenza Vacc ine (#1) [facility] Comment on above: Postponed from 10/21 (Supply/Drug Shortage) Start: 04-09-2024 End: 04-09-2024 Patient encounter procedure 04/09/2024 4:30 PM EST Office Visit [facility] [address] [place] [phone] Shaniqua Harris NP [address] [facility] [address] [place], [place] [id number] Arrived [facility] Comment on above: Arrived Start: 03-25-2024 End: 03-25-2024 Patient encounter procedure 03/25/2024 1:00 PM EST Office Visit [facility] [address] [facility] [place] [phone] Margaret Gamble NP [address] [facility] [address] [place], [place] [id number] Arrived [facility] Comment on above: Arrived Start: 10-22-2023 Influenza vaccination Influenza Vacc ine (#1) [facility] Start: 08-28-2023 End: 08-28-2023 Patient encounter procedure 08/28/2023 4:00 PM EDT Office Visit [facility] [address] [phone] Jessica Dunne DO [address] [place], [place] [phone] [facility] Start: 04-19-2023 End: 04-19-2023 Patient encounter procedure 04/19/2023 3:20 PM EST Routine [facility] [address] [address] Bere Zavala PA [address] [place], [place] [id number] [facility] Start: 04-19-2023 End: 04-19-2023 Professional / ancillary services management 04/19/2023 3:00 PM EST Ancillary Procedure [facility] [address] [place] [address] [facility] Start: 10-21-2022 Influenza vaccination Influenza Vacc ine (#1) [facility] Start: 01-13-2020 End: 01-13-2020 Procedure visit 01/13/2020 Procedure visit Urology Danyel Carson MD [address], [address] [place], [place] [id number] [facility] Start: 10-31-2019 End: 10-31-2019 Office Visit 10/31/2019 Office Visit Urology Aguilar Woody, TOPSTITCHER [employer] - DESIGNER AND PATTERNMAKER [address] [place] [phone] [facility] Start: 10-22-2019 Influenza vaccination [place], [place] Start: 10-14-2015 DTaP/Tdap/Td vaccine (7 - Td) DTaP/Tdap/Td vaccine (7 - Td) [place], [place] Start: 2009 Screening for malign ant neoplasm of cervix Cervical cancer screen [place], [place] Start: 10-12-2007 DTaP/Tdap/Td vaccine (1 - Tdap) DTaP/Tdap/Td vaccine (1 - Tdap) [place] Start: 10-12-2003 HIV screening HIV screen [place], [place] Start: 1994 Pneumococcal 0-64 ye ars Vaccine (1 of 1 - PPSV23) Pneumococcal 0-64 years Vaccine (1 of 1 - PPSV23) [place], [place] Start: 1989 Varicella vaccine (1 of 2 - 2-dose childhood series) Varicella vaccine (1 of 2 - 2-dose childhood series) [place], [place] CBC W Auto Different ial panel - Blood CBC and differential Lab Routine Menorrhagia with regular cycle Ordered: 09/02/2024 [facility] Comment on above: Ordered: 09/02/2024 End: 12-23-2019 Culture, Urine Culture, Urine Microbiology Routine Urinary frequency OAB (overactive bladder) Incomplete bladder emptying 1 Occurrences starting 12/23/2019 until 12/23/2019 [place] Comment on above: 1 Occurrences starti ng 12/23/2019 until 12/23/2019 Culture, Urine [place] End: 07-25-2019 Culture, Urine Culture, Urine Microbiology Routine Urinary frequency 1 Occurrences starting 07/25/2019 until 07/25/2019 [facility] Comment on above: 1 Occurrences starti ng 07/25/2019 until 07/25/2019 Cytology Cervical or vaginal smear or scraping study Pap Smear Pathology and Cytology Routine Well woman exam with routine gynecological exam Ordered: 09/02/2024 [facility] Work Phone: Comment on above: Ordered: 09/02/2024 hCG, quantitative, hCG, quantitative, Lab Routine Menorrhagia with regular cycle Ordered: 09/02/2024 [facility] Comment on above: Ordered: 09/02/2024 Hemoglobin A1c/Hemoglobin.total in Blood Hemoglobin A1c Lab Routine Menorrhagia with regular cycle Ordered: 09/02/2024 [facility] Comment on above: Ordered: 09/02/2024 Human papilloma viru s DNA [Presence] in Unspecified specimen by Probe with amplification HPV DNA probe, amplified Microbiology Routine Well woman exam with routine gynecological exam Ordered: 09/02/2024 [facility] Comment on above: Ordered: 09/02/2024 Prothrombin time (PT ) in Blood by Coagulation assay Protime-INR Lab Routine Menorrhagia with regular cycle Ordered: 09/02/2024 [facility] Comment on above: Ordered: 09/02/2024 Thyrotropin [Units/v olume] in Serum or Plasma TSH Lab Routine Menorrhagia with regular cycle Ordered: 09/02/2024 [facility] Comment on above: Ordered: 09/02/2024 Thyroxine (T4) free [Mass/volume] in Serum or Plasma T4, free Lab Routine Menorrhagia with regular cycle Ordered: 09/02/2024 [facility] Comment on above: Ordered: 09/02/2024 Immunizations Immunization Date Immunization Notes Care Provider Korey tello 04-25-2006 hepatitis B vaccine, pediatric or pediatric/adolescent dosage Jessica Vibha DO Work Phone: [facility] 11-16-2005 hepatitis B vaccine, pediatric or pediatric/adolescent dosage Jessica Vibha DO Work Phone: [facility] 10-13-2005 hepatitis B vaccine, pediatric or pediatric/adolescent dosage Jessica Vibha DO Work Phone: [facility] 10-13-2005 tetanus toxoid, redu skye diphtheria toxoid, and acellular pertussis vaccine, adsorbed Jessica Vibha DO Work Phone: [facility] 07-13-2001 measles, mumps and rubella virus vaccine Jessica Vibha DO Work Phone: [facility] 08-16-1993 diphtheria, tetanus toxoids and acellular pertussis vaccine, unspecified formulation Jessica Vibha DO Work Phone: [facility] 08-16-1993 trivalent poliovirus vaccine, live, oral Jessica Vibha DO Work Phone: [facility] 01-14-1991 diphtheria, tetanus toxoids and pertussis vaccine Jessica Vibha DO Work Phone: [facility] 01-14-1991 trivalent poliovirus vaccine, live, oral Jessica Vibha DO Work Phone: [facility] 06-11-1990 haemophilus influenz ae type b vaccine, conjugate unspecified formulation Jessica Vibha DO Work Phone: [facility] 06-11-1990 measles, mumps and rubella virus vaccine Jessica Vibha DO Work Phone: [facility] 12-11-1989 diphtheria, tetanus toxoids and pertussis vaccine Jessica Vibha DO Work Phone: [facility] 10-09-1989 diphtheria, tetanus toxoids and pertussis vaccine Jessica Vibha DO Work Phone: [facility] 10-09-1989 trivalent poliovirus vaccine, live, oral Jessica Vibha DO Work Phone: [facility] 05-01-1989 diphtheria, tetanus toxoids and pertussis vaccine Jessica Vibha DO Work Phone: [facility] 05-01-1989 trivalent poliovirus vaccine, live, oral Jessica Vibha DO Work Phone: [facility] Payers Date Payer Category [facility] [id number] 2022 Unknown BCBS BCBS [id number] 2022-Present [phone] [address] [place] [id number] 2022 Unknown [id number] 2014 Private Health Insurance [employer] A ETNA NAP CHOICE POS II xxxxxxxxxx 2014-Present [phone] [address] [place] [address] xxxxxxxxxx [id number] 1988 Unknown [id number] .[id number] 1988 Unknown [id number] .173 1988 Unknown [id number] .593 1988 Unknown [id number] .1259 1988 Unknown [id number] .1259 1988 Unknown [id number] .1259 1988 Unknown [id number] [id number] .9 1988 Unknown [id number] 2.16.840.1.118912.3.579.2 .9 1988 Unknown [id number] 2.16.840.1.451990.3.579.2 .1258 1988 Unknown [id number] 2.16.840.1.512076.3.579.2 .9 1988 Unknown [id number] 2.16.840.1.347453.3.579.2 .9 1988 Unknown [id number] .1259 1959 Private Health Insurance [id number] Social History Date Type Detail Facility Start: 02-20-2003 End: 03-25-2024 Tobacco smoking status NCIS Current every day smoker [facility] Start: 02-20-2003 History of tobacco use Cigarette Smoker [place], [place] Start: 12-23-2019 End: 05-14-2024 Cigarettes smoked current (pack per day) - Reported [facility] Start: 12-23-2019 Tobacco use and exposure Never used [place] Start: 12-23-2019 End: 09-25-2024 Alcohol intake Current drinker of alcohol (finding) [place] Start: 07-25-2019 Alcohol Comment rare [place] Sex Assigned At Not on file [place] Start: 01-09-2023 End: 05-14-2024 Alcohol Use [...] 31-60 minutes of waking up.Thinking about quitting [facility] Start: 08-10-2022 Alcohol Comment 5 or 6 drinks; 2 to 4 times a month. caffeine: 1-2 cups/day soda/pop [facility] Start: 08-23-2022 [facility] Start: 1990 Sex Assigned At Female [facility] Start: 08-09-2022 Gender identity Identifies as female gender (finding) [facility] Clinical Notes 04-05-2023 to 09-25-2024 Wilma Perez - 09/25/2024 1:30 PM EDTMjersey Bah MD - 09/19/2024 1:20 PM EDMary Bah MD - 09/05/2024 1:20 PM EDTMcarli [...] with Dr. Dunne at [facility]. appointment. MEDICATIONS Current Outpatient Medications Medication Instructions [...] Ambulatory Problems Diagnosis Date Noted Antepartum anemia ([facility]) 02/09/2023 Second trimester ([facility]) 02/09/2023 Third trimester ([facility]) 02/22/2023 Past Medical History: Diagnosis Date [...] nursing note reviewed. Exam conducted with a real estate sales manager present. Vitals: Estimated body mass index [...] after allowing sufficient time to take affect. chicken picker and scissors used to remove affected [...] reviewed, and patient is to proceed to [facility] OR. Reviewed ultrasound, 5.1cm cyst noted pt given tumor markers to have obtained. Follow Up: Patient is to follow up between 1-2 weeks post op to assess proper healing and recovery from procedure. Documented by Laura Barakat LPN on behalf of: Jessica Dunne DO documented in this encounter [facility] 09-19-2024 History of Presen t illness [...] Assessment & Plan documented in this encounter [facility] 09-05-2024 History of Presen t illness [...] in 2 weeks. documented in this encounter [facility] 09-02-2024 History of Presen t illness [...] Ambulatory Problems Diagnosis Date Noted Antepartum anemia ([facility]) 02/09/2023 Second trimester ([facility]) 02/09/2023 Third trimester ([facility]) 02/22/2023 Past Medical History: Diagnosis Date [...] nursing note reviewed. Exam conducted with a real estate sales manager present. Vitals: Estimated body mass index [...] w/ TV 4. headache in second trimester ([facility]) O26.892 magnesium oxide (Mag-Ox) 400 (240 [...] Dr. Jessica Dunne, documented in this encounter [facility] 06-12-2024 History of Presen t illness [...] resolve without tx. documented in this encounter [facility] 04-09-2024 History of Presen t illness [...] feeling any better documented in this encounter [facility] 03-25-2024 History of Presen t illness [...] markedly worsening symptoms. documented in this encounter [facility] 04-05-2023 History of Presen t illness [...] nursing note reviewed. Exam conducted with a real estate sales manager present. 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 Advance Directives and Living Will Power of Airfreight Loading Supervisor Summary Purpose Family History No Family History Records FoundNo Family History Records FoundNo Family History Records Found Additional Source Comments INFORMATION SOURCE (unrecogn ized section and content) DATE CREATED AUTHOR 12/25/2019 [facility] DATE CREATED AUTHOR AUTHOR'S ORGANIZ ATION 08/06/2021 [facility] DATE CREATED AUTHOR AUTHOR'S ORGANIZ ATION 09/28/2024 [facility] EPIC Reason for Visit (unrecogniz ed section and content) Reason Comments Routine Visit Reason Comments Earache Reason Comments Ear Fullness Reason Comments Otitis Media Specialty Diagnoses / Procedures Referred By Contac t Referred To Contact Otolaryngology Diagnoses Chronic allergic otitis media of left ear Procedures FL OFFICE/OUTPATIENT [facility] 60 MINUTES Brynn Bah MD [address] [place] [address] Phone: tel: fax: Trish Og MD [address] [address] Phone: tel: fax: Referral ID Status Reason Start Date Expiration Date V isits Requested Visits Authorized [id number] Closed Specialty Services Required 05/14/2024 11/10/2024 1 1 Reason Comments [facility] Visit Reason Comments Nausea Headache Earache Left. Reason Comments Follow-up Reason Comments Pre-op Visit [facility] Care Teams (unrecognized sec tion and content) Senior Attorney Relationship Specialty Start Date End Date Brynn Bah MD [address] [place] [address] PCP - General Family Medicine 08/10/22 Ana Rosa Hazel TITLE INSURANCE EXAMINER [address] [place] [address] PCP - [place] [employer] 09/20/22 Senior Attorney Relationship Specialty Start Date End Date Brynn Bah MD [address] [place] [address] PCP - General Family Medicine 08/10/22 Ana Rosa Hazel TITLE INSURANCE EXAMINER PCP - [place] [employer] 08/20/22 Senior Attorney Relationship Specialty Start Date End Date Brynn Bah MD [address] [place] [address] PCP - General Family Medicine 08/10/22 Ana Rosa Hazel NP PCP - [place] [employer] 08/20/22 Senior Attorney Relationship Specialty Start Date End Date Brynn Bah MD [address] [place] [address] PCP - General Family Medicine 08/10/22 Ana Rosa Hazel, TITLE INSURANCE EXAMINER PCP - [place] [employer] 08/20/22 Senior Attorney Relationship Specialty Start Date End Date Brynn Bah MD [address] [place] [address] PCP - General Family Medicine 08/10/22 Ana Rosa Hazel, TITLE INSURANCE EXAMINER PCP - [place] [employer] 08/20/22 Senior Attorney Relationship Specialty Start Date End Date Brynn Bah MD [address] [place] [address] PCP - General Family Medicine 08/10/22 Ana Rosa Hazel, TITLE INSURANCE EXAMINER PCP - [place] [employer] 08/20/22 Senior Attorney Relationship Specialty Start Date End Date Brynn Bah MD [address] [facility] [place] [address] PCP - General Family Medicine 08/10/22 Senior Attorney Relationship Specialty Start Date End Date Brynn Bah MD [address] [facility] [place] [address] PCP - General Family Medicine 08/10/22 Senior Attorney Relationship Specialty Start Date End Date Brynn Bah MD [address] [facility] [place] [address] PCP - General Family Medicine 08/10/22 Senior Attorney Relationship Specialty Start Date End Date Brynn Bah MD [address] [facility] [place] [address] PCP - General Family Medicine 08/10/22 Senior Attorney Relationship Specialty Start Date End Date Brynn Bah MD [address] [facility] [place] [address] PCP - General Family Medicine 08/10/22 Senior Attorney Relationship Specialty Start Date End Date Brynn Bah MD [address] [place] [address] PCP - General Family Medicine 08/10/22 Senior Attorney Relationship Specialty Start Date End Date Brynn Bah MD [address] [place] [address] PCP - General Family Medicine 08/10/22 Senior Attorney Relationship Specialty Start Date End Date Brynn Bah MD [address] [place] [address] PCP - General Family Medicine 08/10/22 Senior Attorney Relationship Specialty Start Date End Date Brynn Bah MD [address] [place] [address] PCP - General Family Medicine 08/10/22 FOR [...] BE BASED ON THE PRIMARY CLINICAL RECORDS. [employer] [facility]. provides no warranty or guarantee of the accuracy or completeness of information in this document.
[2024-10-24 10:27] LABS: Hematocrit 37.2 % (36.0-48.0); Hemoglobin 12.6 g/dL (12.0-16.0); Immature Granulocytes Abs Auto 0.01 10^3/uL (0.00-0.03); Immature Granulocytes Pct Auto 0.1 % (0.0-0.5); Lymphocytes Absolute Auto 3.0 10^3/uL (1.2-3.8); Mean Corpuscular HGB Conc 33.9 g/dL (29.9-35.2); Mean Corpuscular Hemoglobin 27.6 pg (26.7-34.0); Mean Corpuscular Volume 81.6 fL (81.0-99.0); Platelet Count 271 10^3/uL (150-450); Red Blood Count 4.56 10^6/uL (4.20-5.40); White Blood Count 8.1 10^3/uL (4.0-11.0)
--- NOTE | 2024-10-24 12:50 | PM.ONB ---
Brief Operative Note Date of procedure: 10/24/24 Pre-op diagnosis general: desires permanent sterilization Post-op diagnosis: same as pre-op Procedure: NAME OF PROCEDURE: robotic assisted bilateral laparoscopic salpingectomy PROCEDURE: The patient was taken back to the Operating Room where she was given general anesthesia without difficulty. She was then prepped and draped in the normal sterile fashion after being placed in a dorsal lithotomy position. A wet sponge stick was placed into the patient's vagina. Attention was then turned to the patient's abdomen, where a scalpel was used to make a small infraumbilical incision. The S retractors were then used to dissect the underlying layers until the fascia could be seen. The fascia was then grasped with Julián clamps and tented up. A knife was then used to make a small incision to the fascia. The muscle was identified, at that time two sutures of #0 Vicryl on a GI needle was then used and placed through the fascia. the peritoneum was then identified and entered bluntly. The 10-4 Stella was then placed into the patient's abdomen. This was confirmed with direct visualization of the bowel, using the laparoscope. The patient's abdomen was then insufflated using approximately 4 liters of CO2 gas. Survey of the patient's abdomen demonstrated ovaries were normal in appearance as well as both tubes and uterus. A second and third rt and lt lateral robotic ports which were 8 mm in size, was then placed after the skin incision was made under direct visualization . the robotic arms were engaged. The patient's tube on the patient's right side was identified and tented up using a grasper, the ligasure apparatus was then used to come across the mesosalpingx from the fimbriated end to the insertion site at the uterus, the tube was then amputated and removed in its entirety. This was done on the contralateral side. The tubes were the removed from the patients abdomen. Excellent hemostasis was noted. The lateral ports were then moved under direct visualization with excellent hemostasis. All instruments were removed from the patient's abdomen. The fascia was closed using the #0 Vicryl on GI needle. The skin was closed using 4-0 Vicryl subcuticularly. All instruments were removed from the patient's vagina as well. The patient was taken out of the dorsal lithotomy position and placed in the supine position and taken to recovery in stable condition. Sponge, lap and needle counts were correct x2. Anesthesia: OSKAR Surgeon: Kvng Dunne Hardwood Floor Layer: Yi Schreiber Estimated blood loss (mL): 5 Pathology: other (tubes) Condition: stable Disposition: PACU Urinary Catheter Management Urinary Catheter Management Urethral: Cath placed during this visit: no
--- NOTE | 2024-10-24 13:47 | PC.NURSE ---
repositioned patient o help with low Blood pressure. Patient is relaxed and asleep but stable. Talks when spoken to and responds to staff.
== END 2024-10-24 15:40 | disposition home or self-care (01) ==
PROVIDERS: PCP Family Medicine; Visit Provider Obstetrics & Gynecology
PROC: (CPT 840; principal; 2024-10-24 11:50)
PROC: (CPT 840; 2024-10-24 11:50)
DX: Z30.2 Encounter for sterilization (principal); N92.0 Excessive and frequent menstruation with regular cycle; N93.9 Abnormal uterine and vaginal bleeding, unspecified; R10.2 Pelvic and perineal pain; F17.290 Nicotine dependence, other tobacco product, uncomplicated; K21.9 Gastro-esophageal reflux disease without esophagitis
CPT/HCPCS: 58563; 58661; 36415; 84702; 85025; J0131; J1100; J1171; J1200; J1885; J2371; J2405; J2704